=== PATIENT | female | born 1935 | race African-American/Black ===

== ENCOUNTER 2017-04-14 11:33 | Inpatient (IN) | payer MEDICARE, OTHER ==
[2017-04-14] VITALS (9 sets, daily range): BP systolic 88–152; BP diastolic 60–88
[~2017-04-14] VITALS: Ht 165.1 cm; Wt 78.9 kg
[2017-04-14] MEDS ORDERED: IV NORMAL SALINE 1000ML BAG 1,000 ML IV SCH (11:38)
[2017-04-14] MEDS ORDERED: 0.9 % SODIUM CHLORIDE 10 ML DISP.SYRIN. IV PRN (11:45)
[2017-04-14 12:12] LABS: BASO % 1 % (0-3); EOS % 2 % (0-3); HEMATOCRIT 33.1 % (36.0-47.0); HEMOGLOBIN 10.8 g/dL (12.0-15.5); LYMPH # 0.9 x10^3/uL (1.0-4.8); LYMPH % 11 % (24-48); MEAN CORPUSCULAR HEMOGLOBIN 33 pg (25-35); MEAN CORPUSCULAR HGB CONC 33 g/dL (31-37); MEAN CORPUSCULAR VOLUME 100 fL (79-100); MONO % 7 % (0-9); NEUT % 80 % (31-73); PLATELET COUNT 226 x10^3/uL (140-400); RED BLOOD COUNT 3.32 x10^6/uL (3.50-5.40); RED CELL DISTRIBUTION WIDTH 14.4 % (11.5-14.5); WHITE BLOOD COUNT 8.7 x10^3/uL (4.0-11.0)
--- NOTE | 2017-04-14 12:14 | PHYS DOC ---
Past Medical History Past Medical History: Anemia, CAD, CHF, CVA, Dementia, Depression, GERD, High Cholesterol, Hypertension, Hypothyroid, PA, Other Additional Past Medical Histor: CHRONIC BACK PAIN Past Surgical History: Other Additional Past Surgical Histo: UNKNOWN Alcohol Use: None Drug Use: None Adult General Chief Complaint Chief Complaint: ABNORMAL LABS HPI HPI Patient is a 81 year old female who presents with abdominal pain and back pain. Patient presents from residential where she was noted to have acute onset of generalized abdominal pain and lower back pain which is sharp and continuous. She reports associated vomiting times one and one episode of diarrhea. Denies fevers or chills, hematemesis, chest pain, shortness of breath , hematochezia or melena, dysuria or hematuria, extremity numbness or weakness. Staff reported she became hypotensive at that facility. She has history of CAD, CHF, CVA, dementia. PCP is Dr. Gold. Review of Systems Review of Systems Constitutional: Denies fever or chills Eyes: Denies change in visual acuity HENT: Denies nasal congestion or sore throat Respiratory: Denies cough or shortness of breath Cardiovascular: Denies chest pain or edema GI: Reports abdominal pain, nausea, vomiting, and diarrhea, denies bloody stools : Denies dysuria or hematuria Musculoskeletal: Reports back pain, denies Joint pain Integument: Denies rash or skin lesions Neurologic: Denies headache, focal weakness or sensory changes All other systems were reviewed and found to be within normal limits, except as documented in this note. Current Medications Current Medications Current Medications Medications (Trade) Dose Ordered Sig/Jian Start Time Stop Time Status Last Admin Dose Admin Fentanyl Citrate (Fentanyl 2ml Vial) 50 mcg PRN Q15MIN PRN 04/14/17 11:45 04/15/17 11:44 04/14/17 13:50 50 MCG Ondansetron HCl (Zofran) 4 mg 1X ONCE 04/14/17 13:15 04/14/17 13:16 DC 04/14/17 13:28 4 MG Sodium Chloride (Normal Saline Flush) 10 ml QSHIFT PRN 04/14/17 11:45 Allergies Allergies Allergies Coded Allergies Type Severity Reaction Last Updated Verified morphine Allergy Mild VOMITING 02/11/15 No Physical Exam Physical Exam Constitutional: Well developed, well nourished, no acute distress, non-toxic appearance. HENT: Normocephalic, atraumatic, bilateral external ears normal, oropharynx moist, nose normal. Eyes: conjunctiva normal, no discharge. Neck: supple, no stridor. Cardiovascular: RRR, no murmurs, no edema. Lungs & Thorax: LCTAB, no wheezing, no respiratory distress. Abdomen: soft, moderate generalized tenderness without rebound/guarding, no focal RUQ or RLQ tenderness, no masses or pulsatile masses, nondistended. Skin: Warm, dry, no erythema, no rash. Back: No CVA tenderness, no focal spinal tenderness or step offs. Extremities: No tenderness, no edema. symmetric strength & sensation to upper & lower extremities, distal pulses palpable bilateral lower extremities. Neurologic: Alert and oriented X 3, no focal deficits noted. Psychologic: Affect normal, judgement normal, mood normal. Current Patient Data Vital Signs Vital Signs Date Time Temp Pulse Resp B/P (MAP) Pulse Ox O2 Delivery O2 Flow Rate FiO2 04/14/17 13:30 88 22 130/72 (91) 93 Room Air 04/14/17 11:33 98.9 98.9 Lab Values Laboratory Tests Test 04/14/17 11:55 04/14/17 12:30 White Blood Count 8.7 x10^3/uL (4.0-11.0) Red Blood Count 3.32 x10^6/uL (3.50-5.40) L Hemoglobin 10.8 g/dL (12.0-15.5) L Hematocrit 33.1 % (36.0-47.0) L Mean Corpuscular Volume 100 fL (79-100) Mean Corpuscular Hemoglobin 33 pg (25-35) Mean Corpuscular Hemoglobin Concent 33 g/dL (31-37) Red Cell Distribution Width 14.4 % (11.5-14.5) Platelet Count 226 x10^3/uL (140-400) Neutrophils (%) (Auto) 80 % (31-73) H Lymphocytes (%) (Auto) 11 % (24-48) L Monocytes (%) (Auto) 7 % (0-9) Eosinophils (%) (Auto) 2 % (0-3) Basophils (%) (Auto) 1 % (0-3) Neutrophils # (Auto) 7.0 x10^3uL (1.8-7.7) Lymphocytes # (Auto) 0.9 x10^3/uL (1.0-4.8) L Monocytes # (Auto) 0.6 x10^3/uL (0.0-1.1) Eosinophils # (Auto) 0.1 x10^3/uL (0.0-0.7) Basophils # (Auto) 0.0 x10^3/uL (0.0-0.2) Sodium Level 139 mmol/L (136-145) Potassium Level 3.5 mmol/L (3.5-5.1) Chloride Level 101 mmol/L (98-107) Carbon Dioxide Level 22 mmol/L (21-32) Anion Gap 16 (6-14) H Blood Urea Nitrogen 62 mg/dL (7-20) H Creatinine 4.3 mg/dL (0.6-1.0) H Estimated GFR (Cockcroft-Gault) 12.0 Glucose Level 171 mg/dL (70-99) H Lactic Acid Level 0.9 mmol/L (0.4-2.0) Calcium Level 9.8 mg/dL (8.5-10.1) Magnesium Level 1.5 mg/dL (1.8-2.4) L Total Bilirubin 0.4 mg/dL (0.2-1.0) Direct Bilirubin 0.1 mg/dL (0.0-0.2) Aspartate Amino Transferase (AST) 40 U/L (15-37) H Alanine Aminotransferase (ALT) 20 U/L (14-59) Alkaline Phosphatase 49 U/L (46-116) Creatine Kinase 584 U/L (26-192) H Creatine Kinase MB (Mass) 13.3 ng/mL (0.0-3.6) H Creatine Kinase MB Relative Index 2.3 % (0-4) Troponin I Quantitative < 0.017 ng/mL (0.000-0.055) C-Reactive Protein, Quantitative 33.8 mg/L (0-3.3) H Total Protein 7.4 g/dL (6.4-8.2) Albumin 3.8 g/dL (3.4-5.0) Lipase 251 U/L (73-393) Thyroid Stimulating Hormone (TSH) 1.628 uIU/mL (0.358-3.74) Urine Collection Type U cath Urine Color Yellow Urine Clarity Clear Urine pH 5.5 Urine Specific [place] 1.020 Urine Protein Negative mg/dL (NEG-TRACE) Urine Glucose (UA) Negative mg/dL (NEG) Urine Ketones (Stick) Negative mg/dL (NEG) Urine Blood Negative (NEG) Urine Nitrite Negative (NEG) Urine Bilirubin Small (NEG) Urine Urobilinogen Dipstick 0.2 mg/dL (0.2 mg/dL) Urine Leukocyte Esterase Negative (NEG) Urine RBC 0 /HPF (0-2) Urine WBC 0 /HPF (0-4) Urine Amorphous Sediment Present /HPF Urine Bacteria 0 /HPF (0-FEW) Urine Hyaline Casts Many /HPF Laboratory Tests 04/14/17 11:55 Laboratory Tests 04/14/17 11:55 EKG EKG interpreted by me: irregularly irregular rate 96 afib/flutter, LBBB[] Radiology/Procedures Radiology/Procedures PROCEDURE: CT ABDOMEN PELVIS WO CONTRAST CT study of the abdomen and pelvis without contrast Indications: Abdominal pain which radiates to the back. Hypotension. Technique: Noncontrast helical CT scanning of the abdomen and pelvis was performed. Without contrast, the sensitivity to detect organ pathology and GI tract pathology is decreased. PQRS Compliance Statement: One or more of the following individualized dose reduction techniques were utilized for this examination: 1. Automated exposure control 2. Adjustment of the mA and/or kV according to patient size 3. Use of iterative reconstruction technique Comparison: August 03, 2010 CT study. Findings: The liver and spleen and pancreas are homogeneous in appearance on this noncontrast study. The gallbladder is surgically absent. No adrenal mass is evident. No hydronephrosis or hydroureter is seen. Small hyperdense posterior left renal cyst is seen which is unchanged in size from the previous study. The urinary bladder wall is smooth. There is tiny bubble of air within the dome of the urinary bladder. This may be due to recent catheterization or the short length of the female urethra. There is abdominal aortic aneurysm which starts just below the origin of the renal arteries. The aneurysm measures up to 6.6 cm in greatest AP or transverse dimension. This has increased in size from the previous study when it measured 4.4 cm. There is some calcified plaque within the anterior wall of the aneurysm. Displacement of the calcified wall secondary to a dissection or bleeding within the wall of the aneurysm are certainly possible. No periaortic soft tissue thickening or fluid is evident. Calcified plaque formation is seen within the iliac arteries bilaterally. Sigmoid diverticulosis is seen without diverticulitis. No obstructive bowel pattern is seen. The appendix is distended measuring 10 mm and contains an appendicolith. No free air or free fluid is evident. No enlarged abdominal or pelvic lymphadenopathy is seen. Bibasilar atelectasis is seen. The heart size is enlarged. No osteolytic process is seen. Grade 1 anterolisthesis of L4-5 and left L5-S1 is seen. IMPRESSION: Enlarging mid and distal abdominal aortic aneurysm now measuring up to 6.6 cm in greatest caliber. There is some calcification within the anterior wall of the aneurysm. This could represent calcified plaque but displacement of the wall secondary to a dissection or bleeding within the wall of the aneurysm are certainly possible. The appendix contains a appendicolith within the tip. The appendix is mildly distended measuring up to 10 mm. This is abnormal and may be seen with early appendicitis. No periappendiceal inflammatory change or free fluid is seen however. Cardiomegaly. DICTATED and SIGNED BY: VALERIANO HOLCOMB MD DATE: 04/14/17 1252[] Course & Med Decision Making Course & Med Decision Making Pertinent Labs and Imaging studies reviewed. (See chart for details) The patient presents with abdominal pain and back pain with reported hypotension at her residential. Here she is hypertensive. She is a vague historian likely because of her history of dementia. Reportedly she has had acute onset of anemia with 3. decrease in hemoglobin and onset acute renal failure, previous baseline 1.3. Transferred from residential for further evaluation, here appears to be in no distress. Hemoglobin 10.8 here, acute renal failure with creatinine of 4.3. CT concerning for enlarging abdominal aortic aneurysm, difficult to fully evaluate as she could not receive IV contrast. Concerning for possible dissection or bleeding but no evidence of hematoma on this study. Consulted with Dr. Fermin of vascular surgery who recommends admission at this time and he will evaluate the patient to determine next steps of treatment. At this time there is no family presents to have discussion of goals of care but patient has paperwork indicating full CODE STATUS and she herself indicates that this is her wish. She does not know for sure if she would wish to undergo an aggressive surgeries so I will let her discuss at length with the surgeon who would perform the procedure. Also discussed case with Dr. Whelan of general surgery as there was possible early appendicitis. Certainly this is a lesser concern that her potentially life- threatening condition with aortic aneurysm. For now he recommends medical management, will give Zosyn at this time. They will consult for possible surgical management pending vascular surgery recommendations. Discussed with Dr. Gold who agrees to admit to inpatient status, to the ICU. We will type and cross for blood to hold to be administered emergently in the event of acute decompensation. The patient is being admitted in critical condition, though vitals stable at this time. Critical care time: 40 minutes [] Dragon Disclaimer Dragon Disclaimer This electronic medical record was generated, in whole or in part, using a voice recognition dictation system. Departure Departure Impression: Primary Impression: Enlarging abdominal aortic aneurysm Additional Impressions: Acute renal failure Anemia Referrals: FAUSTO GOLD MD (PCP) Problem Qualifiers RENE GIVENS MD Apr 14, 2017 12:14
[2017-04-14] MEDS ORDERED: ONDANSETRON PF 4 MG/2 ML VIAL. IV ONE ×2 (12:15→13:15)
[2017-04-14] MEDS: fentaNYL PF VIAL 100 MCG/2 ML VIAL IV PRN ×3 (12:32→20:48)
[2017-04-14 12:43] LABS: CALCIUM 9.8 mg/dL (8.5-10.1); CREATININE 4.3 mg/dL (0.6-1.0); POTASSIUM 3.5 mmol/L (3.5-5.1)
[2017-04-14 12:47] LABS: ALBUMIN 3.8 g/dL (3.4-5.0); DIRECT BILIRUBIN 0.1 mg/dL (0.0-0.2); MAGNESIUM 1.5 mg/dL (1.8-2.4); TOTAL BILIRUBIN 0.4 mg/dL (0.2-1.0); TOTAL PROTEIN 7.4 g/dL (6.4-8.2)
[2017-04-14 12:49] LABS: BILIRUBIN,URINE SMALL (NEG); GLUCOSE,URINE NEGATIVE (NEG); NITRITE,URINE NEGATIVE (NEG); PH,URINE 5.5; PROTEIN,URINE NEGATIVE (NEG-TRACE); UROBILINOGEN,URINE 0.2 mg/dL (0.2 mg/dL)
[2017-04-14 12:56] LABS: C-REACTIVE PROTEIN 33.8 mg/L (0-3.3)
[2017-04-14 12:58] LABS: BACTERIA,URINE 0 /HPF (0-FEW); RBC,URINE 0 /HPF (0-2); WBC,URINE 0 /HPF (0-4)
--- NOTE | 2017-04-14 13:12 | RAD ---
CT study of the abdomen and pelvis without contrast Indications: Abdominal pain which radiates to the back. Hypotension. Technique: Noncontrast helical CT scanning of the abdomen and pelvis was performed. Without contrast, the sensitivity to detect organ pathology and GI tract pathology is decreased. PQRS Compliance Statement: One or more of the following individualized dose reduction techniques were utilized for this examination: 1. Automated exposure control 2. Adjustment of the mA and/or kV according to patient size 3. Use of iterative reconstruction technique Comparison: August 03, 2010 CT study. Findings: The liver and spleen and pancreas are homogeneous in appearance on this noncontrast study. The gallbladder is surgically absent. No adrenal mass is evident. No hydronephrosis or hydroureter is seen. Small hyperdense posterior left renal cyst is seen which is unchanged in size from the previous study. The urinary bladder wall is smooth. There is tiny bubble of air within the dome of the urinary bladder. This may be due to recent catheterization or the short length of the female urethra. There is abdominal aortic aneurysm which starts just below the origin of the renal arteries. The aneurysm measures up to 6.6 cm in greatest AP or transverse dimension. This has increased in size from the previous study when it measured 4.4 cm. There is some calcified plaque within the anterior wall of the aneurysm. Displacement of the calcified wall secondary to a dissection or bleeding within the wall of the aneurysm are certainly possible. No periaortic soft tissue thickening or fluid is evident. Calcified plaque formation is seen within the iliac arteries bilaterally. Sigmoid diverticulosis is seen without diverticulitis. No obstructive bowel pattern is seen. The appendix is distended measuring 10 mm and contains an appendicolith. No free air or free fluid is evident. No enlarged abdominal or pelvic lymphadenopathy is seen. Bibasilar atelectasis is seen. The heart size is enlarged. No osteolytic process is seen. Grade 1 anterolisthesis of L4-5 and left L5-S1 is seen. IMPRESSION: Enlarging mid and distal abdominal aortic aneurysm now measuring up to 6.6 cm in greatest caliber. There is some calcification within the anterior wall of the aneurysm. This could represent calcified plaque but displacement of the wall secondary to a dissection or bleeding within the wall of the aneurysm are certainly possible. The appendix contains a appendicolith within the tip. The appendix is mildly distended measuring up to 10 mm. This is abnormal and may be seen with early appendicitis. No periappendiceal inflammatory change or free fluid is seen however. Cardiomegaly.
[2017-04-14 13:29] LABS: CKMB MASS 13.3 ng/mL (0.0-3.6)
[2017-04-14] MEDS: IV NORMAL SALINE 1000ML BAG 1,000 ML IV SCH ×2 (13:47→23:58)
[2017-04-14] MEDS ORDERED: ONDANSETRON PF 4 MG/2 ML VIAL. IV PRN (14:00)
--- NOTE | 2017-04-14 14:02 | EKG ---
[facility] [address] [place] [address] Test Date: 2017-04-14 Test Time: 12:14:18 Pat Name: EDWIN ADAMS Department: Room: 114 1 Gender: F [employer]: : 1935 Requested By: JOSHUA DOMINGO Order Number: [id number] Reading MD: Cezar Jamil MD Measurements Intervals [place] Rate: 96 P: [place]: QRS: 28 QRSD: 162 T: 108 QT: 394 QTc: 505 Interpretive Statements SR LBBB NON-SPECIFIC ST/T CHANGES Electronically Signed On 04-18-2017 10:42:31 COLORING ROOM MAN by Cezar Jamil MD
[2017-04-14] MEDS ORDERED: PIPERACILLIN/TAZOBACTAM 4.5 GM in IV DEXTROSE 5% 100 ML IV ONE (14:15)
[2017-04-14] MEDS ORDERED: PIPERACILLIN/TAZO IV Push 3.375 GM VIAL. IVP ONE (14:15)
--- NOTE | 2017-04-14 15:44 | EKG ---
[facility] [address] [place] [address] Test Date: 2017-04-14 Test Time: 15:40:51 Pat Name: EDWIN ADAMS Department: Room: 114 1 Gender: F Online Producer: OPAL : 1935 Requested By: FAUSTO BATEMAN Order Number: [id number] Reading MD: Cezar Jamil MD Measurements Intervals [place] Rate: 96 P: [place]: QRS: 43 QRSD: 156 T: 102 QT: 394 QTc: 499 Interpretive Statements ATRIAL FIB/FLUTTER NON SPECIFIC INTRAVENTRICULAR BLOCK ABNORMAL ECG Electronically Signed On 04-18-2017 10:48:17 [employer] DIETITIAN by Cezar Jamil MD
[2017-04-14] MEDS ORDERED: BACL10TA PO (16:25)
[2017-04-14] MEDS ORDERED: MAGN400O7 PO (16:25)
[2017-04-14] MEDS ORDERED: ACET325T9 PO (16:25)
[2017-04-14] MEDS ORDERED: RANO500T2 PO (16:25)
[2017-04-14] MEDS ORDERED: LOPE2CAP PO (16:25)
[2017-04-14] MEDS ORDERED: HYDR-2868 PO (16:25)
[2017-04-14] MEDS ORDERED: LEVO100T5 PO (16:25)
[2017-04-14] MEDS ORDERED: SERT50TA8 PO (16:25)
[2017-04-14] MEDS ORDERED: ISOS60TA2 PO (16:25)
[2017-04-14] MEDS ORDERED: ASPI1CPM PO (16:25)
[2017-04-14] MEDS ORDERED: LISI-334 PO (16:25)
[2017-04-14] MEDS ORDERED: FURO40TA4 PO (16:25)
[2017-04-14] MEDS ORDERED: OXYB5TAB PO (16:25)
[2017-04-14] MEDS ORDERED: EZET10TA18 PO (16:25)
[2017-04-14] MEDS ORDERED: GABA-586 PO (16:25)
[2017-04-14] MEDS ORDERED: LOPE2CAP3 PO (16:25)
[2017-04-14] MEDS ORDERED: METO-239 PO (16:25)
[2017-04-14] MEDS ORDERED: FAMO20TA5 PO (16:25)
[2017-04-14] MEDS ORDERED: CHLO25TA PO (16:25)
[2017-04-14 16:49] LABS: BILIRUBIN,URINE NEGATIVE (NEG); GLUCOSE,URINE NEGATIVE (NEG); NITRITE,URINE NEGATIVE (NEG); PH,URINE 5.5; PROTEIN,URINE NEGATIVE (NEG-TRACE); UROBILINOGEN,URINE 0.2 mg/dL (0.2 mg/dL)
[2017-04-14 16:58] LABS: BACTERIA,URINE 0 /HPF (0-FEW); WBC,URINE 0 /HPF (0-4)
[2017-04-14 16:59] LABS: SQUAMOUS EPITHELIAL CELL,UR FEW /LPF
--- NOTE | 2017-04-14 17:01 | PDOC2 ---
CONSULT Date of Consult Date of Consult DATE: 04/14/17 TIME: 15:14 Reason for Consult Reason for Consult: Abdominal aortic aneurysm Referring Physician Referring Physician: Elana Gold M.D. Identification/Chief Complaint Chief Complaint Acute onset of abdominal and low back pain with diarrhea. Problems: (1) Cardiac dysrhythmia (2) Enlarging abdominal aortic aneurysm (3) Acute renal failure (4) CVA (cerebral vascular accident) Source Source: Chart review, Patient History of Present Illness Reason for Visit: This is a 81-year-old female with a history of dementia who resides at an assisted living residence. Staff reported that the patient developed acute onset of abdominal pain, lower back pain and diarrhea. Emergency room records state the patient had emesis x1. A CT of the abdomen and pelvis was obtained and concerning for an abdominal aortic aneurysm measuring 6.6 cm in AP dimension. Apparently, the CT was compared to a previous CT from 2010 which does indicate AAA enlargement from 4.4 cm. Additionally, the CT indicates an appendix that contains a appendicolith within the tip and is mildly distended measuring up to 10 mm. Previous records have been reviewed. The patient does have a history of CAD having had coronary artery bypass surgery and a history of remote stroke 2 years ago. The patient tells me the staff at her facility stated her blood pressure was low but upon arrival to the Emergency Room, she has been either hypertensive or normotensive. Vascular Surgery has been consulted for an abdominal aortic aneurysm with concern for leaking or dissection based upon presenting symptoms. The CT has been reviewed by Dr. Jenny Desai and she does not feel the aneurysm is leaking or ruptured at this time. The patient is being seen in the intensive care unit and is comfortable. There is no family at the bedside. Past Medical History Past Medical History 1. Abdominal aortic aneurysm. 2. Coronary artery disease. 3. Acute renal failure. 4. CVA. 5. Ovarian cancer. 6. Dementia. 7. Hypertension. 8. Obesity. Past Surgical History Past Surgical History 1. Coronary artery bypass surgery with SVG harvest to the right leg. 2. Hysterectomy for ovarian cancer. 3. Open cholecystectomy. Family History Family History: No Significant Social History Social History 1. Previous history of smoking and quit many years ago. 2. Does not drink alcoholic beverages. 3. of many years. 4. Has several children. Daughter and grand kids live in [place]. Other children are reported to not have contact with the patient. 5. Patient resides in Assisted Living residence. Current Problem List Problem List Problems Medical Problems: (1) Abdominal aortic aneurysm Status: Acute (2) Acute renal failure Status: Acute (3) Anemia Status: Acute (4) Enlarging abdominal aortic aneurysm Status: Acute Current Medications Current Medications Current Medications Sodium Chloride 1,000 ml @ 1,000 mls/hr Q1H IV Last administered on 04/14/17 12:28; Start 04/14/17 at 11:38; Stop 04/14/17 at 12:37; Status DC Ondansetron HCl (Zofran) 4 mg 1X ONCE IV Last administered on 04/14/17 12:30 ; Start 04/14/17 at 12:15; Stop 04/14/17 at 12:16; Status DC Fentanyl Citrate (Fentanyl 2ml Vial) 25 mcg PRN Q2HR PRN IV PAIN; Start at 14:00; Stop 04/15/17 at 13:59 Sodium Chloride 1,000 ml @ 100 mls/hr Q10H IV ; Start 04/14/17 at 13:47; Stop 04/15/17 at 13:46 Piperacillin Sod/ Tazobactam Sod 4.5 gm/Dextrose 100 ml @ 200 mls/hr 1X ONCE IV ; Start 04/14/17 at 14:15; Stop 04/14/17 at 14:44; Status UNV Allergies Allergies: Coded Allergies: morphine (Unverified Allergy, Mild, VOMITING, 02/11/15) ROS General: No: Chills, Fatigue, Malaise, Appetite HEENT: YES: Heacaches, Sore Throat Respiratory: No: Cough, Shortness of breath, Tachypnea, Wheezing Cardiovascular: No Chest Pain, No Palpitations Gastrointestinal: Yes Vomiting, Yes Abdominal Pain, Yes Diarrhea Neurological: Yes Other (Dementia) Skin: Yes Other (Well-healed right upper abdominal incision, mid-chest incision , lower horizontal incision, right leg incision.) Physical Exam General: Alert, Cooperative, No acute distress HEENT: Atraumatic, PERRLA Lungs: Clear to auscultation, Normal air movement Heart: Normal S1, Normal S2, No murmurs, Other (Irregularly irregular rhythm. Appears to be atrial flutter with controlled ventricular rate.) Abdomen: Normal bowel sounds, Soft, Other (Right lower abdominal tenderness with palpatation. Midline abdominal pulsation with deep palpation.) Extremities: No edema, Normal pulses (Palpable bilateral brachial, radial, femoral and dorsalis pedal pulses.) Skin: No rashes, No breakdown Neuro: Strength at 5/5 X4 ext Psych/Mental Status: Mood NL MUSCULOSKELETAL: Full range of motion without pain Vitals VITALS Vital Signs Date Time Temp Pulse Resp B/P (MAP) Pulse Ox O2 Delivery O2 Flow Rate FiO2 04/14/17 14:33 77 23 114/77 (89) 92 Room Air 04/14/17 11:33 98.9 98.9 Labs Labs Laboratory Tests Test 04/14/17 11:55 04/14/17 12:30 White Blood Count 8.7 x10^3/uL (4.0-11.0) Red Blood Count 3.32 x10^6/uL (3.50-5.40) Hemoglobin 10.8 g/dL (12.0-15.5) Hematocrit 33.1 % (36.0-47.0) Mean Corpuscular Volume 100 fL (79-100) Mean Corpuscular Hemoglobin 33 pg (25-35) Mean Corpuscular Hemoglobin Concent 33 g/dL (31-37) Red Cell Distribution Width 14.4 % (11.5-14.5) Platelet Count 226 x10^3/uL (140-400) Neutrophils (%) (Auto) 80 % (31-73) Lymphocytes (%) (Auto) 11 % (24-48) Monocytes (%) (Auto) 7 % (0-9) Eosinophils (%) (Auto) 2 % (0-3) Basophils (%) (Auto) 1 % (0-3) Neutrophils # (Auto) 7.0 x10^3uL (1.8-7.7) Lymphocytes # (Auto) 0.9 x10^3/uL (1.0-4.8) Monocytes # (Auto) 0.6 x10^3/uL (0.0-1.1) Eosinophils # (Auto) 0.1 x10^3/uL (0.0-0.7) Basophils # (Auto) 0.0 x10^3/uL (0.0-0.2) Sodium Level 139 mmol/L (136-145) Potassium Level 3.5 mmol/L (3.5-5.1) Chloride Level 101 mmol/L (98-107) Carbon Dioxide Level 22 mmol/L (21-32) Anion Gap 16 (6-14) Blood Urea Nitrogen 62 mg/dL (7-20) Creatinine 4.3 mg/dL (0.6-1.0) Estimated GFR (Cockcroft-Gault) 12.0 Glucose Level 171 mg/dL (70-99) Lactic Acid Level 0.9 mmol/L (0.4-2.0) Calcium Level 9.8 mg/dL (8.5-10.1) Magnesium Level 1.5 mg/dL (1.8-2.4) Total Bilirubin 0.4 mg/dL (0.2-1.0) Direct Bilirubin 0.1 mg/dL (0.0-0.2) Aspartate Amino Transf (AST/SGOT) 40 U/L (15-37) Alanine Aminotransferase (ALT/SGPT) 20 U/L (14-59) Alkaline Phosphatase 49 U/L (46-116) Creatine Kinase 584 U/L (26-192) Creatine Kinase MB (Mass) 13.3 ng/mL (0.0-3.6) Creatine Kinase MB Relative Index 2.3 % (0-4) Troponin I Quantitative < 0.017 ng/mL (0.000-0.055) C-Reactive Protein, Quantitative 33.8 mg/L (0-3.3) Total Protein 7.4 g/dL (6.4-8.2) Albumin 3.8 g/dL (3.4-5.0) Lipase 251 U/L (73-393) Thyroid Stimulating Hormone (TSH) 1.628 uIU/mL (0.358-3.74) Urine Collection Type U cath Urine Color Yellow Urine Clarity Clear Urine pH 5.5 Urine Specific [place] 1.020 Urine Protein Negative mg/dL (NEG-TRACE) Urine Glucose (UA) Negative mg/dL (NEG) Urine Ketones (Stick) Negative mg/dL (NEG) Urine Blood Negative (NEG) Urine Nitrite Negative (NEG) Urine Bilirubin Small (NEG) Urine Urobilinogen Dipstick 0.2 mg/dL (0.2 mg/dL) Urine Leukocyte Esterase Negative (NEG) Urine RBC 0 /HPF (0-2) Urine WBC 0 /HPF (0-4) Urine Amorphous Sediment Present /HPF Urine Bacteria 0 /HPF (0-FEW) Urine Hyaline Casts Many /HPF Laboratory Tests Test 04/14/17 11:55 04/14/17 12:30 White Blood Count 8.7 x10^3/uL (4.0-11.0) Red Blood Count 3.32 x10^6/uL (3.50-5.40) Hemoglobin 10.8 g/dL (12.0-15.5) Hematocrit 33.1 % (36.0-47.0) Mean Corpuscular Volume 100 fL (79-100) Mean Corpuscular Hemoglobin 33 pg (25-35) Mean Corpuscular Hemoglobin Concent 33 g/dL (31-37) Red Cell Distribution Width 14.4 % (11.5-14.5) Platelet Count 226 x10^3/uL (140-400) Neutrophils (%) (Auto) 80 % (31-73) Lymphocytes (%) (Auto) 11 % (24-48) Monocytes (%) (Auto) 7 % (0-9) Eosinophils (%) (Auto) 2 % (0-3) Basophils (%) (Auto) 1 % (0-3) Neutrophils # (Auto) 7.0 x10^3uL (1.8-7.7) Lymphocytes # (Auto) 0.9 x10^3/uL (1.0-4.8) Monocytes # (Auto) 0.6 x10^3/uL (0.0-1.1) Eosinophils # (Auto) 0.1 x10^3/uL (0.0-0.7) Basophils # (Auto) 0.0 x10^3/uL (0.0-0.2) Sodium Level 139 mmol/L (136-145) Potassium Level 3.5 mmol/L (3.5-5.1) Chloride Level 101 mmol/L (98-107) Carbon Dioxide Level 22 mmol/L (21-32) Anion Gap 16 (6-14) Blood Urea Nitrogen 62 mg/dL (7-20) Creatinine 4.3 mg/dL (0.6-1.0) Estimated GFR (Cockcroft-Gault) 12.0 Glucose Level 171 mg/dL (70-99) Lactic Acid Level 0.9 mmol/L (0.4-2.0) Calcium Level 9.8 mg/dL (8.5-10.1) Magnesium Level 1.5 mg/dL (1.8-2.4) Total Bilirubin 0.4 mg/dL (0.2-1.0) Direct Bilirubin 0.1 mg/dL (0.0-0.2) Aspartate Amino Transf (AST/SGOT) 40 U/L (15-37) Alanine Aminotransferase (ALT/SGPT) 20 U/L (14-59) Alkaline Phosphatase 49 U/L (46-116) Creatine Kinase 584 U/L (26-192) Creatine Kinase MB (Mass) 13.3 ng/mL (0.0-3.6) Creatine Kinase MB Relative Index 2.3 % (0-4) Troponin I Quantitative < 0.017 ng/mL (0.000-0.055) C-Reactive Protein, Quantitative 33.8 mg/L (0-3.3) Total Protein 7.4 g/dL (6.4-8.2) Albumin 3.8 g/dL (3.4-5.0) Lipase 251 U/L (73-393) Thyroid Stimulating Hormone (TSH) 1.628 uIU/mL (0.358-3.74) Urine Collection Type U cath Urine Color Yellow Urine Clarity Clear Urine pH 5.5 Urine Specific [place] 1.020 Urine Protein Negative mg/dL (NEG-TRACE) Urine Glucose (UA) Negative mg/dL (NEG) Urine Ketones (Stick) Negative mg/dL (NEG) Urine Blood Negative (NEG) Urine Nitrite Negative (NEG) Urine Bilirubin Small (NEG) Urine Urobilinogen Dipstick 0.2 mg/dL (0.2 mg/dL) Urine Leukocyte Esterase Negative (NEG) Urine RBC 0 /HPF (0-2) Urine WBC 0 /HPF (0-4) Urine Amorphous Sediment Present /HPF Urine Bacteria 0 /HPF (0-FEW) Urine Hyaline Casts Many /HPF Images Images CT study of the abdomen and pelvis without contrast Indications: Abdominal pain which radiates to the back. Hypotension. Comparison: August 03, 2010 CT study. Findings: The liver and spleen and pancreas are homogeneous in appearance on this noncontrast study. The gallbladder is surgically absent. No adrenal mass is evident. No hydronephrosis or hydroureter is seen. Small hyperdense posterior left renal cyst is seen which is unchanged in size from the previous study. The urinary bladder wall is smooth. There is tiny bubble of air within the dome of the urinary bladder. This may be due to recent catheterization or the short length of the female urethra. There is abdominal aortic aneurysm which starts just below the origin of the renal arteries. The aneurysm measures up to 6.6 cm in greatest AP or transverse dimension. This has increased in size from the previous study when it measured 4.4 cm. There is some calcified plaque within the anterior wall of the aneurysm. Displacement of the calcified wall secondary to a dissection or bleeding within the wall of the aneurysm are certainly possible. No periaortic soft tissue thickening or fluid is evident. Calcified plaque formation is seen within the iliac arteries bilaterally. Sigmoid diverticulosis is seen without diverticulitis. No obstructive bowel pattern is seen. The appendix is distended measuring 10 mm and contains an appendicolith. No free air or free fluid is evident. No enlarged abdominal or pelvic lymphadenopathy is seen. Bibasilar atelectasis is seen. The heart size is enlarged. No osteolytic process is seen. Grade 1 anterolisthesis of L4-5 and left L5-S1 is seen. IMPRESSION: Enlarging mid and distal abdominal aortic aneurysm now measuring up to 6.6 cm in greatest caliber. There is some calcification within the anterior wall of the aneurysm. This could represent calcified plaque but displacement of the wall secondary to a dissection or bleeding within the wall of the aneurysm are certainly possible. The appendix contains a appendicolith within the tip. The appendix is mildly distended measuring up to 10 mm. This is abnormal and may be seen with early appendicitis. No periappendiceal inflammatory change or free fluid is seen however. Cardiomegaly. Assessment/Plan Assessment/Plan 1. Enlarging abdominal aortic aneurysm in the setting of acute onset of abdominal pain with back pain, not felt to be leaking or ruptured at this time. Dr. Desai has reviewed the CT of the abdomen and pelvis and Dr. Fermin has discussed the case with the Emergency Room physician. I have spoke with the patient's daughter. She was aware that her mother had an AAA that measured 4.4 cm and understood that greater than 5.0 cm in size, would present a discussion about repair. The patient is not experiencing back or abdominal pain at this time and seems quite comfortable. Therefore, we will need to obtain additional consults to assist with determining next steps and risk for AAA repair. Should the patient and family wish to proceed with surgical repair, the patient will need a CTA to see if she would qualify for endograft repair. Unfortunately, the patient's current renal failure does inhibit obtaining this information at this time. 2. Acute renal failure with creatinine 4.3 upon admission. Previous creatinine levels prior to this admission were normal 2 years ago to 1.4 earlier this year. Normal saline IVF's infusing at 100ml/hr. This will be increased to 125ml/hr. Will consult Nephrology to assist. Acute renal failure most likely with multifactoral causes. Stop all nephrotoxic medication at this time. Patient has been on diuretics and ACE1 inhibitors. Additionally, may have experienced hypotension as reported by staff at assisted living. Hold anti -hypertensive medications until blood pressure trends improve. However, do not want to allow excessive hypertension with 6.6 cm AAA. Will have subramanian catheter placed to obtain UA and monitor I&O's closely. 3. Coronary artery disease with history of CABG. Patient has been on beta- juliet therapy prior to admission. Bedside monitor and 12-lead EKG do show atrial flutter with controlled ventricular rate. Consideration for cardiology consultation is recommended and would be required should the patient and family be desirous of AAA repair regardless of approach. Patient does have some elevated enzymes, although troponin-i not elevated. 4. Possible appendicitis based upon CT results. Dr. Whelan has been consulted. Await recommendation from General Surgery. The patient does have tenderness specific to right lower abdominal quadrant. Lactic acid level normal upon admission. 5. History of CVA. Patient has been on Aggrenox therapy. In light of cardiac arrhythmia, would recommend continuing this unless General Surgery feels otherwise. 6. Dementia. I have spoke with the patient's daughter, Rosaura. She reportedly has DPOA and understands that she will need to be involved in decision-making for the patient as additional recommendations obtained with consults. 7. Hypertension. Currently, the patient's blood pressure has been low with SBP in 80's. IVF's to continue. Continue to hold anti-hypertensive medications for now and continue to monitor closely in the Intensive Care Unit. 8. Hypothyroidism. Continue oral supplementation. Thank you for the opportunity to participate in the care of this patient. I have discussed these findings with Dr. Fermin. Vascular Surgery will continue to follow. ABHIJIT MANZO APRN Apr 14, 2017 17:01
[2017-04-15] VITALS (24 sets, daily range): BP systolic 105–160; BP diastolic 57–89
[2017-04-15 06:30] LABS: CREATININE 2.7 mg/dL (0.6-1.0); GFR 20.5
[2017-04-15 06:32] LABS: POTASSIUM 3.9 mmol/L (3.5-5.1)
[2017-04-15 07:08] LABS: BASO % 1 % (0-3); EOS % 3 % (0-3); HEMATOCRIT 32.9 % (36.0-47.0); HEMOGLOBIN 10.5 g/dL (12.0-15.5); LYMPH # 1.5 x10^3/uL (1.0-4.8); LYMPH % 19 % (24-48); MEAN CORPUSCULAR HEMOGLOBIN 32 pg (25-35); MEAN CORPUSCULAR HGB CONC 32 g/dL (31-37); MEAN CORPUSCULAR VOLUME 102 fL (79-100); MONO % 8 % (0-9); NEUT % 70 % (31-73); PLATELET COUNT 192 x10^3/uL (140-400); RED BLOOD COUNT 3.24 x10^6/uL (3.50-5.40); RED CELL DISTRIBUTION WIDTH 14.9 % (11.5-14.5); WHITE BLOOD COUNT 8.3 x10^3/uL (4.0-11.0)
--- NOTE | 2017-04-15 07:41 | PDOC ---
Provider Note Provider Note Vascular F/U AAA Non contrast CT looks like AAA too close to lt renal, severely angulated, calcifications in lt fem art, Creat. 4, , all make a stent graft amarginal choice Ideally needs a CT angio if we can get her renal function back to baseline Check juana. femoral U/S Will follow TIMOTHY MANZO MD Apr 15, 2017 07:41
[2017-04-15] MEDS: IV NORMAL SALINE 1000ML BAG 1,000 ML IV SCH (07:48)
[2017-04-15] MEDS ORDERED: PIPERACILLIN/TAZOBACTAM 2.25 GM in IV DEXTROSE 5% 50 ML IV SCH (08:30)
[2017-04-15] MEDS: fentaNYL PF VIAL 100 MCG/2 ML VIAL IV PRN ×5 (08:48→22:11)
--- NOTE | 2017-04-15 08:51 | PDOC2 ---
LILI MORENO COTTRELL BLOWER 04/15/17 0851: CONSULT Date of Consult Date of Consult DATE: 04/15/17 TIME: 08:44 Reason for Consult Reason for Consult: possible appendicitis Referring Physician Referring Physician: ER Identification/Chief Complaint Chief Complaint abd pain Problems: Source Source: Caregiver, Chart review, Patient History of Present Illness Reason for Visit: Difficult to obtain an accurate history from patient due to her dementia. Chronic pain in back, AAA known. Acute development of abdominal pain and diarrhea--unsure how long this has been occurring, however from reports seems within last few days Past Medical History Cardiovascular: AFIB, CAD, CHF, HTN, [place], Hyperlipidemia CENTRAL NERVOUS SYSTEM: CVA, Dementia Psych: Anxiety, Depression Renal/: Chronic renal insuff Past Surgical History Past Surgical History: Cholecystectomy, CABG, Hysterectomy Family History Family History: No Significant Social History No ALCOHOL: none Drugs: None Lives: Longterm Current Problem List Problem List Problems Medical Problems: (1) Abdominal aortic aneurysm Status: Acute (2) Acute renal failure Status: Acute (3) Anemia Status: Acute (4) Enlarging abdominal aortic aneurysm Status: Acute Current Medications Current Medications Current Medications Fentanyl Citrate (Fentanyl 2ml Vial) 50 mcg PRN Q15MIN PRN IV PAIN GREATER THAN 3/10 Last administered on 04/14/17 13:50; Start 04/14/17 at 11:45; Stop 04/14/17 at 17:35; Status DC Sodium Chloride 1,000 ml @ 1,000 mls/hr Q1H IV Last administered on 04/14/17 12:28; Start 04/14/17 at 11:38; Stop 04/14/17 at 12:37; Status DC Sodium Chloride (Normal Saline Flush) 10 ml QSHIFT PRN IV AFTER MEDS AND BLOOD DRAWS; Start 04/14/17 at 11:45 Ondansetron HCl (Zofran) 4 mg 1X ONCE IV Last administered on 04/14/17 12:30 ; Start 04/14/17 at 12:15; Stop 04/14/17 at 12:16; Status DC Ondansetron HCl (Zofran) 4 mg 1X ONCE IV Last administered on 04/14/17 13:28 ; Start 04/14/17 at 13:15; Stop 04/14/17 at 13:16; Status DC Ondansetron HCl (Zofran) 4 mg PRN Q8HRS PRN IV NAUSEA/VOMITING; Start 04/14/17 at 14:00; Stop 04/15/17 at 13:59 Fentanyl Citrate (Fentanyl 2ml Vial) 25 mcg PRN Q2HR PRN IV PAIN Last administered on 04/14/17 20:48; Start 04/14/17 at 14:00; Stop 04/15/17 at 13: 59 Sodium Chloride 1,000 ml @ 125 mls/hr Q8H IV Last administered on 04/15/17 07:48; Start 04/14/17 at 13:47; Stop 04/15/17 at 13:46 Piperacillin Sod/ Tazobactam Sod 4.5 gm/Dextrose 100 ml @ 200 mls/hr 1X ONCE IV ; Start 04/14/17 at 14:15; Stop 04/14/17 at 14:44; Status UNV Piperacillin Sod/ Tazobactam Sod (Zosyn) 3.375 gm 1X ONCE IVP Last administered on 04/14/17 14:20; Start 04/14/17 at 14:15; Stop 04/14/17 at 14:16 ; Status DC Piperacillin Sod/ Tazobactam Sod 2.25 gm/Dextrose 50 ml @ 100 mls/hr Q8H IV ; Start 04/15/17 at 08:30; Status UNV Piperacillin Sod/ Tazobactam Sod (Zosyn) 2.25 gm Q8HRS IVP ; Start 04/15/17 at 09:00 Active Scripts Active Reported Gabapentin 300 Mg Capsule 300 Mg PO QHS Famotidine 20 Mg Tablet 20 Mg PO HS Hydralazine Hcl 25 Mg Tablet 1 Tab PO TID Tylenol (Acetaminophen) 325 Mg Tablet 1-2 Tab PO TID Ranexa (Ranolazine) 500 Mg Tab.er.12h 1 Tab PO BID Aggrenox 25 Mg-200 Mg Capsule (Aspirin/Dipyridamole) 1 Each Cpmp.12hr 1 Cap PO BID Milk Of Magnesia (Magnesium Hydroxide) 400 Mg/5 Ml Oral.susp 30 Ml PO PRN PRN Loperamide (Loperamide Hcl) 2 Mg Capsule 4 Mg PO PRN PRN Baclofen 10 Mg Tablet 0.5 Tab PO PRN QHS PRN Anti-Diarrheal (Loperamide Hcl) 2 Mg Capsule 2 Mg PO PRN Sertraline Hcl 50 Mg Tablet 50 Mg PO DAILY Oxybutynin Chloride Er (Oxybutynin Chloride) 5 Mg Tab.er.24 1 Tab PO DAILY Metoprolol Succinate ( Xl ) (Metoprolol Succinate) 25 Mg Tab.er.24h 1 Tab PO DAILY Lisinopril 20 Mg Tablet 1 Tab PO DAILY Levothyroxine Sodium 100 Mcg Tablet 1 Tab PO DAILY Isosorbide Mononitrate Er (Isosorbide Mononitrate) 60 Mg Tab.er.24h 1 Tab PO DAILY Furosemide 40 Mg Tablet 1 Tab PO DAILY Zetia (Ezetimibe) 10 Mg Tablet 1 Tab PO DAILY Chlorthalidone 25 Mg Tablet 1 Tab PO DAILY Allergies Allergies: Coded Allergies: morphine (Unverified Allergy, Mild, VOMITING, 02/11/15) ROS General: No: Chills, Other (fevers) PSYCHOLOGICAL ROS: No: Anxiety, Depression Eyes: No Blurry vision, No Double vision HEENT: No: Heacaches, Sore Throat Hematological and Lymphatic: YES: Bleeding Problems (on blood thinner ), No: Blood Clots Respiratory: No: Cough, SOB with excertion Cardiovascular: No Chest Pain, No Palpitations Gastrointestinal: Yes Other (see hpi) Genitourinary: No Dysuria, No Hematuria Musculoskeletal: Yes Joint Pain, Yes Other (back pain) Neurological: No Confusion, No Impaired Coord/balance Skin: No Pruritus, No Rash Physical Exam General: Alert, Oriented X3, Cooperative, No acute distress, Other (dementia ) HEENT: PERRLA, Mucous membr. moist/pink Lungs: Clear to auscultation, Normal air movement Heart: Regular rate, Normal S1, Normal S2, No murmurs Abdomen: Soft, Other (TTP RLQ, large RUQ scar) Extremities: No clubbing, No cyanosis Skin: No breakdown, No significant lesion Neuro: Normal speech, Sensation intact Psych/Mental Status: Mental status NL, Mood NL MUSCULOSKELETAL: No deformity, No swelling Vitals VITALS Vital Signs Date Time Temp Pulse Resp B/P (MAP) Pulse Ox O2 Delivery O2 Flow Rate FiO2 04/15/17 06:00 70 23 148/77 (100) 96 Nasal Cannula 2.0 04/15/17 04:00 97.7 97.7 Labs Labs Laboratory Tests Test 04/14/17 11:55 04/14/17 12:30 04/14/17 15:00 04/14/17 16:35 White Blood Count 8.7 x10^3/uL (4.0-11.0) Red Blood Count 3.32 x10^6/uL (3.50-5.40) Hemoglobin 10.8 g/dL (12.0-15.5) Hematocrit 33.1 % (36.0-47.0) Mean Corpuscular Volume 100 fL (79-100) Mean Corpuscular Hemoglobin 33 pg (25-35) Mean Corpuscular Hemoglobin Concent 33 g/dL (31-37) Red Cell Distribution Width 14.4 % (11.5-14.5) Platelet Count 226 x10^3/uL (140-400) Neutrophils (%) (Auto) 80 % (31-73) Lymphocytes (%) (Auto) 11 % (24-48) Monocytes (%) (Auto) 7 % (0-9) Eosinophils (%) (Auto) 2 % (0-3) Basophils (%) (Auto) 1 % (0-3) Neutrophils # (Auto) 7.0 x10^3uL (1.8-7.7) Lymphocytes # (Auto) 0.9 x10^3/uL (1.0-4.8) Monocytes # (Auto) 0.6 x10^3/uL (0.0-1.1) Eosinophils # (Auto) 0.1 x10^3/uL (0.0-0.7) Basophils # (Auto) 0.0 x10^3/uL (0.0-0.2) Sodium Level 139 mmol/L (136-145) Potassium Level 3.5 mmol/L (3.5-5.1) Chloride Level 101 mmol/L (98-107) Carbon Dioxide Level 22 mmol/L (21-32) Anion Gap 16 (6-14) Blood Urea Nitrogen 62 mg/dL (7-20) Creatinine 4.3 mg/dL (0.6-1.0) Estimated GFR (Cockcroft-Gault) 12.0 Glucose Level 171 mg/dL (70-99) Lactic Acid Level 0.9 mmol/L (0.4-2.0) Calcium Level 9.8 mg/dL (8.5-10.1) Magnesium Level 1.5 mg/dL (1.8-2.4) Total Bilirubin 0.4 mg/dL (0.2-1.0) Direct Bilirubin 0.1 mg/dL (0.0-0.2) Aspartate Amino Transf (AST/SGOT) 40 U/L (15-37) Alanine Aminotransferase (ALT/SGPT) 20 U/L (14-59) Alkaline Phosphatase 49 U/L (46-116) Creatine Kinase 584 U/L (26-192) Creatine Kinase MB (Mass) 13.3 ng/mL (0.0-3.6) Creatine Kinase MB Relative Index 2.3 % (0-4) Troponin I Quantitative < 0.017 ng/mL (0.000-0.055) C-Reactive Protein, Quantitative 33.8 mg/L (0-3.3) Total Protein 7.4 g/dL (6.4-8.2) Albumin 3.8 g/dL (3.4-5.0) Lipase 251 U/L (73-393) Thyroid Stimulating Hormone (TSH) 1.628 uIU/mL (0.358-3.74) Urine Collection Type U cath U cath Urine Color Yellow Yellow Urine Clarity Clear Clear Urine pH 5.5 5.5 Urine Specific [place] 1.020 1.020 Urine Protein Negative mg/dL (NEG-TRACE) Negative mg/dL (NEG-TRACE) Urine Glucose (UA) Negative mg/dL (NEG) Negative mg/dL (NEG) Urine Ketones (Stick) Negative mg/dL (NEG) Negative mg/dL (NEG) Urine Blood Negative (NEG) Negative (NEG) Urine Nitrite Negative (NEG) Negative (NEG) Urine Bilirubin Small (NEG) Negative (NEG) Urine Urobilinogen Dipstick 0.2 mg/dL (0.2 mg/dL) 0.2 mg/dL (0.2 mg/dL) Urine Leukocyte Esterase Negative (NEG) Negative (NEG) Urine RBC 0 /HPF (0-2) 1-2 /HPF (0-2) Urine WBC 0 /HPF (0-4) 0 /HPF (0-4) Urine Amorphous Sediment Present /HPF Urine Bacteria 0 /HPF (0-FEW) 0 /HPF (0-FEW) Urine Hyaline Casts Many /HPF Few /HPF Nasal Screen MRSA (PCR) Negative (Negative) Urine Squamous Epithelial Cells Few /LPF Test 04/15/17 05:30 White Blood Count 8.3 x10^3/uL (4.0-11.0) Red Blood Count 3.24 x10^6/uL (3.50-5.40) Hemoglobin 10.5 g/dL (12.0-15.5) Hematocrit 32.9 % (36.0-47.0) Mean Corpuscular Volume 102 fL (79-100) Mean Corpuscular Hemoglobin 32 pg (25-35) Mean Corpuscular Hemoglobin Concent 32 g/dL (31-37) Red Cell Distribution Width 14.9 % (11.5-14.5) Platelet Count 192 x10^3/uL (140-400) Neutrophils (%) (Auto) 70 % (31-73) Lymphocytes (%) (Auto) 19 % (24-48) Monocytes (%) (Auto) 8 % (0-9) Eosinophils (%) (Auto) 3 % (0-3) Basophils (%) (Auto) 1 % (0-3) Neutrophils # (Auto) 5.8 x10^3uL (1.8-7.7) Lymphocytes # (Auto) 1.5 x10^3/uL (1.0-4.8) Monocytes # (Auto) 0.7 x10^3/uL (0.0-1.1) Eosinophils # (Auto) 0.2 x10^3/uL (0.0-0.7) Basophils # (Auto) 0.0 x10^3/uL (0.0-0.2) Sodium Level 144 mmol/L (136-145) Potassium Level 3.9 mmol/L (3.5-5.1) Chloride Level 112 mmol/L (98-107) Carbon Dioxide Level 18 mmol/L (21-32) Anion Gap 14 (6-14) Blood Urea Nitrogen 46 mg/dL (7-20) Creatinine 2.7 mg/dL (0.6-1.0) Estimated GFR (Cockcroft-Gault) 20.5 Glucose Level 104 mg/dL (70-99) Calcium Level 9.0 mg/dL (8.5-10.1) Laboratory Tests Test 04/14/17 11:55 04/14/17 12:30 04/14/17 15:00 04/14/17 16:35 White Blood Count 8.7 x10^3/uL (4.0-11.0) Red Blood Count 3.32 x10^6/uL (3.50-5.40) Hemoglobin 10.8 g/dL (12.0-15.5) Hematocrit 33.1 % (36.0-47.0) Mean Corpuscular Volume 100 fL (79-100) Mean Corpuscular Hemoglobin 33 pg (25-35) Mean Corpuscular Hemoglobin Concent 33 g/dL (31-37) Red Cell Distribution Width 14.4 % (11.5-14.5) Platelet Count 226 x10^3/uL (140-400) Neutrophils (%) (Auto) 80 % (31-73) Lymphocytes (%) (Auto) 11 % (24-48) Monocytes (%) (Auto) 7 % (0-9) Eosinophils (%) (Auto) 2 % (0-3) Basophils (%) (Auto) 1 % (0-3) Neutrophils # (Auto) 7.0 x10^3uL (1.8-7.7) Lymphocytes # (Auto) 0.9 x10^3/uL (1.0-4.8) Monocytes # (Auto) 0.6 x10^3/uL (0.0-1.1) Eosinophils # (Auto) 0.1 x10^3/uL (0.0-0.7) Basophils # (Auto) 0.0 x10^3/uL (0.0-0.2) Sodium Level 139 mmol/L (136-145) Potassium Level 3.5 mmol/L (3.5-5.1) Chloride Level 101 mmol/L (98-107) Carbon Dioxide Level 22 mmol/L (21-32) Anion Gap 16 (6-14) Blood Urea Nitrogen 62 mg/dL (7-20) Creatinine 4.3 mg/dL (0.6-1.0) Estimated GFR (Cockcroft-Gault) 12.0 Glucose Level 171 mg/dL (70-99) Lactic Acid Level 0.9 mmol/L (0.4-2.0) Calcium Level 9.8 mg/dL (8.5-10.1) Magnesium Level 1.5 mg/dL (1.8-2.4) Total Bilirubin 0.4 mg/dL (0.2-1.0) Direct Bilirubin 0.1 mg/dL (0.0-0.2) Aspartate Amino Transf (AST/SGOT) 40 U/L (15-37) Alanine Aminotransferase (ALT/SGPT) 20 U/L (14-59) Alkaline Phosphatase 49 U/L (46-116) Creatine Kinase 584 U/L (26-192) Creatine Kinase MB (Mass) 13.3 ng/mL (0.0-3.6) Creatine Kinase MB Relative Index 2.3 % (0-4) Troponin I Quantitative < 0.017 ng/mL (0.000-0.055) C-Reactive Protein, Quantitative 33.8 mg/L (0-3.3) Total Protein 7.4 g/dL (6.4-8.2) Albumin 3.8 g/dL (3.4-5.0) Lipase 251 U/L (73-393) Thyroid Stimulating Hormone (TSH) 1.628 uIU/mL (0.358-3.74) Urine Collection Type U cath U cath Urine Color Yellow Yellow Urine Clarity Clear Clear Urine pH 5.5 5.5 Urine Specific [place] 1.020 1.020 Urine Protein Negative mg/dL (NEG-TRACE) Negative mg/dL (NEG-TRACE) Urine Glucose (UA) Negative mg/dL (NEG) Negative mg/dL (NEG) Urine Ketones (Stick) Negative mg/dL (NEG) Negative mg/dL (NEG) Urine Blood Negative (NEG) Negative (NEG) Urine Nitrite Negative (NEG) Negative (NEG) Urine Bilirubin Small (NEG) Negative (NEG) Urine Urobilinogen Dipstick 0.2 mg/dL (0.2 mg/dL) 0.2 mg/dL (0.2 mg/dL) Urine Leukocyte Esterase Negative (NEG) Negative (NEG) Urine RBC 0 /HPF (0-2) 1-2 /HPF (0-2) Urine WBC 0 /HPF (0-4) 0 /HPF (0-4) Urine Amorphous Sediment Present /HPF Urine Bacteria 0 /HPF (0-FEW) 0 /HPF (0-FEW) Urine Hyaline Casts Many /HPF Few /HPF Nasal Screen MRSA (PCR) Negative (Negative) Urine Squamous Epithelial Cells Few /LPF Test 04/15/17 05:30 White Blood Count 8.3 x10^3/uL (4.0-11.0) Red Blood Count 3.24 x10^6/uL (3.50-5.40) Hemoglobin 10.5 g/dL (12.0-15.5) Hematocrit 32.9 % (36.0-47.0) Mean Corpuscular Volume 102 fL (79-100) Mean Corpuscular Hemoglobin 32 pg (25-35) Mean Corpuscular Hemoglobin Concent 32 g/dL (31-37) Red Cell Distribution Width 14.9 % (11.5-14.5) Platelet Count 192 x10^3/uL (140-400) Neutrophils (%) (Auto) 70 % (31-73) Lymphocytes (%) (Auto) 19 % (24-48) Monocytes (%) (Auto) 8 % (0-9) Eosinophils (%) (Auto) 3 % (0-3) Basophils (%) (Auto) 1 % (0-3) Neutrophils # (Auto) 5.8 x10^3uL (1.8-7.7) Lymphocytes # (Auto) 1.5 x10^3/uL (1.0-4.8) Monocytes # (Auto) 0.7 x10^3/uL (0.0-1.1) Eosinophils # (Auto) 0.2 x10^3/uL (0.0-0.7) Basophils # (Auto) 0.0 x10^3/uL (0.0-0.2) Sodium Level 144 mmol/L (136-145) Potassium Level 3.9 mmol/L (3.5-5.1) Chloride Level 112 mmol/L (98-107) Carbon Dioxide Level 18 mmol/L (21-32) Anion Gap 14 (6-14) Blood Urea Nitrogen 46 mg/dL (7-20) Creatinine 2.7 mg/dL (0.6-1.0) Estimated GFR (Cockcroft-Gault) 20.5 Glucose Level 104 mg/dL (70-99) Calcium Level 9.0 mg/dL (8.5-10.1) Assessment/Plan Assessment/Plan AAA-enlarging, vascular is following [facility], ARF HX CVA, CAD, [place], AFib, HTN possible early appendicitis very poor surgical candidate due to comorbidities, attempt conservative measures WBC normal, on abx, does have RLQ pain NPO, will review with Dr Hernandez, would hold blood thinners if possible SAMANTA HERNANDEZ MD 04/15/17 1726: CONSULT Allergies Allergies: Coded Allergies: morphine (Unverified Allergy, Mild, VOMITING, 02/11/15) Assessment/Plan Assessment/Plan agree with above will trial non op management if possible will follow Thanks for consult LILI MORENO APRN Apr 15, 2017 08:51 SAMANTA HERNANDEZ MD Apr 15, 2017 17:26
--- NOTE | 2017-04-15 08:56 | PDOC2 ---
CONSULT Date of Consult Date of Consult DATE: 04/15/17 TIME: 08:55 Reason for Consult Reason for Consult: BRUNILDA Referring Physician Referring Physician: Dr Gold Identification/Chief Complaint Chief Complaint abnormal labs Problems: Source Source: Chart review, Patient History of Present Illness Reason for Visit: as dictated Past Medical History Cardiovascular: AFIB, CAD, CHF, HTN, [place], Hyperlipidemia, Other (AAA) CENTRAL NERVOUS SYSTEM: CVA, Dementia Psych: Anxiety, Depression Renal/: Chronic renal insuff Past Surgical History Past Surgical History: Cholecystectomy, CABG, Hysterectomy Family History Family History: No Significant Social History No ALCOHOL: none Drugs: None Lives: Group Home Current Problem List Problem List Problems Medical Problems: (1) Abdominal aortic aneurysm Status: Acute (2) Acute renal failure Status: Acute (3) Anemia Status: Acute (4) Enlarging abdominal aortic aneurysm Status: Acute Current Medications Current Medications Current Medications Fentanyl Citrate (Fentanyl 2ml Vial) 50 mcg PRN Q15MIN PRN IV PAIN GREATER THAN 3/10 Last administered on 04/14/17 13:50; Start 04/14/17 at 11:45; Stop 04/14/17 at 17:35; Status DC Sodium Chloride 1,000 ml @ 1,000 mls/hr Q1H IV Last administered on 04/14/17 12:28; Start 04/14/17 at 11:38; Stop 04/14/17 at 12:37; Status DC Sodium Chloride (Normal Saline Flush) 10 ml QSHIFT PRN IV AFTER MEDS AND BLOOD DRAWS; Start 04/14/17 at 11:45 Ondansetron HCl (Zofran) 4 mg 1X ONCE IV Last administered on 04/14/17 12:30 ; Start 04/14/17 at 12:15; Stop 04/14/17 at 12:16; Status DC Ondansetron HCl (Zofran) 4 mg 1X ONCE IV Last administered on 04/14/17 13:28 ; Start 04/14/17 at 13:15; Stop 04/14/17 at 13:16; Status DC Ondansetron HCl (Zofran) 4 mg PRN Q8HRS PRN IV NAUSEA/VOMITING; Start 04/14/17 at 14:00; Stop 04/15/17 at 13:59 Fentanyl Citrate (Fentanyl 2ml Vial) 25 mcg PRN Q2HR PRN IV PAIN Last administered on 04/15/17 08:48; Start 04/14/17 at 14:00; Stop 04/15/17 at 13: 59 Sodium Chloride 1,000 ml @ 125 mls/hr Q8H IV Last administered on 04/15/17 07:48; Start 04/14/17 at 13:47; Stop 04/15/17 at 13:46 Piperacillin Sod/ Tazobactam Sod 4.5 gm/Dextrose 100 ml @ 200 mls/hr 1X ONCE IV ; Start 04/14/17 at 14:15; Stop 04/14/17 at 14:44; Status UNV Piperacillin Sod/ Tazobactam Sod (Zosyn) 3.375 gm 1X ONCE IVP Last administered on 04/14/17 14:20; Start 04/14/17 at 14:15; Stop 04/14/17 at 14:16 ; Status DC Piperacillin Sod/ Tazobactam Sod 2.25 gm/Dextrose 50 ml @ 100 mls/hr Q8H IV ; Start 04/15/17 at 08:30; Status UNV Piperacillin Sod/ Tazobactam Sod (Zosyn) 2.25 gm Q8HRS IVP ; Start 04/15/17 at 09:00 Active Scripts Active Reported Gabapentin 300 Mg Capsule 300 Mg PO QHS Famotidine 20 Mg Tablet 20 Mg PO HS Hydralazine Hcl 25 Mg Tablet 1 Tab PO TID Tylenol (Acetaminophen) 325 Mg Tablet 1-2 Tab PO TID Ranexa (Ranolazine) 500 Mg Tab.er.12h 1 Tab PO BID Aggrenox 25 Mg-200 Mg Capsule (Aspirin/Dipyridamole) 1 Each Cpmp.12hr 1 Cap PO BID Milk Of Magnesia (Magnesium Hydroxide) 400 Mg/5 Ml Oral.susp 30 Ml PO PRN PRN Loperamide (Loperamide Hcl) 2 Mg Capsule 4 Mg PO PRN PRN Baclofen 10 Mg Tablet 0.5 Tab PO PRN QHS PRN Anti-Diarrheal (Loperamide Hcl) 2 Mg Capsule 2 Mg PO PRN Sertraline Hcl 50 Mg Tablet 50 Mg PO DAILY Oxybutynin Chloride Er (Oxybutynin Chloride) 5 Mg Tab.er.24 1 Tab PO DAILY Metoprolol Succinate ( Xl ) (Metoprolol Succinate) 25 Mg Tab.er.24h 1 Tab PO DAILY Lisinopril 20 Mg Tablet 1 Tab PO DAILY Levothyroxine Sodium 100 Mcg Tablet 1 Tab PO DAILY Isosorbide Mononitrate Er (Isosorbide Mononitrate) 60 Mg Tab.er.24h 1 Tab PO DAILY Furosemide 40 Mg Tablet 1 Tab PO DAILY Zetia (Ezetimibe) 10 Mg Tablet 1 Tab PO DAILY Chlorthalidone 25 Mg Tablet 1 Tab PO DAILY Allergies Allergies: Coded Allergies: morphine (Unverified Allergy, Mild, VOMITING, 02/11/15) ROS Review of System GEN: no Fevers no Chills EYES: no Visual Complaints ENT: no EN Drainage no Hearing deficiets CVS: no Orthopnea no CP RESP: no SOB no ALMANZAR GI: min Nausea no Vomiting : no Dysuria no Urgency HEME: no easy bruising no Palp Ly Nodes NEURO no Focal Weakness no Sz PSYCH: no Suicidal Ideation ? Depression SKIN: no Rashes ENDO: no Polyuria or Polydipsia no Hot/Cold Intolerance MU SK: ? Arthralgia (Back pain) ? Myalgia Physical Exam Physical Exam General Appearance: Awake more Alert Oriented x 2 In no Distress Eyes: VIsion Unchanged Conjunctiva Normal EN: No EN Drainage Mucous Memb. dry Neck: no JVD + JVP Supple no Thyromegaly CVS: S1 S2 + Murmur No Gallop No Rub no Edema Resp: no Rales no Rhonchi no Acc. Muscle use GI: BAS +ve NO Bruit Non Tender Non Distended : no CVA tenderness; no Suprapubic Tenderness SKIN: no Rashes Breast Exam deferred Mu.Sk: Adequate ROM no Muscle Atrophy Heme: Unable to palpate Obvious LAD no Splenomegaly NEURO: Good Strength and Tone Cranial Nerves II - XII grossly intact Psych: ? Depressed no Active hallucination Vital Signs Vital Signs Date Time Temp Pulse Resp B/P (MAP) Pulse Ox O2 Delivery O2 Flow Rate FiO2 04/15/17 08:48 20 97 Nasal Cannula 2.0 04/15/17 06:00 70 148/77 (100) 04/15/17 04:00 97.7 97.7 Assessment & Plan BRUNILDA/ VMN due to Diuretics and h/o CHF: much better with IVF and Volume repletion. watch off of Diuretics. Current FLuid and E-lyte status does not necessitate emergent need for Dialysis. Will re-evaluate for Dialysis in am min ^ed Ck -w atch trend Previous Oliguria - now improving Met Acidosis (NAG) dueto IVf - may need Bicarb based fluids if it worsens ( Asympt) Anemia: check [place]; AAA - CTA once creat < 1.5 - ct prehydration - may need NAC too Labile BPs - will need tight control in setting of AAA. Previous Low BP (due to vol depletion) m ay have contributed to BRUNILDA too Discussed Plan of Care and prognosis etc. at length with pt Labs Labs Laboratory Tests Test 04/14/17 11:55 04/14/17 12:30 04/14/17 15:00 04/14/17 16:35 White Blood Count 8.7 x10^3/uL (4.0-11.0) Red Blood Count 3.32 x10^6/uL (3.50-5.40) Hemoglobin 10.8 g/dL (12.0-15.5) Hematocrit 33.1 % (36.0-47.0) Mean Corpuscular Volume 100 fL (79-100) Mean Corpuscular Hemoglobin 33 pg (25-35) Mean Corpuscular Hemoglobin Concent 33 g/dL (31-37) Red Cell Distribution Width 14.4 % (11.5-14.5) Platelet Count 226 x10^3/uL (140-400) Neutrophils (%) (Auto) 80 % (31-73) Lymphocytes (%) (Auto) 11 % (24-48) Monocytes (%) (Auto) 7 % (0-9) Eosinophils (%) (Auto) 2 % (0-3) Basophils (%) (Auto) 1 % (0-3) Neutrophils # (Auto) 7.0 x10^3uL (1.8-7.7) Lymphocytes # (Auto) 0.9 x10^3/uL (1.0-4.8) Monocytes # (Auto) 0.6 x10^3/uL (0.0-1.1) Eosinophils # (Auto) 0.1 x10^3/uL (0.0-0.7) Basophils # (Auto) 0.0 x10^3/uL (0.0-0.2) Sodium Level 139 mmol/L (136-145) Potassium Level 3.5 mmol/L (3.5-5.1) Chloride Level 101 mmol/L (98-107) Carbon Dioxide Level 22 mmol/L (21-32) Anion Gap 16 (6-14) Blood Urea Nitrogen 62 mg/dL (7-20) Creatinine 4.3 mg/dL (0.6-1.0) Estimated GFR (Cockcroft-Gault) 12.0 Glucose Level 171 mg/dL (70-99) Lactic Acid Level 0.9 mmol/L (0.4-2.0) Calcium Level 9.8 mg/dL (8.5-10.1) Magnesium Level 1.5 mg/dL (1.8-2.4) Total Bilirubin 0.4 mg/dL (0.2-1.0) Direct Bilirubin 0.1 mg/dL (0.0-0.2) Aspartate Amino Transf (AST/SGOT) 40 U/L (15-37) Alanine Aminotransferase (ALT/SGPT) 20 U/L (14-59) Alkaline Phosphatase 49 U/L (46-116) Creatine Kinase 584 U/L (26-192) Creatine Kinase MB (Mass) 13.3 ng/mL (0.0-3.6) Creatine Kinase MB Relative Index 2.3 % (0-4) Troponin I Quantitative < 0.017 ng/mL (0.000-0.055) C-Reactive Protein, Quantitative 33.8 mg/L (0-3.3) Total Protein 7.4 g/dL (6.4-8.2) Albumin 3.8 g/dL (3.4-5.0) Lipase 251 U/L (73-393) Thyroid Stimulating Hormone (TSH) 1.628 uIU/mL (0.358-3.74) Urine Collection Type U cath U cath Urine Color Yellow Yellow Urine Clarity Clear Clear Urine pH 5.5 5.5 Urine Specific [place] 1.020 1.020 Urine Protein Negative mg/dL (NEG-TRACE) Negative mg/dL (NEG-TRACE) Urine Glucose (UA) Negative mg/dL (NEG) Negative mg/dL (NEG) Urine Ketones (Stick) Negative mg/dL (NEG) Negative mg/dL (NEG) Urine Blood Negative (NEG) Negative (NEG) Urine Nitrite Negative (NEG) Negative (NEG) Urine Bilirubin Small (NEG) Negative (NEG) Urine Urobilinogen Dipstick 0.2 mg/dL (0.2 mg/dL) 0.2 mg/dL (0.2 mg/dL) Urine Leukocyte Esterase Negative (NEG) Negative (NEG) Urine RBC 0 /HPF (0-2) 1-2 /HPF (0-2) Urine WBC 0 /HPF (0-4) 0 /HPF (0-4) Urine Amorphous Sediment Present /HPF Urine Bacteria 0 /HPF (0-FEW) 0 /HPF (0-FEW) Urine Hyaline Casts Many /HPF Few /HPF Nasal Screen MRSA (PCR) Negative (Negative) Urine Squamous Epithelial Cells Few /LPF Test 04/15/17 05:30 White Blood Count 8.3 x10^3/uL (4.0-11.0) Red Blood Count 3.24 x10^6/uL (3.50-5.40) Hemoglobin 10.5 g/dL (12.0-15.5) Hematocrit 32.9 % (36.0-47.0) Mean Corpuscular Volume 102 fL (79-100) Mean Corpuscular Hemoglobin 32 pg (25-35) Mean Corpuscular Hemoglobin Concent 32 g/dL (31-37) Red Cell Distribution Width 14.9 % (11.5-14.5) Platelet Count 192 x10^3/uL (140-400) Neutrophils (%) (Auto) 70 % (31-73) Lymphocytes (%) (Auto) 19 % (24-48) Monocytes (%) (Auto) 8 % (0-9) Eosinophils (%) (Auto) 3 % (0-3) Basophils (%) (Auto) 1 % (0-3) Neutrophils # (Auto) 5.8 x10^3uL (1.8-7.7) Lymphocytes # (Auto) 1.5 x10^3/uL (1.0-4.8) Monocytes # (Auto) 0.7 x10^3/uL (0.0-1.1) Eosinophils # (Auto) 0.2 x10^3/uL (0.0-0.7) Basophils # (Auto) 0.0 x10^3/uL (0.0-0.2) Sodium Level 144 mmol/L (136-145) Potassium Level 3.9 mmol/L (3.5-5.1) Chloride Level 112 mmol/L (98-107) Carbon Dioxide Level 18 mmol/L (21-32) Anion Gap 14 (6-14) Blood Urea Nitrogen 46 mg/dL (7-20) Creatinine 2.7 mg/dL (0.6-1.0) Estimated GFR (Cockcroft-Gault) 20.5 Glucose Level 104 mg/dL (70-99) Calcium Level 9.0 mg/dL (8.5-10.1) Laboratory Tests Test 04/14/17 11:55 04/14/17 12:30 04/14/17 15:00 04/14/17 16:35 White Blood Count 8.7 x10^3/uL (4.0-11.0) Red Blood Count 3.32 x10^6/uL (3.50-5.40) Hemoglobin 10.8 g/dL (12.0-15.5) Hematocrit 33.1 % (36.0-47.0) Mean Corpuscular Volume 100 fL (79-100) Mean Corpuscular Hemoglobin 33 pg (25-35) Mean Corpuscular Hemoglobin Concent 33 g/dL (31-37) Red Cell Distribution Width 14.4 % (11.5-14.5) Platelet Count 226 x10^3/uL (140-400) Neutrophils (%) (Auto) 80 % (31-73) Lymphocytes (%) (Auto) 11 % (24-48) Monocytes (%) (Auto) 7 % (0-9) Eosinophils (%) (Auto) 2 % (0-3) Basophils (%) (Auto) 1 % (0-3) Neutrophils # (Auto) 7.0 x10^3uL (1.8-7.7) Lymphocytes # (Auto) 0.9 x10^3/uL (1.0-4.8) Monocytes # (Auto) 0.6 x10^3/uL (0.0-1.1) Eosinophils # (Auto) 0.1 x10^3/uL (0.0-0.7) Basophils # (Auto) 0.0 x10^3/uL (0.0-0.2) Sodium Level 139 mmol/L (136-145) Potassium Level 3.5 mmol/L (3.5-5.1) Chloride Level 101 mmol/L (98-107) Carbon Dioxide Level 22 mmol/L (21-32) Anion Gap 16 (6-14) Blood Urea Nitrogen 62 mg/dL (7-20) Creatinine 4.3 mg/dL (0.6-1.0) Estimated GFR (Cockcroft-Gault) 12.0 Glucose Level 171 mg/dL (70-99) Lactic Acid Level 0.9 mmol/L (0.4-2.0) Calcium Level 9.8 mg/dL (8.5-10.1) Magnesium Level 1.5 mg/dL (1.8-2.4) Total Bilirubin 0.4 mg/dL (0.2-1.0) Direct Bilirubin 0.1 mg/dL (0.0-0.2) Aspartate Amino Transf (AST/SGOT) 40 U/L (15-37) Alanine Aminotransferase (ALT/SGPT) 20 U/L (14-59) Alkaline Phosphatase 49 U/L (46-116) Creatine Kinase 584 U/L (26-192) Creatine Kinase MB (Mass) 13.3 ng/mL (0.0-3.6) Creatine Kinase MB Relative Index 2.3 % (0-4) Troponin I Quantitative < 0.017 ng/mL (0.000-0.055) C-Reactive Protein, Quantitative 33.8 mg/L (0-3.3) Total Protein 7.4 g/dL (6.4-8.2) Albumin 3.8 g/dL (3.4-5.0) Lipase 251 U/L (73-393) Thyroid Stimulating Hormone (TSH) 1.628 uIU/mL (0.358-3.74) Urine Collection Type U cath U cath Urine Color Yellow Yellow Urine Clarity Clear Clear Urine pH 5.5 5.5 Urine Specific [place] 1.020 1.020 Urine Protein Negative mg/dL (NEG-TRACE) Negative mg/dL (NEG-TRACE) Urine Glucose (UA) Negative mg/dL (NEG) Negative mg/dL (NEG) Urine Ketones (Stick) Negative mg/dL (NEG) Negative mg/dL (NEG) Urine Blood Negative (NEG) Negative (NEG) Urine Nitrite Negative (NEG) Negative (NEG) Urine Bilirubin Small (NEG) Negative (NEG) Urine Urobilinogen Dipstick 0.2 mg/dL (0.2 mg/dL) 0.2 mg/dL (0.2 mg/dL) Urine Leukocyte Esterase Negative (NEG) Negative (NEG) Urine RBC 0 /HPF (0-2) 1-2 /HPF (0-2) Urine WBC 0 /HPF (0-4) 0 /HPF (0-4) Urine Amorphous Sediment Present /HPF Urine Bacteria 0 /HPF (0-FEW) 0 /HPF (0-FEW) Urine Hyaline Casts Many /HPF Few /HPF Nasal Screen MRSA (PCR) Negative (Negative) Urine Squamous Epithelial Cells Few /LPF Test 04/15/17 05:30 White Blood Count 8.3 x10^3/uL (4.0-11.0) Red Blood Count 3.24 x10^6/uL (3.50-5.40) Hemoglobin 10.5 g/dL (12.0-15.5) Hematocrit 32.9 % (36.0-47.0) Mean Corpuscular Volume 102 fL (79-100) Mean Corpuscular Hemoglobin 32 pg (25-35) Mean Corpuscular Hemoglobin Concent 32 g/dL (31-37) Red Cell Distribution Width 14.9 % (11.5-14.5) Platelet Count 192 x10^3/uL (140-400) Neutrophils (%) (Auto) 70 % (31-73) Lymphocytes (%) (Auto) 19 % (24-48) Monocytes (%) (Auto) 8 % (0-9) Eosinophils (%) (Auto) 3 % (0-3) Basophils (%) (Auto) 1 % (0-3) Neutrophils # (Auto) 5.8 x10^3uL (1.8-7.7) Lymphocytes # (Auto) 1.5 x10^3/uL (1.0-4.8) Monocytes # (Auto) 0.7 x10^3/uL (0.0-1.1) Eosinophils # (Auto) 0.2 x10^3/uL (0.0-0.7) Basophils # (Auto) 0.0 x10^3/uL (0.0-0.2) Sodium Level 144 mmol/L (136-145) Potassium Level 3.9 mmol/L (3.5-5.1) Chloride Level 112 mmol/L (98-107) Carbon Dioxide Level 18 mmol/L (21-32) Anion Gap 14 (6-14) Blood Urea Nitrogen 46 mg/dL (7-20) Creatinine 2.7 mg/dL (0.6-1.0) Estimated GFR (Cockcroft-Gault) 20.5 Glucose Level 104 mg/dL (70-99) Calcium Level 9.0 mg/dL (8.5-10.1) Images Images CT: (non-IVC) (sizes not mentioned) No hydronephrosis or hydroureter is seen. Small hyperdense posterior left renal cyst is seen which is unchanged in size from the previous study KELSEY RAMIREZ MD Apr 15, 2017 08:56
[2017-04-15] MEDS ORDERED: MAGNESIUM SULFATE 2GM 50 ML IV PRN (09:00)
--- NOTE | 2017-04-15 09:22 | HP ---
ADMIT DATE: 04/14/2017 HISTORY OF PRESENT ILLNESS: The patient is an 81-year-old female patient, resident at the [facility], who came to the Emergency Room complaining of abdominal pain and back pain. She was noted by the nursing staff at the [facility] to have complaint of generalized abdominal pain, lower back pain, which is sharp and continuous. She reported associated vomiting x 1 and 1 episode of diarrhea. She denied any chills, rigors, or fever. Denied any hematemesis, chest pain, shortness of breath, hematochezia or melena, dysuria or hematuria. The staff stated also that she became hypotensive at one point in time at the facility. She was basically investigated in the Emergency Room and was found to have acute on chronic kidney failure. She had had a CT scan of the abdomen and pelvis without contrast as she was complaining of abdominal pain that radiates to the back. The possibility of aortic dissection was entertained. The patient was found to have enlarging mid and distal abdominal aortic aneurysm, now measuring up to 6.6 cm in greater of the caliber. There is some calcification within the anterior wall of the aneurysm, still represents calcified plaque with displacement to the wall secondary to dissection or bleeding within the wall of the aneurysm are certainly possible. The appendix contains an appendicolith within the tip. It is mildly distended measuring up to 10 mm. This is abnormal and may be seen with early appendicitis. No periappendiceal inflammatory changes or fluid filled is seen. The patient was admitted. The vascular surgeon was consulted as well as Dr. Whelan for acute appendicitis given recommended treatment with IV antibiotic and in fact, she was started on IV Zosyn as well as IV fluid. PAST MEDICAL HISTORY: Significant for coronary artery disease status post coronary artery bypass graft surgery, hypothyroidism, hypertension, hyperlipidemia, cerebrovascular accident, carotid stenosis, anemia, congestive heart failure, depression, dementia. She has also abdominal aortic aneurysm. PAST SURGICAL HISTORY: Significant for appendectomy. She probably not tried PTCA and stent deployment, coronary artery bypass graft surgery and cholecystectomy. ALLERGIES: SHE IS ALLERGIC TO MORPHINE. SOCIAL HISTORY: She is , has 1 daughter and 1 grandson. She smokes occasionally but does not drink alcohol or use recreational drugs. She was at [facility] in [place] and moved to [facility]. FAMILY HISTORY: Positive for coronary artery disease. MEDICATIONS: She is currently on following medications: She is on Tylenol 650 mg every 4 hours as needed, aspirin/Rythmol, Aggrenox 25/200 one capsule twice a day, baclofen 5 mg at bedtime, chlorthalidone 25 mg daily, Zetia 10 mg once a day, famotidine 20 mg at bedtime, furosemide 40 mg daily, gabapentin 300 mg at bedtime, hydralazine 25 mg 3 times a day, isosorbide mononitrate 60 mg once a day, levothyroxine sodium 100 mcg once a day, lisinopril 20 mg once a day, loperamide 2 mg every 4 hours as needed for diarrhea, magnesium hydroxide or milk of magnesia 30 mL p.o. daily p.r.n. for constipation, metoprolol succinate 25 mg extended release once a day, oxybutynin chloride 5 mg daily, Ranexa 500 mg twice a day, sertraline 50 mg daily. REVIEW OF SYSTEMS: As per history of present illness. PHYSICAL EXAMINATION: GENERAL: On arrival to the Emergency Room, the patient was pale, but not jaundiced, cyanosis or thyromegaly. No jugular venous distention. No limb edema. VITAL SIGNS: Her heart rate was 98, blood pressure was 182/76, temperature was 98.9, respiratory rate was 20, and oxygen saturation was 92% on room air. HEAD, EYES, EARS, NOSE AND THROAT: Showed normocephalic, atraumatic. NECK: Supple. HEART: Showed normal first and second heart sounds. No gallop, rub or murmur. CHEST: Clear to auscultation. No wheezes or rhonchi. ABDOMEN: Distended, soft, nontender. No guarding or rigidity. No organomegaly. Hernial orifices intact. Bowel sounds normal. NEUROLOGIC: She was awake, alert, though pleasantly demented. All her cranial nerves intact. EXTREMITIES: She moves extremities without difficulty. LABORATORY WORK: On arrival to the Emergency Room showed a white cell count of 8700, hemoglobin 10.8, hematocrit 33, MCV 100, and platelet count 226,000 with normal manual differential. Her chemistry showed that her serum sodium was 139, potassium 3.5, chloride 101, bicarbonate 22, anion gap of 16, BUN 62, creatinine 4.3, estimated GFR was 12 mL per minute, glucose 171, calcium was 9.8, magnesium was 1.5. Total bilirubin, AST, ALT, alkaline phosphatase were normal. Her total protein was 7.4, albumin 3.8 and his C-reactive protein was 3.8. Urinalysis showed the urine was yellow, clear with pH of 5.5, specific gravity of 1.020. The urine was negative for protein, glucose, ketones, blood, nitrite and leukocyte esterase, no rbc's, no wbc's, and no bacteria. Her nasal screen for MRSA by PCR was negative. Her CT scan of the abdomen and pelvis without contrast showed that the patient has an enlarging mid and distal abdominal aortic aneurysm, now measuring up to 6.6 cm in greatest caliber. There is some calcification within the anterior wall of the aneurysm. This could represent calcified plaque, but displacement to the wall secondary to dissection or bleeding within the wall. The aneurysms are certainly possible. The appendix contains appendicolith within the tip. The appendix is mildly distended measuring up to 10 mm, this is abnormal and may be seen with early appendicitis and no periappendiceal inflammatory changes or free fluid is seen, however. IMPRESSION AND PLAN: In summary, this is an 81-year-old female patient who was admitted with abdominal pain radiating to the back. Her CT scan showed enlarging abdominal aortic aneurysm. She was found also to have acute on chronic kidney failure. Her baseline creatinine was around 1.4-1.5 and her creatinine on admission went up to 4. Her BUN also has risen from 23-57. She is also on multiple potentially nephrotoxic medications. She is on lisinopril/hydrochlorothiazide. She is also on furosemide. The patient was admitted to the ICU and was continued on IV fluids in the form of normal saline, pain medication as well as IV antibiotic in the form of Zosyn for possible appendicitis. FAUSTO BATEMAN MD DR: EDGAR/ivan JOB#: [id number] / [id number]
--- NOTE | 2017-04-15 09:27 | PDOC2 ---
CARDIAC CONSULT DATE OF CONSULT Date of Consult DATE: 04/15/17 TIME: 09:14 REASON FOR CONSULT Reason for Consult: Preop eval REFERRING PHYSICIAN Referring Physician: Asif SOURCE Source: Chart review HISTORY OF PRESENT ILLNESS HISTORY OF PRESENT ILLNESS This is a pleasant 81 yo female admitted for complains of back pain and abdominal pain. She is significant for CABG in the past and cardiomyopathy. Upon admission she was noted with increased AAA with 6.6 cm. It is unclear for any further anomaly since contrast could not be used due to significant renal dysfunction. Vascular surgery is following as well as general surgery given that she may have appendicitis as well. Appears to have mild dementia and currently pleasant but nauseated. she resides in assisted living where she was also noted with low BP and her meds were held. Prior to these symptoms, she denies any significant SOA, nausea, palpitations or chest pain. Presently denies any chest pain or SOA but complains of back pain and abdominal pain. she has not seen a unit control clerk for a long time accdg to her and told me that her CABG was done remotely and no recent cardiac workup. PAST MEDICAL HISTORY Cardiovascular: CAD, CHF, HTN, Hyperlipidemia, Other (carotid artery disease; cardiomyopathy) Pulmonary: No pertinent hx CENTRAL NERVOUS SYSTEM: CVA, Dementia Heme/Onc: Anemia NOS Psych: Anxiety, Depression Musculoskeletal: Osteoarthritis Rheumatologic: No pertinent hx Infectious disease: No pertinent hx ENT: No pertinent hx Renal/: Chronic renal insuff (?), Urinary Incontinence Endocrine: Hypothyroidism Dermatology: No pertinent hx PAST SURGICAL HISTORY Past Surgical History: Cholecystectomy, CABG, Other (PCI/stent) FAMILY HISTORY Family History: Family History Unknown SOCIAL HISTORY Smoke: Quit ALCOHOL: none Drugs: None CURRENT MEDICATIONS CURRENT MEDICATIONS Current Medications Medications (Trade) Dose Ordered Sig/Jian Route PRN Reason Start Time Stop Time Status Last Admin Dose Admin Fentanyl Citrate (Fentanyl 2ml Vial) 50 mcg PRN Q15MIN PRN IV PAIN GREATER THAN 3/10 04/14/17 11:45 04/14/17 17:35 DC 04/14/17 13:50 Sodium Chloride 1,000 ml @ 1,000 mls/hr Q1H IV 04/14/17 11:38 04/14/17 12:37 DC 04/14/17 12:28 Ondansetron HCl (Zofran) 4 mg 1X ONCE IV 04/14/17 12:15 04/14/17 12:16 DC 04/14/17 12:30 Ondansetron HCl (Zofran) 4 mg 1X ONCE IV 04/14/17 13:15 04/14/17 13:16 DC 04/14/17 13:28 Fentanyl Citrate (Fentanyl 2ml Vial) 25 mcg PRN Q2HR PRN IV PAIN 04/14/17 14:00 04/15/17 13:59 04/15/17 08:48 Sodium Chloride 1,000 ml @ 125 mls/hr Q8H IV 04/14/17 13:47 04/15/17 13:46 04/15/17 07:48 Piperacillin Sod/ Tazobactam Sod (Zosyn) 3.375 gm 1X ONCE IVP 04/14/17 14:15 04/14/17 14:16 DC 04/14/17 14:20 ALLERGIES ALLERGIES: Coded Allergies: morphine (Unverified Allergy, Mild, VOMITING, 02/11/15) ROS Review of System 14 point ROS evaluated with pertinent positives noted per HPI PHYSICAL EXAM General: Alert, Oriented X3, Cooperative, mild distress HEENT: Atraumatic, Mucous membr. moist/pink Lungs: Other (diminished bases) Heart: Regular rate (sinus tach ), Normal S1, Normal S2, Other (2/6 systolic murmur to LLS border) Abdomen: Soft, Other (tender diffuse and more to right side) Extremities: No cyanosis, Other (1+ bilateral LE pitting edema) Skin: No breakdown, No significant lesion Neuro: Normal speech, Sensation intact Psych/Mental Status: Mental status NL, Mood NL MUSCULOSKELETAL: Osteoarthritic changes both hands VITALS VITALS Vital Signs Date Time Temp Pulse Resp B/P (MAP) Pulse Ox O2 Delivery O2 Flow Rate FiO2 04/15/17 08:48 20 97 Nasal Cannula 2.0 04/15/17 06:00 70 148/77 (100) 04/15/17 04:00 97.7 97.7 LABS Lab: Laboratory Tests Test 04/14/17 11:55 04/14/17 12:30 04/14/17 15:00 04/14/17 16:35 White Blood Count 8.7 x10^3/uL (4.0-11.0) Red Blood Count 3.32 x10^6/uL (3.50-5.40) Hemoglobin 10.8 g/dL (12.0-15.5) Hematocrit 33.1 % (36.0-47.0) Mean Corpuscular Volume 100 fL (79-100) Mean Corpuscular Hemoglobin 33 pg (25-35) Mean Corpuscular Hemoglobin Concent 33 g/dL (31-37) Red Cell Distribution Width 14.4 % (11.5-14.5) Platelet Count 226 x10^3/uL (140-400) Neutrophils (%) (Auto) 80 % (31-73) Lymphocytes (%) (Auto) 11 % (24-48) Monocytes (%) (Auto) 7 % (0-9) Eosinophils (%) (Auto) 2 % (0-3) Basophils (%) (Auto) 1 % (0-3) Neutrophils # (Auto) 7.0 x10^3uL (1.8-7.7) Lymphocytes # (Auto) 0.9 x10^3/uL (1.0-4.8) Monocytes # (Auto) 0.6 x10^3/uL (0.0-1.1) Eosinophils # (Auto) 0.1 x10^3/uL (0.0-0.7) Basophils # (Auto) 0.0 x10^3/uL (0.0-0.2) Sodium Level 139 mmol/L (136-145) Potassium Level 3.5 mmol/L (3.5-5.1) Chloride Level 101 mmol/L (98-107) Carbon Dioxide Level 22 mmol/L (21-32) Anion Gap 16 (6-14) Blood Urea Nitrogen 62 mg/dL (7-20) Creatinine 4.3 mg/dL (0.6-1.0) Estimated GFR (Cockcroft-Gault) 12.0 Glucose Level 171 mg/dL (70-99) Lactic Acid Level 0.9 mmol/L (0.4-2.0) Calcium Level 9.8 mg/dL (8.5-10.1) Magnesium Level 1.5 mg/dL (1.8-2.4) Total Bilirubin 0.4 mg/dL (0.2-1.0) Direct Bilirubin 0.1 mg/dL (0.0-0.2) Aspartate Amino Transf (AST/SGOT) 40 U/L (15-37) Alanine Aminotransferase (ALT/SGPT) 20 U/L (14-59) Alkaline Phosphatase 49 U/L (46-116) Creatine Kinase 584 U/L (26-192) Creatine Kinase MB (Mass) 13.3 ng/mL (0.0-3.6) Creatine Kinase MB Relative Index 2.3 % (0-4) Troponin I Quantitative < 0.017 ng/mL (0.000-0.055) C-Reactive Protein, Quantitative 33.8 mg/L (0-3.3) Total Protein 7.4 g/dL (6.4-8.2) Albumin 3.8 g/dL (3.4-5.0) Lipase 251 U/L (73-393) Thyroid Stimulating Hormone (TSH) 1.628 uIU/mL (0.358-3.74) Urine Collection Type U cath U cath Urine Color Yellow Yellow Urine Clarity Clear Clear Urine pH 5.5 5.5 Urine Specific [place] 1.020 1.020 Urine Protein Negative mg/dL (NEG-TRACE) Negative mg/dL (NEG-TRACE) Urine Glucose (UA) Negative mg/dL (NEG) Negative mg/dL (NEG) Urine Ketones (Stick) Negative mg/dL (NEG) Negative mg/dL (NEG) Urine Blood Negative (NEG) Negative (NEG) Urine Nitrite Negative (NEG) Negative (NEG) Urine Bilirubin Small (NEG) Negative (NEG) Urine Urobilinogen Dipstick 0.2 mg/dL (0.2 mg/dL) 0.2 mg/dL (0.2 mg/dL) Urine Leukocyte Esterase Negative (NEG) Negative (NEG) Urine RBC 0 /HPF (0-2) 1-2 /HPF (0-2) Urine WBC 0 /HPF (0-4) 0 /HPF (0-4) Urine Amorphous Sediment Present /HPF Urine Bacteria 0 /HPF (0-FEW) 0 /HPF (0-FEW) Urine Hyaline Casts Many /HPF Few /HPF Nasal Screen MRSA (PCR) Negative (Negative) Urine Squamous Epithelial Cells Few /LPF Test 04/15/17 05:30 White Blood Count 8.3 x10^3/uL (4.0-11.0) Red Blood Count 3.24 x10^6/uL (3.50-5.40) Hemoglobin 10.5 g/dL (12.0-15.5) Hematocrit 32.9 % (36.0-47.0) Mean Corpuscular Volume 102 fL (79-100) Mean Corpuscular Hemoglobin 32 pg (25-35) Mean Corpuscular Hemoglobin Concent 32 g/dL (31-37) Red Cell Distribution Width 14.9 % (11.5-14.5) Platelet Count 192 x10^3/uL (140-400) Neutrophils (%) (Auto) 70 % (31-73) Lymphocytes (%) (Auto) 19 % (24-48) Monocytes (%) (Auto) 8 % (0-9) Eosinophils (%) (Auto) 3 % (0-3) Basophils (%) (Auto) 1 % (0-3) Neutrophils # (Auto) 5.8 x10^3uL (1.8-7.7) Lymphocytes # (Auto) 1.5 x10^3/uL (1.0-4.8) Monocytes # (Auto) 0.7 x10^3/uL (0.0-1.1) Eosinophils # (Auto) 0.2 x10^3/uL (0.0-0.7) Basophils # (Auto) 0.0 x10^3/uL (0.0-0.2) Sodium Level 144 mmol/L (136-145) Potassium Level 3.9 mmol/L (3.5-5.1) Chloride Level 112 mmol/L (98-107) Carbon Dioxide Level 18 mmol/L (21-32) Anion Gap 14 (6-14) Blood Urea Nitrogen 46 mg/dL (7-20) Creatinine 2.7 mg/dL (0.6-1.0) Estimated GFR (Cockcroft-Gault) 20.5 Glucose Level 104 mg/dL (70-99) Calcium Level 9.0 mg/dL (8.5-10.1) ECHOCARDIOGRAM ECHOCARDIOGRAM <Conclusion> The left ventricle is normal size. Left ventricle systolic function is moderately impaired. The Ejection Fraction is 35-40%. There is mild concentric left ventricular hypertrophy. Injection of bubbles documented no interatrial shunt. There is no significant aortic valvular stenosis. Doppler and Color Flow revealed no significant aortic regurgitation. Doppler and Color Flow revealed mild mitral regurgitation. Doppler and Color Flow revealed trace tricuspid regurgitation. The PA pressure was estimated at 23 mmHg. There is no evidence of significant pericardial effusion. DATE: 02/11/15 1653 ASSESSMENT/PLAN ASSESSMENT/PLAN 1. Preop eval: Per revised risk index, she is high risk for CV events 2. AAA: 6.[address] associated with abd and back pain and recent hypotensive episode. Vascular surgery following. 3. BRUNILDA: per nephrology 4. Possible appendicitis: per general surgery 5. Atrial flutter: new? rate controlled 6. Chronic LBBB: EKG with no acute ST changes 7. Macrocytic anemia 8. CAD: CABG and PCI/stent in the past. Date of last workup? 9. Cardiomyopathy: Last known EF 35-40% 10. HTN: controlled 11. HLP 12. Chronic systolic CHF: appears compensated 13. Carotid artery disease 14. Dementia with hx of CVA Recommendations 1. TTE today. 2. Optimize renal function per nephrology. Tentative CTA per vascular. 3. If there is no emergent need for vascular surgery, would need LHC prior to AAA repair pending renal optimization and treatment plan for her possible appendicitis. 4. Will try to obtain old cardiac records. 5. Replace Mg. low dose lopressor IV. Problems: MICKIE DASILVA WOOD CAULKER Apr 15, 2017 09:27
[2017-04-15] MEDS ORDERED: METOCLOPRAMIDE HCL 10 MG/2 ML VIAL. IV PRN (10:30)
--- NOTE | 2017-04-15 10:32 | RAD ---
Clinical indications: Claudication. Bilateral femoral arterial calcification. Findings: Duplex sonography of the peripheral arterial system of both lower extremities including lamb scale evaluation and color flow evaluation and spectral waveform analysis was performed.Biphasic waveforms are seen throughout both sides. There is diffuse moderate calcified plaque formation bilaterally. No peak systolic flow velocity measurement above 200 cm/sec is seen on the left side to indicate a definite 50% stenosis. There is elevation of the right peroneal artery peak systolic flow velocity up to 210 cm/sec which is indicative of a 50% stenosis here. No occlusive disease is seen. Peak systolic flow velocities are as follows: Right leg: common femoral artery- 170 cm/sec, profunda femoral artery -138 cm/sec, proximal superficial femoral artery -133cm/sec, mid superficial femoral artery -105 cm/sec, distal superficial femoral artery- 66 cm/sec, popliteal artery -134 cm/sec, distal posterior tibial artery- 56 cm/sec, peroneal artery- 210 cm/sec, anterior tibial artery- 48 cm/sec, dorsalis pedis artery -70 cm/sec. Left leg: common femoral artery- 175 cm/sec, profunda femoral artery -136 cm/sec, proximal superficial femoral artery- 165cm/sec, mid superficial femoral artery- 134 cm/sec, distal superficial femoral artery- 134 cm/sec, popliteal artery -129 cm/sec, distal posterior tibial artery- 104 cm/sec, peroneal artery -122 cm/sec, anterior tibial artery -125 cm/sec, dorsalis pedis artery- 97 cm/sec. Impression: Diffuse moderate calcified plaque formation bilaterally. 50% stenosis of the right peroneal artery. No occlusive disease is seen.
[2017-04-15] MEDS: METOCLOPRAMIDE HCL 10 MG/2 ML VIAL. IV SCH ×2 (10:33→17:59)
[2017-04-15] MEDS: PIPERACILLIN/TAZO IV Push 2.25 GM VIAL. IVP SCH ×3 (11:20→21:45)
[2017-04-15] MEDS ORDERED: PROMETHAZINE 12.5 MG in IV DEXTROSE 5% 50 ML IV PRN (11:30)
[2017-04-15 11:46] LABS: CHOLESTEROL/HDL RATIO 6.6
[2017-04-15 11:58] LABS: BASO % 0 % (0-3); EOS % 1 % (0-3); HEMATOCRIT 36.7 % (36.0-47.0); HEMOGLOBIN 11.8 g/dL (12.0-15.5); LYMPH # 1.1 x10^3/uL (1.0-4.8); LYMPH % 9 % (24-48); MEAN CORPUSCULAR HEMOGLOBIN 33 pg (25-35); MEAN CORPUSCULAR HGB CONC 32 g/dL (31-37); MEAN CORPUSCULAR VOLUME 101 fL (79-100); MONO % 6 % (0-9); NEUT % 84 % (31-73); PLATELET COUNT 227 x10^3/uL (140-400); RED BLOOD COUNT 3.62 x10^6/uL (3.50-5.40); RED CELL DISTRIBUTION WIDTH 14.7 % (11.5-14.5); WHITE BLOOD COUNT 11.4 x10^3/uL (4.0-11.0)
[2017-04-15] MEDS ORDERED: LIDOCAINE 4% KIT 4 ML SOLUTION. TP ONE (12:00)
[2017-04-15] MEDS ORDERED: METOPROLOL TARTRATE 5 MG/5 ML VIAL. IVP SCH (12:00)
[2017-04-15] MEDS: PROMETHAZINE 12.5 MG in IV NORMAL SALINE 50ML 50 ML IV PRN ×2 (12:01→19:01)
--- NOTE | 2017-04-15 13:00 | CARD ---
APPROVED REPORT EXAM: Two-dimensional and M-mode echocardiogram with Doppler and color Doppler. Other Information Quality : FairHR: 122bpm INDICATION Pre-Op PT HAS A HISTORY OF AAA 2D DIMENSIONS IVSd1.2 (0.7-1.1cm)Aortic Root(2D)2.9 (2.0-3.7cm) LVDd5.0 (3.9-5.9cm)LVOT Diameter2.0 (1.8-2.4cm) PWd1.2 (0.7-1.1cm)LVDs3.9 (2.5-4.0cm) FS (%) 21.6 %SV50.5 ml Aortic Valve AoV Peak Beto.177.6cm/sAoV VTI26.5cm AO Peak GR.12.6mmHgLVOT Peak Beto.120.9cm/s AO Mean GR.7mmHgAVA (VMAX)2.19cm2 IDALIA (VTI)2.20cm2 Mitral Valve MV E Mbatyztf468.3cm/sMV E Peak Gr.11mmHg MV DECEL [id number] A Nwftzxjc093.9cm/s MV E Mean Gr.5mmHgE/A Ratio1.6 Tricuspid Valve TR P. Gamwqufh315tw/sRAP VPEEBFTY2bbTq TR Peak Gr.04hxJkAXXQ31ckQh LEFT VENTRICLE The left ventricle is normal size. There is mild concentric left ventricular hypertrophy. Left ventri omar systolic function is mildl to moderately impaired. The Ejection Fraction is 40%. Tissue Doppler i maging reveals abnormal left ventricular diastolic dysfunction. RIGHT VENTRICLE The right ventricle is normal size. The right ventricular appears hyperdynamic. ATRIA The left atrium is moderately dilated. The right atrium is mildly dilated. Interatrial septum bowed t oward the right, consistent with elevated left atrial pressures. AORTIC VALVE The aortic valve is calcified but opens well. Doppler and Color Flow revealed trace aortic regurgitat ion. There is no significant aortic valvular stenosis. MITRAL VALVE Mitral annular calcification is mild. There is no evidence of mitral valve prolapse. There is mild mi tral valve stenosis. Calculated mitral valve area is 2.2 cm2 with maximum pressure gradient of 11 mmH g and mean pressure gradient of 5 mmHg. Doppler and Color-flow revealed mild mitral regurgitation. TRICUSPID VALVE The tricuspid valve leaflets are thickened , but open well. Doppler and Color Flow revealed mild tric uspid regurgitation. There is moderate pulmonary hypertension. The PA pressure was estimated at 51 mm Hg. There is no tricuspid valve prolapse or vegetation. There is no tricuspid valve stenosis. PULMONIC VALVE The pulmonary valve is normal in structure and function. Doppler and Color Flow revealed no pulmonic valvular regurgitation. There is no pulmonic valvular stenosis. GREAT VESSELS The aortic root is normal in size. Possible dilation of descending aorta. The IVC is normal in size a nd collapses >50% with inspiration. PERICARDIAL EFFUSION There is no pleural effusion. There is no evidence of significant pericardial effusion. Critical Notification Critical Value: No <Conclusion> Left ventricle systolic function is mildl to moderately impaired. The Ejection Fraction is 40%. The left atrium is moderately dilated. Mild mitral valve stenosis with mean pressure gradient of 5 mmHg. Mild mitral regurgitation. Mild tricuspid regurgitation. The PA pressure was estimated at 51 mmHg. There is no evidence of significant pericardial effusion.
--- NOTE | 2017-04-15 13:00 | RAD ---
EXAM: Chest one view. HISTORY: Cardiomyopathy, aortic aneurysm. COMPARISON: 02/08/2015. FINDINGS: A frontal view of the chest is obtained. There are changes of coronary artery bypass grafting. Mild interstitial opacities are consistent with mild pulmonary edema. A small right pleural effusion cannot be excluded. There is no pneumothorax. The heart is mildly enlarged. Prominence of the right peritracheal stripe is most likely stable given differences in projection and corresponds with aortic tortuosity. Cholecystectomy clips are noted. IMPRESSION: 1. Prominence of the right peritracheal stripe most likely corresponds with aortic tortuosity. CT could further confirm this if there is persistent concern. 2. Mild pulmonary edema. 3. Mild cardiomegaly.
--- NOTE | 2017-04-15 14:47 | EKG ---
[facility] [address] [place] [address] Test Date: 2017-04-15 Test Time: 14:41:44 Pat Name: EDWIN ADAMS Department: Room: 114 1 Gender: F Incinerator Attendant: RANDOLPH : 1935 Requested By: TOMMY RICE Order Number: [id number] Reading MD: Cezar Jamil MD Measurements Intervals [place] Rate: 109 P: LA: QRS: 15 QRSD: 146 T: 106 QT: 372 QTc: 503 Interpretive Statements SUPRAVENTRICULAR TACHYCARDIA(AFIB/FLUTTER) NON-SPECIFIC IVCD Electronically Signed On 04-18-2017 10:56:26 PRICING DIRECTOR by Cezar Jamil MD
[2017-04-15] MEDS ORDERED: ONDANSETRON PF 4 MG/2 ML VIAL. IV PRN (15:00)
[2017-04-15] MEDS: SODIUM BICARBONATE IV SCH (16:07)
[2017-04-15] MEDS: [UNRECOGNIZED DRUG - OTHER] IV SCH (16:07)
[2017-04-15] MEDS: POTASSIUM ACETATE IV SCH (16:07)
[2017-04-15] MEDS ORDERED: FUROSEMIDE 20 MG/2 ML VIAL. IVP ONE (17:45)
[2017-04-15] MEDS: METOPROLOL TARTRATE 5 MG/5 ML VIAL. IVP SCH (17:59)
[2017-04-15] MEDS: IPRATRPIUM/ALBUTEROL 0.5/2.5MG 3 ML NEBU. NEB SCH ×2 (18:26→20:05)
--- NOTE | 2017-04-15 18:46 | RAD ---
AP portable chest radiograph 04/15/2017 Clinical History: Worsening shortness of breath. An AP erect portable digital radiograph of the chest was obtained. No previous studies are available for comparison at this time. Surgical changes are seen consistent with a CABG procedure. The cardiac silhouette is mildly enlarged. The thoracic aorta is mildly tortuous. There are small bilateral pleural effusions. Bilateral perihilar infiltrates are seen involving both lungs consistent with pulmonary edema from CHF. No pneumothorax is noted. There is diffuse osteopenia of the visualized bony structures. Degenerative changes are seen involving the thoracic spine and both shoulders. IMPRESSION: Bilateral perihilar infiltrates are seen consistent with pulmonary edema from CHF. Electronically signed by: Lenny Bull MD (04/15/2017 6:42 PM) [facility]
[2017-04-15 19:08] LABS: BASO % 0 % (0-3); EOS % 0 % (0-3); HEMATOCRIT 38.2 % (36.0-47.0); HEMOGLOBIN 12.2 g/dL (12.0-15.5); LYMPH # 1.3 x10^3/uL (1.0-4.8); LYMPH % 11 % (24-48); MEAN CORPUSCULAR HEMOGLOBIN 32 pg (25-35); MEAN CORPUSCULAR HGB CONC 32 g/dL (31-37); MEAN CORPUSCULAR VOLUME 101 fL (79-100); MONO % 6 % (0-9); NEUT % 83 % (31-73); PLATELET COUNT 275 x10^3/uL (140-400); WHITE BLOOD COUNT 12.4 x10^3/uL (4.0-11.0)
[2017-04-15] MEDS: ATORVASTATIN CALCIUM 20 MG TABLET PO SCH (21:00)
--- NOTE | 2017-04-15 21:58 | PN ---
DATE: 04/15/2017 SUBJECTIVE: The patient is resting slightly propped up in bed, in no apparent distress. She is awake, alert. On questioning her, she is still complaining of back pain and also some nausea, but no vomiting. PHYSICAL EXAMINATION: GENERAL: When examining her, she looked well and was clearly in no apparent respiratory distress, slightly pale, no jaundice, cyanosis, or thyromegaly. No jugular venous distention. No limb edema. VITAL SIGNS: Her heart rate was 70, blood pressure 148/77, her temperature was 97.7, respiratory rate was 18, and oxygen saturation was 96% on 2 liters of oxygen. HEAD, EYES, EARS, NOSE AND THROAT: Normocephalic, atraumatic. NECK: Supple. HEART: Showed normal first and second heart sounds. No gallop, rub or murmur. CHEST: Clear to auscultation. No crepitation or rhonchi. ABDOMEN: Distended, soft, nontender. No guarding or rigidity. No organomegaly. Hernial orifices intact. Bowel sounds normal. NEUROLOGIC: She was demented, but without any obvious lateralizing sign. All her cranial nerves intact. She moves extremities without difficulty, although she is mostly bed bound. Her intake over the last 24 hours was 2670, output was 1330. LABORATORY DATA: Her lab work as of this morning showed that her white cell count is down to 8300. Her hemoglobin is now at 10.5, hematocrit 33, MCV 102, and platelet count of 192,000. Her chemistry showed her sodium 144, potassium 3.9, chloride 112, bicarbonate 18, anion gap of 14, BUN 46, creatinine 2.7, estimated GFR was 20 mL per minute, her glucose 104 and calcium was 9. TSH was normal. Her CK was 584. ASSESSMENT: In summary, this is an 81-year-old female patient who was admitted with: 1. Abdominal pain that is radiating to the back and was found to have enlarging abdominal aortic aneurysm with the anteroposterior diameter of 6.6 from 4.3. 2. Acute on chronic kidney injury. 3. Questionable appendicitis. PLAN: She was evaluated by the Vascular Surgeon and they basically recommended waiting for renal function to improve before they consider stent grafting. I will continue with IV fluid, continue with Zosyn for possible appendicitis. I also consult the still runner for preoperative evaluation and data coordinator has already consulted. FAUSTO BATEMAN MD DR: EDGAR/vian JOB#: [id number] / [id number]
--- NOTE | 2017-04-15 22:20 | CONS ---
DATE OF CONSULTATION: PRIMARY PHYSICIAN: Elana Gold MD REASON FOR CONSULTATION: Acute renal failure. HISTORY OF PRESENT ILLNESS: The patient is an 81-year-old female from a skilled nursing. She was noted to have abdominal pain/back pain, which was sharp and continuous. She was sent to the ER for further evaluation. ER reports notes vomiting. She denies diarrhea either to me. Denies fevers or chills. She was also noted to have abnormal labs with creatinine approximately 3.5 to 4 range. It is also noted that she had become hypotensive at the facility per the ER notes and was brought to the ER here. She was noted to have a creatinine of 4.3, magnesium 1.5, BUN 62 and relatively normal electrolytes otherwise. She underwent a CT scan of her abdomen and pelvis and is noted to have an enlarging AAA from 4.4-6.6 cm. She has responded to IV fluids. She is noted to be on 2 diuretics. She does have a history of CHF by her reports. We were asked to see her for acute renal failure, oliguria. She was started on IV fluids yesterday and her BUN is down to 46, creatinine is down to 2.7. She remains asymptomatic. A CTA has been contemplated for her AAA evaluation and repair, pending normalization of her creatinine. Her UA done twice, initially showed many hyaline casts, now shows few hyaline casts, no other cellular elements noted. Her previous echocardiogram showed an EF of approximately 35%-40% without obvious valvular dysfunction in 2014, i.e. greater than 2 years ago. No recent echocardiogram is available. She has handle fluids pretty well currently, has not demonstrated signs of fluid overload per se at this time. For rest of details, please see electronic renal consult note. KELSEY RAMIREZ MD DR: OSCAR/ivan JOB#: [id number] / [id number]
[2017-04-15] MEDS: ALBUTEROL SULFATE 2.5 MG/3 ML NEBU. NEB PRN (22:41)
[2017-04-15 23:24] LABS: HCO3 ABG 18 mmol/L (21-28); PO2 ABG 67 mmHg (65-108); SAT O2 ABG 91 % (92-99)
[2017-04-15] MEDS ORDERED: PROPOFOL 100 ML IV ONE (23:36)
[2017-04-15] MEDS ORDERED: SUCCINYLCHOLINE 200 MG/10 ML VIAL. ONE (23:37)
[2017-04-16] VITALS (23 sets, daily range): BP systolic 86–145; BP diastolic 63–87
[2017-04-16] MEDS ORDERED: SUCCINYLCHOLINE 200 MG/10 ML VIAL. IV ONE
[2017-04-16] MEDS ORDERED: PROPOFOL 100 ML IV ONE
[2017-04-16 00:20] LABS: PCO2 ABG 68 mmHg (35-46); PH ABG 7.04 (7.35-7.45)
[2017-04-16 00:21] LABS: FIO2 ABG 76
--- NOTE | 2017-04-16 00:30 | RAD ---
INDICATION: og placement COMPARISON: Chest x-ray from April 15, 2017 IMPRESSION: Single view of a portion of the abdomen obtained. There is one enteric tube visualized with tip at left upper quadrant of abdomen in expected location of stomach. Interstitial and alveolar opacities at partially visualized lung bases. Could be from pulmonary edema or multifocal infiltrate. Degenerative changes of the spine. Calcifications are seen to the right of the spine which could be secondary to vascular calcifications. Prominent appearance of the calcifications which could be from aortic aneurysm or tortuosity. CHEST: Single frontal view of chest obtained. Endotracheal tube midthoracic trachea. Enteric tube visualized. Enlarged cardiac silhouette with poststernotomy changes. Interstitial and alveolar opacities within the bilateral lungs which could be from multifocal infiltrate or edema. There may also be some pleural effusions. Electronically signed by: Mark Shelley MD (04/16/2017 12:27 AM) [facility]
[2017-04-16 01:28] LABS: HCO3 ABG 18 mmol/L (21-28); PCO2 ABG 40 mmHg (35-46); PH ABG 7.27 (7.35-7.45); PO2 ABG 71 mmHg (65-108); SAT O2 ABG 94 % (92-99)
[2017-04-16 01:45] LABS: FIO2 ABG 80
[2017-04-16] MEDS: METOCLOPRAMIDE HCL 10 MG/2 ML VIAL. IV SCH ×3 (02:23→11:51)
[2017-04-16 02:52] LABS: BASO % 0 % (0-3); EOS % 0 % (0-3); HEMATOCRIT 30.1 % (36.0-47.0); HEMOGLOBIN 9.2 g/dL (12.0-15.5); LYMPH # 0.9 x10^3/uL (1.0-4.8); LYMPH % 6 % (24-48); MEAN CORPUSCULAR HEMOGLOBIN 32 pg (25-35); MEAN CORPUSCULAR HGB CONC 31 g/dL (31-37); MEAN CORPUSCULAR VOLUME 105 fL (79-100); MONO % 6 % (0-9); NEUT % 88 % (31-73); PLATELET COUNT 276 x10^3/uL (140-400); RED BLOOD COUNT 2.88 x10^6/uL (3.50-5.40); RED CELL DISTRIBUTION WIDTH 15.5 % (11.5-14.5)
[2017-04-16] MEDS: PROPOFOL 100 ML IV PRN ×3 (05:13→21:44)
[2017-04-16 05:34] LABS: BASO % 0 % (0-3); EOS % 0 % (0-3); HEMATOCRIT 42.7 % (36.0-47.0); LYMPH # 1.3 x10^3/uL (1.0-4.8); LYMPH % 11 % (24-48); MEAN CORPUSCULAR HEMOGLOBIN 32 pg (25-35); MEAN CORPUSCULAR HGB CONC 31 g/dL (31-37); MEAN CORPUSCULAR VOLUME 103 fL (79-100); MONO % 6 % (0-9); NEUT % 83 % (31-73); PLATELET COUNT 250 x10^3/uL (140-400); RED BLOOD COUNT 4.13 x10^6/uL (3.50-5.40); RED CELL DISTRIBUTION WIDTH 15.6 % (11.5-14.5); WHITE BLOOD COUNT 12.4 x10^3/uL (4.0-11.0)
[2017-04-16] MEDS: [UNRECOGNIZED DRUG - OTHER] IV SCH (05:37)
[2017-04-16] MEDS: SODIUM BICARBONATE IV SCH (05:37)
[2017-04-16] MEDS: POTASSIUM ACETATE IV SCH (05:37)
[2017-04-16] MEDS: METOPROLOL TARTRATE 5 MG/5 ML VIAL. IVP SCH ×4 (05:43→16:12)
[2017-04-16] MEDS: PIPERACILLIN/TAZO IV Push 2.25 GM VIAL. IVP SCH ×3 (05:47→21:41)
[2017-04-16 06:14] LABS: HEMOGLOBIN 13.2 g/dL (12.0-15.5)
[2017-04-16 07:32] LABS: ALBUMIN 2.6 g/dL (3.4-5.0); ALBUMIN/GLOBULIN RATIO 0.7 (1.0-1.7); CALCIUM 9.3 mg/dL (8.5-10.1); CREATININE 2.7 mg/dL (0.6-1.0); GFR 20.5; MAGNESIUM 1.2 mg/dL (1.8-2.4); PHOSPHORUS 1.2 mg/dL (2.6-4.7); POTASSIUM 3.7 mmol/L (3.5-5.1); TOTAL BILIRUBIN 0.3 mg/dL (0.2-1.0); TOTAL PROTEIN 6.5 g/dL (6.4-8.2)
[2017-04-16] MEDS: IPRATRPIUM/ALBUTEROL 0.5/2.5MG 3 ML NEBU. NEB SCH ×4 (08:15→20:19)
--- NOTE | 2017-04-16 08:15 | PDOC ---
Provider Note Provider Note Vascular F/U Large AAA Creat. 2.7 Imp: Stable large AAA Plan; Cardiac eval. for clearance for possible open repair of the AAA if Creat. does not improve enough for a CTA TIMOTHY MANZO MD Apr 16, 2017 08:15
[2017-04-16 08:28] LABS: HCO3 ABG 20 mmol/L (21-28); PCO2 ABG 26 mmHg (35-46); PO2 ABG 81 mmHg (65-108); SAT O2 ABG 97 % (92-99)
[2017-04-16 08:29] LABS: FIO2 ABG 45%
--- NOTE | 2017-04-16 08:46 | RAD ---
EXAM: Chest, single view. HISTORY: Congestive heart failure. COMPARISON: 04/16/2017. FINDINGS: A frontal view of the chest is obtained. There has been slight interval decrease in diffuse interstitial prominence. There is stable small pleural effusions. There is stable enlargement of the cardiac silhouette.. There is an endotracheal tube within the mid trachea. There is a nasogastric tube within the stomach. There are median sternotomy changes. IMPRESSION: 1. Slight interval decrease in pelvic congestion with superimposed lower lobe atelectasis or infiltrate. 2. Stable enlargement of the cardiac silhouette and support lines and tubes.
--- NOTE | 2017-04-16 08:53 | PDOC ---
CARDIO Progress Notes Date and Time Date of Service 04/16/2017 Time of Evaluation 0830 Subjective Subjective: Other (intubated) Vitals Vitals Vital Signs Date Time Temp Pulse Resp B/P (MAP) Pulse Ox O2 Delivery O2 Flow Rate FiO2 04/16/17 08:16 97 Ventilator 04/16/17 06:00 85 22 94/68 (77) 04/16/17 04:00 99.8 99.8 04/15/17 23:00 15.0 Weight Weight [ ] Laboratory Labs Laboratory Tests Test 04/15/17 09:55 04/15/17 11:26 04/15/17 11:50 04/15/17 18:15 Clostridium difficile Toxin (PCR) Negative (Negative) Triglycerides Level 186 mg/dL (0-150) Cholesterol Level 199 mg/dL (0-200) LDL Cholesterol, Calculated 132 mg/dL (0-100) VLDL Cholesterol, Calculated 37 mg/dL (0-40) Non-HDL Cholesterol Calculated 169 mg/dL (0-129) HDL Cholesterol 30 mg/dL (40-60) Cholesterol/HDL Ratio 6.6 White Blood Count 11.4 x10^3/uL (4.0-11.0) 12.4 x10^3/uL (4.0-11.0) Red Blood Count 3.62 x10^6/uL (3.50-5.40) 3.80 x10^6/uL (3.50-5.40) Hemoglobin 11.8 g/dL (12.0-15.5) 12.2 g/dL (12.0-15.5) Hematocrit 36.7 % (36.0-47.0) 38.2 % (36.0-47.0) Mean Corpuscular Volume 101 fL (79-100) 101 fL (79-100) Mean Corpuscular Hemoglobin 33 pg (25-35) 32 pg (25-35) Mean Corpuscular Hemoglobin Concent 32 g/dL (31-37) 32 g/dL (31-37) Red Cell Distribution Width 14.7 % (11.5-14.5) 15.0 % (11.5-14.5) Platelet Count 227 x10^3/uL (140-400) 275 x10^3/uL (140-400) Neutrophils (%) (Auto) 84 % (31-73) 83 % (31-73) Lymphocytes (%) (Auto) 9 % (24-48) 11 % (24-48) Monocytes (%) (Auto) 6 % (0-9) 6 % (0-9) Eosinophils (%) (Auto) 1 % (0-3) 0 % (0-3) Basophils (%) (Auto) 0 % (0-3) 0 % (0-3) Neutrophils # (Auto) 9.6 x10^3uL (1.8-7.7) 10.3 x10^3uL (1.8-7.7) Lymphocytes # (Auto) 1.1 x10^3/uL (1.0-4.8) 1.3 x10^3/uL (1.0-4.8) Monocytes # (Auto) 0.6 x10^3/uL (0.0-1.1) 0.8 x10^3/uL (0.0-1.1) Eosinophils # (Auto) 0.1 x10^3/uL (0.0-0.7) 0.0 x10^3/uL (0.0-0.7) Basophils # (Auto) 0.0 x10^3/uL (0.0-0.2) 0.0 x10^3/uL (0.0-0.2) Test 04/15/17 23:16 04/16/17 00:30 04/16/17 01:14 04/16/17 02:00 O2 Saturation 91 % (92-99) 94 % (92-99) Arterial Blood pH 7.04 (7.35-7.45) 7.27 (7.35-7.45) Arterial Blood pCO2 at Patient Temp 68 mmHg (35-46) 40 mmHg (35-46) Arterial Blood pO2 at Patient Temp 67 mmHg (65-108) 71 mmHg (65-108) Arterial Blood HCO3 18 mmol/L (21-28) 18 mmol/L (21-28) Arterial Blood Base Excess -13 mmol/L (-3-3) -9 mmol/L (-3-3) FiO2 76 80 White Blood Count 15.0 x10^3/uL (4.0-11.0) Red Blood Count 2.88 x10^6/uL (3.50-5.40) Hemoglobin 9.2 g/dL (12.0-15.5) Hematocrit 30.1 % (36.0-47.0) Mean Corpuscular Volume 105 fL (79-100) Mean Corpuscular Hemoglobin 32 pg (25-35) Mean Corpuscular Hemoglobin Concent 31 g/dL (31-37) Red Cell Distribution Width 15.5 % (11.5-14.5) Platelet Count 276 x10^3/uL (140-400) Neutrophils (%) (Auto) 88 % (31-73) Lymphocytes (%) (Auto) 6 % (24-48) Monocytes (%) (Auto) 6 % (0-9) Eosinophils (%) (Auto) 0 % (0-3) Basophils (%) (Auto) 0 % (0-3) Neutrophils # (Auto) 13.1 x10^3uL (1.8-7.7) Lymphocytes # (Auto) 0.9 x10^3/uL (1.0-4.8) Monocytes # (Auto) 0.9 x10^3/uL (0.0-1.1) Eosinophils # (Auto) 0.0 x10^3/uL (0.0-0.7) Basophils # (Auto) 0.0 x10^3/uL (0.0-0.2) Lactic Acid Level 5.8 mmol/L (0.4-2.0) Test 04/16/17 04:23 04/16/17 07:10 04/16/17 08:00 White Blood Count 12.4 x10^3/uL (4.0-11.0) Red Blood Count 4.13 x10^6/uL (3.50-5.40) Hemoglobin 13.2 g/dL (12.0-15.5) Hematocrit 42.7 % (36.0-47.0) Mean Corpuscular Volume 103 fL (79-100) Mean Corpuscular Hemoglobin 32 pg (25-35) Mean Corpuscular Hemoglobin Concent 31 g/dL (31-37) Red Cell Distribution Width 15.6 % (11.5-14.5) Platelet Count 250 x10^3/uL (140-400) Neutrophils (%) (Auto) 83 % (31-73) Lymphocytes (%) (Auto) 11 % (24-48) Monocytes (%) (Auto) 6 % (0-9) Eosinophils (%) (Auto) 0 % (0-3) Basophils (%) (Auto) 0 % (0-3) Neutrophils # (Auto) 10.3 x10^3uL (1.8-7.7) Lymphocytes # (Auto) 1.3 x10^3/uL (1.0-4.8) Monocytes # (Auto) 0.7 x10^3/uL (0.0-1.1) Eosinophils # (Auto) 0.0 x10^3/uL (0.0-0.7) Basophils # (Auto) 0.0 x10^3/uL (0.0-0.2) Sodium Level 146 mmol/L (136-145) Potassium Level 3.7 mmol/L (3.5-5.1) Chloride Level 112 mmol/L (98-107) Carbon Dioxide Level 21 mmol/L (21-32) Anion Gap 13 (6-14) Blood Urea Nitrogen 39 mg/dL (7-20) Creatinine 2.7 mg/dL (0.6-1.0) Estimated GFR (Cockcroft-Gault) 20.5 BUN/Creatinine Ratio 14 (6-20) Glucose Level 231 mg/dL (70-99) Calcium Level 9.3 mg/dL (8.5-10.1) Phosphorus Level 1.2 mg/dL (2.6-4.7) Magnesium Level 1.2 mg/dL (1.8-2.4) Total Bilirubin 0.3 mg/dL (0.2-1.0) Aspartate Amino Transf (AST/SGOT) 69 U/L (15-37) Alanine Aminotransferase (ALT/SGPT) 16 U/L (14-59) Alkaline Phosphatase 39 U/L (46-116) Creatine Kinase 493 U/L (26-192) Total Protein 6.5 g/dL (6.4-8.2) Albumin 2.6 g/dL (3.4-5.0) Albumin/Globulin Ratio 0.7 (1.0-1.7) O2 Saturation 97 % (92-99) Arterial Blood pH 7.50 (7.35-7.45) Arterial Blood pCO2 at Patient Temp 26 mmHg (35-46) Arterial Blood pO2 at Patient Temp 81 mmHg (65-108) Arterial Blood HCO3 20 mmol/L (21-28) Arterial Blood Base Excess -2 mmol/L (-3-3) FiO2 45% Microbiology Micro Microbiology 04/14/17 Blood Culture - Preliminary, Resulted NO GROWTH AFTER 1 DAY Physical Exam HEENT: Neck Supple W Full Motion Chest: Symmetric LUNGS: Other (diminished bases; intubated with mechanical vent) Heart: S1S2, irregularly irregular (atrial flutter rate controlled) Abdomen: Other (soft) Extremities: No Calf Tenderness Neurology: other (sedated) Assessment Assessment 1. Acute respiratory failure: multifactorial 2. AAA: 6.6 stable per vascular surgery. CTA pending renal function. BRUNILDA: improved Cr with hydration per nephrology 3. Appendicitis with sepsis: low grade fever today. per general surgery 4. Possible Sepsis 5. Paroxysmal Atrial flutter: rate controlled 6. Chronic LBBB: EKG with no acute ST changes 7. Macrocytic anemia 8. CAD: CABG and PCI/stent in the past. Date of last workup? 9. Cardiomyopathy: EF 40% unchanged from previous 10. HTN: previously with labile episode but better with metoprolol and propofol 11. HLP 12. Mild acute on chronic systolic CHF 13. Carotid artery disease 14. Dementia with hx of CVA Recommendations 1. High risk for CV events for surgery. Continue with IV lopressor. Would need LHC prior to AAA repair pending renal optimization and treatment plan for her possible appendicitis. 2. Old records not available yet 3. Supportive care. low dose ASA if ok with others. MICKIE DASILVA APRN Apr 16, 2017 08:53
[2017-04-16 10:22] LABS: ANISOCYTOSIS SLIGHT; NUCLEATED RBC 1; PLT ESTIMATE ADEQUATE (ADEQUATE)
[2017-04-16] MEDS ORDERED: MAGNESIUM SULFATE 2GM 50 ML IV ONE (10:30)
--- NOTE | 2017-04-16 11:27 | PDOC ---
PULMONARY PROGRESS NOTES Vitals Vital Signs Date Time Temp Pulse Resp B/P (MAP) Pulse Ox O2 Delivery O2 Flow Rate FiO2 04/16/17 08:49 95 Ventilator 04/16/17 06:00 85 22 94/68 (77) 04/16/17 04:00 99.8 99.8 04/15/17 23:00 15.0 Labs Laboratory Tests Test 04/14/17 11:55 04/14/17 12:30 04/14/17 15:00 04/14/17 16:35 White Blood Count 8.7 x10^3/uL (4.0-11.0) Red Blood Count 3.32 x10^6/uL (3.50-5.40) Hemoglobin 10.8 g/dL (12.0-15.5) Hematocrit 33.1 % (36.0-47.0) Mean Corpuscular Volume 100 fL (79-100) Mean Corpuscular Hemoglobin 33 pg (25-35) Mean Corpuscular Hemoglobin Concent 33 g/dL (31-37) Red Cell Distribution Width 14.4 % (11.5-14.5) Platelet Count 226 x10^3/uL (140-400) Neutrophils (%) (Auto) 80 % (31-73) Lymphocytes (%) (Auto) 11 % (24-48) Monocytes (%) (Auto) 7 % (0-9) Eosinophils (%) (Auto) 2 % (0-3) Basophils (%) (Auto) 1 % (0-3) Neutrophils # (Auto) 7.0 x10^3uL (1.8-7.7) Lymphocytes # (Auto) 0.9 x10^3/uL (1.0-4.8) Monocytes # (Auto) 0.6 x10^3/uL (0.0-1.1) Eosinophils # (Auto) 0.1 x10^3/uL (0.0-0.7) Basophils # (Auto) 0.0 x10^3/uL (0.0-0.2) Sodium Level 139 mmol/L (136-145) Potassium Level 3.5 mmol/L (3.5-5.1) Chloride Level 101 mmol/L (98-107) Carbon Dioxide Level 22 mmol/L (21-32) Anion Gap 16 (6-14) Blood Urea Nitrogen 62 mg/dL (7-20) Creatinine 4.3 mg/dL (0.6-1.0) Estimated GFR (Cockcroft-Gault) 12.0 Glucose Level 171 mg/dL (70-99) Lactic Acid Level 0.9 mmol/L (0.4-2.0) Calcium Level 9.8 mg/dL (8.5-10.1) Magnesium Level 1.5 mg/dL (1.8-2.4) Total Bilirubin 0.4 mg/dL (0.2-1.0) Direct Bilirubin 0.1 mg/dL (0.0-0.2) Aspartate Amino Transf (AST/SGOT) 40 U/L (15-37) Alanine Aminotransferase (ALT/SGPT) 20 U/L (14-59) Alkaline Phosphatase 49 U/L (46-116) Creatine Kinase 584 U/L (26-192) Creatine Kinase MB (Mass) 13.3 ng/mL (0.0-3.6) Creatine Kinase MB Relative Index 2.3 % (0-4) Troponin I Quantitative < 0.017 ng/mL (0.000-0.055) C-Reactive Protein, Quantitative 33.8 mg/L (0-3.3) Total Protein 7.4 g/dL (6.4-8.2) Albumin 3.8 g/dL (3.4-5.0) Lipase 251 U/L (73-393) Thyroid Stimulating Hormone (TSH) 1.628 uIU/mL (0.358-3.74) Urine Collection Type U cath U cath Urine Color Yellow Yellow Urine Clarity Clear Clear Urine pH 5.5 5.5 Urine Specific [place] 1.020 1.020 Urine Protein Negative mg/dL (NEG-TRACE) Negative mg/dL (NEG-TRACE) Urine Glucose (UA) Negative mg/dL (NEG) Negative mg/dL (NEG) Urine Ketones (Stick) Negative mg/dL (NEG) Negative mg/dL (NEG) Urine Blood Negative (NEG) Negative (NEG) Urine Nitrite Negative (NEG) Negative (NEG) Urine Bilirubin Small (NEG) Negative (NEG) Urine Urobilinogen Dipstick 0.2 mg/dL (0.2 mg/dL) 0.2 mg/dL (0.2 mg/dL) Urine Leukocyte Esterase Negative (NEG) Negative (NEG) Urine RBC 0 /HPF (0-2) 1-2 /HPF (0-2) Urine WBC 0 /HPF (0-4) 0 /HPF (0-4) Urine Amorphous Sediment Present /HPF Urine Bacteria 0 /HPF (0-FEW) 0 /HPF (0-FEW) Urine Hyaline Casts Many /HPF Few /HPF Nasal Screen MRSA (PCR) Negative (Negative) Urine Squamous Epithelial Cells Few /LPF Test 04/15/17 05:30 04/15/17 09:55 04/15/17 11:26 04/15/17 11:50 White Blood Count 8.3 x10^3/uL (4.0-11.0) 11.4 x10^3/uL (4.0-11.0) Red Blood Count 3.24 x10^6/uL (3.50-5.40) 3.62 x10^6/uL (3.50-5.40) Hemoglobin 10.5 g/dL (12.0-15.5) 11.8 g/dL (12.0-15.5) Hematocrit 32.9 % (36.0-47.0) 36.7 % (36.0-47.0) Mean Corpuscular Volume 102 fL (79-100) 101 fL (79-100) Mean Corpuscular Hemoglobin 32 pg (25-35) 33 pg (25-35) Mean Corpuscular Hemoglobin Concent 32 g/dL (31-37) 32 g/dL (31-37) Red Cell Distribution Width 14.9 % (11.5-14.5) 14.7 % (11.5-14.5) Platelet Count 192 x10^3/uL (140-400) 227 x10^3/uL (140-400) Neutrophils (%) (Auto) 70 % (31-73) 84 % (31-73) Lymphocytes (%) (Auto) 19 % (24-48) 9 % (24-48) Monocytes (%) (Auto) 8 % (0-9) 6 % (0-9) Eosinophils (%) (Auto) 3 % (0-3) 1 % (0-3) Basophils (%) (Auto) 1 % (0-3) 0 % (0-3) Neutrophils # (Auto) 5.8 x10^3uL (1.8-7.7) 9.6 x10^3uL (1.8-7.7) Lymphocytes # (Auto) 1.5 x10^3/uL (1.0-4.8) 1.1 x10^3/uL (1.0-4.8) Monocytes # (Auto) 0.7 x10^3/uL (0.0-1.1) 0.6 x10^3/uL (0.0-1.1) Eosinophils # (Auto) 0.2 x10^3/uL (0.0-0.7) 0.1 x10^3/uL (0.0-0.7) Basophils # (Auto) 0.0 x10^3/uL (0.0-0.2) 0.0 x10^3/uL (0.0-0.2) Sodium Level 144 mmol/L (136-145) Potassium Level 3.9 mmol/L (3.5-5.1) Chloride Level 112 mmol/L (98-107) Carbon Dioxide Level 18 mmol/L (21-32) Anion Gap 14 (6-14) Blood Urea Nitrogen 46 mg/dL (7-20) Creatinine 2.7 mg/dL (0.6-1.0) Estimated GFR (Cockcroft-Gault) 20.5 Glucose Level 104 mg/dL (70-99) Calcium Level 9.0 mg/dL (8.5-10.1) Creatine Kinase 471 U/L (26-192) Clostridium difficile Toxin (PCR) Negative (Negative) Triglycerides Level 186 mg/dL (0-150) Cholesterol Level 199 mg/dL (0-200) LDL Cholesterol, Calculated 132 mg/dL (0-100) VLDL Cholesterol, Calculated 37 mg/dL (0-40) Non-HDL Cholesterol Calculated 169 mg/dL (0-129) HDL Cholesterol 30 mg/dL (40-60) Cholesterol/HDL Ratio 6.6 Test 04/15/17 18:15 04/15/17 23:16 04/16/17 00:30 04/16/17 01:14 White Blood Count 12.4 x10^3/uL (4.0-11.0) 15.0 x10^3/uL (4.0-11.0) Red Blood Count 3.80 x10^6/uL (3.50-5.40) 2.88 x10^6/uL (3.50-5.40) Hemoglobin 12.2 g/dL (12.0-15.5) 9.2 g/dL (12.0-15.5) Hematocrit 38.2 % (36.0-47.0) 30.1 % (36.0-47.0) Mean Corpuscular Volume 101 fL (79-100) 105 fL (79-100) Mean Corpuscular Hemoglobin 32 pg (25-35) 32 pg (25-35) Mean Corpuscular Hemoglobin Concent 32 g/dL (31-37) 31 g/dL (31-37) Red Cell Distribution Width 15.0 % (11.5-14.5) 15.5 % (11.5-14.5) Platelet Count 275 x10^3/uL (140-400) 276 x10^3/uL (140-400) Neutrophils (%) (Auto) 83 % (31-73) 88 % (31-73) Lymphocytes (%) (Auto) 11 % (24-48) 6 % (24-48) Monocytes (%) (Auto) 6 % (0-9) 6 % (0-9) Eosinophils (%) (Auto) 0 % (0-3) 0 % (0-3) Basophils (%) (Auto) 0 % (0-3) 0 % (0-3) Neutrophils # (Auto) 10.3 x10^3uL (1.8-7.7) 13.1 x10^3uL (1.8-7.7) Lymphocytes # (Auto) 1.3 x10^3/uL (1.0-4.8) 0.9 x10^3/uL (1.0-4.8) Monocytes # (Auto) 0.8 x10^3/uL (0.0-1.1) 0.9 x10^3/uL (0.0-1.1) Eosinophils # (Auto) 0.0 x10^3/uL (0.0-0.7) 0.0 x10^3/uL (0.0-0.7) Basophils # (Auto) 0.0 x10^3/uL (0.0-0.2) 0.0 x10^3/uL (0.0-0.2) O2 Saturation 91 % (92-99) 94 % (92-99) Arterial Blood pH 7.04 (7.35-7.45) 7.27 (7.35-7.45) Arterial Blood pCO2 at Patient Temp 68 mmHg (35-46) 40 mmHg (35-46) Arterial Blood pO2 at Patient Temp 67 mmHg (65-108) 71 mmHg (65-108) Arterial Blood HCO3 18 mmol/L (21-28) 18 mmol/L (21-28) Arterial Blood Base Excess -13 mmol/L (-3-3) -9 mmol/L (-3-3) FiO2 76 80 Segmented Neutrophils % 89 % (35-66) Band Neutrophils % 3 % (0-9) Lymphocytes % 4 % (24-48) Monocytes % 4 % (0-10) Nucleated Red Blood Cells 1 Platelet Estimate Adequate (ADEQUATE) Anisocytosis Slight Test 04/16/17 02:00 04/16/17 04:23 04/16/17 07:10 04/16/17 08:00 Lactic Acid Level 5.8 mmol/L (0.4-2.0) White Blood Count 12.4 x10^3/uL (4.0-11.0) Red Blood Count 4.13 x10^6/uL (3.50-5.40) Hemoglobin 13.2 g/dL (12.0-15.5) Hematocrit 42.7 % (36.0-47.0) Mean Corpuscular Volume 103 fL (79-100) Mean Corpuscular Hemoglobin 32 pg (25-35) Mean Corpuscular Hemoglobin Concent 31 g/dL (31-37) Red Cell Distribution Width 15.6 % (11.5-14.5) Platelet Count 250 x10^3/uL (140-400) Neutrophils (%) (Auto) 83 % (31-73) Lymphocytes (%) (Auto) 11 % (24-48) Monocytes (%) (Auto) 6 % (0-9) Eosinophils (%) (Auto) 0 % (0-3) Basophils (%) (Auto) 0 % (0-3) Neutrophils # (Auto) 10.3 x10^3uL (1.8-7.7) Lymphocytes # (Auto) 1.3 x10^3/uL (1.0-4.8) Monocytes # (Auto) 0.7 x10^3/uL (0.0-1.1) Eosinophils # (Auto) 0.0 x10^3/uL (0.0-0.7) Basophils # (Auto) 0.0 x10^3/uL (0.0-0.2) Sodium Level 146 mmol/L (136-145) Potassium Level 3.7 mmol/L (3.5-5.1) Chloride Level 112 mmol/L (98-107) Carbon Dioxide Level 21 mmol/L (21-32) Anion Gap 13 (6-14) Blood Urea Nitrogen 39 mg/dL (7-20) Creatinine 2.7 mg/dL (0.6-1.0) Estimated GFR (Cockcroft-Gault) 20.5 BUN/Creatinine Ratio 14 (6-20) Glucose Level 231 mg/dL (70-99) Calcium Level 9.3 mg/dL (8.5-10.1) Phosphorus Level 1.2 mg/dL (2.6-4.7) Magnesium Level 1.2 mg/dL (1.8-2.4) Total Bilirubin 0.3 mg/dL (0.2-1.0) Aspartate Amino Transf (AST/SGOT) 69 U/L (15-37) Alanine Aminotransferase (ALT/SGPT) 16 U/L (14-59) Alkaline Phosphatase 39 U/L (46-116) Creatine Kinase 493 U/L (26-192) Total Protein 6.5 g/dL (6.4-8.2) Albumin 2.6 g/dL (3.4-5.0) Albumin/Globulin Ratio 0.7 (1.0-1.7) O2 Saturation 97 % (92-99) Arterial Blood pH 7.50 (7.35-7.45) Arterial Blood pCO2 at Patient Temp 26 mmHg (35-46) Arterial Blood pO2 at Patient Temp 81 mmHg (65-108) Arterial Blood HCO3 20 mmol/L (21-28) Arterial Blood Base Excess -2 mmol/L (-3-3) FiO2 45% Laboratory Tests Test 04/15/17 11:50 04/15/17 18:15 04/15/17 23:16 04/16/17 00:30 White Blood Count 11.4 x10^3/uL (4.0-11.0) 12.4 x10^3/uL (4.0-11.0) 15.0 x10^3/uL (4.0-11.0) Red Blood Count 3.62 x10^6/uL (3.50-5.40) 3.80 x10^6/uL (3.50-5.40) 2.88 x10^6/uL (3.50-5.40) Hemoglobin 11.8 g/dL (12.0-15.5) 12.2 g/dL (12.0-15.5) 9.2 g/dL (12.0-15.5) Hematocrit 36.7 % (36.0-47.0) 38.2 % (36.0-47.0) 30.1 % (36.0-47.0) Mean Corpuscular Volume 101 fL (79-100) 101 fL (79-100) 105 fL (79-100) Mean Corpuscular Hemoglobin 33 pg (25-35) 32 pg (25-35) 32 pg (25-35) Mean Corpuscular Hemoglobin Concent 32 g/dL (31-37) 32 g/dL (31-37) 31 g/dL (31-37) Red Cell Distribution Width 14.7 % (11.5-14.5) 15.0 % (11.5-14.5) 15.5 % (11.5-14.5) Platelet Count 227 x10^3/uL (140-400) 275 x10^3/uL (140-400) 276 x10^3/uL (140-400) Neutrophils (%) (Auto) 84 % (31-73) 83 % (31-73) 88 % (31-73) Lymphocytes (%) (Auto) 9 % (24-48) 11 % (24-48) 6 % (24-48) Monocytes (%) (Auto) 6 % (0-9) 6 % (0-9) 6 % (0-9) Eosinophils (%) (Auto) 1 % (0-3) 0 % (0-3) 0 % (0-3) Basophils (%) (Auto) 0 % (0-3) 0 % (0-3) 0 % (0-3) Neutrophils # (Auto) 9.6 x10^3uL (1.8-7.7) 10.3 x10^3uL (1.8-7.7) 13.1 x10^3uL (1.8-7.7) Lymphocytes # (Auto) 1.1 x10^3/uL (1.0-4.8) 1.3 x10^3/uL (1.0-4.8) 0.9 x10^3/uL (1.0-4.8) Monocytes # (Auto) 0.6 x10^3/uL (0.0-1.1) 0.8 x10^3/uL (0.0-1.1) 0.9 x10^3/uL (0.0-1.1) Eosinophils # (Auto) 0.1 x10^3/uL (0.0-0.7) 0.0 x10^3/uL (0.0-0.7) 0.0 x10^3/uL (0.0-0.7) Basophils # (Auto) 0.0 x10^3/uL (0.0-0.2) 0.0 x10^3/uL (0.0-0.2) 0.0 x10^3/uL (0.0-0.2) O2 Saturation 91 % (92-99) Arterial Blood pH 7.04 (7.35-7.45) Arterial Blood pCO2 at Patient Temp 68 mmHg (35-46) Arterial Blood pO2 at Patient Temp 67 mmHg (65-108) Arterial Blood HCO3 18 mmol/L (21-28) Arterial Blood Base Excess -13 mmol/L (-3-3) FiO2 76 Segmented Neutrophils % 89 % (35-66) Band Neutrophils % 3 % (0-9) Lymphocytes % 4 % (24-48) Monocytes % 4 % (0-10) Nucleated Red Blood Cells 1 Platelet Estimate Adequate (ADEQUATE) Anisocytosis Slight Test 04/16/17 01:14 04/16/17 02:00 04/16/17 04:23 04/16/17 07:10 O2 Saturation 94 % (92-99) Arterial Blood pH 7.27 (7.35-7.45) Arterial Blood pCO2 at Patient Temp 40 mmHg (35-46) Arterial Blood pO2 at Patient Temp 71 mmHg (65-108) Arterial Blood HCO3 18 mmol/L (21-28) Arterial Blood Base Excess -9 mmol/L (-3-3) FiO2 80 Lactic Acid Level 5.8 mmol/L (0.4-2.0) White Blood Count 12.4 x10^3/uL (4.0-11.0) Red Blood Count 4.13 x10^6/uL (3.50-5.40) Hemoglobin 13.2 g/dL (12.0-15.5) Hematocrit 42.7 % (36.0-47.0) Mean Corpuscular Volume 103 fL (79-100) Mean Corpuscular Hemoglobin 32 pg (25-35) Mean Corpuscular Hemoglobin Concent 31 g/dL (31-37) Red Cell Distribution Width 15.6 % (11.5-14.5) Platelet Count 250 x10^3/uL (140-400) Neutrophils (%) (Auto) 83 % (31-73) Lymphocytes (%) (Auto) 11 % (24-48) Monocytes (%) (Auto) 6 % (0-9) Eosinophils (%) (Auto) 0 % (0-3) Basophils (%) (Auto) 0 % (0-3) Neutrophils # (Auto) 10.3 x10^3uL (1.8-7.7) Lymphocytes # (Auto) 1.3 x10^3/uL (1.0-4.8) Monocytes # (Auto) 0.7 x10^3/uL (0.0-1.1) Eosinophils # (Auto) 0.0 x10^3/uL (0.0-0.7) Basophils # (Auto) 0.0 x10^3/uL (0.0-0.2) Sodium Level 146 mmol/L (136-145) Potassium Level 3.7 mmol/L (3.5-5.1) Chloride Level 112 mmol/L (98-107) Carbon Dioxide Level 21 mmol/L (21-32) Anion Gap 13 (6-14) Blood Urea Nitrogen 39 mg/dL (7-20) Creatinine 2.7 mg/dL (0.6-1.0) Estimated GFR (Cockcroft-Gault) 20.5 BUN/Creatinine Ratio 14 (6-20) Glucose Level 231 mg/dL (70-99) Calcium Level 9.3 mg/dL (8.5-10.1) Phosphorus Level 1.2 mg/dL (2.6-4.7) Magnesium Level 1.2 mg/dL (1.8-2.4) Total Bilirubin 0.3 mg/dL (0.2-1.0) Aspartate Amino Transf (AST/SGOT) 69 U/L (15-37) Alanine Aminotransferase (ALT/SGPT) 16 U/L (14-59) Alkaline Phosphatase 39 U/L (46-116) Creatine Kinase 493 U/L (26-192) Total Protein 6.5 g/dL (6.4-8.2) Albumin 2.6 g/dL (3.4-5.0) Albumin/Globulin Ratio 0.7 (1.0-1.7) Test 04/16/17 08:00 O2 Saturation 97 % (92-99) Arterial Blood pH 7.50 (7.35-7.45) Arterial Blood pCO2 at Patient Temp 26 mmHg (35-46) Arterial Blood pO2 at Patient Temp 81 mmHg (65-108) Arterial Blood HCO3 20 mmol/L (21-28) Arterial Blood Base Excess -2 mmol/L (-3-3) FiO2 45% Medications Active Scripts Medications Dose Route/Sig Max Daily Dose Days Date Category Gabapentin 300 Mg Capsule 300 Mg PO QHS 04/14/17 Reported Famotidine 20 Mg Tablet 20 Mg PO HS 04/14/17 Reported Hydralazine Hcl 25 Mg Tablet 1 Tab PO TID 04/14/17 Reported Tylenol (Acetaminophen) 325 Mg Tablet 1-2 Tab PO TID 04/14/17 Reported Ranexa (Ranolazine) 500 Mg Tab.er.12h 1 Tab PO BID 04/14/17 Reported Aggrenox 25 Mg-200 Mg Capsule (Aspirin/Dipyridamole) 1 Each Cpmp.12hr 1 Cap PO BID 04/14/17 Reported Milk Of Magnesia (Magnesium Hydroxide) 400 Mg/5 Ml Oral.susp 30 Ml PO PRN PRN 04/14/17 Reported Loperamide (Loperamide Hcl) 2 Mg Capsule 4 Mg PO PRN PRN 04/14/17 Reported Baclofen 10 Mg Tablet 0.5 Tab PO PRN QHS PRN 04/14/17 Reported Anti-Diarrheal (Loperamide Hcl) 2 Mg Capsule 2 Mg PO PRN 04/14/17 Reported Sertraline Hcl 50 Mg Tablet 50 Mg PO DAILY 04/14/17 Reported Oxybutynin Chloride Er (Oxybutynin Chloride) 5 Mg Tab.er.24 1 Tab PO DAILY 04/14/17 Reported Metoprolol Succinate ( Xl ) (Metoprolol Succinate) 25 Mg Tab.er.24h 1 Tab PO DAILY 04/14/17 Reported Lisinopril 20 Mg Tablet 1 Tab PO DAILY 04/14/17 Reported Levothyroxine Sodium 100 Mcg Tablet 1 Tab PO DAILY 04/14/17 Reported Isosorbide Mononitrate Er (Isosorbide Mononitrate) 60 Mg Tab.er.24h 1 Tab PO DAILY 04/14/17 Reported Furosemide 40 Mg Tablet 1 Tab PO DAILY 04/14/17 Reported Zetia (Ezetimibe) 10 Mg Tablet 1 Tab PO DAILY 04/14/17 Reported Chlorthalidone 25 Mg Tablet 1 Tab PO DAILY 04/14/17 Reported Impression . note dictated RESP FAILURE MULTIFACTORIAL SEE ORDERS SWATHI OROZCO MD Apr 16, 2017 11:27
--- NOTE | 2017-04-16 11:53 | PDOC ---
SURGICAL PROGRESS NOTE Subjective intubated, sedated Vital Signs Vital Signs Date Time Temp Pulse Resp B/P (MAP) Pulse Ox O2 Delivery O2 Flow Rate FiO2 04/16/17 11:43 97 Ventilator 04/16/17 11:38 102 124/80 04/16/17 06:00 22 04/16/17 04:00 99.8 99.8 04/15/17 23:00 15.0 I&O Intake and Output 04/17/17 07:00 Intake Total 481.02 ml Balance 481.02 ml Intake IV Total 481.02 ml PATIENT HAS A MAR: Yes Abdomen: Soft, Other (no response elicited to palpation) Labs Laboratory Tests Test 04/14/17 11:55 04/14/17 12:30 04/14/17 15:00 04/14/17 16:35 White Blood Count 8.7 x10^3/uL (4.0-11.0) Red Blood Count 3.32 x10^6/uL (3.50-5.40) Hemoglobin 10.8 g/dL (12.0-15.5) Hematocrit 33.1 % (36.0-47.0) Mean Corpuscular Volume 100 fL (79-100) Mean Corpuscular Hemoglobin 33 pg (25-35) Mean Corpuscular Hemoglobin Concent 33 g/dL (31-37) Red Cell Distribution Width 14.4 % (11.5-14.5) Platelet Count 226 x10^3/uL (140-400) Neutrophils (%) (Auto) 80 % (31-73) Lymphocytes (%) (Auto) 11 % (24-48) Monocytes (%) (Auto) 7 % (0-9) Eosinophils (%) (Auto) 2 % (0-3) Basophils (%) (Auto) 1 % (0-3) Neutrophils # (Auto) 7.0 x10^3uL (1.8-7.7) Lymphocytes # (Auto) 0.9 x10^3/uL (1.0-4.8) Monocytes # (Auto) 0.6 x10^3/uL (0.0-1.1) Eosinophils # (Auto) 0.1 x10^3/uL (0.0-0.7) Basophils # (Auto) 0.0 x10^3/uL (0.0-0.2) Sodium Level 139 mmol/L (136-145) Potassium Level 3.5 mmol/L (3.5-5.1) Chloride Level 101 mmol/L (98-107) Carbon Dioxide Level 22 mmol/L (21-32) Anion Gap 16 (6-14) Blood Urea Nitrogen 62 mg/dL (7-20) Creatinine 4.3 mg/dL (0.6-1.0) Estimated GFR (Cockcroft-Gault) 12.0 Glucose Level 171 mg/dL (70-99) Lactic Acid Level 0.9 mmol/L (0.4-2.0) Calcium Level 9.8 mg/dL (8.5-10.1) Magnesium Level 1.5 mg/dL (1.8-2.4) Total Bilirubin 0.4 mg/dL (0.2-1.0) Direct Bilirubin 0.1 mg/dL (0.0-0.2) Aspartate Amino Transf (AST/SGOT) 40 U/L (15-37) Alanine Aminotransferase (ALT/SGPT) 20 U/L (14-59) Alkaline Phosphatase 49 U/L (46-116) Creatine Kinase 584 U/L (26-192) Creatine Kinase MB (Mass) 13.3 ng/mL (0.0-3.6) Creatine Kinase MB Relative Index 2.3 % (0-4) Troponin I Quantitative < 0.017 ng/mL (0.000-0.055) C-Reactive Protein, Quantitative 33.8 mg/L (0-3.3) Total Protein 7.4 g/dL (6.4-8.2) Albumin 3.8 g/dL (3.4-5.0) Lipase 251 U/L (73-393) Thyroid Stimulating Hormone (TSH) 1.628 uIU/mL (0.358-3.74) Urine Collection Type U cath U cath Urine Color Yellow Yellow Urine Clarity Clear Clear Urine pH 5.5 5.5 Urine Specific Candler 1.020 1.020 Urine Protein Negative mg/dL (NEG-TRACE) Negative mg/dL (NEG-TRACE) Urine Glucose (UA) Negative mg/dL (NEG) Negative mg/dL (NEG) Urine Ketones (Stick) Negative mg/dL (NEG) Negative mg/dL (NEG) Urine Blood Negative (NEG) Negative (NEG) Urine Nitrite Negative (NEG) Negative (NEG) Urine Bilirubin Small (NEG) Negative (NEG) Urine Urobilinogen Dipstick 0.2 mg/dL (0.2 mg/dL) 0.2 mg/dL (0.2 mg/dL) Urine Leukocyte Esterase Negative (NEG) Negative (NEG) Urine RBC 0 /HPF (0-2) 1-2 /HPF (0-2) Urine WBC 0 /HPF (0-4) 0 /HPF (0-4) Urine Amorphous Sediment Present /HPF Urine Bacteria 0 /HPF (0-FEW) 0 /HPF (0-FEW) Urine Hyaline Casts Many /HPF Few /HPF Nasal Screen MRSA (PCR) Negative (Negative) Urine Squamous Epithelial Cells Few /LPF Test 04/15/17 05:30 04/15/17 09:55 04/15/17 11:26 04/15/17 11:50 White Blood Count 8.3 x10^3/uL (4.0-11.0) 11.4 x10^3/uL (4.0-11.0) Red Blood Count 3.24 x10^6/uL (3.50-5.40) 3.62 x10^6/uL (3.50-5.40) Hemoglobin 10.5 g/dL (12.0-15.5) 11.8 g/dL (12.0-15.5) Hematocrit 32.9 % (36.0-47.0) 36.7 % (36.0-47.0) Mean Corpuscular Volume 102 fL (79-100) 101 fL (79-100) Mean Corpuscular Hemoglobin 32 pg (25-35) 33 pg (25-35) Mean Corpuscular Hemoglobin Concent 32 g/dL (31-37) 32 g/dL (31-37) Red Cell Distribution Width 14.9 % (11.5-14.5) 14.7 % (11.5-14.5) Platelet Count 192 x10^3/uL (140-400) 227 x10^3/uL (140-400) Neutrophils (%) (Auto) 70 % (31-73) 84 % (31-73) Lymphocytes (%) (Auto) 19 % (24-48) 9 % (24-48) Monocytes (%) (Auto) 8 % (0-9) 6 % (0-9) Eosinophils (%) (Auto) 3 % (0-3) 1 % (0-3) Basophils (%) (Auto) 1 % (0-3) 0 % (0-3) Neutrophils # (Auto) 5.8 x10^3uL (1.8-7.7) 9.6 x10^3uL (1.8-7.7) Lymphocytes # (Auto) 1.5 x10^3/uL (1.0-4.8) 1.1 x10^3/uL (1.0-4.8) Monocytes # (Auto) 0.7 x10^3/uL (0.0-1.1) 0.6 x10^3/uL (0.0-1.1) Eosinophils # (Auto) 0.2 x10^3/uL (0.0-0.7) 0.1 x10^3/uL (0.0-0.7) Basophils # (Auto) 0.0 x10^3/uL (0.0-0.2) 0.0 x10^3/uL (0.0-0.2) Sodium Level 144 mmol/L (136-145) Potassium Level 3.9 mmol/L (3.5-5.1) Chloride Level 112 mmol/L (98-107) Carbon Dioxide Level 18 mmol/L (21-32) Anion Gap 14 (6-14) Blood Urea Nitrogen 46 mg/dL (7-20) Creatinine 2.7 mg/dL (0.6-1.0) Estimated GFR (Cockcroft-Gault) 20.5 Glucose Level 104 mg/dL (70-99) Calcium Level 9.0 mg/dL (8.5-10.1) Creatine Kinase 471 U/L (26-192) Clostridium difficile Toxin (PCR) Negative (Negative) Triglycerides Level 186 mg/dL (0-150) Cholesterol Level 199 mg/dL (0-200) LDL Cholesterol, Calculated 132 mg/dL (0-100) VLDL Cholesterol, Calculated 37 mg/dL (0-40) Non-HDL Cholesterol Calculated 169 mg/dL (0-129) HDL Cholesterol 30 mg/dL (40-60) Cholesterol/HDL Ratio 6.6 Test 04/15/17 18:15 04/15/17 23:16 04/16/17 00:30 04/16/17 01:14 White Blood Count 12.4 x10^3/uL (4.0-11.0) 15.0 x10^3/uL (4.0-11.0) Red Blood Count 3.80 x10^6/uL (3.50-5.40) 2.88 x10^6/uL (3.50-5.40) Hemoglobin 12.2 g/dL (12.0-15.5) 9.2 g/dL (12.0-15.5) Hematocrit 38.2 % (36.0-47.0) 30.1 % (36.0-47.0) Mean Corpuscular Volume 101 fL (79-100) 105 fL (79-100) Mean Corpuscular Hemoglobin 32 pg (25-35) 32 pg (25-35) Mean Corpuscular Hemoglobin Concent 32 g/dL (31-37) 31 g/dL (31-37) Red Cell Distribution Width 15.0 % (11.5-14.5) 15.5 % (11.5-14.5) Platelet Count 275 x10^3/uL (140-400) 276 x10^3/uL (140-400) Neutrophils (%) (Auto) 83 % (31-73) 88 % (31-73) Lymphocytes (%) (Auto) 11 % (24-48) 6 % (24-48) Monocytes (%) (Auto) 6 % (0-9) 6 % (0-9) Eosinophils (%) (Auto) 0 % (0-3) 0 % (0-3) Basophils (%) (Auto) 0 % (0-3) 0 % (0-3) Neutrophils # (Auto) 10.3 x10^3uL (1.8-7.7) 13.1 x10^3uL (1.8-7.7) Lymphocytes # (Auto) 1.3 x10^3/uL (1.0-4.8) 0.9 x10^3/uL (1.0-4.8) Monocytes # (Auto) 0.8 x10^3/uL (0.0-1.1) 0.9 x10^3/uL (0.0-1.1) Eosinophils # (Auto) 0.0 x10^3/uL (0.0-0.7) 0.0 x10^3/uL (0.0-0.7) Basophils # (Auto) 0.0 x10^3/uL (0.0-0.2) 0.0 x10^3/uL (0.0-0.2) O2 Saturation 91 % (92-99) 94 % (92-99) Arterial Blood pH 7.04 (7.35-7.45) 7.27 (7.35-7.45) Arterial Blood pCO2 at Patient Temp 68 mmHg (35-46) 40 mmHg (35-46) Arterial Blood pO2 at Patient Temp 67 mmHg (65-108) 71 mmHg (65-108) Arterial Blood HCO3 18 mmol/L (21-28) 18 mmol/L (21-28) Arterial Blood Base Excess -13 mmol/L (-3-3) -9 mmol/L (-3-3) FiO2 76 80 Segmented Neutrophils % 89 % (35-66) Band Neutrophils % 3 % (0-9) Lymphocytes % 4 % (24-48) Monocytes % 4 % (0-10) Nucleated Red Blood Cells 1 Platelet Estimate Adequate (ADEQUATE) Anisocytosis Slight Test 04/16/17 02:00 04/16/17 04:23 04/16/17 07:10 04/16/17 08:00 Lactic Acid Level 5.8 mmol/L (0.4-2.0) White Blood Count 12.4 x10^3/uL (4.0-11.0) Red Blood Count 4.13 x10^6/uL (3.50-5.40) Hemoglobin 13.2 g/dL (12.0-15.5) Hematocrit 42.7 % (36.0-47.0) Mean Corpuscular Volume 103 fL (79-100) Mean Corpuscular Hemoglobin 32 pg (25-35) Mean Corpuscular Hemoglobin Concent 31 g/dL (31-37) Red Cell Distribution Width 15.6 % (11.5-14.5) Platelet Count 250 x10^3/uL (140-400) Neutrophils (%) (Auto) 83 % (31-73) Lymphocytes (%) (Auto) 11 % (24-48) Monocytes (%) (Auto) 6 % (0-9) Eosinophils (%) (Auto) 0 % (0-3) Basophils (%) (Auto) 0 % (0-3) Neutrophils # (Auto) 10.3 x10^3uL (1.8-7.7) Lymphocytes # (Auto) 1.3 x10^3/uL (1.0-4.8) Monocytes # (Auto) 0.7 x10^3/uL (0.0-1.1) Eosinophils # (Auto) 0.0 x10^3/uL (0.0-0.7) Basophils # (Auto) 0.0 x10^3/uL (0.0-0.2) Sodium Level 146 mmol/L (136-145) Potassium Level 3.7 mmol/L (3.5-5.1) Chloride Level 112 mmol/L (98-107) Carbon Dioxide Level 21 mmol/L (21-32) Anion Gap 13 (6-14) Blood Urea Nitrogen 39 mg/dL (7-20) Creatinine 2.7 mg/dL (0.6-1.0) Estimated GFR (Cockcroft-Gault) 20.5 BUN/Creatinine Ratio 14 (6-20) Glucose Level 231 mg/dL (70-99) Calcium Level 9.3 mg/dL (8.5-10.1) Phosphorus Level 1.2 mg/dL (2.6-4.7) Magnesium Level 1.2 mg/dL (1.8-2.4) Total Bilirubin 0.3 mg/dL (0.2-1.0) Aspartate Amino Transf (AST/SGOT) 69 U/L (15-37) Alanine Aminotransferase (ALT/SGPT) 16 U/L (14-59) Alkaline Phosphatase 39 U/L (46-116) Creatine Kinase 493 U/L (26-192) Total Protein 6.5 g/dL (6.4-8.2) Albumin 2.6 g/dL (3.4-5.0) Albumin/Globulin Ratio 0.7 (1.0-1.7) O2 Saturation 97 % (92-99) Arterial Blood pH 7.50 (7.35-7.45) Arterial Blood pCO2 at Patient Temp 26 mmHg (35-46) Arterial Blood pO2 at Patient Temp 81 mmHg (65-108) Arterial Blood HCO3 20 mmol/L (21-28) Arterial Blood Base Excess -2 mmol/L (-3-3) FiO2 45% Laboratory Tests Test 04/15/17 18:15 04/15/17 23:16 04/16/17 00:30 04/16/17 01:14 White Blood Count 12.4 x10^3/uL (4.0-11.0) 15.0 x10^3/uL (4.0-11.0) Red Blood Count 3.80 x10^6/uL (3.50-5.40) 2.88 x10^6/uL (3.50-5.40) Hemoglobin 12.2 g/dL (12.0-15.5) 9.2 g/dL (12.0-15.5) Hematocrit 38.2 % (36.0-47.0) 30.1 % (36.0-47.0) Mean Corpuscular Volume 101 fL (79-100) 105 fL (79-100) Mean Corpuscular Hemoglobin 32 pg (25-35) 32 pg (25-35) Mean Corpuscular Hemoglobin Concent 32 g/dL (31-37) 31 g/dL (31-37) Red Cell Distribution Width 15.0 % (11.5-14.5) 15.5 % (11.5-14.5) Platelet Count 275 x10^3/uL (140-400) 276 x10^3/uL (140-400) Neutrophils (%) (Auto) 83 % (31-73) 88 % (31-73) Lymphocytes (%) (Auto) 11 % (24-48) 6 % (24-48) Monocytes (%) (Auto) 6 % (0-9) 6 % (0-9) Eosinophils (%) (Auto) 0 % (0-3) 0 % (0-3) Basophils (%) (Auto) 0 % (0-3) 0 % (0-3) Neutrophils # (Auto) 10.3 x10^3uL (1.8-7.7) 13.1 x10^3uL (1.8-7.7) Lymphocytes # (Auto) 1.3 x10^3/uL (1.0-4.8) 0.9 x10^3/uL (1.0-4.8) Monocytes # (Auto) 0.8 x10^3/uL (0.0-1.1) 0.9 x10^3/uL (0.0-1.1) Eosinophils # (Auto) 0.0 x10^3/uL (0.0-0.7) 0.0 x10^3/uL (0.0-0.7) Basophils # (Auto) 0.0 x10^3/uL (0.0-0.2) 0.0 x10^3/uL (0.0-0.2) O2 Saturation 91 % (92-99) 94 % (92-99) Arterial Blood pH 7.04 (7.35-7.45) 7.27 (7.35-7.45) Arterial Blood pCO2 at Patient Temp 68 mmHg (35-46) 40 mmHg (35-46) Arterial Blood pO2 at Patient Temp 67 mmHg (65-108) 71 mmHg (65-108) Arterial Blood HCO3 18 mmol/L (21-28) 18 mmol/L (21-28) Arterial Blood Base Excess -13 mmol/L (-3-3) -9 mmol/L (-3-3) FiO2 76 80 Segmented Neutrophils % 89 % (35-66) Band Neutrophils % 3 % (0-9) Lymphocytes % 4 % (24-48) Monocytes % 4 % (0-10) Nucleated Red Blood Cells 1 Platelet Estimate Adequate (ADEQUATE) Anisocytosis Slight Test 04/16/17 02:00 04/16/17 04:23 04/16/17 07:10 04/16/17 08:00 Lactic Acid Level 5.8 mmol/L (0.4-2.0) White Blood Count 12.4 x10^3/uL (4.0-11.0) Red Blood Count 4.13 x10^6/uL (3.50-5.40) Hemoglobin 13.2 g/dL (12.0-15.5) Hematocrit 42.7 % (36.0-47.0) Mean Corpuscular Volume 103 fL (79-100) Mean Corpuscular Hemoglobin 32 pg (25-35) Mean Corpuscular Hemoglobin Concent 31 g/dL (31-37) Red Cell Distribution Width 15.6 % (11.5-14.5) Platelet Count 250 x10^3/uL (140-400) Neutrophils (%) (Auto) 83 % (31-73) Lymphocytes (%) (Auto) 11 % (24-48) Monocytes (%) (Auto) 6 % (0-9) Eosinophils (%) (Auto) 0 % (0-3) Basophils (%) (Auto) 0 % (0-3) Neutrophils # (Auto) 10.3 x10^3uL (1.8-7.7) Lymphocytes # (Auto) 1.3 x10^3/uL (1.0-4.8) Monocytes # (Auto) 0.7 x10^3/uL (0.0-1.1) Eosinophils # (Auto) 0.0 x10^3/uL (0.0-0.7) Basophils # (Auto) 0.0 x10^3/uL (0.0-0.2) Sodium Level 146 mmol/L (136-145) Potassium Level 3.7 mmol/L (3.5-5.1) Chloride Level 112 mmol/L (98-107) Carbon Dioxide Level 21 mmol/L (21-32) Anion Gap 13 (6-14) Blood Urea Nitrogen 39 mg/dL (7-20) Creatinine 2.7 mg/dL (0.6-1.0) Estimated GFR (Cockcroft-Gault) 20.5 BUN/Creatinine Ratio 14 (6-20) Glucose Level 231 mg/dL (70-99) Calcium Level 9.3 mg/dL (8.5-10.1) Phosphorus Level 1.2 mg/dL (2.6-4.7) Magnesium Level 1.2 mg/dL (1.8-2.4) Total Bilirubin 0.3 mg/dL (0.2-1.0) Aspartate Amino Transf (AST/SGOT) 69 U/L (15-37) Alanine Aminotransferase (ALT/SGPT) 16 U/L (14-59) Alkaline Phosphatase 39 U/L (46-116) Creatine Kinase 493 U/L (26-192) Total Protein 6.5 g/dL (6.4-8.2) Albumin 2.6 g/dL (3.4-5.0) Albumin/Globulin Ratio 0.7 (1.0-1.7) O2 Saturation 97 % (92-99) Arterial Blood pH 7.50 (7.35-7.45) Arterial Blood pCO2 at Patient Temp 26 mmHg (35-46) Arterial Blood pO2 at Patient Temp 81 mmHg (65-108) Arterial Blood HCO3 20 mmol/L (21-28) Arterial Blood Base Excess -2 mmol/L (-3-3) FiO2 45% Problem List Problems Medical Problems: (1) Abdominal aortic aneurysm Status: Acute (2) Acute renal failure Status: Acute (3) Anemia Status: Acute (4) Enlarging abdominal aortic aneurysm Status: Acute Assessment/Plan AAA appendicitis respiratory failure acidosis recheck lactate Problems: SAMANTA HERNANDEZ MD Apr 16, 2017 11:53
[2017-04-16] MEDS ORDERED: IV NORMAL SALINE 1000ML BAG 1,000 ML IV ONE (12:00)
[2017-04-16 12:18] LABS: BASO % 0 % (0-3); EOS % 0 % (0-3); HEMATOCRIT 34.2 % (36.0-47.0); HEMOGLOBIN 11.1 g/dL (12.0-15.5); LYMPH # 1.4 x10^3/uL (1.0-4.8); LYMPH % 12 % (24-48); MEAN CORPUSCULAR HEMOGLOBIN 32 pg (25-35); MEAN CORPUSCULAR HGB CONC 33 g/dL (31-37); MEAN CORPUSCULAR VOLUME 99 fL (79-100); MONO % 9 % (0-9); NEUT % 79 % (31-73); PLATELET COUNT 196 x10^3/uL (140-400); RED BLOOD COUNT 3.45 x10^6/uL (3.50-5.40); RED CELL DISTRIBUTION WIDTH 14.6 % (11.5-14.5); WHITE BLOOD COUNT 11.8 x10^3/uL (4.0-11.0)
--- NOTE | 2017-04-16 14:13 | PDOC ---
PROGRESS NOTES Subjective Subjective SEEN IN FOLLOW UP OF ARF Objective Objective Vital Signs Date Time Temp Pulse Resp B/P (MAP) Pulse Ox O2 Delivery O2 Flow Rate FiO2 04/16/17 11:43 97 Ventilator 04/16/17 11:38 102 124/80 04/16/17 11:15 99.8 21 99.8 04/15/17 23:00 15.0 Intake and Output 04/17/17 07:00 Intake Total 481.02 ml Balance 481.02 ml Intake IV Total 481.02 ml Physical Exam Abdomen: Normal bowel sounds, Soft, No tenderness, No hepatosplenomegaly, No masses Heart: Regular rate, Normal S1, Normal S2, No murmurs, Gallops Extremities: No clubbing, No cyanosis, No edema, Normal pulses, No tenderness/ swelling Lungs: Clear to auscultation, Normal air movement Diagnosis RENAL FAILURE: Acute (Acute tubular necrosis) Assessment Assessment Problems Medical Problems: (1) Abdominal aortic aneurysm Status: Acute (2) Acute renal failure Status: Acute (3) Anemia Status: Acute (4) Enlarging abdominal aortic aneurysm Status: Acute Plan Plan of Care RENAL FUNCTION IS BETTER. CONT FLUID BALANCE. WILL NEED CTA WHEN RENAL FUNCTION STABLE Comment Review of Relevant I have reviewed the following items ari (where applicable) has been applied. Labs Laboratory Tests Test 04/14/17 15:00 04/14/17 16:35 04/15/17 05:30 04/15/17 09:55 Nasal Screen MRSA (PCR) Negative (Negative) Urine Collection Type U cath Urine Color Yellow Urine Clarity Clear Urine pH 5.5 Urine Specific [place] 1.020 Urine Protein Negative mg/dL (NEG-TRACE) Urine Glucose (UA) Negative mg/dL (NEG) Urine Ketones (Stick) Negative mg/dL (NEG) Urine Blood Negative (NEG) Urine Nitrite Negative (NEG) Urine Bilirubin Negative (NEG) Urine Urobilinogen Dipstick 0.2 mg/dL (0.2 mg/dL) Urine Leukocyte Esterase Negative (NEG) Urine RBC 1-2 /HPF (0-2) Urine WBC 0 /HPF (0-4) Urine Squamous Epithelial Cells Few /LPF Urine Bacteria 0 /HPF (0-FEW) Urine Hyaline Casts Few /HPF White Blood Count 8.3 x10^3/uL (4.0-11.0) Red Blood Count 3.24 x10^6/uL (3.50-5.40) Hemoglobin 10.5 g/dL (12.0-15.5) Hematocrit 32.9 % (36.0-47.0) Mean Corpuscular Volume 102 fL (79-100) Mean Corpuscular Hemoglobin 32 pg (25-35) Mean Corpuscular Hemoglobin Concent 32 g/dL (31-37) Red Cell Distribution Width 14.9 % (11.5-14.5) Platelet Count 192 x10^3/uL (140-400) Neutrophils (%) (Auto) 70 % (31-73) Lymphocytes (%) (Auto) 19 % (24-48) Monocytes (%) (Auto) 8 % (0-9) Eosinophils (%) (Auto) 3 % (0-3) Basophils (%) (Auto) 1 % (0-3) Neutrophils # (Auto) 5.8 x10^3uL (1.8-7.7) Lymphocytes # (Auto) 1.5 x10^3/uL (1.0-4.8) Monocytes # (Auto) 0.7 x10^3/uL (0.0-1.1) Eosinophils # (Auto) 0.2 x10^3/uL (0.0-0.7) Basophils # (Auto) 0.0 x10^3/uL (0.0-0.2) Sodium Level 144 mmol/L (136-145) Potassium Level 3.9 mmol/L (3.5-5.1) Chloride Level 112 mmol/L (98-107) Carbon Dioxide Level 18 mmol/L (21-32) Anion Gap 14 (6-14) Blood Urea Nitrogen 46 mg/dL (7-20) Creatinine 2.7 mg/dL (0.6-1.0) Estimated GFR (Cockcroft-Gault) 20.5 Glucose Level 104 mg/dL (70-99) Calcium Level 9.0 mg/dL (8.5-10.1) Creatine Kinase 471 U/L (26-192) Clostridium difficile Toxin (PCR) Negative (Negative) Test 04/15/17 11:26 04/15/17 11:50 04/15/17 18:15 04/15/17 23:16 Triglycerides Level 186 mg/dL (0-150) Cholesterol Level 199 mg/dL (0-200) LDL Cholesterol, Calculated 132 mg/dL (0-100) VLDL Cholesterol, Calculated 37 mg/dL (0-40) Non-HDL Cholesterol Calculated 169 mg/dL (0-129) HDL Cholesterol 30 mg/dL (40-60) Cholesterol/HDL Ratio 6.6 White Blood Count 11.4 x10^3/uL (4.0-11.0) 12.4 x10^3/uL (4.0-11.0) Red Blood Count 3.62 x10^6/uL (3.50-5.40) 3.80 x10^6/uL (3.50-5.40) Hemoglobin 11.8 g/dL (12.0-15.5) 12.2 g/dL (12.0-15.5) Hematocrit 36.7 % (36.0-47.0) 38.2 % (36.0-47.0) Mean Corpuscular Volume 101 fL (79-100) 101 fL (79-100) Mean Corpuscular Hemoglobin 33 pg (25-35) 32 pg (25-35) Mean Corpuscular Hemoglobin Concent 32 g/dL (31-37) 32 g/dL (31-37) Red Cell Distribution Width 14.7 % (11.5-14.5) 15.0 % (11.5-14.5) Platelet Count 227 x10^3/uL (140-400) 275 x10^3/uL (140-400) Neutrophils (%) (Auto) 84 % (31-73) 83 % (31-73) Lymphocytes (%) (Auto) 9 % (24-48) 11 % (24-48) Monocytes (%) (Auto) 6 % (0-9) 6 % (0-9) Eosinophils (%) (Auto) 1 % (0-3) 0 % (0-3) Basophils (%) (Auto) 0 % (0-3) 0 % (0-3) Neutrophils # (Auto) 9.6 x10^3uL (1.8-7.7) 10.3 x10^3uL (1.8-7.7) Lymphocytes # (Auto) 1.1 x10^3/uL (1.0-4.8) 1.3 x10^3/uL (1.0-4.8) Monocytes # (Auto) 0.6 x10^3/uL (0.0-1.1) 0.8 x10^3/uL (0.0-1.1) Eosinophils # (Auto) 0.1 x10^3/uL (0.0-0.7) 0.0 x10^3/uL (0.0-0.7) Basophils # (Auto) 0.0 x10^3/uL (0.0-0.2) 0.0 x10^3/uL (0.0-0.2) O2 Saturation 91 % (92-99) Arterial Blood pH 7.04 (7.35-7.45) Arterial Blood pCO2 at Patient Temp 68 mmHg (35-46) Arterial Blood pO2 at Patient Temp 67 mmHg (65-108) Arterial Blood HCO3 18 mmol/L (21-28) Arterial Blood Base Excess -13 mmol/L (-3-3) FiO2 76 Test 04/16/17 00:30 04/16/17 01:14 04/16/17 02:00 04/16/17 04:23 White Blood Count 15.0 x10^3/uL (4.0-11.0) 12.4 x10^3/uL (4.0-11.0) Red Blood Count 2.88 x10^6/uL (3.50-5.40) 4.13 x10^6/uL (3.50-5.40) Hemoglobin 9.2 g/dL (12.0-15.5) 13.2 g/dL (12.0-15.5) Hematocrit 30.1 % (36.0-47.0) 42.7 % (36.0-47.0) Mean Corpuscular Volume 105 fL (79-100) 103 fL (79-100) Mean Corpuscular Hemoglobin 32 pg (25-35) 32 pg (25-35) Mean Corpuscular Hemoglobin Concent 31 g/dL (31-37) 31 g/dL (31-37) Red Cell Distribution Width 15.5 % (11.5-14.5) 15.6 % (11.5-14.5) Platelet Count 276 x10^3/uL (140-400) 250 x10^3/uL (140-400) Neutrophils (%) (Auto) 88 % (31-73) 83 % (31-73) Lymphocytes (%) (Auto) 6 % (24-48) 11 % (24-48) Monocytes (%) (Auto) 6 % (0-9) 6 % (0-9) Eosinophils (%) (Auto) 0 % (0-3) 0 % (0-3) Basophils (%) (Auto) 0 % (0-3) 0 % (0-3) Neutrophils # (Auto) 13.1 x10^3uL (1.8-7.7) 10.3 x10^3uL (1.8-7.7) Lymphocytes # (Auto) 0.9 x10^3/uL (1.0-4.8) 1.3 x10^3/uL (1.0-4.8) Monocytes # (Auto) 0.9 x10^3/uL (0.0-1.1) 0.7 x10^3/uL (0.0-1.1) Eosinophils # (Auto) 0.0 x10^3/uL (0.0-0.7) 0.0 x10^3/uL (0.0-0.7) Basophils # (Auto) 0.0 x10^3/uL (0.0-0.2) 0.0 x10^3/uL (0.0-0.2) Segmented Neutrophils % 89 % (35-66) Band Neutrophils % 3 % (0-9) Lymphocytes % 4 % (24-48) Monocytes % 4 % (0-10) Nucleated Red Blood Cells 1 Platelet Estimate Adequate (ADEQUATE) Anisocytosis Slight O2 Saturation 94 % (92-99) Arterial Blood pH 7.27 (7.35-7.45) Arterial Blood pCO2 at Patient Temp 40 mmHg (35-46) Arterial Blood pO2 at Patient Temp 71 mmHg (65-108) Arterial Blood HCO3 18 mmol/L (21-28) Arterial Blood Base Excess -9 mmol/L (-3-3) FiO2 80 Lactic Acid Level 5.8 mmol/L (0.4-2.0) Test 04/16/17 07:10 04/16/17 08:00 04/16/17 12:05 Sodium Level 146 mmol/L (136-145) Potassium Level 3.7 mmol/L (3.5-5.1) Chloride Level 112 mmol/L (98-107) Carbon Dioxide Level 21 mmol/L (21-32) Anion Gap 13 (6-14) Blood Urea Nitrogen 39 mg/dL (7-20) Creatinine 2.7 mg/dL (0.6-1.0) Estimated GFR (Cockcroft-Gault) 20.5 BUN/Creatinine Ratio 14 (6-20) Glucose Level 231 mg/dL (70-99) Calcium Level 9.3 mg/dL (8.5-10.1) Phosphorus Level 1.2 mg/dL (2.6-4.7) Magnesium Level 1.2 mg/dL (1.8-2.4) Total Bilirubin 0.3 mg/dL (0.2-1.0) Aspartate Amino Transf (AST/SGOT) 69 U/L (15-37) Alanine Aminotransferase (ALT/SGPT) 16 U/L (14-59) Alkaline Phosphatase 39 U/L (46-116) Creatine Kinase 493 U/L (26-192) Total Protein 6.5 g/dL (6.4-8.2) Albumin 2.6 g/dL (3.4-5.0) Albumin/Globulin Ratio 0.7 (1.0-1.7) O2 Saturation 97 % (92-99) Arterial Blood pH 7.50 (7.35-7.45) Arterial Blood pCO2 at Patient Temp 26 mmHg (35-46) Arterial Blood pO2 at Patient Temp 81 mmHg (65-108) Arterial Blood HCO3 20 mmol/L (21-28) Arterial Blood Base Excess -2 mmol/L (-3-3) FiO2 45% White Blood Count 11.8 x10^3/uL (4.0-11.0) Red Blood Count 3.45 x10^6/uL (3.50-5.40) Hemoglobin 11.1 g/dL (12.0-15.5) Hematocrit 34.2 % (36.0-47.0) Mean Corpuscular Volume 99 fL (79-100) Mean Corpuscular Hemoglobin 32 pg (25-35) Mean Corpuscular Hemoglobin Concent 33 g/dL (31-37) Red Cell Distribution Width 14.6 % (11.5-14.5) Platelet Count 196 x10^3/uL (140-400) Neutrophils (%) (Auto) 79 % (31-73) Lymphocytes (%) (Auto) 12 % (24-48) Monocytes (%) (Auto) 9 % (0-9) Eosinophils (%) (Auto) 0 % (0-3) Basophils (%) (Auto) 0 % (0-3) Neutrophils # (Auto) 9.4 x10^3uL (1.8-7.7) Lymphocytes # (Auto) 1.4 x10^3/uL (1.0-4.8) Monocytes # (Auto) 1.0 x10^3/uL (0.0-1.1) Eosinophils # (Auto) 0.0 x10^3/uL (0.0-0.7) Basophils # (Auto) 0.0 x10^3/uL (0.0-0.2) Lactic Acid Level 2.0 mmol/L (0.4-2.0) Laboratory Tests Test 04/15/17 18:15 04/15/17 23:16 04/16/17 00:30 04/16/17 01:14 White Blood Count 12.4 x10^3/uL (4.0-11.0) 15.0 x10^3/uL (4.0-11.0) Red Blood Count 3.80 x10^6/uL (3.50-5.40) 2.88 x10^6/uL (3.50-5.40) Hemoglobin 12.2 g/dL (12.0-15.5) 9.2 g/dL (12.0-15.5) Hematocrit 38.2 % (36.0-47.0) 30.1 % (36.0-47.0) Mean Corpuscular Volume 101 fL (79-100) 105 fL (79-100) Mean Corpuscular Hemoglobin 32 pg (25-35) 32 pg (25-35) Mean Corpuscular Hemoglobin Concent 32 g/dL (31-37) 31 g/dL (31-37) Red Cell Distribution Width 15.0 % (11.5-14.5) 15.5 % (11.5-14.5) Platelet Count 275 x10^3/uL (140-400) 276 x10^3/uL (140-400) Neutrophils (%) (Auto) 83 % (31-73) 88 % (31-73) Lymphocytes (%) (Auto) 11 % (24-48) 6 % (24-48) Monocytes (%) (Auto) 6 % (0-9) 6 % (0-9) Eosinophils (%) (Auto) 0 % (0-3) 0 % (0-3) Basophils (%) (Auto) 0 % (0-3) 0 % (0-3) Neutrophils # (Auto) 10.3 x10^3uL (1.8-7.7) 13.1 x10^3uL (1.8-7.7) Lymphocytes # (Auto) 1.3 x10^3/uL (1.0-4.8) 0.9 x10^3/uL (1.0-4.8) Monocytes # (Auto) 0.8 x10^3/uL (0.0-1.1) 0.9 x10^3/uL (0.0-1.1) Eosinophils # (Auto) 0.0 x10^3/uL (0.0-0.7) 0.0 x10^3/uL (0.0-0.7) Basophils # (Auto) 0.0 x10^3/uL (0.0-0.2) 0.0 x10^3/uL (0.0-0.2) O2 Saturation 91 % (92-99) 94 % (92-99) Arterial Blood pH 7.04 (7.35-7.45) 7.27 (7.35-7.45) Arterial Blood pCO2 at Patient Temp 68 mmHg (35-46) 40 mmHg (35-46) Arterial Blood pO2 at Patient Temp 67 mmHg (65-108) 71 mmHg (65-108) Arterial Blood HCO3 18 mmol/L (21-28) 18 mmol/L (21-28) Arterial Blood Base Excess -13 mmol/L (-3-3) -9 mmol/L (-3-3) FiO2 76 80 Segmented Neutrophils % 89 % (35-66) Band Neutrophils % 3 % (0-9) Lymphocytes % 4 % (24-48) Monocytes % 4 % (0-10) Nucleated Red Blood Cells 1 Platelet Estimate Adequate (ADEQUATE) Anisocytosis Slight Test 04/16/17 02:00 04/16/17 04:23 04/16/17 07:10 04/16/17 08:00 Lactic Acid Level 5.8 mmol/L (0.4-2.0) White Blood Count 12.4 x10^3/uL (4.0-11.0) Red Blood Count 4.13 x10^6/uL (3.50-5.40) Hemoglobin 13.2 g/dL (12.0-15.5) Hematocrit 42.7 % (36.0-47.0) Mean Corpuscular Volume 103 fL (79-100) Mean Corpuscular Hemoglobin 32 pg (25-35) Mean Corpuscular Hemoglobin Concent 31 g/dL (31-37) Red Cell Distribution Width 15.6 % (11.5-14.5) Platelet Count 250 x10^3/uL (140-400) Neutrophils (%) (Auto) 83 % (31-73) Lymphocytes (%) (Auto) 11 % (24-48) Monocytes (%) (Auto) 6 % (0-9) Eosinophils (%) (Auto) 0 % (0-3) Basophils (%) (Auto) 0 % (0-3) Neutrophils # (Auto) 10.3 x10^3uL (1.8-7.7) Lymphocytes # (Auto) 1.3 x10^3/uL (1.0-4.8) Monocytes # (Auto) 0.7 x10^3/uL (0.0-1.1) Eosinophils # (Auto) 0.0 x10^3/uL (0.0-0.7) Basophils # (Auto) 0.0 x10^3/uL (0.0-0.2) Sodium Level 146 mmol/L (136-145) Potassium Level 3.7 mmol/L (3.5-5.1) Chloride Level 112 mmol/L (98-107) Carbon Dioxide Level 21 mmol/L (21-32) Anion Gap 13 (6-14) Blood Urea Nitrogen 39 mg/dL (7-20) Creatinine 2.7 mg/dL (0.6-1.0) Estimated GFR (Cockcroft-Gault) 20.5 BUN/Creatinine Ratio 14 (6-20) Glucose Level 231 mg/dL (70-99) Calcium Level 9.3 mg/dL (8.5-10.1) Phosphorus Level 1.2 mg/dL (2.6-4.7) Magnesium Level 1.2 mg/dL (1.8-2.4) Total Bilirubin 0.3 mg/dL (0.2-1.0) Aspartate Amino Transf (AST/SGOT) 69 U/L (15-37) Alanine Aminotransferase (ALT/SGPT) 16 U/L (14-59) Alkaline Phosphatase 39 U/L (46-116) Creatine Kinase 493 U/L (26-192) Total Protein 6.5 g/dL (6.4-8.2) Albumin 2.6 g/dL (3.4-5.0) Albumin/Globulin Ratio 0.7 (1.0-1.7) O2 Saturation 97 % (92-99) Arterial Blood pH 7.50 (7.35-7.45) Arterial Blood pCO2 at Patient Temp 26 mmHg (35-46) Arterial Blood pO2 at Patient Temp 81 mmHg (65-108) Arterial Blood HCO3 20 mmol/L (21-28) Arterial Blood Base Excess -2 mmol/L (-3-3) FiO2 45% Test 04/16/17 12:05 White Blood Count 11.8 x10^3/uL (4.0-11.0) Red Blood Count 3.45 x10^6/uL (3.50-5.40) Hemoglobin 11.1 g/dL (12.0-15.5) Hematocrit 34.2 % (36.0-47.0) Mean Corpuscular Volume 99 fL (79-100) Mean Corpuscular Hemoglobin 32 pg (25-35) Mean Corpuscular Hemoglobin Concent 33 g/dL (31-37) Red Cell Distribution Width 14.6 % (11.5-14.5) Platelet Count 196 x10^3/uL (140-400) Neutrophils (%) (Auto) 79 % (31-73) Lymphocytes (%) (Auto) 12 % (24-48) Monocytes (%) (Auto) 9 % (0-9) Eosinophils (%) (Auto) 0 % (0-3) Basophils (%) (Auto) 0 % (0-3) Neutrophils # (Auto) 9.4 x10^3uL (1.8-7.7) Lymphocytes # (Auto) 1.4 x10^3/uL (1.0-4.8) Monocytes # (Auto) 1.0 x10^3/uL (0.0-1.1) Eosinophils # (Auto) 0.0 x10^3/uL (0.0-0.7) Basophils # (Auto) 0.0 x10^3/uL (0.0-0.2) Lactic Acid Level 2.0 mmol/L (0.4-2.0) Microbiology 04/14/17 Blood Culture - Preliminary, Resulted NO GROWTH AFTER 2 DAYS Medications Current Medications Fentanyl Citrate (Fentanyl 2ml Vial) 50 mcg PRN Q15MIN PRN IV PAIN GREATER THAN 3/10 Last administered on 04/14/17 13:50; Start 04/14/17 at 11:45; Stop 04/14/17 at 17:35; Status DC Sodium Chloride 1,000 ml @ 1,000 mls/hr Q1H IV Last administered on 04/14/17 12:28; Start 04/14/17 at 11:38; Stop 04/14/17 at 12:37; Status DC Sodium Chloride (Normal Saline Flush) 10 ml QSHIFT PRN IV AFTER MEDS AND BLOOD DRAWS; Start 04/14/17 at 11:45 Ondansetron HCl (Zofran) 4 mg 1X ONCE IV Last administered on 04/14/17 12:30 ; Start 04/14/17 at 12:15; Stop 04/14/17 at 12:16; Status DC Ondansetron HCl (Zofran) 4 mg 1X ONCE IV Last administered on 04/14/17 13:28 ; Start 04/14/17 at 13:15; Stop 04/14/17 at 13:16; Status DC Ondansetron HCl (Zofran) 4 mg PRN Q8HRS PRN IV NAUSEA/VOMITING Last administered on 04/15/17 09:37; Start 04/14/17 at 14:00; Stop 04/15/17 at 13: 59; Status DC Fentanyl Citrate (Fentanyl 2ml Vial) 25 mcg PRN Q2HR PRN IV PAIN Last administered on 04/15/17 11:44; Start 04/14/17 at 14:00; Stop 04/15/17 at 13: 59; Status DC Sodium Chloride 1,000 ml @ 125 mls/hr Q8H IV Last administered on 04/15/17 07:48; Start 04/14/17 at 13:47; Stop 04/15/17 at 13:46; Status DC Piperacillin Sod/ Tazobactam Sod 4.5 gm/Dextrose 100 ml @ 200 mls/hr 1X ONCE IV ; Start 04/14/17 at 14:15; Stop 04/14/17 at 14:44; Status UNV Piperacillin Sod/ Tazobactam Sod (Zosyn) 3.375 gm 1X ONCE IVP Last administered on 04/14/17 14:20; Start 04/14/17 at 14:15; Stop 04/14/17 at 14:16 ; Status DC Piperacillin Sod/ Tazobactam Sod 2.25 gm/Dextrose 50 ml @ 100 mls/hr Q8H IV ; Start 04/15/17 at 08:30; Status UNV Piperacillin Sod/ Tazobactam Sod (Zosyn) 2.25 gm Q8HRS IVP Last administered on 04/16/17 05:47; Start 04/15/17 at 09:00 Magnesium Sulfate/ Dextrose 50 ml @ 25 mls/hr PRN DAILY PRN IV for Mag < 1.7 on am labs; Start 04/15/17 at 09:00 Metoclopramide HCl (Reglan) 10 mg Q6HRS PRN IV NAUSEA/VOMITING; Start at 10:30; Stop 04/15/17 at 10:30; Status DC Metoclopramide HCl (Reglan) 5 mg Q6HRS IV Last administered on 04/16/17 11:51 ; Start 04/15/17 at 11:00 Metoprolol Tartrate (Lopressor) 2.5 mg Q6HRS IVP Last administered on 13:48; Start 04/15/17 at 12:00; Stop 04/15/17 at 15:13; Status DC Promethazine HCl 12.5 mg/Dextrose 50.5 ml @ 101 mls/hr PRN Q4HRS PRN IV NAUSEA /VOMITING; Start 04/15/17 at 11:30; Stop 04/15/17 at 11:32; Status DC Promethazine HCl 12.5 mg/Sodium Chloride 50.5 ml @ 101 mls/hr PRN Q4HRS PRN IV NAUSEA/VOMITING Last administered on 04/15/17 19:01; Start 04/15/17 at 11: 45 Atorvastatin Calcium (Lipitor) 20 mg QHS PO ; Start 04/15/17 at 21:00 Ondansetron HCl (Zofran) 4 mg PRN Q6HRS PRN IV NAUSEA/VOMITING Last administered on 04/15/17 15:45; Start 04/15/17 at 15:00 Fentanyl Citrate (Fentanyl 2ml Vial) 25 mcg PRN Q2HR PRN IV PAIN Last administered on 04/15/17 22:11; Start 04/15/17 at 15:00 Metoprolol Tartrate (Lopressor) 5 mg Q6HRS IVP Last administered on 04/16/17 05:43; Start 04/15/17 at 18:00 Hydralazine HCl (Apresoline Inj) 10 mg PRN Q4HRS PRN IVP ELEVATED BP, SEE COMMENTS; Start 04/15/17 at 15:15 Potassium Acetate 20 meq/Sodium Bicarbonate 75 meq/Dextrose/ Sodium Chloride 1, 085 ml @ 80 mls/hr [id number] IV Last administered on 04/16/17 05:37; Start at 16:00 Albuterol/ Ipratropium (Duoneb) 3 ml RTQID NEB Last administered on 04/16/17 11:43; Start 04/15/17 at 18:04 Furosemide (Lasix) 20 mg 1X ONCE IVP Last administered on 04/15/17 17:59; Start 04/15/17 at 17:45; Stop 04/15/17 at 17:48; Status DC Albuterol Sulfate (Ventolin Neb Soln) 2.5 mg PRN Q2HR PRN NEB SHORTNESS OF BREATH Last administered on 04/15/17 22:41; Start 04/15/17 at 22:45 Propofol 100 ml @ As Directed STK-MED ONCE IV ; Start 04/15/17 at 23:36; Stop 04/15/17 at 23:37; Status DC Succinylcholine Chloride (Anectine) 200 mg STK-MED ONCE .ROUTE ; Start at 23:37; Stop 04/15/17 at 23:38; Status DC Propofol 100 ml @ 0 mls/hr 1X ONCE IV Last administered on 04/15/17 23:37; Start 04/16/17 at 00:00; Stop 04/16/17 at 00:01; Status DC Succinylcholine Chloride (Anectine) 200 mg 1X ONCE IV Last administered on 23:38; Start 04/16/17 at 00:00; Stop 04/16/17 at 00:01; Status DC Propofol 100 ml @ 0 mls/hr CONT PRN IV SEE I/O RECORD Last administered on 05:13; Start 04/16/17 at 04:30 Magnesium Sulfate/ Dextrose 50 ml @ 25 mls/hr 1X ONCE IV Last administered on 04/16/17 11:36; Start 04/16/17 at 10:30; Stop 04/16/17 at 12:29; Status DC Sodium Chloride 1,000 ml @ 1,000 mls/hr 1X ONCE IV Last administered on 04/16 11:52; Start 04/16/17 at 12:00; Stop 04/16/17 at 12:59; Status DC Active Scripts Active Reported Gabapentin 300 Mg Capsule 300 Mg PO QHS Famotidine 20 Mg Tablet 20 Mg PO HS Hydralazine Hcl 25 Mg Tablet 1 Tab PO TID Tylenol (Acetaminophen) 325 Mg Tablet 1-2 Tab PO TID Ranexa (Ranolazine) 500 Mg Tab.er.12h 1 Tab PO BID Aggrenox 25 Mg-200 Mg Capsule (Aspirin/Dipyridamole) 1 Each Cpmp.12hr 1 Cap PO BID Milk Of Magnesia (Magnesium Hydroxide) 400 Mg/5 Ml Oral.susp 30 Ml PO PRN PRN Loperamide (Loperamide Hcl) 2 Mg Capsule 4 Mg PO PRN PRN Baclofen 10 Mg Tablet 0.5 Tab PO PRN QHS PRN Anti-Diarrheal (Loperamide Hcl) 2 Mg Capsule 2 Mg PO PRN Sertraline Hcl 50 Mg Tablet 50 Mg PO DAILY Oxybutynin Chloride Er (Oxybutynin Chloride) 5 Mg Tab.er.24 1 Tab PO DAILY Metoprolol Succinate ( Xl ) (Metoprolol Succinate) 25 Mg Tab.er.24h 1 Tab PO DAILY Lisinopril 20 Mg Tablet 1 Tab PO DAILY Levothyroxine Sodium 100 Mcg Tablet 1 Tab PO DAILY Isosorbide Mononitrate Er (Isosorbide Mononitrate) 60 Mg Tab.er.24h 1 Tab PO DAILY Furosemide 40 Mg Tablet 1 Tab PO DAILY Zetia (Ezetimibe) 10 Mg Tablet 1 Tab PO DAILY Chlorthalidone 25 Mg Tablet 1 Tab PO DAILY Vitals/I & O Vital Sign - Last 24 Hours 04/15/17 04/15/17 04/15/17 04/15/17 15:00 16:00 16:00 17:00 Temp 97.8 97.8 Pulse 110 114 110 Resp 19 22 20 B/P (MAP) 160/88 (112) 147/74 (98) 114/72 (86) Pulse Ox 95 94 92 O2 Delivery Nasal Cannula Nasal Cannula Nasal Cannula Nasal Cannula O2 Flow Rate 2.0 2.0 2.0 2.0 04/15/17 04/15/17 04/15/17 04/15/17 17:19 18:00 18:15 19:00 Temp 98.5 98.5 Pulse 124 122 Resp 21 22 21 B/P (MAP) 126/84 (98) 120/76 (91) Pulse Ox 95 93 91 96 O2 Delivery Room Air Nasal Cannula Nasal Cannula Nasal Cannula O2 Flow Rate 2.0 2.0 2.0 4.0 04/15/17 04/15/17 04/15/17 04/15/17 19:11 20:00 20:00 20:08 Pulse 111 Resp 27 23 B/P (MAP) 130/87 (101) Pulse Ox 92 98 94 O2 Delivery Nasal Cannula Nasal Cannula Nasal Cannula Nasal Cannula O2 Flow Rate 2.0 4.0 4.0 5.0 04/15/17 04/15/17 04/15/17 04/15/17 21:00 22:00 22:11 22:40 Pulse 129 125 Resp 23 23 30 B/P (MAP) 117/69 (85) 119/75 (90) Pulse Ox 93 92 92 90 O2 Delivery Nasal Cannula Nasal Cannula Nasal Cannula Nasal Cannula O2 Flow Rate 6.0 8.0 6.0 8.0 04/15/17 04/15/17 04/15/17 04/16/17 22:41 23:00 23:45 00:00 Temp 99.3 99.3 Pulse 124 127 Resp 22 32 23 B/P (MAP) 105/87 (93) 86/63 (71) Pulse Ox 90 87 92 98 O2 Delivery Nasal Cannula Nasal Cannula Ventilator Ventilator O2 Flow Rate 8.0 15.0 04/16/17 04/16/17 04/16/17 04/16/17 00:00 01:00 01:20 02:00 Pulse 108 96 Resp 22 22 B/P (MAP) 95/69 (78) 113/84 (94) Pulse Ox 96 96 98 O2 Delivery Mechanical Ventilator Ventilator Ventilator Ventilator 04/16/17 04/16/17 04/16/17 04/16/17 03:00 03:36 04:00 04:00 Temp 99.8 99.8 Pulse 96 101 Resp 22 22 B/P (MAP) 110/72 (85) 113/83 (93) Pulse Ox 98 95 99 O2 Delivery Ventilator Ventilator Ventilator Mechanical Ventilator 04/16/17 04/16/17 04/16/17 04/16/17 05:00 05:40 05:43 06:00 Pulse 100 97 85 Resp 22 22 B/P (MAP) 126/79 (95) 110/74 94/68 (77) Pulse Ox 99 99 98 O2 Delivery Ventilator Ventilator Ventilator 04/16/17 04/16/17 04/16/17 04/16/17 08:00 08:00 08:16 08:49 Temp 101.1 101.1 Pulse 92 Resp 21 B/P (MAP) 113/77 (89) Pulse Ox 98 97 95 O2 Delivery Ventilator Mechanical Ventilator Ventilator Ventilator 04/16/17 04/16/17 04/16/17 04/16/17 09:15 10:15 11:15 11:38 Temp 99.8 99.8 Pulse 90 98 94 102 Resp 21 22 21 B/P (MAP) 113/85 (94) 112/69 (83) 124/80 (95) 124/80 Pulse Ox 97 98 97 O2 Delivery Ventilator Ventilator Ventilator 04/16/17 11:43 Pulse Ox 97 O2 Delivery Ventilator Intake and Output 04/16/17 04/16/17 04/17/17 15:00 23:00 07:00 Intake Total 481.02 ml Balance 481.02 ml TIMOTHY WINSLOW MD Apr 16, 2017 14:13
[2017-04-16] MEDS: fentaNYL PF VIAL 100 MCG/2 ML VIAL IV PRN (14:26)
[2017-04-16 17:31] LABS: HCO3 ABG 18 mmol/L (21-28); PCO2 ABG 29 mmHg (35-46); PH ABG 7.42 (7.35-7.45); PO2 ABG 78 mmHg (65-108); SAT O2 ABG 96 % (92-99)
[2017-04-16 17:34] LABS: FIO2 ABG 45
[2017-04-16] MEDS: IV DEXTROSE 5 %-0.45 % NACL 1,000 ML IV SCH (17:39)
--- NOTE | 2017-04-16 20:46 | CONS ---
DATE OF CONSULTATION: 04/16/2017 ATTENDING PHYSICIAN: Elana Gold MD. REASON FOR CONSULTATION: The patient is seen in pulmonary consultation at the request of Dr. Gold for vent management. HISTORY OF PRESENT ILLNESS: The patient is an 81-year-old female with a history of dementia, resides at assisted living. She presented with acute onset of abdominal pain, low back pain and diarrhea. CT of the abdomen and pelvis was obtained revealing possibility of AAA enlargement. The patient was having some blood pressure issue. Vascular Surgery was consulted. She was transferred to [facility]. She then developed respiratory failure, was intubated. I was asked to manage her care. She has been seen by Vascular Surgery, whom is waiting for renal function to improve prior to considering stent grafting. The patient is currently on IV fluids and Zosyn for possible appendicitis. Cardiology was consulted for atrial flutter. The patient is currently on assist control ventilation, rate of 22, tidal volume of 500, FiO2 45%, 5 of PEEP. PAST MEDICAL HISTORY: Remarkable for coronary artery disease, CHF, CVA, dementia, depression, gastroesophageal reflux, hyperlipidemia, hypertension, hypothyroidism, previous myocardial infarction and chronic pain. PAST SURGICAL HISTORY: Unknown. ALLERGIES: MORPHINE. REVIEW OF SYSTEMS: Unobtainable secondary to the patient's condition. CURRENT MEDICATION: List was reviewed. She is receiving IV Diprivan and IV sodium bicarbonate. PHYSICAL EXAMINATION: GENERAL: The patient was sedated with Diprivan. VITAL SIGNS: Have been stable. Since her transfer, she has not been febrile. HEENT: Eyes: The sclerae were nonicteric. NECK: Jugular venous distention was not elevated. No lymphadenopathy. CHEST: Full expansion. LUNGS: Anteriorly were clear. No wheezes. CARDIOVASCULAR: Regular rate and rhythm with S1, S2, no S3. ABDOMEN: Soft. Poor bowel sounds. EXTREMITIES: No clubbing or cyanosis. Minimal edema. NEUROLOGIC: The patient was sedated. LABORATORY DATA: Arterial blood gas: This morning, pH of 7.50, PaCO2 of 26, PaO2 of 81, bicarb of 20. She initially had a pH of 7.04, PaCO2 of 68 with bicarbonate of 13. Serology for C. diff was negative. UA was negative for leukocyte esterase. Electrolytes were noted to be deranged. BUN and creatinine were elevated. Lactic acid level earlier this morning was elevated. ALT was normal. Alkaline phosphatase was low. AST was elevated. Albumin was low. IMPRESSION: 1. Acute respiratory failure, present upon admission, multifactorial. 2. Metabolic acidosis, suspect secondary to possible infection. 3. Abdominal pain. CT revealing abdominal aortic aneurysm and possible appendicitis. 4. Possible appendicitis. 5. Sepsis, present upon admission. 6. Atrial flutter. 7. Coronary artery disease. 8. Cerebrovascular accident. 9. Hypertension. PLAN: 1. We will continue current support with mechanical ventilation. Discontinue. The patient is currently alkalotic. We will discontinue sodium bicarbonate. 2. Empiric antibiotics. 3. Follow Cardiology and Cardiovascular input. 4. Follow Cardiology input. 5. Nephrology has been consulted. 6. Repeat lactic acid level. I do appreciate the privilege in sharing in the patient's care. Total cumulative critical care time of 40 minutes. SWATHI OROZCO MD DR: MILDRED/ivan JOB#: [id number] / [id number]
[2017-04-16] MEDS: ATORVASTATIN CALCIUM 20 MG TABLET PO SCH (21:00)
--- NOTE | 2017-04-16 22:04 | PN ---
DATE: 04/16/2017 SUBJECTIVE: The patient is intubated and mechanically ventilated. She is also on propofol for sedation. She apparently was seen by the soda maker yesterday and started on IV metoprolol and she became extremely short of breath and with marked bronchospasm. It was difficult to know whether this is response to beta juliet as the patient is fluid overloaded. Eventually, the patient became extremely tachypneic and her blood gases last night showed that her pH was down to 7.04, pCO2 of 68, pO2 of 67, bicarbonate 18, and oxygen saturation was 91% on FiO2 of 75%. She was intubated, mechanically ventilated and was started on propofol for sedation. Her repeat blood gases showed that she had improvement; however, her urine output has dwindled. She was also noted to be extremely hypomagnesemic. PHYSICAL EXAMINATION: GENERAL: When I examined her this morning, she was sitting slightly propped up in bed, in no apparent respiratory distress. She was pale, but no jaundice, cyanosis, or thyromegaly. No jugular venous distention. No limb edema. VITAL SIGNS: Her heart rate was 85, blood pressure was 94/68, temperature was 99.8, respiratory rate was 22, and oxygen saturation was 95% on FiO2 of 45%. HEAD, EYES, EARS, NOSE AND THROAT: Showed normocephalic, atraumatic. She has an orotracheal tube in place. NECK: Supple. HEART: Showed normal first and second heart sounds. No gallop, rub or murmur. CHEST: Shows central trachea, equal bilateral expansion, air entry, vesicular sounds. She has bilateral basal crepitations posteriorly. I could not appreciate any rhonchi. ABDOMEN: Distended, soft, nontender. No guarding or rigidity. No organomegaly. Hernial orifices intact. Bowel sounds normal. NEUROLOGIC: The patient is awake, alert, responding appropriately. Her intake over the last 24 hours was 2670, output was 1335. LABORATORY DATA: Her blood gases this morning showed a pH of 7.50, pCO2 of 26, pO2 of 81, bicarb of 20, and oxygen saturation was 97% on FiO2 of 45%. Her white cell count was 12,400; hemoglobin 13.2; hematocrit 42.7; MCV 103; and platelet count 250,000. Her chemistry this morning showed that her serum sodium was 146, potassium 3.7, chloride 112, bicarbonate 21, anion gap of 13, BUN 39, creatinine 2.7, estimated GFR was 20 mL per minute. Her glucose was 131, calcium was 9.3, magnesium was 1.2. Total bilirubin is abnormal; however, her AST, ALT, alkaline phosphatase slightly elevated. Her creatinine kinase was 493. Total protein 6.5, albumin was 2.6. ASSESSMENT: 1. Acute respiratory failure the cause of which is not very clear to me whether this is secondary to fluid overload or severe bronchospasm secondary to beta juliet. 2. Abdominal aortic aneurysm that is apparently stable. 3. Acute on chronic renal failure. Her creatinine is down to 2.7 from 4. 4. Congestive heart failure with ejection fraction of 40%. 5. Sepsis, likely due to acute appendicitis, which she is on Zosyn. 6. Lactic acidosis, the cause of which is not clear for me. So far all her blood cultures are negative. 7. Hypomagnesemia, currently receiving magnesium supplementation. Her chest x-ray this morning showed slight interval decrease in pulmonary congestion with superimposed lower lobe atelectasis or infiltrate, stable enlargement of the cardiac silhouette and support lines and tubes. PLAN: My plan is to continue with mechanical ventilation and obviously wean as tolerated. Continue with magnesium supplement. Continue with bronchodilator. Continue with bicarbonate drip. Continue with pain management. Continue with IV Zosyn at 2.25 grams IV every 8 hours. FAUSTO BATEMAN MD DR: EDGAR/ivan JOB#: [id number] / [id number]
[2017-04-17] VITALS (22 sets, daily range): BP systolic 84–172; BP diastolic 50–99
[2017-04-17] MEDS: METOCLOPRAMIDE HCL 10 MG/2 ML VIAL. IV SCH ×4 (00:17→18:23)
[2017-04-17] MEDS: METOPROLOL TARTRATE 5 MG/5 ML VIAL. IVP SCH ×5 (00:17→23:03)
[2017-04-17] MEDS: IV DEXTROSE 5 %-0.45 % NACL 1,000 ML IV SCH (02:29)
[2017-04-17] MEDS: PROPOFOL 100 ML IV PRN ×3 (04:41→23:04)
[2017-04-17] MEDS: PIPERACILLIN/TAZO IV Push 2.25 GM VIAL. IVP SCH ×3 (05:48→23:10)
[2017-04-17] MEDS: IPRATRPIUM/ALBUTEROL 0.5/2.5MG 3 ML NEBU. NEB SCH ×4 (07:23→20:18)
--- NOTE | 2017-04-17 08:16 | RAD ---
EXAM: Chest, single view. HISTORY: Respiratory failure. COMPARISON: 04/16/2017. FINDINGS: A frontal view of the chest is obtained. There is an endotracheal tube within the trachea. There is a nasogastric tube within the stomach. There are median sternotomy changes. There is stable suspected lower lobe atelectasis with suspected trace pleural effusions. There is stable diffuse increased interstitial opacity. There is stable mild enlargement of the cardiac silhouette. IMPRESSION: 1. Stable mild diffuse increased interstitial opacity likely due to pulmonary congestion. There may be superimposed lower lobe atelectasis with trace effusions. 2. Stable support lines and tubes.
[2017-04-17 08:42] LABS: ALBUMIN 2.6 g/dL (3.4-5.0); ALBUMIN/GLOBULIN RATIO 0.7 (1.0-1.7); CALCIUM 9.2 mg/dL (8.5-10.1); CREATININE 1.9 mg/dL (0.6-1.0); GFR 30.7; MAGNESIUM 1.7 mg/dL (1.8-2.4); POTASSIUM 3.3 mmol/L (3.5-5.1); TOTAL BILIRUBIN 0.4 mg/dL (0.2-1.0); TOTAL PROTEIN 6.5 g/dL (6.4-8.2)
[2017-04-17 10:32] LABS: FIO2 ABG 45; HCO3 ABG 20 mmol/L (21-28); PCO2 ABG 30 mmHg (35-46); PH ABG 7.44 (7.35-7.45); PO2 ABG 85 mmHg (65-108); SAT O2 ABG 97 % (92-99)
[2017-04-17] MEDS: POTASSIUM CL 20MEQ D5-0.45NACL 1,000 ML IV SCH ×2 (10:37→18:22)
[2017-04-17] MEDS ORDERED: DIGOXIN IV 500 MCG/2 ML AMPUL. IV ONE (10:45)
[2017-04-17] MEDS ORDERED: SODIUM PHOSPHATE 20 MMOL in IV DEXTROSE 5% 250 ML IV ONE (11:00)
--- NOTE | 2017-04-17 11:46 | PDOC ---
PROGRESS NOTES Subjective Subjective The patient remains on a ventilator. Objective Objective Vital Signs Date Time Temp Pulse Resp B/P (MAP) Pulse Ox O2 Delivery O2 Flow Rate FiO2 04/17/17 11:02 97 Ventilator 04/17/17 10:38 128 127/72 04/17/17 08:00 4.0 04/17/17 06:00 22 04/17/17 04:00 99.7 99.7 Physical Exam Abdomen: Normal bowel sounds Heart: Regular rate General: Other (intubated) Lungs: Other (decreased breath sounds) Assessment Assessment Problems Medical Problems: (1) Abdominal aortic aneurysm Status: Acute (2) Acute renal failure Status: Acute (3) Anemia Status: Acute (4) Enlarging abdominal aortic aneurysm Status: Acute 1. Acute respiratory failure: multifactorial. He is on a ventilator. Continue present medical treatment. Followed by the pulmonary service. 2. AAA: 6.6 stable per vascular surgery. CTA pending renal function. 3. Appendicitis with sepsis. per general surgery 4. Possible Sepsis 5. Paroxysmal Atrial flutter: rate controlled 6. Chronic LBBB: EKG with no acute ST changes 7. Macrocytic anemia 8. CAD: CABG and PCI/stent in the past. 9. Cardiomyopathy: EF 40% unchanged from previous 10. HTN: previously with labile episode but better with metoprolol and propofol 11. HLP 12. Mild acute on chronic systolic CHF 13. Carotid artery disease 14. Dementia with hx of CVA Comment Review of Relevant I have reviewed the following items ari (where applicable) has been applied. Labs Laboratory Tests Test 04/15/17 11:50 04/15/17 18:15 04/15/17 23:16 04/16/17 00:30 White Blood Count 11.4 x10^3/uL (4.0-11.0) 12.4 x10^3/uL (4.0-11.0) 15.0 x10^3/uL (4.0-11.0) Red Blood Count 3.62 x10^6/uL (3.50-5.40) 3.80 x10^6/uL (3.50-5.40) 2.88 x10^6/uL (3.50-5.40) Hemoglobin 11.8 g/dL (12.0-15.5) 12.2 g/dL (12.0-15.5) 9.2 g/dL (12.0-15.5) Hematocrit 36.7 % (36.0-47.0) 38.2 % (36.0-47.0) 30.1 % (36.0-47.0) Mean Corpuscular Volume 101 fL (79-100) 101 fL (79-100) 105 fL (79-100) Mean Corpuscular Hemoglobin 33 pg (25-35) 32 pg (25-35) 32 pg (25-35) Mean Corpuscular Hemoglobin Concent 32 g/dL (31-37) 32 g/dL (31-37) 31 g/dL (31-37) Red Cell Distribution Width 14.7 % (11.5-14.5) 15.0 % (11.5-14.5) 15.5 % (11.5-14.5) Platelet Count 227 x10^3/uL (140-400) 275 x10^3/uL (140-400) 276 x10^3/uL (140-400) Neutrophils (%) (Auto) 84 % (31-73) 83 % (31-73) 88 % (31-73) Lymphocytes (%) (Auto) 9 % (24-48) 11 % (24-48) 6 % (24-48) Monocytes (%) (Auto) 6 % (0-9) 6 % (0-9) 6 % (0-9) Eosinophils (%) (Auto) 1 % (0-3) 0 % (0-3) 0 % (0-3) Basophils (%) (Auto) 0 % (0-3) 0 % (0-3) 0 % (0-3) Neutrophils # (Auto) 9.6 x10^3uL (1.8-7.7) 10.3 x10^3uL (1.8-7.7) 13.1 x10^3uL (1.8-7.7) Lymphocytes # (Auto) 1.1 x10^3/uL (1.0-4.8) 1.3 x10^3/uL (1.0-4.8) 0.9 x10^3/uL (1.0-4.8) Monocytes # (Auto) 0.6 x10^3/uL (0.0-1.1) 0.8 x10^3/uL (0.0-1.1) 0.9 x10^3/uL (0.0-1.1) Eosinophils # (Auto) 0.1 x10^3/uL (0.0-0.7) 0.0 x10^3/uL (0.0-0.7) 0.0 x10^3/uL (0.0-0.7) Basophils # (Auto) 0.0 x10^3/uL (0.0-0.2) 0.0 x10^3/uL (0.0-0.2) 0.0 x10^3/uL (0.0-0.2) O2 Saturation 91 % (92-99) Arterial Blood pH 7.04 (7.35-7.45) Arterial Blood pCO2 at Patient Temp 68 mmHg (35-46) Arterial Blood pO2 at Patient Temp 67 mmHg (65-108) Arterial Blood HCO3 18 mmol/L (21-28) Arterial Blood Base Excess -13 mmol/L (-3-3) FiO2 76 Segmented Neutrophils % 89 % (35-66) Band Neutrophils % 3 % (0-9) Lymphocytes % 4 % (24-48) Monocytes % 4 % (0-10) Nucleated Red Blood Cells 1 Platelet Estimate Adequate (ADEQUATE) Anisocytosis Slight Test 04/16/17 01:14 04/16/17 02:00 04/16/17 04:23 04/16/17 07:10 O2 Saturation 94 % (92-99) Arterial Blood pH 7.27 (7.35-7.45) Arterial Blood pCO2 at Patient Temp 40 mmHg (35-46) Arterial Blood pO2 at Patient Temp 71 mmHg (65-108) Arterial Blood HCO3 18 mmol/L (21-28) Arterial Blood Base Excess -9 mmol/L (-3-3) FiO2 80 Lactic Acid Level 5.8 mmol/L (0.4-2.0) White Blood Count 12.4 x10^3/uL (4.0-11.0) Red Blood Count 4.13 x10^6/uL (3.50-5.40) Hemoglobin 13.2 g/dL (12.0-15.5) Hematocrit 42.7 % (36.0-47.0) Mean Corpuscular Volume 103 fL (79-100) Mean Corpuscular Hemoglobin 32 pg (25-35) Mean Corpuscular Hemoglobin Concent 31 g/dL (31-37) Red Cell Distribution Width 15.6 % (11.5-14.5) Platelet Count 250 x10^3/uL (140-400) Neutrophils (%) (Auto) 83 % (31-73) Lymphocytes (%) (Auto) 11 % (24-48) Monocytes (%) (Auto) 6 % (0-9) Eosinophils (%) (Auto) 0 % (0-3) Basophils (%) (Auto) 0 % (0-3) Neutrophils # (Auto) 10.3 x10^3uL (1.8-7.7) Lymphocytes # (Auto) 1.3 x10^3/uL (1.0-4.8) Monocytes # (Auto) 0.7 x10^3/uL (0.0-1.1) Eosinophils # (Auto) 0.0 x10^3/uL (0.0-0.7) Basophils # (Auto) 0.0 x10^3/uL (0.0-0.2) Sodium Level 146 mmol/L (136-145) Potassium Level 3.7 mmol/L (3.5-5.1) Chloride Level 112 mmol/L (98-107) Carbon Dioxide Level 21 mmol/L (21-32) Anion Gap 13 (6-14) Blood Urea Nitrogen 39 mg/dL (7-20) Creatinine 2.7 mg/dL (0.6-1.0) Estimated GFR (Cockcroft-Gault) 20.5 BUN/Creatinine Ratio 14 (6-20) Glucose Level 231 mg/dL (70-99) Calcium Level 9.3 mg/dL (8.5-10.1) Phosphorus Level 1.2 mg/dL (2.6-4.7) Magnesium Level 1.2 mg/dL (1.8-2.4) Total Bilirubin 0.3 mg/dL (0.2-1.0) Aspartate Amino Transf (AST/SGOT) 69 U/L (15-37) Alanine Aminotransferase (ALT/SGPT) 16 U/L (14-59) Alkaline Phosphatase 39 U/L (46-116) Creatine Kinase 493 U/L (26-192) Total Protein 6.5 g/dL (6.4-8.2) Albumin 2.6 g/dL (3.4-5.0) Albumin/Globulin Ratio 0.7 (1.0-1.7) Test 04/16/17 08:00 04/16/17 12:05 04/16/17 17:25 04/17/17 08:00 O2 Saturation 97 % (92-99) 96 % (92-99) 97 % (92-99) Arterial Blood pH 7.50 (7.35-7.45) 7.42 (7.35-7.45) 7.44 (7.35-7.45) Arterial Blood pCO2 at Patient Temp 26 mmHg (35-46) 29 mmHg (35-46) 30 mmHg (35-46) Arterial Blood pO2 at Patient Temp 81 mmHg (65-108) 78 mmHg (65-108) 85 mmHg (65-108) Arterial Blood HCO3 20 mmol/L (21-28) 18 mmol/L (21-28) 20 mmol/L (21-28) Arterial Blood Base Excess -2 mmol/L (-3-3) -6 mmol/L (-3-3) -3 mmol/L (-3-3) FiO2 45% 45 45 White Blood Count 11.8 x10^3/uL (4.0-11.0) Red Blood Count 3.45 x10^6/uL (3.50-5.40) Hemoglobin 11.1 g/dL (12.0-15.5) Hematocrit 34.2 % (36.0-47.0) Mean Corpuscular Volume 99 fL (79-100) Mean Corpuscular Hemoglobin 32 pg (25-35) Mean Corpuscular Hemoglobin Concent 33 g/dL (31-37) Red Cell Distribution Width 14.6 % (11.5-14.5) Platelet Count 196 x10^3/uL (140-400) Neutrophils (%) (Auto) 79 % (31-73) Lymphocytes (%) (Auto) 12 % (24-48) Monocytes (%) (Auto) 9 % (0-9) Eosinophils (%) (Auto) 0 % (0-3) Basophils (%) (Auto) 0 % (0-3) Neutrophils # (Auto) 9.4 x10^3uL (1.8-7.7) Lymphocytes # (Auto) 1.4 x10^3/uL (1.0-4.8) Monocytes # (Auto) 1.0 x10^3/uL (0.0-1.1) Eosinophils # (Auto) 0.0 x10^3/uL (0.0-0.7) Basophils # (Auto) 0.0 x10^3/uL (0.0-0.2) Lactic Acid Level 2.0 mmol/L (0.4-2.0) Test 04/17/17 08:10 Sodium Level 146 mmol/L (136-145) Potassium Level 3.3 mmol/L (3.5-5.1) Chloride Level 113 mmol/L (98-107) Carbon Dioxide Level 20 mmol/L (21-32) Anion Gap 13 (6-14) Blood Urea Nitrogen 26 mg/dL (7-20) Creatinine 1.9 mg/dL (0.6-1.0) Estimated GFR (Cockcroft-Gault) 30.7 BUN/Creatinine Ratio 14 (6-20) Glucose Level 234 mg/dL (70-99) Lactic Acid Level 1.4 mmol/L (0.4-2.0) Calcium Level 9.2 mg/dL (8.5-10.1) Phosphorus Level 1.0 mg/dL (2.6-4.7) Magnesium Level 1.7 mg/dL (1.8-2.4) Total Bilirubin 0.4 mg/dL (0.2-1.0) Aspartate Amino Transf (AST/SGOT) 85 U/L (15-37) Alanine Aminotransferase (ALT/SGPT) 21 U/L (14-59) Alkaline Phosphatase 38 U/L (46-116) Lactate Dehydrogenase 443 U/L (81-234) Total Protein 6.5 g/dL (6.4-8.2) Albumin 2.6 g/dL (3.4-5.0) Albumin/Globulin Ratio 0.7 (1.0-1.7) Laboratory Tests Test 04/16/17 12:05 04/16/17 17:25 04/17/17 08:00 04/17/17 08:10 White Blood Count 11.8 x10^3/uL (4.0-11.0) Red Blood Count 3.45 x10^6/uL (3.50-5.40) Hemoglobin 11.1 g/dL (12.0-15.5) Hematocrit 34.2 % (36.0-47.0) Mean Corpuscular Volume 99 fL (79-100) Mean Corpuscular Hemoglobin 32 pg (25-35) Mean Corpuscular Hemoglobin Concent 33 g/dL (31-37) Red Cell Distribution Width 14.6 % (11.5-14.5) Platelet Count 196 x10^3/uL (140-400) Neutrophils (%) (Auto) 79 % (31-73) Lymphocytes (%) (Auto) 12 % (24-48) Monocytes (%) (Auto) 9 % (0-9) Eosinophils (%) (Auto) 0 % (0-3) Basophils (%) (Auto) 0 % (0-3) Neutrophils # (Auto) 9.4 x10^3uL (1.8-7.7) Lymphocytes # (Auto) 1.4 x10^3/uL (1.0-4.8) Monocytes # (Auto) 1.0 x10^3/uL (0.0-1.1) Eosinophils # (Auto) 0.0 x10^3/uL (0.0-0.7) Basophils # (Auto) 0.0 x10^3/uL (0.0-0.2) Lactic Acid Level 2.0 mmol/L (0.4-2.0) 1.4 mmol/L (0.4-2.0) O2 Saturation 96 % (92-99) 97 % (92-99) Arterial Blood pH 7.42 (7.35-7.45) 7.44 (7.35-7.45) Arterial Blood pCO2 at Patient Temp 29 mmHg (35-46) 30 mmHg (35-46) Arterial Blood pO2 at Patient Temp 78 mmHg (65-108) 85 mmHg (65-108) Arterial Blood HCO3 18 mmol/L (21-28) 20 mmol/L (21-28) Arterial Blood Base Excess -6 mmol/L (-3-3) -3 mmol/L (-3-3) FiO2 45 45 Sodium Level 146 mmol/L (136-145) Potassium Level 3.3 mmol/L (3.5-5.1) Chloride Level 113 mmol/L (98-107) Carbon Dioxide Level 20 mmol/L (21-32) Anion Gap 13 (6-14) Blood Urea Nitrogen 26 mg/dL (7-20) Creatinine 1.9 mg/dL (0.6-1.0) Estimated GFR (Cockcroft-Gault) 30.7 BUN/Creatinine Ratio 14 (6-20) Glucose Level 234 mg/dL (70-99) Calcium Level 9.2 mg/dL (8.5-10.1) Phosphorus Level 1.0 mg/dL (2.6-4.7) Magnesium Level 1.7 mg/dL (1.8-2.4) Total Bilirubin 0.4 mg/dL (0.2-1.0) Aspartate Amino Transf (AST/SGOT) 85 U/L (15-37) Alanine Aminotransferase (ALT/SGPT) 21 U/L (14-59) Alkaline Phosphatase 38 U/L (46-116) Lactate Dehydrogenase 443 U/L (81-234) Total Protein 6.5 g/dL (6.4-8.2) Albumin 2.6 g/dL (3.4-5.0) Albumin/Globulin Ratio 0.7 (1.0-1.7) Microbiology 04/14/17 Blood Culture - Preliminary, Resulted NO GROWTH AFTER 2 DAYS Medications Current Medications Fentanyl Citrate (Fentanyl 2ml Vial) 50 mcg PRN Q15MIN PRN IV PAIN GREATER THAN 3/10 Last administered on 04/14/17 13:50; Start 04/14/17 at 11:45; Stop 04/14/17 at 17:35; Status DC Sodium Chloride 1,000 ml @ 1,000 mls/hr Q1H IV Last administered on 04/14/17 12:28; Start 04/14/17 at 11:38; Stop 04/14/17 at 12:37; Status DC Sodium Chloride (Normal Saline Flush) 10 ml QSHIFT PRN IV AFTER MEDS AND BLOOD DRAWS; Start 04/14/17 at 11:45 Ondansetron HCl (Zofran) 4 mg 1X ONCE IV Last administered on 04/14/17 12:30 ; Start 04/14/17 at 12:15; Stop 04/14/17 at 12:16; Status DC Ondansetron HCl (Zofran) 4 mg 1X ONCE IV Last administered on 04/14/17 13:28 ; Start 04/14/17 at 13:15; Stop 04/14/17 at 13:16; Status DC Ondansetron HCl (Zofran) 4 mg PRN Q8HRS PRN IV NAUSEA/VOMITING Last administered on 04/15/17 09:37; Start 04/14/17 at 14:00; Stop 04/15/17 at 13: 59; Status DC Fentanyl Citrate (Fentanyl 2ml Vial) 25 mcg PRN Q2HR PRN IV PAIN Last administered on 04/15/17 11:44; Start 04/14/17 at 14:00; Stop 04/15/17 at 13: 59; Status DC Sodium Chloride 1,000 ml @ 125 mls/hr Q8H IV Last administered on 04/15/17 07:48; Start 04/14/17 at 13:47; Stop 04/15/17 at 13:46; Status DC Piperacillin Sod/ Tazobactam Sod 4.5 gm/Dextrose 100 ml @ 200 mls/hr 1X ONCE IV ; Start 04/14/17 at 14:15; Stop 04/14/17 at 14:44; Status UNV Piperacillin Sod/ Tazobactam Sod (Zosyn) 3.375 gm 1X ONCE IVP Last administered on 04/14/17 14:20; Start 04/14/17 at 14:15; Stop 04/14/17 at 14:16 ; Status DC Piperacillin Sod/ Tazobactam Sod 2.25 gm/Dextrose 50 ml @ 100 mls/hr Q8H IV ; Start 04/15/17 at 08:30; Status UNV Piperacillin Sod/ Tazobactam Sod (Zosyn) 2.25 gm Q8HRS IVP Last administered on 04/17/17 05:48; Start 04/15/17 at 09:00 Magnesium Sulfate/ Dextrose 50 ml @ 25 mls/hr PRN DAILY PRN IV for Mag < 1.7 on am labs; Start 04/15/17 at 09:00 Metoclopramide HCl (Reglan) 10 mg Q6HRS PRN IV NAUSEA/VOMITING; Start at 10:30; Stop 04/15/17 at 10:30; Status DC Metoclopramide HCl (Reglan) 5 mg Q6HRS IV Last administered on 04/17/17 05:48 ; Start 04/15/17 at 11:00 Metoprolol Tartrate (Lopressor) 2.5 mg Q6HRS IVP Last administered on 13:48; Start 04/15/17 at 12:00; Stop 04/15/17 at 15:13; Status DC Promethazine HCl 12.5 mg/Dextrose 50.5 ml @ 101 mls/hr PRN Q4HRS PRN IV NAUSEA /VOMITING; Start 04/15/17 at 11:30; Stop 04/15/17 at 11:32; Status DC Promethazine HCl 12.5 mg/Sodium Chloride 50.5 ml @ 101 mls/hr PRN Q4HRS PRN IV NAUSEA/VOMITING Last administered on 04/15/17 19:01; Start 04/15/17 at 11: 45 Atorvastatin Calcium (Lipitor) 20 mg QHS PO ; Start 04/15/17 at 21:00 Ondansetron HCl (Zofran) 4 mg PRN Q6HRS PRN IV NAUSEA/VOMITING Last administered on 04/15/17 15:45; Start 04/15/17 at 15:00 Fentanyl Citrate (Fentanyl 2ml Vial) 25 mcg PRN Q2HR PRN IV PAIN Last administered on 04/16/17 14:26; Start 04/15/17 at 15:00 Metoprolol Tartrate (Lopressor) 5 mg Q6HRS IVP Last administered on 04/17/17 05:49; Start 04/15/17 at 18:00 Hydralazine HCl (Apresoline Inj) 10 mg PRN Q4HRS PRN IVP ELEVATED BP, SEE COMMENTS; Start 04/15/17 at 15:15 Potassium Acetate 20 meq/Sodium Bicarbonate 75 meq/Dextrose/ Sodium Chloride 1, 085 ml @ 80 mls/hr [id number] IV Last administered on 04/16/17 05:37; Start at 16:00; Stop 04/16/17 at 16:00; Status DC Albuterol/ Ipratropium (Duoneb) 3 ml RTQID NEB Last administered on 04/17/17 11:01; Start 04/15/17 at 18:04 Furosemide (Lasix) 20 mg 1X ONCE IVP Last administered on 04/15/17 17:59; Start 04/15/17 at 17:45; Stop 04/15/17 at 17:48; Status DC Albuterol Sulfate (Ventolin Neb Soln) 2.5 mg PRN Q2HR PRN NEB SHORTNESS OF BREATH Last administered on 04/15/17 22:41; Start 04/15/17 at 22:45 Propofol 100 ml @ As Directed STK-MED ONCE IV ; Start 04/15/17 at 23:36; Stop 04/15/17 at 23:37; Status DC Succinylcholine Chloride (Anectine) 200 mg STK-MED ONCE .ROUTE ; Start at 23:37; Stop 04/15/17 at 23:38; Status DC Propofol 100 ml @ 0 mls/hr 1X ONCE IV Last administered on 04/15/17 23:37; Start 04/16/17 at 00:00; Stop 04/16/17 at 00:01; Status DC Succinylcholine Chloride (Anectine) 200 mg 1X ONCE IV Last administered on 23:38; Start 04/16/17 at 00:00; Stop 04/16/17 at 00:01; Status DC Propofol 100 ml @ 0 mls/hr CONT PRN IV SEE I/O RECORD Last administered on 04:41; Start 04/16/17 at 04:30 Magnesium Sulfate/ Dextrose 50 ml @ 25 mls/hr 1X ONCE IV Last administered on 04/16/17 11:36; Start 04/16/17 at 10:30; Stop 04/16/17 at 12:29; Status DC Sodium Chloride 1,000 ml @ 1,000 mls/hr 1X ONCE IV Last administered on 04/16 11:52; Start 04/16/17 at 12:00; Stop 04/16/17 at 12:59; Status DC Dextrose/Sodium Chloride 1,000 ml @ 125 mls/hr Q8H IV Last administered on 02:29; Start 04/16/17 at 17:00; Stop 04/17/17 at 10:27; Status DC Metoprolol Tartrate (Lopressor) 5 mg PRN Q4HRS PRN IVP HYPERTENSION, SEE COMMENTS; Start 04/17/17 at 10:00 Potassium Chloride/Dextrose/ Sod Cl 1,000 ml @ 125 mls/hr Q8H IV Last administered on 04/17/17 10:37; Start 04/17/17 at 11:00 Sodium Phosphate 20 mmol/Dextrose 256.6667 ml @ 64.167 m... 1X ONCE IV Last administered on 04/17/17 10:37; Start 04/17/17 at 11:00; Stop 04/17/17 at 14 :59 Digoxin (Lanoxin) 500 mcg 1X ONCE IV Last administered on 04/17/17 10:38; Start 04/17/17 at 10:45; Stop 04/17/17 at 10:46; Status DC Active Scripts Active Reported Gabapentin 300 Mg Capsule 300 Mg PO QHS Famotidine 20 Mg Tablet 20 Mg PO HS Hydralazine Hcl 25 Mg Tablet 1 Tab PO TID Tylenol (Acetaminophen) 325 Mg Tablet 1-2 Tab PO TID Ranexa (Ranolazine) 500 Mg Tab.er.12h 1 Tab PO BID Aggrenox 25 Mg-200 Mg Capsule (Aspirin/Dipyridamole) 1 Each Cpmp.12hr 1 Cap PO BID Milk Of Magnesia (Magnesium Hydroxide) 400 Mg/5 Ml Oral.susp 30 Ml PO PRN PRN Loperamide (Loperamide Hcl) 2 Mg Capsule 4 Mg PO PRN PRN Baclofen 10 Mg Tablet 0.5 Tab PO PRN QHS PRN Anti-Diarrheal (Loperamide Hcl) 2 Mg Capsule 2 Mg PO PRN Sertraline Hcl 50 Mg Tablet 50 Mg PO DAILY Oxybutynin Chloride Er (Oxybutynin Chloride) 5 Mg Tab.er.24 1 Tab PO DAILY Metoprolol Succinate ( Xl ) (Metoprolol Succinate) 25 Mg Tab.er.24h 1 Tab PO DAILY Lisinopril 20 Mg Tablet 1 Tab PO DAILY Levothyroxine Sodium 100 Mcg Tablet 1 Tab PO DAILY Isosorbide Mononitrate Er (Isosorbide Mononitrate) 60 Mg Tab.er.24h 1 Tab PO DAILY Furosemide 40 Mg Tablet 1 Tab PO DAILY Zetia (Ezetimibe) 10 Mg Tablet 1 Tab PO DAILY Chlorthalidone 25 Mg Tablet 1 Tab PO DAILY Vitals/I & O Vital Sign - Last 24 Hours 04/16/17 04/16/17 04/16/17 04/16/17 12:00 12:00 13:00 14:00 Pulse 100 96 106 Resp 21 21 21 B/P (MAP) 119/67 (84) 99/73 (82) 119/83 (95) Pulse Ox 97 96 96 O2 Delivery Mechanical Ventilator Ventilator Ventilator Ventilator 04/16/17 04/16/17 04/16/17 04/16/17 14:26 14:56 15:00 15:37 Pulse 94 Resp 20 20 21 B/P (MAP) 113/79 (90) Pulse Ox 100 98 O2 Delivery Ventilator Ventilator Ventilator Ventilator 04/16/17 04/16/17 04/16/17 04/16/17 16:00 16:00 16:12 17:00 Temp 99.8 99.8 Pulse 124 120 96 Resp 20 20 B/P (MAP) 110/75 (87) 110/75 120/64 (82) Pulse Ox 100 100 O2 Delivery Ventilator Mechanical Ventilator Ventilator 04/16/17 04/16/17 04/16/17 04/16/17 17:19 18:00 19:00 20:00 Temp 100.1 100.1 Pulse 96 85 92 Resp 20 22 22 B/P (MAP) 95/67 (76) 125/77 (93) 145/82 (103) Pulse Ox 97 100 97 95 O2 Delivery Ventilator Ventilator Ventilator Ventilator 04/16/17 04/16/17 04/16/17 04/16/17 20:00 20:22 21:00 22:00 Pulse 87 115 Resp 22 22 B/P (MAP) 126/87 (100) 123/81 (95) Pulse Ox 95 97 95 O2 Delivery Mechanical Ventilator Ventilator Ventilator Ventilator 04/16/17 04/16/17 04/17/17 04/17/17 23:00 23:36 00:00 00:00 Temp 99.7 99.7 Pulse 92 85 Resp 22 22 B/P (MAP) 141/79 (99) 121/75 (90) Pulse Ox 96 96 96 O2 Delivery Ventilator Ventilator Ventilator Mechanical Ventilator 04/17/17 04/17/17 04/17/17 04/17/17 00:17 01:00 01:42 02:00 Pulse 105 83 96 Resp 22 22 B/P (MAP) 112/95 138/76 (96) 130/84 (99) Pulse Ox 97 96 97 O2 Delivery Ventilator Ventilator Ventilator 04/17/17 04/17/17 04/17/17 04/17/17 03:00 03:34 04:00 04:00 Temp 99.7 99.7 Pulse 92 93 Resp 22 22 B/P (MAP) 145/85 (105) 140/84 (102) Pulse Ox 97 96 98 O2 Delivery Ventilator Ventilator Mechanical Ventilator Ventilator 04/17/17 04/17/17 04/17/17 04/17/17 05:00 05:45 05:49 06:00 Pulse 99 115 77 Resp 22 22 B/P (MAP) 154/78 (103) 147/84 141/99 (113) Pulse Ox 96 95 98 O2 Delivery Ventilator Ventilator Ventilator 04/17/17 04/17/17 04/17/17 04/17/17 07:25 08:00 08:53 10:38 Pulse 128 B/P (MAP) 127/72 Pulse Ox 97 100 O2 Delivery Ventilator Mechanical Ventilator Ventilator O2 Flow Rate 4.0 04/17/17 11:02 Pulse Ox 97 O2 Delivery Ventilator TOMMY RICE MD Apr 17, 2017 11:46
--- NOTE | 2017-04-17 12:53 | PDOC ---
SURGICAL PROGRESS NOTE Subjective intubated, currently sedated, but weaning in process Vital Signs Vital Signs Date Time Temp Pulse Resp B/P (MAP) Pulse Ox O2 Delivery O2 Flow Rate FiO2 04/17/17 12:49 95 Ventilator 04/17/17 11:59 102 172/84 04/17/17 08:00 4.0 04/17/17 06:00 22 04/17/17 04:00 99.7 99.7 PATIENT HAS A MAR: Yes Abdomen: Soft Labs Laboratory Tests Test 04/15/17 18:15 04/15/17 23:16 04/16/17 00:30 04/16/17 01:14 White Blood Count 12.4 x10^3/uL (4.0-11.0) 15.0 x10^3/uL (4.0-11.0) Red Blood Count 3.80 x10^6/uL (3.50-5.40) 2.88 x10^6/uL (3.50-5.40) Hemoglobin 12.2 g/dL (12.0-15.5) 9.2 g/dL (12.0-15.5) Hematocrit 38.2 % (36.0-47.0) 30.1 % (36.0-47.0) Mean Corpuscular Volume 101 fL (79-100) 105 fL (79-100) Mean Corpuscular Hemoglobin 32 pg (25-35) 32 pg (25-35) Mean Corpuscular Hemoglobin Concent 32 g/dL (31-37) 31 g/dL (31-37) Red Cell Distribution Width 15.0 % (11.5-14.5) 15.5 % (11.5-14.5) Platelet Count 275 x10^3/uL (140-400) 276 x10^3/uL (140-400) Neutrophils (%) (Auto) 83 % (31-73) 88 % (31-73) Lymphocytes (%) (Auto) 11 % (24-48) 6 % (24-48) Monocytes (%) (Auto) 6 % (0-9) 6 % (0-9) Eosinophils (%) (Auto) 0 % (0-3) 0 % (0-3) Basophils (%) (Auto) 0 % (0-3) 0 % (0-3) Neutrophils # (Auto) 10.3 x10^3uL (1.8-7.7) 13.1 x10^3uL (1.8-7.7) Lymphocytes # (Auto) 1.3 x10^3/uL (1.0-4.8) 0.9 x10^3/uL (1.0-4.8) Monocytes # (Auto) 0.8 x10^3/uL (0.0-1.1) 0.9 x10^3/uL (0.0-1.1) Eosinophils # (Auto) 0.0 x10^3/uL (0.0-0.7) 0.0 x10^3/uL (0.0-0.7) Basophils # (Auto) 0.0 x10^3/uL (0.0-0.2) 0.0 x10^3/uL (0.0-0.2) O2 Saturation 91 % (92-99) 94 % (92-99) Arterial Blood pH 7.04 (7.35-7.45) 7.27 (7.35-7.45) Arterial Blood pCO2 at Patient Temp 68 mmHg (35-46) 40 mmHg (35-46) Arterial Blood pO2 at Patient Temp 67 mmHg (65-108) 71 mmHg (65-108) Arterial Blood HCO3 18 mmol/L (21-28) 18 mmol/L (21-28) Arterial Blood Base Excess -13 mmol/L (-3-3) -9 mmol/L (-3-3) FiO2 76 80 Segmented Neutrophils % 89 % (35-66) Band Neutrophils % 3 % (0-9) Lymphocytes % 4 % (24-48) Monocytes % 4 % (0-10) Nucleated Red Blood Cells 1 Platelet Estimate Adequate (ADEQUATE) Anisocytosis Slight Test 04/16/17 02:00 04/16/17 04:23 04/16/17 07:10 04/16/17 08:00 Lactic Acid Level 5.8 mmol/L (0.4-2.0) White Blood Count 12.4 x10^3/uL (4.0-11.0) Red Blood Count 4.13 x10^6/uL (3.50-5.40) Hemoglobin 13.2 g/dL (12.0-15.5) Hematocrit 42.7 % (36.0-47.0) Mean Corpuscular Volume 103 fL (79-100) Mean Corpuscular Hemoglobin 32 pg (25-35) Mean Corpuscular Hemoglobin Concent 31 g/dL (31-37) Red Cell Distribution Width 15.6 % (11.5-14.5) Platelet Count 250 x10^3/uL (140-400) Neutrophils (%) (Auto) 83 % (31-73) Lymphocytes (%) (Auto) 11 % (24-48) Monocytes (%) (Auto) 6 % (0-9) Eosinophils (%) (Auto) 0 % (0-3) Basophils (%) (Auto) 0 % (0-3) Neutrophils # (Auto) 10.3 x10^3uL (1.8-7.7) Lymphocytes # (Auto) 1.3 x10^3/uL (1.0-4.8) Monocytes # (Auto) 0.7 x10^3/uL (0.0-1.1) Eosinophils # (Auto) 0.0 x10^3/uL (0.0-0.7) Basophils # (Auto) 0.0 x10^3/uL (0.0-0.2) Sodium Level 146 mmol/L (136-145) Potassium Level 3.7 mmol/L (3.5-5.1) Chloride Level 112 mmol/L (98-107) Carbon Dioxide Level 21 mmol/L (21-32) Anion Gap 13 (6-14) Blood Urea Nitrogen 39 mg/dL (7-20) Creatinine 2.7 mg/dL (0.6-1.0) Estimated GFR (Cockcroft-Gault) 20.5 BUN/Creatinine Ratio 14 (6-20) Glucose Level 231 mg/dL (70-99) Calcium Level 9.3 mg/dL (8.5-10.1) Phosphorus Level 1.2 mg/dL (2.6-4.7) Magnesium Level 1.2 mg/dL (1.8-2.4) Total Bilirubin 0.3 mg/dL (0.2-1.0) Aspartate Amino Transf (AST/SGOT) 69 U/L (15-37) Alanine Aminotransferase (ALT/SGPT) 16 U/L (14-59) Alkaline Phosphatase 39 U/L (46-116) Creatine Kinase 493 U/L (26-192) Total Protein 6.5 g/dL (6.4-8.2) Albumin 2.6 g/dL (3.4-5.0) Albumin/Globulin Ratio 0.7 (1.0-1.7) O2 Saturation 97 % (92-99) Arterial Blood pH 7.50 (7.35-7.45) Arterial Blood pCO2 at Patient Temp 26 mmHg (35-46) Arterial Blood pO2 at Patient Temp 81 mmHg (65-108) Arterial Blood HCO3 20 mmol/L (21-28) Arterial Blood Base Excess -2 mmol/L (-3-3) FiO2 45% Test 04/16/17 12:05 04/16/17 17:25 04/17/17 08:00 04/17/17 08:10 White Blood Count 11.8 x10^3/uL (4.0-11.0) Red Blood Count 3.45 x10^6/uL (3.50-5.40) Hemoglobin 11.1 g/dL (12.0-15.5) Hematocrit 34.2 % (36.0-47.0) Mean Corpuscular Volume 99 fL (79-100) Mean Corpuscular Hemoglobin 32 pg (25-35) Mean Corpuscular Hemoglobin Concent 33 g/dL (31-37) Red Cell Distribution Width 14.6 % (11.5-14.5) Platelet Count 196 x10^3/uL (140-400) Neutrophils (%) (Auto) 79 % (31-73) Lymphocytes (%) (Auto) 12 % (24-48) Monocytes (%) (Auto) 9 % (0-9) Eosinophils (%) (Auto) 0 % (0-3) Basophils (%) (Auto) 0 % (0-3) Neutrophils # (Auto) 9.4 x10^3uL (1.8-7.7) Lymphocytes # (Auto) 1.4 x10^3/uL (1.0-4.8) Monocytes # (Auto) 1.0 x10^3/uL (0.0-1.1) Eosinophils # (Auto) 0.0 x10^3/uL (0.0-0.7) Basophils # (Auto) 0.0 x10^3/uL (0.0-0.2) Lactic Acid Level 2.0 mmol/L (0.4-2.0) 1.4 mmol/L (0.4-2.0) O2 Saturation 96 % (92-99) 97 % (92-99) Arterial Blood pH 7.42 (7.35-7.45) 7.44 (7.35-7.45) Arterial Blood pCO2 at Patient Temp 29 mmHg (35-46) 30 mmHg (35-46) Arterial Blood pO2 at Patient Temp 78 mmHg (65-108) 85 mmHg (65-108) Arterial Blood HCO3 18 mmol/L (21-28) 20 mmol/L (21-28) Arterial Blood Base Excess -6 mmol/L (-3-3) -3 mmol/L (-3-3) FiO2 45 45 Sodium Level 146 mmol/L (136-145) Potassium Level 3.3 mmol/L (3.5-5.1) Chloride Level 113 mmol/L (98-107) Carbon Dioxide Level 20 mmol/L (21-32) Anion Gap 13 (6-14) Blood Urea Nitrogen 26 mg/dL (7-20) Creatinine 1.9 mg/dL (0.6-1.0) Estimated GFR (Cockcroft-Gault) 30.7 BUN/Creatinine Ratio 14 (6-20) Glucose Level 234 mg/dL (70-99) Calcium Level 9.2 mg/dL (8.5-10.1) Phosphorus Level 1.0 mg/dL (2.6-4.7) Magnesium Level 1.7 mg/dL (1.8-2.4) Total Bilirubin 0.4 mg/dL (0.2-1.0) Aspartate Amino Transf (AST/SGOT) 85 U/L (15-37) Alanine Aminotransferase (ALT/SGPT) 21 U/L (14-59) Alkaline Phosphatase 38 U/L (46-116) Lactate Dehydrogenase 443 U/L (81-234) Total Protein 6.5 g/dL (6.4-8.2) Albumin 2.6 g/dL (3.4-5.0) Albumin/Globulin Ratio 0.7 (1.0-1.7) Laboratory Tests Test 04/16/17 17:25 04/17/17 08:00 04/17/17 08:10 O2 Saturation 96 % (92-99) 97 % (92-99) Arterial Blood pH 7.42 (7.35-7.45) 7.44 (7.35-7.45) Arterial Blood pCO2 at Patient Temp 29 mmHg (35-46) 30 mmHg (35-46) Arterial Blood pO2 at Patient Temp 78 mmHg (65-108) 85 mmHg (65-108) Arterial Blood HCO3 18 mmol/L (21-28) 20 mmol/L (21-28) Arterial Blood Base Excess -6 mmol/L (-3-3) -3 mmol/L (-3-3) FiO2 45 45 Sodium Level 146 mmol/L (136-145) Potassium Level 3.3 mmol/L (3.5-5.1) Chloride Level 113 mmol/L (98-107) Carbon Dioxide Level 20 mmol/L (21-32) Anion Gap 13 (6-14) Blood Urea Nitrogen 26 mg/dL (7-20) Creatinine 1.9 mg/dL (0.6-1.0) Estimated GFR (Cockcroft-Gault) 30.7 BUN/Creatinine Ratio 14 (6-20) Glucose Level 234 mg/dL (70-99) Lactic Acid Level 1.4 mmol/L (0.4-2.0) Calcium Level 9.2 mg/dL (8.5-10.1) Phosphorus Level 1.0 mg/dL (2.6-4.7) Magnesium Level 1.7 mg/dL (1.8-2.4) Total Bilirubin 0.4 mg/dL (0.2-1.0) Aspartate Amino Transf (AST/SGOT) 85 U/L (15-37) Alanine Aminotransferase (ALT/SGPT) 21 U/L (14-59) Alkaline Phosphatase 38 U/L (46-116) Lactate Dehydrogenase 443 U/L (81-234) Total Protein 6.5 g/dL (6.4-8.2) Albumin 2.6 g/dL (3.4-5.0) Albumin/Globulin Ratio 0.7 (1.0-1.7) Problem List Problems Medical Problems: (1) Abdominal aortic aneurysm Status: Acute (2) Acute renal failure Status: Acute (3) Anemia Status: Acute (4) Enlarging abdominal aortic aneurysm Status: Acute Assessment/Plan acute appendicitis on antibiotics for non op management no new surgical plans continue current treatment Problems: SAMANTA HERNANDEZ MD Apr 17, 2017 12:53
[2017-04-17 14:30] LABS: HEMOGLOBIN 10.4 g/dL (12.0-15.5); RED BLOOD COUNT 3.23 x10^6/uL (3.50-5.40); RED CELL DISTRIBUTION WIDTH 14.6 % (11.5-14.5); WHITE BLOOD COUNT 14.7 x10^3/uL (4.0-11.0)
--- NOTE | 2017-04-17 14:40 | PDOC ---
PROGRESS NOTES Subjective Subjective SEEN IN FOLLOW UP OF ARF Objective Objective Vital Signs Date Time Temp Pulse Resp B/P (MAP) Pulse Ox O2 Delivery O2 Flow Rate FiO2 04/17/17 13:28 95 Ventilator 04/17/17 11:59 102 172/84 04/17/17 08:00 4.0 04/17/17 06:00 22 04/17/17 04:00 99.7 99.7 Physical Exam Abdomen: Normal bowel sounds, Soft, No tenderness, No hepatosplenomegaly, No masses Heart: Regular rate, Normal S1, Normal S2, No murmurs, Gallops Lungs: Other (ON VENT) Psych/Mental Status: Other (SEDATED) Diagnosis RENAL FAILURE: Acute (Acute tubular necrosis) Assessment Assessment Problems Medical Problems: (1) Abdominal aortic aneurysm Status: Acute (2) Acute renal failure Status: Acute (3) Anemia Status: Acute (4) Enlarging abdominal aortic aneurysm Status: Acute Plan Plan of Care ATN IS BETTER. WILL EVENTUALLY NEED CTA OF AAA Comment Review of Relevant I have reviewed the following items ari (where applicable) has been applied. Labs Laboratory Tests Test 04/15/17 18:15 04/15/17 23:16 04/16/17 00:30 04/16/17 01:14 White Blood Count 12.4 x10^3/uL (4.0-11.0) 15.0 x10^3/uL (4.0-11.0) Red Blood Count 3.80 x10^6/uL (3.50-5.40) 2.88 x10^6/uL (3.50-5.40) Hemoglobin 12.2 g/dL (12.0-15.5) 9.2 g/dL (12.0-15.5) Hematocrit 38.2 % (36.0-47.0) 30.1 % (36.0-47.0) Mean Corpuscular Volume 101 fL (79-100) 105 fL (79-100) Mean Corpuscular Hemoglobin 32 pg (25-35) 32 pg (25-35) Mean Corpuscular Hemoglobin Concent 32 g/dL (31-37) 31 g/dL (31-37) Red Cell Distribution Width 15.0 % (11.5-14.5) 15.5 % (11.5-14.5) Platelet Count 275 x10^3/uL (140-400) 276 x10^3/uL (140-400) Neutrophils (%) (Auto) 83 % (31-73) 88 % (31-73) Lymphocytes (%) (Auto) 11 % (24-48) 6 % (24-48) Monocytes (%) (Auto) 6 % (0-9) 6 % (0-9) Eosinophils (%) (Auto) 0 % (0-3) 0 % (0-3) Basophils (%) (Auto) 0 % (0-3) 0 % (0-3) Neutrophils # (Auto) 10.3 x10^3uL (1.8-7.7) 13.1 x10^3uL (1.8-7.7) Lymphocytes # (Auto) 1.3 x10^3/uL (1.0-4.8) 0.9 x10^3/uL (1.0-4.8) Monocytes # (Auto) 0.8 x10^3/uL (0.0-1.1) 0.9 x10^3/uL (0.0-1.1) Eosinophils # (Auto) 0.0 x10^3/uL (0.0-0.7) 0.0 x10^3/uL (0.0-0.7) Basophils # (Auto) 0.0 x10^3/uL (0.0-0.2) 0.0 x10^3/uL (0.0-0.2) O2 Saturation 91 % (92-99) 94 % (92-99) Arterial Blood pH 7.04 (7.35-7.45) 7.27 (7.35-7.45) Arterial Blood pCO2 at Patient Temp 68 mmHg (35-46) 40 mmHg (35-46) Arterial Blood pO2 at Patient Temp 67 mmHg (65-108) 71 mmHg (65-108) Arterial Blood HCO3 18 mmol/L (21-28) 18 mmol/L (21-28) Arterial Blood Base Excess -13 mmol/L (-3-3) -9 mmol/L (-3-3) FiO2 76 80 Segmented Neutrophils % 89 % (35-66) Band Neutrophils % 3 % (0-9) Lymphocytes % 4 % (24-48) Monocytes % 4 % (0-10) Nucleated Red Blood Cells 1 Platelet Estimate Adequate (ADEQUATE) Anisocytosis Slight Test 04/16/17 02:00 04/16/17 04:23 04/16/17 07:10 04/16/17 08:00 Lactic Acid Level 5.8 mmol/L (0.4-2.0) White Blood Count 12.4 x10^3/uL (4.0-11.0) Red Blood Count 4.13 x10^6/uL (3.50-5.40) Hemoglobin 13.2 g/dL (12.0-15.5) Hematocrit 42.7 % (36.0-47.0) Mean Corpuscular Volume 103 fL (79-100) Mean Corpuscular Hemoglobin 32 pg (25-35) Mean Corpuscular Hemoglobin Concent 31 g/dL (31-37) Red Cell Distribution Width 15.6 % (11.5-14.5) Platelet Count 250 x10^3/uL (140-400) Neutrophils (%) (Auto) 83 % (31-73) Lymphocytes (%) (Auto) 11 % (24-48) Monocytes (%) (Auto) 6 % (0-9) Eosinophils (%) (Auto) 0 % (0-3) Basophils (%) (Auto) 0 % (0-3) Neutrophils # (Auto) 10.3 x10^3uL (1.8-7.7) Lymphocytes # (Auto) 1.3 x10^3/uL (1.0-4.8) Monocytes # (Auto) 0.7 x10^3/uL (0.0-1.1) Eosinophils # (Auto) 0.0 x10^3/uL (0.0-0.7) Basophils # (Auto) 0.0 x10^3/uL (0.0-0.2) Sodium Level 146 mmol/L (136-145) Potassium Level 3.7 mmol/L (3.5-5.1) Chloride Level 112 mmol/L (98-107) Carbon Dioxide Level 21 mmol/L (21-32) Anion Gap 13 (6-14) Blood Urea Nitrogen 39 mg/dL (7-20) Creatinine 2.7 mg/dL (0.6-1.0) Estimated GFR (Cockcroft-Gault) 20.5 BUN/Creatinine Ratio 14 (6-20) Glucose Level 231 mg/dL (70-99) Calcium Level 9.3 mg/dL (8.5-10.1) Phosphorus Level 1.2 mg/dL (2.6-4.7) Magnesium Level 1.2 mg/dL (1.8-2.4) Total Bilirubin 0.3 mg/dL (0.2-1.0) Aspartate Amino Transf (AST/SGOT) 69 U/L (15-37) Alanine Aminotransferase (ALT/SGPT) 16 U/L (14-59) Alkaline Phosphatase 39 U/L (46-116) Creatine Kinase 493 U/L (26-192) Total Protein 6.5 g/dL (6.4-8.2) Albumin 2.6 g/dL (3.4-5.0) Albumin/Globulin Ratio 0.7 (1.0-1.7) O2 Saturation 97 % (92-99) Arterial Blood pH 7.50 (7.35-7.45) Arterial Blood pCO2 at Patient Temp 26 mmHg (35-46) Arterial Blood pO2 at Patient Temp 81 mmHg (65-108) Arterial Blood HCO3 20 mmol/L (21-28) Arterial Blood Base Excess -2 mmol/L (-3-3) FiO2 45% Test 04/16/17 12:05 04/16/17 17:25 04/17/17 08:00 04/17/17 08:10 White Blood Count 11.8 x10^3/uL (4.0-11.0) Red Blood Count 3.45 x10^6/uL (3.50-5.40) Hemoglobin 11.1 g/dL (12.0-15.5) Hematocrit 34.2 % (36.0-47.0) Mean Corpuscular Volume 99 fL (79-100) Mean Corpuscular Hemoglobin 32 pg (25-35) Mean Corpuscular Hemoglobin Concent 33 g/dL (31-37) Red Cell Distribution Width 14.6 % (11.5-14.5) Platelet Count 196 x10^3/uL (140-400) Neutrophils (%) (Auto) 79 % (31-73) Lymphocytes (%) (Auto) 12 % (24-48) Monocytes (%) (Auto) 9 % (0-9) Eosinophils (%) (Auto) 0 % (0-3) Basophils (%) (Auto) 0 % (0-3) Neutrophils # (Auto) 9.4 x10^3uL (1.8-7.7) Lymphocytes # (Auto) 1.4 x10^3/uL (1.0-4.8) Monocytes # (Auto) 1.0 x10^3/uL (0.0-1.1) Eosinophils # (Auto) 0.0 x10^3/uL (0.0-0.7) Basophils # (Auto) 0.0 x10^3/uL (0.0-0.2) Lactic Acid Level 2.0 mmol/L (0.4-2.0) 1.4 mmol/L (0.4-2.0) O2 Saturation 96 % (92-99) 97 % (92-99) Arterial Blood pH 7.42 (7.35-7.45) 7.44 (7.35-7.45) Arterial Blood pCO2 at Patient Temp 29 mmHg (35-46) 30 mmHg (35-46) Arterial Blood pO2 at Patient Temp 78 mmHg (65-108) 85 mmHg (65-108) Arterial Blood HCO3 18 mmol/L (21-28) 20 mmol/L (21-28) Arterial Blood Base Excess -6 mmol/L (-3-3) -3 mmol/L (-3-3) FiO2 45 45 Sodium Level 146 mmol/L (136-145) Potassium Level 3.3 mmol/L (3.5-5.1) Chloride Level 113 mmol/L (98-107) Carbon Dioxide Level 20 mmol/L (21-32) Anion Gap 13 (6-14) Blood Urea Nitrogen 26 mg/dL (7-20) Creatinine 1.9 mg/dL (0.6-1.0) Estimated GFR (Cockcroft-Gault) 30.7 BUN/Creatinine Ratio 14 (6-20) Glucose Level 234 mg/dL (70-99) Calcium Level 9.2 mg/dL (8.5-10.1) Phosphorus Level 1.0 mg/dL (2.6-4.7) Magnesium Level 1.7 mg/dL (1.8-2.4) Total Bilirubin 0.4 mg/dL (0.2-1.0) Aspartate Amino Transf (AST/SGOT) 85 U/L (15-37) Alanine Aminotransferase (ALT/SGPT) 21 U/L (14-59) Alkaline Phosphatase 38 U/L (46-116) Lactate Dehydrogenase 443 U/L (81-234) Total Protein 6.5 g/dL (6.4-8.2) Albumin 2.6 g/dL (3.4-5.0) Albumin/Globulin Ratio 0.7 (1.0-1.7) Test 04/17/17 14:20 White Blood Count 14.7 x10^3/uL (4.0-11.0) Red Blood Count 3.23 x10^6/uL (3.50-5.40) Hemoglobin 10.4 g/dL (12.0-15.5) Hematocrit 32.0 % (36.0-47.0) Mean Corpuscular Volume 99 fL (79-100) Mean Corpuscular Hemoglobin 32 pg (25-35) Mean Corpuscular Hemoglobin Concent 33 g/dL (31-37) Red Cell Distribution Width 14.6 % (11.5-14.5) Platelet Count 179 x10^3/uL (140-400) Laboratory Tests Test 04/16/17 17:25 04/17/17 08:00 04/17/17 08:10 04/17/17 14:20 O2 Saturation 96 % (92-99) 97 % (92-99) Arterial Blood pH 7.42 (7.35-7.45) 7.44 (7.35-7.45) Arterial Blood pCO2 at Patient Temp 29 mmHg (35-46) 30 mmHg (35-46) Arterial Blood pO2 at Patient Temp 78 mmHg (65-108) 85 mmHg (65-108) Arterial Blood HCO3 18 mmol/L (21-28) 20 mmol/L (21-28) Arterial Blood Base Excess -6 mmol/L (-3-3) -3 mmol/L (-3-3) FiO2 45 45 Sodium Level 146 mmol/L (136-145) Potassium Level 3.3 mmol/L (3.5-5.1) Chloride Level 113 mmol/L (98-107) Carbon Dioxide Level 20 mmol/L (21-32) Anion Gap 13 (6-14) Blood Urea Nitrogen 26 mg/dL (7-20) Creatinine 1.9 mg/dL (0.6-1.0) Estimated GFR (Cockcroft-Gault) 30.7 BUN/Creatinine Ratio 14 (6-20) Glucose Level 234 mg/dL (70-99) Lactic Acid Level 1.4 mmol/L (0.4-2.0) Calcium Level 9.2 mg/dL (8.5-10.1) Phosphorus Level 1.0 mg/dL (2.6-4.7) Magnesium Level 1.7 mg/dL (1.8-2.4) Total Bilirubin 0.4 mg/dL (0.2-1.0) Aspartate Amino Transf (AST/SGOT) 85 U/L (15-37) Alanine Aminotransferase (ALT/SGPT) 21 U/L (14-59) Alkaline Phosphatase 38 U/L (46-116) Lactate Dehydrogenase 443 U/L (81-234) Total Protein 6.5 g/dL (6.4-8.2) Albumin 2.6 g/dL (3.4-5.0) Albumin/Globulin Ratio 0.7 (1.0-1.7) White Blood Count 14.7 x10^3/uL (4.0-11.0) Red Blood Count 3.23 x10^6/uL (3.50-5.40) Hemoglobin 10.4 g/dL (12.0-15.5) Hematocrit 32.0 % (36.0-47.0) Mean Corpuscular Volume 99 fL (79-100) Mean Corpuscular Hemoglobin 32 pg (25-35) Mean Corpuscular Hemoglobin Concent 33 g/dL (31-37) Red Cell Distribution Width 14.6 % (11.5-14.5) Platelet Count 179 x10^3/uL (140-400) Microbiology 04/16/17 Blood Culture - Preliminary, Resulted NO GROWTH AFTER 1 DAY Medications Current Medications Fentanyl Citrate (Fentanyl 2ml Vial) 50 mcg PRN Q15MIN PRN IV PAIN GREATER THAN 3/10 Last administered on 04/14/17 13:50; Start 04/14/17 at 11:45; Stop 04/14/17 at 17:35; Status DC Sodium Chloride 1,000 ml @ 1,000 mls/hr Q1H IV Last administered on 11/9/17at 12:28; Start 04/14/17 at 11:38; Stop 04/14/17 at 12:37; Status DC Sodium Chloride (Normal Saline Flush) 10 ml QSHIFT PRN IV AFTER MEDS AND BLOOD DRAWS; Start 04/14/17 at 11:45 Ondansetron HCl (Zofran) 4 mg 1X ONCE IV Last administered on 04/14/17 12:30 ; Start 04/14/17 at 12:15; Stop 04/14/17 at 12:16; Status DC Ondansetron HCl (Zofran) 4 mg 1X ONCE IV Last administered on 04/14/17 13:28 ; Start 04/14/17 at 13:15; Stop 04/14/17 at 13:16; Status DC Ondansetron HCl (Zofran) 4 mg PRN Q8HRS PRN IV NAUSEA/VOMITING Last administered on 04/15/17 09:37; Start 04/14/17 at 14:00; Stop 04/15/17 at 13: 59; Status DC Fentanyl Citrate (Fentanyl 2ml Vial) 25 mcg PRN Q2HR PRN IV PAIN Last administered on 04/15/17 11:44; Start 04/14/17 at 14:00; Stop 04/15/17 at 13: 59; Status DC Sodium Chloride 1,000 ml @ 125 mls/hr Q8H IV Last administered on 04/15/17 07:48; Start 04/14/17 at 13:47; Stop 04/15/17 at 13:46; Status DC Piperacillin Sod/ Tazobactam Sod 4.5 gm/Dextrose 100 ml @ 200 mls/hr 1X ONCE IV ; Start 04/14/17 at 14:15; Stop 04/14/17 at 14:44; Status UNV Piperacillin Sod/ Tazobactam Sod (Zosyn) 3.375 gm 1X ONCE IVP Last administered on 04/14/17 14:20; Start 04/14/17 at 14:15; Stop 04/14/17 at 14:16 ; Status DC Piperacillin Sod/ Tazobactam Sod 2.25 gm/Dextrose 50 ml @ 100 mls/hr Q8H IV ; Start 04/15/17 at 08:30; Status UNV Piperacillin Sod/ Tazobactam Sod (Zosyn) 2.25 gm Q8HRS IVP Last administered on 04/17/17 05:48; Start 04/15/17 at 09:00 Magnesium Sulfate/ Dextrose 50 ml @ 25 mls/hr PRN DAILY PRN IV for Mag < 1.7 on am labs; Start 04/15/17 at 09:00 Metoclopramide HCl (Reglan) 10 mg Q6HRS PRN IV NAUSEA/VOMITING; Start at 10:30; Stop 04/15/17 at 10:30; Status DC Metoclopramide HCl (Reglan) 5 mg Q6HRS IV Last administered on 04/17/17 05:48 ; Start 04/15/17 at 11:00 Metoprolol Tartrate (Lopressor) 2.5 mg Q6HRS IVP Last administered on 13:48; Start 04/15/17 at 12:00; Stop 04/15/17 at 15:13; Status DC Promethazine HCl 12.5 mg/Dextrose 50.5 ml @ 101 mls/hr PRN Q4HRS PRN IV NAUSEA /VOMITING; Start 04/15/17 at 11:30; Stop 04/15/17 at 11:32; Status DC Promethazine HCl 12.5 mg/Sodium Chloride 50.5 ml @ 101 mls/hr PRN Q4HRS PRN IV NAUSEA/VOMITING Last administered on 04/15/17 19:01; Start 04/15/17 at 11: 45 Atorvastatin Calcium (Lipitor) 20 mg QHS PO ; Start 04/15/17 at 21:00 Ondansetron HCl (Zofran) 4 mg PRN Q6HRS PRN IV NAUSEA/VOMITING Last administered on 04/15/17 15:45; Start 04/15/17 at 15:00 Fentanyl Citrate (Fentanyl 2ml Vial) 25 mcg PRN Q2HR PRN IV PAIN Last administered on 04/16/17 14:26; Start 04/15/17 at 15:00 Metoprolol Tartrate (Lopressor) 5 mg Q6HRS IVP Last administered on 04/17/17 11:59; Start 04/15/17 at 18:00 Hydralazine HCl (Apresoline Inj) 10 mg PRN Q4HRS PRN IVP ELEVATED BP, SEE COMMENTS; Start 04/15/17 at 15:15 Potassium Acetate 20 meq/Sodium Bicarbonate 75 meq/Dextrose/ Sodium Chloride 1, 085 ml @ 80 mls/hr [id number] IV Last administered on 04/16/17 05:37; Start at 16:00; Stop 04/16/17 at 16:00; Status DC Albuterol/ Ipratropium (Duoneb) 3 ml RTQID NEB Last administered on 04/17/17 11:01; Start 04/15/17 at 18:04 Furosemide (Lasix) 20 mg 1X ONCE IVP Last administered on 04/15/17 17:59; Start 04/15/17 at 17:45; Stop 04/15/17 at 17:48; Status DC Albuterol Sulfate (Ventolin Neb Soln) 2.5 mg PRN Q2HR PRN NEB SHORTNESS OF BREATH Last administered on 04/15/17 22:41; Start 04/15/17 at 22:45 Propofol 100 ml @ As Directed STK-MED ONCE IV ; Start 04/15/17 at 23:36; Stop 04/15/17 at 23:37; Status DC Succinylcholine Chloride (Anectine) 200 mg STK-MED ONCE .ROUTE ; Start at 23:37; Stop 04/15/17 at 23:38; Status DC Propofol 100 ml @ 0 mls/hr 1X ONCE IV Last administered on 04/15/17 23:37; Start 04/16/17 at 00:00; Stop 04/16/17 at 00:01; Status DC Succinylcholine Chloride (Anectine) 200 mg 1X ONCE IV Last administered on 23:38; Start 04/16/17 at 00:00; Stop 04/16/17 at 00:01; Status DC Propofol 100 ml @ 0 mls/hr CONT PRN IV SEE I/O RECORD Last administered on 04:41; Start 04/16/17 at 04:30 Magnesium Sulfate/ Dextrose 50 ml @ 25 mls/hr 1X ONCE IV Last administered on 04/16/17 11:36; Start 04/16/17 at 10:30; Stop 04/16/17 at 12:29; Status DC Sodium Chloride 1,000 ml @ 1,000 mls/hr 1X ONCE IV Last administered on 04/16 11:52; Start 04/16/17 at 12:00; Stop 04/16/17 at 12:59; Status DC Dextrose/Sodium Chloride 1,000 ml @ 125 mls/hr Q8H IV Last administered on 02:29; Start 04/16/17 at 17:00; Stop 04/17/17 at 10:27; Status DC Metoprolol Tartrate (Lopressor) 5 mg PRN Q4HRS PRN IVP HYPERTENSION, SEE COMMENTS; Start 04/17/17 at 10:00 Potassium Chloride/Dextrose/ Sod Cl 1,000 ml @ 125 mls/hr Q8H IV Last administered on 04/17/17 10:37; Start 04/17/17 at 11:00 Sodium Phosphate 20 mmol/Dextrose 256.6667 ml @ 64.167 m... 1X ONCE IV Last administered on 04/17/17 10:37; Start 04/17/17 at 11:00; Stop 04/17/17 at 14 :59 Digoxin (Lanoxin) 500 mcg 1X ONCE IV Last administered on 04/17/17 10:38; Start 04/17/17 at 10:45; Stop 04/17/17 at 10:46; Status DC Active Scripts Active Reported Gabapentin 300 Mg Capsule 300 Mg PO QHS Famotidine 20 Mg Tablet 20 Mg PO HS Hydralazine Hcl 25 Mg Tablet 1 Tab PO TID Tylenol (Acetaminophen) 325 Mg Tablet 1-2 Tab PO TID Ranexa (Ranolazine) 500 Mg Tab.er.12h 1 Tab PO BID Aggrenox 25 Mg-200 Mg Capsule (Aspirin/Dipyridamole) 1 Each Cpmp.12hr 1 Cap PO BID Milk Of Magnesia (Magnesium Hydroxide) 400 Mg/5 Ml Oral.susp 30 Ml PO PRN PRN Loperamide (Loperamide Hcl) 2 Mg Capsule 4 Mg PO PRN PRN Baclofen 10 Mg Tablet 0.5 Tab PO PRN QHS PRN Anti-Diarrheal (Loperamide Hcl) 2 Mg Capsule 2 Mg PO PRN Sertraline Hcl 50 Mg Tablet 50 Mg PO DAILY Oxybutynin Chloride Er (Oxybutynin Chloride) 5 Mg Tab.er.24 1 Tab PO DAILY Metoprolol Succinate ( Xl ) (Metoprolol Succinate) 25 Mg Tab.er.24h 1 Tab PO DAILY Lisinopril 20 Mg Tablet 1 Tab PO DAILY Levothyroxine Sodium 100 Mcg Tablet 1 Tab PO DAILY Isosorbide Mononitrate Er (Isosorbide Mononitrate) 60 Mg Tab.er.24h 1 Tab PO DAILY Furosemide 40 Mg Tablet 1 Tab PO DAILY Zetia (Ezetimibe) 10 Mg Tablet 1 Tab PO DAILY Chlorthalidone 25 Mg Tablet 1 Tab PO DAILY Vitals/I & O Vital Sign - Last 24 Hours 04/16/17 04/16/17 04/16/17 04/16/17 14:56 15:00 15:37 16:00 Temp 99.8 99.8 Pulse 94 124 Resp 20 21 20 B/P (MAP) 113/79 (90) 110/75 (87) Pulse Ox 100 98 100 O2 Delivery Ventilator Ventilator Ventilator Ventilator 04/16/17 04/16/17 04/16/17 04/16/17 16:00 16:12 17:00 17:19 Pulse 120 96 Resp 20 B/P (MAP) 110/75 120/64 (82) Pulse Ox 100 97 O2 Delivery Mechanical Ventilator Ventilator Ventilator 04/16/17 04/16/17 04/16/17 04/16/17 18:00 19:00 20:00 20:00 Temp 100.1 100.1 Pulse 96 85 92 Resp 20 22 22 B/P (MAP) 95/67 (76) 125/77 (93) 145/82 (103) Pulse Ox 100 97 95 O2 Delivery Ventilator Ventilator Ventilator Mechanical Ventilator 04/16/17 04/16/17 04/16/17 04/16/17 20:22 21:00 22:00 23:00 Pulse 87 115 92 Resp 22 22 22 B/P (MAP) 126/87 (100) 123/81 (95) 141/79 (99) Pulse Ox 95 97 95 96 O2 Delivery Ventilator Ventilator Ventilator Ventilator 04/16/17 04/17/17 04/17/17 04/17/17 23:36 00:00 00:00 00:17 Temp 99.7 99.7 Pulse 85 105 Resp 22 B/P (MAP) 121/75 (90) 112/95 Pulse Ox 96 96 O2 Delivery Ventilator Ventilator Mechanical Ventilator 04/17/17 04/17/17 04/17/17 04/17/17 01:00 01:42 02:00 03:00 Pulse 83 96 92 Resp 22 22 22 B/P (MAP) 138/76 (96) 130/84 (99) 145/85 (105) Pulse Ox 97 96 97 97 O2 Delivery Ventilator Ventilator Ventilator Ventilator 04/17/17 04/17/17 04/17/17 04/17/17 03:34 04:00 04:00 05:00 Temp 99.7 99.7 Pulse 93 99 Resp 22 22 B/P (MAP) 140/84 (102) 154/78 (103) Pulse Ox 96 98 96 O2 Delivery Ventilator Mechanical Ventilator Ventilator Ventilator 04/17/17 04/17/17 04/17/17 04/17/17 05:45 05:49 06:00 07:25 Pulse 115 77 Resp 22 B/P (MAP) 147/84 141/99 (113) Pulse Ox 95 98 97 O2 Delivery Ventilator Ventilator Ventilator 04/17/17 04/17/17 04/17/17 04/17/17 08:00 08:53 10:38 11:02 Pulse 128 B/P (MAP) 127/72 Pulse Ox 100 97 O2 Delivery Mechanical Ventilator Ventilator Ventilator O2 Flow Rate 4.0 04/17/17 04/17/17 04/17/17 11:59 12:49 13:28 Pulse 102 B/P (MAP) 172/84 Pulse Ox 95 95 O2 Delivery Ventilator Ventilator TIMOTHY WINSLOW MD Apr 17, 2017 14:40
[2017-04-17] MEDS: fentaNYL PF VIAL 100 MCG/2 ML VIAL IV PRN ×2 (16:10→23:04)
--- NOTE | 2017-04-17 17:05 | PDOC ---
PULMONARY PROGRESS NOTES Subjective PT DID NOT DO WELL WITH TRIAL INCREASE HR INCREASE WORK OF BREATHING Vitals Vital Signs Date Time Temp Pulse Resp B/P (MAP) Pulse Ox O2 Delivery O2 Flow Rate FiO2 04/17/17 16:50 97 Ventilator 04/17/17 16:10 20 04/17/17 13:00 72 148/85 (106) 04/17/17 12:00 4.0 04/17/17 12:00 98.9 98.9 General: Alert Lungs: Crackles Cardiovascular: S1, S2 Abdomen: Soft Neuro Exam: Alert Extremities: No Edema Skin: Warm Labs Laboratory Tests Test 04/15/17 18:15 04/15/17 23:16 04/16/17 00:30 04/16/17 01:14 White Blood Count 12.4 x10^3/uL (4.0-11.0) 15.0 x10^3/uL (4.0-11.0) Red Blood Count 3.80 x10^6/uL (3.50-5.40) 2.88 x10^6/uL (3.50-5.40) Hemoglobin 12.2 g/dL (12.0-15.5) 9.2 g/dL (12.0-15.5) Hematocrit 38.2 % (36.0-47.0) 30.1 % (36.0-47.0) Mean Corpuscular Volume 101 fL (79-100) 105 fL (79-100) Mean Corpuscular Hemoglobin 32 pg (25-35) 32 pg (25-35) Mean Corpuscular Hemoglobin Concent 32 g/dL (31-37) 31 g/dL (31-37) Red Cell Distribution Width 15.0 % (11.5-14.5) 15.5 % (11.5-14.5) Platelet Count 275 x10^3/uL (140-400) 276 x10^3/uL (140-400) Neutrophils (%) (Auto) 83 % (31-73) 88 % (31-73) Lymphocytes (%) (Auto) 11 % (24-48) 6 % (24-48) Monocytes (%) (Auto) 6 % (0-9) 6 % (0-9) Eosinophils (%) (Auto) 0 % (0-3) 0 % (0-3) Basophils (%) (Auto) 0 % (0-3) 0 % (0-3) Neutrophils # (Auto) 10.3 x10^3uL (1.8-7.7) 13.1 x10^3uL (1.8-7.7) Lymphocytes # (Auto) 1.3 x10^3/uL (1.0-4.8) 0.9 x10^3/uL (1.0-4.8) Monocytes # (Auto) 0.8 x10^3/uL (0.0-1.1) 0.9 x10^3/uL (0.0-1.1) Eosinophils # (Auto) 0.0 x10^3/uL (0.0-0.7) 0.0 x10^3/uL (0.0-0.7) Basophils # (Auto) 0.0 x10^3/uL (0.0-0.2) 0.0 x10^3/uL (0.0-0.2) O2 Saturation 91 % (92-99) 94 % (92-99) Arterial Blood pH 7.04 (7.35-7.45) 7.27 (7.35-7.45) Arterial Blood pCO2 at Patient Temp 68 mmHg (35-46) 40 mmHg (35-46) Arterial Blood pO2 at Patient Temp 67 mmHg (65-108) 71 mmHg (65-108) Arterial Blood HCO3 18 mmol/L (21-28) 18 mmol/L (21-28) Arterial Blood Base Excess -13 mmol/L (-3-3) -9 mmol/L (-3-3) FiO2 76 80 Segmented Neutrophils % 89 % (35-66) Band Neutrophils % 3 % (0-9) Lymphocytes % 4 % (24-48) Monocytes % 4 % (0-10) Nucleated Red Blood Cells 1 Platelet Estimate Adequate (ADEQUATE) Anisocytosis Slight Test 04/16/17 02:00 04/16/17 04:23 04/16/17 07:10 04/16/17 08:00 Lactic Acid Level 5.8 mmol/L (0.4-2.0) White Blood Count 12.4 x10^3/uL (4.0-11.0) Red Blood Count 4.13 x10^6/uL (3.50-5.40) Hemoglobin 13.2 g/dL (12.0-15.5) Hematocrit 42.7 % (36.0-47.0) Mean Corpuscular Volume 103 fL (79-100) Mean Corpuscular Hemoglobin 32 pg (25-35) Mean Corpuscular Hemoglobin Concent 31 g/dL (31-37) Red Cell Distribution Width 15.6 % (11.5-14.5) Platelet Count 250 x10^3/uL (140-400) Neutrophils (%) (Auto) 83 % (31-73) Lymphocytes (%) (Auto) 11 % (24-48) Monocytes (%) (Auto) 6 % (0-9) Eosinophils (%) (Auto) 0 % (0-3) Basophils (%) (Auto) 0 % (0-3) Neutrophils # (Auto) 10.3 x10^3uL (1.8-7.7) Lymphocytes # (Auto) 1.3 x10^3/uL (1.0-4.8) Monocytes # (Auto) 0.7 x10^3/uL (0.0-1.1) Eosinophils # (Auto) 0.0 x10^3/uL (0.0-0.7) Basophils # (Auto) 0.0 x10^3/uL (0.0-0.2) Sodium Level 146 mmol/L (136-145) Potassium Level 3.7 mmol/L (3.5-5.1) Chloride Level 112 mmol/L (98-107) Carbon Dioxide Level 21 mmol/L (21-32) Anion Gap 13 (6-14) Blood Urea Nitrogen 39 mg/dL (7-20) Creatinine 2.7 mg/dL (0.6-1.0) Estimated GFR (Cockcroft-Gault) 20.5 BUN/Creatinine Ratio 14 (6-20) Glucose Level 231 mg/dL (70-99) Calcium Level 9.3 mg/dL (8.5-10.1) Phosphorus Level 1.2 mg/dL (2.6-4.7) Magnesium Level 1.2 mg/dL (1.8-2.4) Total Bilirubin 0.3 mg/dL (0.2-1.0) Aspartate Amino Transf (AST/SGOT) 69 U/L (15-37) Alanine Aminotransferase (ALT/SGPT) 16 U/L (14-59) Alkaline Phosphatase 39 U/L (46-116) Creatine Kinase 493 U/L (26-192) Total Protein 6.5 g/dL (6.4-8.2) Albumin 2.6 g/dL (3.4-5.0) Albumin/Globulin Ratio 0.7 (1.0-1.7) O2 Saturation 97 % (92-99) Arterial Blood pH 7.50 (7.35-7.45) Arterial Blood pCO2 at Patient Temp 26 mmHg (35-46) Arterial Blood pO2 at Patient Temp 81 mmHg (65-108) Arterial Blood HCO3 20 mmol/L (21-28) Arterial Blood Base Excess -2 mmol/L (-3-3) FiO2 45% Test 04/16/17 12:05 04/16/17 17:25 04/17/17 08:00 04/17/17 08:10 White Blood Count 11.8 x10^3/uL (4.0-11.0) Red Blood Count 3.45 x10^6/uL (3.50-5.40) Hemoglobin 11.1 g/dL (12.0-15.5) Hematocrit 34.2 % (36.0-47.0) Mean Corpuscular Volume 99 fL (79-100) Mean Corpuscular Hemoglobin 32 pg (25-35) Mean Corpuscular Hemoglobin Concent 33 g/dL (31-37) Red Cell Distribution Width 14.6 % (11.5-14.5) Platelet Count 196 x10^3/uL (140-400) Neutrophils (%) (Auto) 79 % (31-73) Lymphocytes (%) (Auto) 12 % (24-48) Monocytes (%) (Auto) 9 % (0-9) Eosinophils (%) (Auto) 0 % (0-3) Basophils (%) (Auto) 0 % (0-3) Neutrophils # (Auto) 9.4 x10^3uL (1.8-7.7) Lymphocytes # (Auto) 1.4 x10^3/uL (1.0-4.8) Monocytes # (Auto) 1.0 x10^3/uL (0.0-1.1) Eosinophils # (Auto) 0.0 x10^3/uL (0.0-0.7) Basophils # (Auto) 0.0 x10^3/uL (0.0-0.2) Lactic Acid Level 2.0 mmol/L (0.4-2.0) 1.4 mmol/L (0.4-2.0) O2 Saturation 96 % (92-99) 97 % (92-99) Arterial Blood pH 7.42 (7.35-7.45) 7.44 (7.35-7.45) Arterial Blood pCO2 at Patient Temp 29 mmHg (35-46) 30 mmHg (35-46) Arterial Blood pO2 at Patient Temp 78 mmHg (65-108) 85 mmHg (65-108) Arterial Blood HCO3 18 mmol/L (21-28) 20 mmol/L (21-28) Arterial Blood Base Excess -6 mmol/L (-3-3) -3 mmol/L (-3-3) FiO2 45 45 Sodium Level 146 mmol/L (136-145) Potassium Level 3.3 mmol/L (3.5-5.1) Chloride Level 113 mmol/L (98-107) Carbon Dioxide Level 20 mmol/L (21-32) Anion Gap 13 (6-14) Blood Urea Nitrogen 26 mg/dL (7-20) Creatinine 1.9 mg/dL (0.6-1.0) Estimated GFR (Cockcroft-Gault) 30.7 BUN/Creatinine Ratio 14 (6-20) Glucose Level 234 mg/dL (70-99) Calcium Level 9.2 mg/dL (8.5-10.1) Phosphorus Level 1.0 mg/dL (2.6-4.7) Magnesium Level 1.7 mg/dL (1.8-2.4) Total Bilirubin 0.4 mg/dL (0.2-1.0) Aspartate Amino Transf (AST/SGOT) 85 U/L (15-37) Alanine Aminotransferase (ALT/SGPT) 21 U/L (14-59) Alkaline Phosphatase 38 U/L (46-116) Lactate Dehydrogenase 443 U/L (81-234) Total Protein 6.5 g/dL (6.4-8.2) Albumin 2.6 g/dL (3.4-5.0) Albumin/Globulin Ratio 0.7 (1.0-1.7) Test 04/17/17 14:20 White Blood Count 14.7 x10^3/uL (4.0-11.0) Red Blood Count 3.23 x10^6/uL (3.50-5.40) Hemoglobin 10.4 g/dL (12.0-15.5) Hematocrit 32.0 % (36.0-47.0) Mean Corpuscular Volume 99 fL (79-100) Mean Corpuscular Hemoglobin 32 pg (25-35) Mean Corpuscular Hemoglobin Concent 33 g/dL (31-37) Red Cell Distribution Width 14.6 % (11.5-14.5) Platelet Count 179 x10^3/uL (140-400) Laboratory Tests Test 04/16/17 17:25 04/17/17 08:00 04/17/17 08:10 04/17/17 14:20 O2 Saturation 96 % (92-99) 97 % (92-99) Arterial Blood pH 7.42 (7.35-7.45) 7.44 (7.35-7.45) Arterial Blood pCO2 at Patient Temp 29 mmHg (35-46) 30 mmHg (35-46) Arterial Blood pO2 at Patient Temp 78 mmHg (65-108) 85 mmHg (65-108) Arterial Blood HCO3 18 mmol/L (21-28) 20 mmol/L (21-28) Arterial Blood Base Excess -6 mmol/L (-3-3) -3 mmol/L (-3-3) FiO2 45 45 Sodium Level 146 mmol/L (136-145) Potassium Level 3.3 mmol/L (3.5-5.1) Chloride Level 113 mmol/L (98-107) Carbon Dioxide Level 20 mmol/L (21-32) Anion Gap 13 (6-14) Blood Urea Nitrogen 26 mg/dL (7-20) Creatinine 1.9 mg/dL (0.6-1.0) Estimated GFR (Cockcroft-Gault) 30.7 BUN/Creatinine Ratio 14 (6-20) Glucose Level 234 mg/dL (70-99) Lactic Acid Level 1.4 mmol/L (0.4-2.0) Calcium Level 9.2 mg/dL (8.5-10.1) Phosphorus Level 1.0 mg/dL (2.6-4.7) Magnesium Level 1.7 mg/dL (1.8-2.4) Total Bilirubin 0.4 mg/dL (0.2-1.0) Aspartate Amino Transf (AST/SGOT) 85 U/L (15-37) Alanine Aminotransferase (ALT/SGPT) 21 U/L (14-59) Alkaline Phosphatase 38 U/L (46-116) Lactate Dehydrogenase 443 U/L (81-234) Total Protein 6.5 g/dL (6.4-8.2) Albumin 2.6 g/dL (3.4-5.0) Albumin/Globulin Ratio 0.7 (1.0-1.7) White Blood Count 14.7 x10^3/uL (4.0-11.0) Red Blood Count 3.23 x10^6/uL (3.50-5.40) Hemoglobin 10.4 g/dL (12.0-15.5) Hematocrit 32.0 % (36.0-47.0) Mean Corpuscular Volume 99 fL (79-100) Mean Corpuscular Hemoglobin 32 pg (25-35) Mean Corpuscular Hemoglobin Concent 33 g/dL (31-37) Red Cell Distribution Width 14.6 % (11.5-14.5) Platelet Count 179 x10^3/uL (140-400) Medications Active Scripts Medications Dose Route/Sig Max Daily Dose Days Date Category Gabapentin 300 Mg Capsule 300 Mg PO QHS 04/14/17 Reported Famotidine 20 Mg Tablet 20 Mg PO HS 04/14/17 Reported Hydralazine Hcl 25 Mg Tablet 1 Tab PO TID 04/14/17 Reported Tylenol (Acetaminophen) 325 Mg Tablet 1-2 Tab PO TID 04/14/17 Reported Ranexa (Ranolazine) 500 Mg Tab.er.12h 1 Tab PO BID 04/14/17 Reported Aggrenox 25 Mg-200 Mg Capsule (Aspirin/Dipyridamole) 1 Each Cpmp.12hr 1 Cap PO BID 04/14/17 Reported Milk Of Magnesia (Magnesium Hydroxide) 400 Mg/5 Ml Oral.susp 30 Ml PO PRN PRN 04/14/17 Reported Loperamide (Loperamide Hcl) 2 Mg Capsule 4 Mg PO PRN PRN 04/14/17 Reported Baclofen 10 Mg Tablet 0.5 Tab PO PRN QHS PRN 04/14/17 Reported Anti-Diarrheal (Loperamide Hcl) 2 Mg Capsule 2 Mg PO PRN 04/14/17 Reported Sertraline Hcl 50 Mg Tablet 50 Mg PO DAILY 04/14/17 Reported Oxybutynin Chloride Er (Oxybutynin Chloride) 5 Mg Tab.er.24 1 Tab PO DAILY 04/14/17 Reported Metoprolol Succinate ( Xl ) (Metoprolol Succinate) 25 Mg Tab.er.24h 1 Tab PO DAILY 04/14/17 Reported Lisinopril 20 Mg Tablet 1 Tab PO DAILY 04/14/17 Reported Levothyroxine Sodium 100 Mcg Tablet 1 Tab PO DAILY 04/14/17 Reported Isosorbide Mononitrate Er (Isosorbide Mononitrate) 60 Mg Tab.er.24h 1 Tab PO DAILY 04/14/17 Reported Furosemide 40 Mg Tablet 1 Tab PO DAILY 04/14/17 Reported Zetia (Ezetimibe) 10 Mg Tablet 1 Tab PO DAILY 04/14/17 Reported Chlorthalidone 25 Mg Tablet 1 Tab PO DAILY 04/14/17 Reported Comments IMPRESSION: 1. Stable mild diffuse increased interstitial opacity likely due to pulmonary congestion. There may be superimposed lower lobe atelectasis with trace effusions. 2. Stable support lines and tubes. Impression . SIMPRESSION: 1. Acute respiratory failure, present upon admission, multifactorial/acute chf and pneumonia 2. Metabolic acidosis, suspect secondary to possible infection. 3. Abdominal pain. CT revealing abdominal aortic aneurysm and possible appendicitis. 4. Possible appendicitis. 5. Sepsis, present upon admission. Lactic acidosis improved 6. Atrial flutter. 7. Coronary artery disease. 8. Cerebrovascular accident. 9. Hypertension. 10. Cardiomyopathy 40% Plan . not ready for extubation monitor for bronchospasm with b-juliet 1. ABG note 2. Empiric antibiotics. 3. Follow Cardiology and Cardiovascular input. 4. Follow Cardiology input. 5. Nephrology has been consulted. 6. Repeat lactic acid level. Total cumulative critical care time of 30 minutes SWATHI OROZCO MD Apr 17, 2017 17:04
--- NOTE | 2017-04-17 18:27 | PN ---
DATE: 04/17/2017 SUBJECTIVE: The patient is resting, slightly propped up in bed, continued to be intubated, mechanically ventilated and sedated with propofol, although she wakes up. Her heart rate continued to be a little bit fast and obviously irregular. She is in atrial flutter for which she is on metoprolol 5 mg every 6 hours; however, when she wakes up, her heart rate accelerates to 114. Her blood gases have normalized. Her pH was 7.42. Her chemistry showed that her BUN and creatinine are actually improving further. Her lactic acid has normalized, it is only 1.4 today. She has also hypokalemia and hypophosphatemia with serum phosphate of only 1. Her magnesium has improved to 1.7. PHYSICAL EXAMINATION: GENERAL: When I examined her, she looked well and was clearly in no apparent respiratory distress, pale. No jaundice, cyanosis or thyromegaly. No jugular venous distention. No limb edema. VITAL SIGNS: Her heart rate was 77, blood pressure 141/99, temperature was 99.7, respiratory rate was 22 and oxygen saturation was 97% on FiO2 of 30%. HEAD, EYES, EARS, NOSE AND THROAT: Showed normocephalic, atraumatic. She has an orotracheal and orogastric tube in place. NECK: Supple. HEART: Showed normal first and second sounds. No gallop, rub or murmur. CHEST: Clear to auscultation. No crepitation or rhonchi. ABDOMEN: Distended, soft, nontender. No guarding or rigidity. No organomegaly. Hernial orifices intact. Bowel sounds normal. NEUROLOGIC: She was sedated, but responds appropriately. All her cranial nerves intact. She moves extremities without difficulty. Her intake over the last 24 hours was 3500, output was 1000. LABORATORY DATA: Showed a serum sodium 146, potassium 3.3, chloride 113, bicarbonate 20, anion gap of 13, BUN of 26, creatinine 1.9, estimated GFR was 30 mL per minute. Her glucose was 234, lactic acid was 1.4. Her calcium was 9.2, phosphorus 1, magnesium was 1.7. Total bilirubin, AST, ALT, alkaline phosphatase were normal. Her lactate dehydrogenase is high at 443. Total protein was 6.5, albumin 2.6. Her white cell count was 11,800, hemoglobin 11, hematocrit 34, MCV 99 and platelet count of 196,000. ASSESSMENT: 1. Acute respiratory failure, the cause of which is probably multifactorial, doing well. Her pH has normalized and her oxygen saturation was 96% on FiO2 of 45%. 2. Abdominal aortic aneurysm that is apparently stable. 3. Acute on chronic kidney injury, improving. Her creatinine is down from 2.7-1.9. 4. Congestive heart failure with an ejection fraction of 40%. 5. Atrial flutter with rapid ventricular response, currently on metoprolol 5 mg IV every 6 hours. 6. Sepsis, likely due to acute appendicitis for which she is on Zosyn. She is currently afebrile, hemodynamically stable with normal white cell count. 7. Lactic acidosis, the cause of which is not clear. So far, all her blood cultures are negative. Her lactate dehydrogenase is slightly elevated indicating that bowel ischemia might be contributing. 8. Hypomagnesemia, resolved. Her serum magnesium this morning was 1.7. 9. Hypophosphatemia. PLAN: Is to continue mechanical ventilation and wean as tolerated. Continue the IV fluid. I would start her on D5 half normal with 20 mEq of potassium chloride. We will replenish her phosphorus also. Continue with IV Zosyn. FAUSTO BATEMAN MD DR: EDGAR/ivan JOB#: [id number] / [id number]
[2017-04-17] MEDS ORDERED: ACETAMINOPHEN 650 MG/20.3 ML SOLUTION. PEG PRN (19:45)
[2017-04-17] MEDS: ATORVASTATIN CALCIUM 20 MG TABLET PO SCH (23:02)
[2017-04-18] VITALS (23 sets, daily range): BP systolic 134–174; BP diastolic 72–106
[2017-04-18] MEDS: POTASSIUM CL 20MEQ D5-0.45NACL 1,000 ML IV SCH ×2 (03:08→10:35)
[2017-04-18] MEDS: PROPOFOL 100 ML IV PRN (03:09)
[2017-04-18] MEDS: METOCLOPRAMIDE HCL 10 MG/2 ML VIAL. IV SCH ×4 (05:37→16:28)
[2017-04-18] MEDS: PIPERACILLIN/TAZO IV Push 2.25 GM VIAL. IVP SCH ×3 (05:37→17:52)
[2017-04-18] MEDS: METOPROLOL TARTRATE 5 MG/5 ML VIAL. IVP SCH ×3 (05:37→17:05)
[2017-04-18] MEDS: IPRATRPIUM/ALBUTEROL 0.5/2.5MG 3 ML NEBU. NEB SCH ×4 (07:11→20:15)
--- NOTE | 2017-04-18 07:12 | RAD ---
Portable chest, 04/18/2017: History: Respiratory failure Comparison is made to yesterday's study. An NG tube extends into the stomach. The ET tube tip lies 6 cm above the augustina. There has been a previous median sternotomy. The heart is enlarged. The pulmonary vascularity is prominent. There is slight residual prominence of the interstitial markings, improved since 04/16/2017. The findings suggest mild residual congestive heart failure. There is a persistent retrocardiac opacity in the left base compatible with atelectasis/infiltrate. A component of pleural fluid layering posteriorly cannot be excluded. No new abnormality is seen. IMPRESSION: No significant change since yesterday's study.
[2017-04-18 08:18] LABS: BASO % 0 % (0-3); EOS % 1 % (0-3); HEMATOCRIT 32.3 % (36.0-47.0); HEMOGLOBIN 10.5 g/dL (12.0-15.5); LYMPH # 1.6 x10^3/uL (1.0-4.8); LYMPH % 10 % (24-48); MEAN CORPUSCULAR HEMOGLOBIN 32 pg (25-35); MEAN CORPUSCULAR HGB CONC 33 g/dL (31-37); MEAN CORPUSCULAR VOLUME 99 fL (79-100); MONO % 6 % (0-9); NEUT % 83 % (31-73); PLATELET COUNT 178 x10^3/uL (140-400); RED BLOOD COUNT 3.26 x10^6/uL (3.50-5.40); RED CELL DISTRIBUTION WIDTH 14.3 % (11.5-14.5); WHITE BLOOD COUNT 15.5 x10^3/uL (4.0-11.0)
[2017-04-18 08:31] LABS: ALBUMIN 2.6 g/dL (3.4-5.0); ALBUMIN/GLOBULIN RATIO 0.6 (1.0-1.7); CALCIUM 9.4 mg/dL (8.5-10.1); CREATININE 1.3 mg/dL (0.6-1.0); GFR 47.6; MAGNESIUM 1.5 mg/dL (1.8-2.4); PHOSPHORUS 1.3 mg/dL (2.6-4.7); TOTAL BILIRUBIN 0.6 mg/dL (0.2-1.0)
[2017-04-18] MEDS ORDERED: MAGNESIUM SULFATE 2GM 50 ML IV ONE (10:00)
[2017-04-18 10:54] LABS: HCO3 ABG 22 mmol/L (21-28); PCO2 ABG 33 mmHg (35-46); PH ABG 7.45 (7.35-7.45); PO2 ABG 89 mmHg (65-108); SAT O2 ABG 97 % (92-99)
[2017-04-18 10:59] LABS: FIO2 ABG 45
--- NOTE | 2017-04-18 11:24 | PDOC ---
PULMONARY PROGRESS NOTES Subjective doing better on CPAP trial Vitals Vital Signs Date Time Temp Pulse Resp B/P (MAP) Pulse Ox O2 Delivery O2 Flow Rate FiO2 04/18/17 10:01 76 21 167/95 (119) 98 Ventilator 04/18/17 08:15 4.0 04/18/17 07:00 98.7 98.7 General: Alert, No acute distress Lungs: Clear Cardiovascular: S1, S2 Abdomen: Soft Neuro Exam: Alert Extremities: No Edema Skin: Warm Labs Laboratory Tests Test 04/16/17 12:05 04/16/17 17:25 04/17/17 08:00 04/17/17 08:10 White Blood Count 11.8 x10^3/uL (4.0-11.0) Red Blood Count 3.45 x10^6/uL (3.50-5.40) Hemoglobin 11.1 g/dL (12.0-15.5) Hematocrit 34.2 % (36.0-47.0) Mean Corpuscular Volume 99 fL (79-100) Mean Corpuscular Hemoglobin 32 pg (25-35) Mean Corpuscular Hemoglobin Concent 33 g/dL (31-37) Red Cell Distribution Width 14.6 % (11.5-14.5) Platelet Count 196 x10^3/uL (140-400) Neutrophils (%) (Auto) 79 % (31-73) Lymphocytes (%) (Auto) 12 % (24-48) Monocytes (%) (Auto) 9 % (0-9) Eosinophils (%) (Auto) 0 % (0-3) Basophils (%) (Auto) 0 % (0-3) Neutrophils # (Auto) 9.4 x10^3uL (1.8-7.7) Lymphocytes # (Auto) 1.4 x10^3/uL (1.0-4.8) Monocytes # (Auto) 1.0 x10^3/uL (0.0-1.1) Eosinophils # (Auto) 0.0 x10^3/uL (0.0-0.7) Basophils # (Auto) 0.0 x10^3/uL (0.0-0.2) Lactic Acid Level 2.0 mmol/L (0.4-2.0) 1.4 mmol/L (0.4-2.0) O2 Saturation 96 % (92-99) 97 % (92-99) Arterial Blood pH 7.42 (7.35-7.45) 7.44 (7.35-7.45) Arterial Blood pCO2 at Patient Temp 29 mmHg (35-46) 30 mmHg (35-46) Arterial Blood pO2 at Patient Temp 78 mmHg (65-108) 85 mmHg (65-108) Arterial Blood HCO3 18 mmol/L (21-28) 20 mmol/L (21-28) Arterial Blood Base Excess -6 mmol/L (-3-3) -3 mmol/L (-3-3) FiO2 45 45 Sodium Level 146 mmol/L (136-145) Potassium Level 3.3 mmol/L (3.5-5.1) Chloride Level 113 mmol/L (98-107) Carbon Dioxide Level 20 mmol/L (21-32) Anion Gap 13 (6-14) Blood Urea Nitrogen 26 mg/dL (7-20) Creatinine 1.9 mg/dL (0.6-1.0) Estimated GFR (Cockcroft-Gault) 30.7 BUN/Creatinine Ratio 14 (6-20) Glucose Level 234 mg/dL (70-99) Calcium Level 9.2 mg/dL (8.5-10.1) Phosphorus Level 1.0 mg/dL (2.6-4.7) Magnesium Level 1.7 mg/dL (1.8-2.4) Total Bilirubin 0.4 mg/dL (0.2-1.0) Aspartate Amino Transf (AST/SGOT) 85 U/L (15-37) Alanine Aminotransferase (ALT/SGPT) 21 U/L (14-59) Alkaline Phosphatase 38 U/L (46-116) Lactate Dehydrogenase 443 U/L (81-234) Total Protein 6.5 g/dL (6.4-8.2) Albumin 2.6 g/dL (3.4-5.0) Albumin/Globulin Ratio 0.7 (1.0-1.7) Test 04/17/17 14:20 04/18/17 07:55 04/18/17 10:45 White Blood Count 14.7 x10^3/uL (4.0-11.0) 15.5 x10^3/uL (4.0-11.0) Red Blood Count 3.23 x10^6/uL (3.50-5.40) 3.26 x10^6/uL (3.50-5.40) Hemoglobin 10.4 g/dL (12.0-15.5) 10.5 g/dL (12.0-15.5) Hematocrit 32.0 % (36.0-47.0) 32.3 % (36.0-47.0) Mean Corpuscular Volume 99 fL (79-100) 99 fL (79-100) Mean Corpuscular Hemoglobin 32 pg (25-35) 32 pg (25-35) Mean Corpuscular Hemoglobin Concent 33 g/dL (31-37) 33 g/dL (31-37) Red Cell Distribution Width 14.6 % (11.5-14.5) 14.3 % (11.5-14.5) Platelet Count 179 x10^3/uL (140-400) 178 x10^3/uL (140-400) Neutrophils (%) (Auto) 83 % (31-73) Lymphocytes (%) (Auto) 10 % (24-48) Monocytes (%) (Auto) 6 % (0-9) Eosinophils (%) (Auto) 1 % (0-3) Basophils (%) (Auto) 0 % (0-3) Neutrophils # (Auto) 12.8 x10^3uL (1.8-7.7) Lymphocytes # (Auto) 1.6 x10^3/uL (1.0-4.8) Monocytes # (Auto) 1.0 x10^3/uL (0.0-1.1) Eosinophils # (Auto) 0.2 x10^3/uL (0.0-0.7) Basophils # (Auto) 0.0 x10^3/uL (0.0-0.2) Sodium Level 143 mmol/L (136-145) Potassium Level 3.0 mmol/L (3.5-5.1) Chloride Level 108 mmol/L (98-107) Carbon Dioxide Level 25 mmol/L (21-32) Anion Gap 10 (6-14) Blood Urea Nitrogen 16 mg/dL (7-20) Creatinine 1.3 mg/dL (0.6-1.0) Estimated GFR (Cockcroft-Gault) 47.6 BUN/Creatinine Ratio 12 (6-20) Glucose Level 190 mg/dL (70-99) Calcium Level 9.4 mg/dL (8.5-10.1) Phosphorus Level 1.3 mg/dL (2.6-4.7) Magnesium Level 1.5 mg/dL (1.8-2.4) Total Bilirubin 0.6 mg/dL (0.2-1.0) Aspartate Amino Transf (AST/SGOT) 58 U/L (15-37) Alanine Aminotransferase (ALT/SGPT) 21 U/L (14-59) Alkaline Phosphatase 42 U/L (46-116) Total Protein 7.0 g/dL (6.4-8.2) Albumin 2.6 g/dL (3.4-5.0) Albumin/Globulin Ratio 0.6 (1.0-1.7) O2 Saturation 97 % (92-99) Arterial Blood pH 7.45 (7.35-7.45) Arterial Blood pCO2 at Patient Temp 33 mmHg (35-46) Arterial Blood pO2 at Patient Temp 89 mmHg (65-108) Arterial Blood HCO3 22 mmol/L (21-28) Arterial Blood Base Excess -1 mmol/L (-3-3) FiO2 45 Laboratory Tests Test 04/17/17 14:20 04/18/17 07:55 04/18/17 10:45 White Blood Count 14.7 x10^3/uL (4.0-11.0) 15.5 x10^3/uL (4.0-11.0) Red Blood Count 3.23 x10^6/uL (3.50-5.40) 3.26 x10^6/uL (3.50-5.40) Hemoglobin 10.4 g/dL (12.0-15.5) 10.5 g/dL (12.0-15.5) Hematocrit 32.0 % (36.0-47.0) 32.3 % (36.0-47.0) Mean Corpuscular Volume 99 fL (79-100) 99 fL (79-100) Mean Corpuscular Hemoglobin 32 pg (25-35) 32 pg (25-35) Mean Corpuscular Hemoglobin Concent 33 g/dL (31-37) 33 g/dL (31-37) Red Cell Distribution Width 14.6 % (11.5-14.5) 14.3 % (11.5-14.5) Platelet Count 179 x10^3/uL (140-400) 178 x10^3/uL (140-400) Neutrophils (%) (Auto) 83 % (31-73) Lymphocytes (%) (Auto) 10 % (24-48) Monocytes (%) (Auto) 6 % (0-9) Eosinophils (%) (Auto) 1 % (0-3) Basophils (%) (Auto) 0 % (0-3) Neutrophils # (Auto) 12.8 x10^3uL (1.8-7.7) Lymphocytes # (Auto) 1.6 x10^3/uL (1.0-4.8) Monocytes # (Auto) 1.0 x10^3/uL (0.0-1.1) Eosinophils # (Auto) 0.2 x10^3/uL (0.0-0.7) Basophils # (Auto) 0.0 x10^3/uL (0.0-0.2) Sodium Level 143 mmol/L (136-145) Potassium Level 3.0 mmol/L (3.5-5.1) Chloride Level 108 mmol/L (98-107) Carbon Dioxide Level 25 mmol/L (21-32) Anion Gap 10 (6-14) Blood Urea Nitrogen 16 mg/dL (7-20) Creatinine 1.3 mg/dL (0.6-1.0) Estimated GFR (Cockcroft-Gault) 47.6 BUN/Creatinine Ratio 12 (6-20) Glucose Level 190 mg/dL (70-99) Calcium Level 9.4 mg/dL (8.5-10.1) Phosphorus Level 1.3 mg/dL (2.6-4.7) Magnesium Level 1.5 mg/dL (1.8-2.4) Total Bilirubin 0.6 mg/dL (0.2-1.0) Aspartate Amino Transf (AST/SGOT) 58 U/L (15-37) Alanine Aminotransferase (ALT/SGPT) 21 U/L (14-59) Alkaline Phosphatase 42 U/L (46-116) Total Protein 7.0 g/dL (6.4-8.2) Albumin 2.6 g/dL (3.4-5.0) Albumin/Globulin Ratio 0.6 (1.0-1.7) O2 Saturation 97 % (92-99) Arterial Blood pH 7.45 (7.35-7.45) Arterial Blood pCO2 at Patient Temp 33 mmHg (35-46) Arterial Blood pO2 at Patient Temp 89 mmHg (65-108) Arterial Blood HCO3 22 mmol/L (21-28) Arterial Blood Base Excess -1 mmol/L (-3-3) FiO2 45 Medications Active Scripts Medications Dose Route/Sig Max Daily Dose Days Date Category Gabapentin 300 Mg Capsule 300 Mg PO QHS 04/14/17 Reported Famotidine 20 Mg Tablet 20 Mg PO HS 04/14/17 Reported Hydralazine Hcl 25 Mg Tablet 1 Tab PO TID 04/14/17 Reported Tylenol (Acetaminophen) 325 Mg Tablet 1-2 Tab PO TID 04/14/17 Reported Ranexa (Ranolazine) 500 Mg Tab.er.12h 1 Tab PO BID 04/14/17 Reported Aggrenox 25 Mg-200 Mg Capsule (Aspirin/Dipyridamole) 1 Each Cpmp.12hr 1 Cap PO BID 04/14/17 Reported Milk Of Magnesia (Magnesium Hydroxide) 400 Mg/5 Ml Oral.susp 30 Ml PO PRN PRN 04/14/17 Reported Loperamide (Loperamide Hcl) 2 Mg Capsule 4 Mg PO PRN PRN 04/14/17 Reported Baclofen 10 Mg Tablet 0.5 Tab PO PRN QHS PRN 04/14/17 Reported Anti-Diarrheal (Loperamide Hcl) 2 Mg Capsule 2 Mg PO PRN 04/14/17 Reported Sertraline Hcl 50 Mg Tablet 50 Mg PO DAILY 04/14/17 Reported Oxybutynin Chloride Er (Oxybutynin Chloride) 5 Mg Tab.er.24 1 Tab PO DAILY 04/14/17 Reported Metoprolol Succinate ( Xl ) (Metoprolol Succinate) 25 Mg Tab.er.24h 1 Tab PO DAILY 04/14/17 Reported Lisinopril 20 Mg Tablet 1 Tab PO DAILY 04/14/17 Reported Levothyroxine Sodium 100 Mcg Tablet 1 Tab PO DAILY 04/14/17 Reported Isosorbide Mononitrate Er (Isosorbide Mononitrate) 60 Mg Tab.er.24h 1 Tab PO DAILY 04/14/17 Reported Furosemide 40 Mg Tablet 1 Tab PO DAILY 04/14/17 Reported Zetia (Ezetimibe) 10 Mg Tablet 1 Tab PO DAILY 04/14/17 Reported Chlorthalidone 25 Mg Tablet 1 Tab PO DAILY 04/14/17 Reported Comments IMPRESSION: mild CHF Impression . 1. Acute respiratory failure, present upon admission, multifactorial/acute CHF and pneumonia 2. Metabolic acidosis, suspect secondary to possible infection. 3. Abdominal pain. CT revealing abdominal aortic aneurysm and possible appendicitis. 4. Possible appendicitis. 5. Sepsis, present upon admission. Lactic acidosis improved 6. Atrial flutter. 7. Coronary artery disease. 8. Cerebrovascular accident. 9. Hypertension. 10. Cardiomyopathy 40% Plan . 1. Doing better on CPAP trial. ABG excellent . Proceed with extubation 2. Empiric antibiotics. 3. Follow Cardiology and Cardiovascular input. 4. Nasal canula 5. Nephrology rec 6. f/u CXR 7. Diuresis SUNITA JASON MD Apr 18, 2017 11:24
[2017-04-18] MEDS ORDERED: FUROSEMIDE 40 MG/4 ML VIAL. IVP ONE (11:30)
--- NOTE | 2017-04-18 11:32 | PDOC ---
Renal-Progress Notes Subjective Notes Notes NONE History of Present Illness Hx of present illness STABLE, INTUBATED Vitals Vitals Vital Signs Date Time Temp Pulse Resp B/P (MAP) Pulse Ox O2 Delivery O2 Flow Rate FiO2 04/18/17 10:01 76 21 167/95 (119) 98 Ventilator 04/18/17 08:15 4.0 04/18/17 07:00 98.7 98.7 Weight Weight [ ] I.O. Intake and Output Intake and Output 04/18/17 07:00 Intake Total 3466 ml Output Total 2185 ml Balance 1281 ml Intake IV Total 3466 ml Output Urine Total 2185 ml Labs Labs Laboratory Tests Test 04/17/17 14:20 04/18/17 07:55 04/18/17 10:45 White Blood Count 14.7 x10^3/uL (4.0-11.0) 15.5 x10^3/uL (4.0-11.0) Red Blood Count 3.23 x10^6/uL (3.50-5.40) 3.26 x10^6/uL (3.50-5.40) Hemoglobin 10.4 g/dL (12.0-15.5) 10.5 g/dL (12.0-15.5) Hematocrit 32.0 % (36.0-47.0) 32.3 % (36.0-47.0) Mean Corpuscular Volume 99 fL (79-100) 99 fL (79-100) Mean Corpuscular Hemoglobin 32 pg (25-35) 32 pg (25-35) Mean Corpuscular Hemoglobin Concent 33 g/dL (31-37) 33 g/dL (31-37) Red Cell Distribution Width 14.6 % (11.5-14.5) 14.3 % (11.5-14.5) Platelet Count 179 x10^3/uL (140-400) 178 x10^3/uL (140-400) Neutrophils (%) (Auto) 83 % (31-73) Lymphocytes (%) (Auto) 10 % (24-48) Monocytes (%) (Auto) 6 % (0-9) Eosinophils (%) (Auto) 1 % (0-3) Basophils (%) (Auto) 0 % (0-3) Neutrophils # (Auto) 12.8 x10^3uL (1.8-7.7) Lymphocytes # (Auto) 1.6 x10^3/uL (1.0-4.8) Monocytes # (Auto) 1.0 x10^3/uL (0.0-1.1) Eosinophils # (Auto) 0.2 x10^3/uL (0.0-0.7) Basophils # (Auto) 0.0 x10^3/uL (0.0-0.2) Sodium Level 143 mmol/L (136-145) Potassium Level 3.0 mmol/L (3.5-5.1) Chloride Level 108 mmol/L (98-107) Carbon Dioxide Level 25 mmol/L (21-32) Anion Gap 10 (6-14) Blood Urea Nitrogen 16 mg/dL (7-20) Creatinine 1.3 mg/dL (0.6-1.0) Estimated GFR (Cockcroft-Gault) 47.6 BUN/Creatinine Ratio 12 (6-20) Glucose Level 190 mg/dL (70-99) Calcium Level 9.4 mg/dL (8.5-10.1) Phosphorus Level 1.3 mg/dL (2.6-4.7) Magnesium Level 1.5 mg/dL (1.8-2.4) Total Bilirubin 0.6 mg/dL (0.2-1.0) Aspartate Amino Transf (AST/SGOT) 58 U/L (15-37) Alanine Aminotransferase (ALT/SGPT) 21 U/L (14-59) Alkaline Phosphatase 42 U/L (46-116) Total Protein 7.0 g/dL (6.4-8.2) Albumin 2.6 g/dL (3.4-5.0) Albumin/Globulin Ratio 0.6 (1.0-1.7) O2 Saturation 97 % (92-99) Arterial Blood pH 7.45 (7.35-7.45) Arterial Blood pCO2 at Patient Temp 33 mmHg (35-46) Arterial Blood pO2 at Patient Temp 89 mmHg (65-108) Arterial Blood HCO3 22 mmol/L (21-28) Arterial Blood Base Excess -1 mmol/L (-3-3) FiO2 45 Micro Micro Microbiology 04/16/17 Blood Culture - Preliminary, Resulted NO GROWTH AFTER 1 DAY Review of Systems Constitutional: yes: unresponsive Physical Exam General Appearance: no apparent distress Skin: warm Respiratory: bilateral CTA Heart: S1S2, RRR Abdomen: soft, bowel sounds present Genitourinary: bladder flat, no mass Extremities: pulses present, no edema, atrophy Neurology: confused, other (sedated) Assessment Assessment IMP BRUNILDA-BETTER CR 4.3 TO 1.3 PNEUMONIA CHF ANEMIA CM WITH EF OF 40% LOW K, MAG AND PO4 LEUCOCYTOSIS-BETTER PLAN CONT ANTIBIOTICS REPLACE MAG, K AND PO4 CONT IVF'S LABS IN AM DEANDRE DAIGLE MD Apr 18, 2017 11:32
[2017-04-18] MEDS ORDERED: POTASSIUM PHOSPHATE DIBASIC 13.6 MMOL in IV DEXTROSE 5% 100 ML IV SCH (12:00)
[2017-04-18] MEDS: METOPROLOL TARTRATE 5 MG/5 ML VIAL. IVP PRN (12:20)
[2017-04-18] MEDS: POTASSIUM PHOSPHATE DIBASIC 13.6 MMOL in IV NORMAL SALINE 100ML 100 ML IV SCH ×2 (12:45→14:49)
--- NOTE | 2017-04-18 12:48 | PN ---
DATE: 04/18/2017 SUBJECTIVE: The patient continued to be intubated, mechanically ventilated; however, her blood gases have normalized. Her kidney function is also back to her baseline. The creatinine is down to 1.3. She continued, however, to have hypokalemia, hypomagnesemia and hypophosphatemia. She is seen by the word processing operator with plan to extubate her. She was started on weaning trials. PHYSICAL EXAMINATION: GENERAL: When I saw her this morning when I examined her, she looked well and was clearly in no apparent respiratory distress, pale, no jaundice, cyanosis or thyromegaly. No jugular venous distension. No lower limb edema. VITAL SIGNS: Her heart rate was 76, blood pressure 167/95, temperature was 98.7, respiratory rate was 21 and oxygen saturation was 98% on FiO2 of 45%. HEAD, EYES, EARS, NOSE AND THROAT: Showed normocephalic, atraumatic. She has orotracheal and orogastric tube in place. HEART: Showed normal first and second heart sounds with no gallop, rub or murmur. CHEST: Clear to auscultation. No crepitation or rhonchi. ABDOMEN: Distended, soft, nontender. No guarding or rigidity. No organomegaly. Hernial orifices intact. Bowel sounds normal. NEUROLOGIC: She was awake, alert, responding appropriately. Cranial nerves intact. She moves extremities without difficulty. Her intake were 3466, output was 1836. LABORATORY DATA: As of this morning, her white cell count is 15,500, hemoglobin 10.5, hematocrit 32, MCV 99, and platelet count of 178,000. Her chemistry showed a serum sodium 143, potassium 3, chloride 108, bicarbonate 25, anion gap of 10, BUN 16, creatinine 1.3, estimated GFR was 47, glucose 190, calcium was 9.4, lactic acid was 1.4. Serum phosphorus was 1.3, magnesium was 1.5. Total bilirubin, AST, ALT, alkaline phosphatase are normal. Her total protein 7, albumin 2.6. Her arterial blood gases this morning shows pH of 7.45, pCO2 of 33, pO2 of 89, bicarbonate 22 and oxygen saturation of 97% on FiO2 of 45%. ASSESSMENT: 1. Acute respiratory failure, multifactorial. Her arterial blood gas has normalized, maintaining her oxygen saturation of 96% on FiO2 of 45%. She was started on weaning trials and hopefully would be extubated today. 2. Abdominal aortic aneurysm that apparently seems to be stable. 3. Acute on chronic kidney injury, improving. Her creatinine is back to her baseline 1.3. 4. Congestive heart failure with an ejection fraction of 40%. 5. Atrial fibrillation with rapid ventricular response, currently on metoprolol 5 mg IV every 6 hours. 6. Sepsis, likely due to acute appendicitis. She is on Zosyn. She is currently afebrile, hemodynamically stable; however, her white cell count has risen slightly to 15,000. 7. Lactic acidosis, the cause of which is also not clear, resolved. So far, all her blood cultures are negative. PLAN: Obviously to proceed with weaning trial and extubate if possible, replenish her potassium, magnesium and phosphorus. Her kidney function has normalized, awaiting the decision by the vascular surgeon regarding surgical treatment of her enlarging abdominal aortic aneurysm. FAUSTO BATEMAN MD DR: EDGAR/ivan JOB#: [id number] / [id number]
--- NOTE | 2017-04-18 13:23 | PDOC ---
CARDIO Progress Notes Date and Time Date of Service 04/18/2017 Time of Evaluation 1300 Subjective Subjective: No Chest Pain, No shortness of breath, No Palpitations, Other (now extubated) Vitals Vitals Vital Signs Date Time Temp Pulse Resp B/P (MAP) Pulse Ox O2 Delivery O2 Flow Rate FiO2 04/18/17 13:08 79 25 142/83 (102) 96 BiPAP/CPAP 04/18/17 12:05 98.0 5.0 98.0 Weight Weight [ ] Input and Output Intake and Output Intake and Output 04/18/17 07:00 Intake Total 3466 ml Output Total 2185 ml Balance 1281 ml Intake IV Total 3466 ml Output Urine Total 2185 ml Laboratory Labs Laboratory Tests Test 04/17/17 14:20 04/18/17 07:55 04/18/17 10:45 White Blood Count 14.7 x10^3/uL (4.0-11.0) 15.5 x10^3/uL (4.0-11.0) Red Blood Count 3.23 x10^6/uL (3.50-5.40) 3.26 x10^6/uL (3.50-5.40) Hemoglobin 10.4 g/dL (12.0-15.5) 10.5 g/dL (12.0-15.5) Hematocrit 32.0 % (36.0-47.0) 32.3 % (36.0-47.0) Mean Corpuscular Volume 99 fL (79-100) 99 fL (79-100) Mean Corpuscular Hemoglobin 32 pg (25-35) 32 pg (25-35) Mean Corpuscular Hemoglobin Concent 33 g/dL (31-37) 33 g/dL (31-37) Red Cell Distribution Width 14.6 % (11.5-14.5) 14.3 % (11.5-14.5) Platelet Count 179 x10^3/uL (140-400) 178 x10^3/uL (140-400) Neutrophils (%) (Auto) 83 % (31-73) Lymphocytes (%) (Auto) 10 % (24-48) Monocytes (%) (Auto) 6 % (0-9) Eosinophils (%) (Auto) 1 % (0-3) Basophils (%) (Auto) 0 % (0-3) Neutrophils # (Auto) 12.8 x10^3uL (1.8-7.7) Lymphocytes # (Auto) 1.6 x10^3/uL (1.0-4.8) Monocytes # (Auto) 1.0 x10^3/uL (0.0-1.1) Eosinophils # (Auto) 0.2 x10^3/uL (0.0-0.7) Basophils # (Auto) 0.0 x10^3/uL (0.0-0.2) Sodium Level 143 mmol/L (136-145) Potassium Level 3.0 mmol/L (3.5-5.1) Chloride Level 108 mmol/L (98-107) Carbon Dioxide Level 25 mmol/L (21-32) Anion Gap 10 (6-14) Blood Urea Nitrogen 16 mg/dL (7-20) Creatinine 1.3 mg/dL (0.6-1.0) Estimated GFR (Cockcroft-Gault) 47.6 BUN/Creatinine Ratio 12 (6-20) Glucose Level 190 mg/dL (70-99) Calcium Level 9.4 mg/dL (8.5-10.1) Phosphorus Level 1.3 mg/dL (2.6-4.7) Magnesium Level 1.5 mg/dL (1.8-2.4) Total Bilirubin 0.6 mg/dL (0.2-1.0) Aspartate Amino Transf (AST/SGOT) 58 U/L (15-37) Alanine Aminotransferase (ALT/SGPT) 21 U/L (14-59) Alkaline Phosphatase 42 U/L (46-116) Total Protein 7.0 g/dL (6.4-8.2) Albumin 2.6 g/dL (3.4-5.0) Albumin/Globulin Ratio 0.6 (1.0-1.7) O2 Saturation 97 % (92-99) Arterial Blood pH 7.45 (7.35-7.45) Arterial Blood pCO2 at Patient Temp 33 mmHg (35-46) Arterial Blood pO2 at Patient Temp 89 mmHg (65-108) Arterial Blood HCO3 22 mmol/L (21-28) Arterial Blood Base Excess -1 mmol/L (-3-3) FiO2 45 Microbiology Micro Microbiology 04/16/17 Blood Culture - Preliminary, Resulted NO GROWTH AFTER 2 DAYS Review of Systems Constitutional: yes: unresponsive Physical Exam HEENT: Neck Supple W Full Motion Chest: Symmetric LUNGS: Other (basilar crackles) Heart: S1S2, irregularly irregular (atrial flutter rate controlled) Abdomen: Other (slightly tender but soft) Extremities: No Calf Tenderness Neurology: alert, follow commands, confused Assessment Assessment 1. Acute respiratory failure: multifactorial, better now extubated and currently on bipap. per pulmonary 2. AAA: 6.6 stable per vascular surgery. CTA pending per vascular. 3. Appendicitis with possible sepsis: low grade fever today. per general surgery 4. BRUNILDA: Cr much improved at 1.3 5. Paroxysmal Atrial flutter: rate controlled 6. Chronic LBBB: EKG with no acute ST changes 7. Macrocytic anemia: stable 8. CAD: CABG and PCI/stent in the past. Unknown last workup. No records available. 9. Cardiomyopathy: EF 40% unchanged from previous 10. HTN: controlled 11. HLP 12. Mild acute on chronic systolic CHF: improved. Very good diurese. 13. Carotid artery disease 14. Dementia with hx of CVA Recommendations 1. High risk for CV events for surgery. Continue with IV lopressor. Anticipate LHC prior to AAA repair once renal optimization is complete and appendicitis is better. 2. Supportive care. Gregorio Jean and MICKIE GRIFFITH PIPE MACHINE OPERATOR Apr 18, 2017 13:23
[2017-04-18] MEDS: fentaNYL PF VIAL 100 MCG/2 ML VIAL IV PRN (19:46)
[2017-04-18] MEDS ORDERED: CHLORHEXIDINE 0.12% 15 ML MOUTHWASH. SWSP SCH (21:00)
[2017-04-18] MEDS: ATORVASTATIN CALCIUM 20 MG TABLET PO SCH (21:00)
[2017-04-19] VITALS (25 sets, daily range): BP systolic 127–168; BP diastolic 74–101
[2017-04-19] MEDS: fentaNYL PF VIAL 100 MCG/2 ML VIAL IV PRN ×2 (02:27→21:01)
[2017-04-19] MEDS: METOPROLOL TARTRATE 5 MG/5 ML VIAL. IVP SCH ×4 (02:27→17:29)
[2017-04-19] MEDS: PIPERACILLIN/TAZO IV Push 2.25 GM VIAL. IVP SCH ×4 (02:29→17:29)
[2017-04-19] MEDS: POTASSIUM CL 20MEQ D5-0.45NACL 1,000 ML IV SCH ×3 (04:22→19:00)
[2017-04-19] MEDS: METOCLOPRAMIDE HCL 10 MG/2 ML VIAL. IV SCH ×4 (06:19→16:26)
[2017-04-19 06:28] LABS: HEMATOCRIT 29.6 % (36.0-47.0); HEMOGLOBIN 9.6 g/dL (12.0-15.5); RED BLOOD COUNT 2.99 x10^6/uL (3.50-5.40); RED CELL DISTRIBUTION WIDTH 14.1 % (11.5-14.5); WHITE BLOOD COUNT 13.7 x10^3/uL (4.0-11.0)
[2017-04-19 06:47] LABS: ALBUMIN 2.3 g/dL (3.4-5.0); CALCIUM 8.7 mg/dL (8.5-10.1); CREATININE 1.2 mg/dL (0.6-1.0); GFR 52.2; MAGNESIUM 1.4 mg/dL (1.8-2.4); PHOSPHORUS 2.2 mg/dL (2.6-4.7)
[2017-04-19 06:52] LABS: POTASSIUM 2.9 mmol/L (3.5-5.1)
[2017-04-19] MEDS ORDERED: POTASSIUM CL 40MEQ IN 0.9%NACL 1,000 ML IV SCH (07:00)
[2017-04-19] MEDS: POTASSIUM CHLORIDE 10 MEQ in IV NORMAL SALINE 100ML 100 ML IV SCH ×9 (08:03→18:28)
[2017-04-19] MEDS: IPRATRPIUM/ALBUTEROL 0.5/2.5MG 3 ML NEBU. NEB SCH ×4 (08:32→20:05)
--- NOTE | 2017-04-19 08:44 | RAD ---
Portable chest, 04/19/2017: History: Respiratory failure Comparison is made to yesterday's study. The ET tube and NG tube have been removed. The patient is rotated to the right. The heart is enlarged. There is persistent atelectasis/infiltrate in the left base obscuring the hemidiaphragm. A small amount of pleural fluid may be present on the left. There is mild residual linear opacities in the right base. No new pulmonary abnormality is seen. IMPRESSION: 1. The ET tube and NG tube have been removed. 2. Moderate ongoing left basilar infiltrate and possible pleural fluid.
[2017-04-19 09:17] LABS: HCO3 ABG 25 mmol/L (21-28); PCO2 ABG 37 mmHg (35-46); PH ABG 7.45 (7.35-7.45); PO2 ABG 108 mmHg (65-108); SAT O2 ABG 98 % (92-99)
[2017-04-19 09:19] LABS: FIO2 ABG 40
[2017-04-19] MEDS ORDERED: POTASSIUM PHOSPHATE DIBASIC 40 MMOL in IV NORMAL SALINE 250ML 250 ML IV ONE (10:15)
--- NOTE | 2017-04-19 10:43 | PDOC ---
SURGICAL PROGRESS NOTE Subjective awake, responsive, denies abdominal pain on 5L nasal canula Vital Signs Vital Signs Date Time Temp Pulse Resp B/P (MAP) Pulse Ox O2 Delivery O2 Flow Rate FiO2 04/19/17 10:07 86 32 141/74 (96) 98 Nasal Cannula 3.0 04/19/17 09:00 97.9 97.9 I&O Intake and Output 04/19/17 07:00 Intake Total 2345 ml Output Total 4200 ml Balance -1855 ml Intake IV Total 2345 ml Output Urine Total 4200 ml PATIENT HAS A MAR: Yes General: No acute distress Abdomen: Soft, No tenderness Labs Laboratory Tests Test 04/17/17 14:20 04/18/17 07:55 04/18/17 10:45 04/19/17 04:55 White Blood Count 14.7 x10^3/uL (4.0-11.0) 15.5 x10^3/uL (4.0-11.0) 13.7 x10^3/uL (4.0-11.0) Red Blood Count 3.23 x10^6/uL (3.50-5.40) 3.26 x10^6/uL (3.50-5.40) 2.99 x10^6/uL (3.50-5.40) Hemoglobin 10.4 g/dL (12.0-15.5) 10.5 g/dL (12.0-15.5) 9.6 g/dL (12.0-15.5) Hematocrit 32.0 % (36.0-47.0) 32.3 % (36.0-47.0) 29.6 % (36.0-47.0) Mean Corpuscular Volume 99 fL (79-100) 99 fL (79-100) 99 fL (79-100) Mean Corpuscular Hemoglobin 32 pg (25-35) 32 pg (25-35) 32 pg (25-35) Mean Corpuscular Hemoglobin Concent 33 g/dL (31-37) 33 g/dL (31-37) 33 g/dL (31-37) Red Cell Distribution Width 14.6 % (11.5-14.5) 14.3 % (11.5-14.5) 14.1 % (11.5-14.5) Platelet Count 179 x10^3/uL (140-400) 178 x10^3/uL (140-400) 172 x10^3/uL (140-400) Neutrophils (%) (Auto) 83 % (31-73) Lymphocytes (%) (Auto) 10 % (24-48) Monocytes (%) (Auto) 6 % (0-9) Eosinophils (%) (Auto) 1 % (0-3) Basophils (%) (Auto) 0 % (0-3) Neutrophils # (Auto) 12.8 x10^3uL (1.8-7.7) Lymphocytes # (Auto) 1.6 x10^3/uL (1.0-4.8) Monocytes # (Auto) 1.0 x10^3/uL (0.0-1.1) Eosinophils # (Auto) 0.2 x10^3/uL (0.0-0.7) Basophils # (Auto) 0.0 x10^3/uL (0.0-0.2) Sodium Level 143 mmol/L (136-145) Potassium Level 3.0 mmol/L (3.5-5.1) Chloride Level 108 mmol/L (98-107) Carbon Dioxide Level 25 mmol/L (21-32) Anion Gap 10 (6-14) Blood Urea Nitrogen 16 mg/dL (7-20) Creatinine 1.3 mg/dL (0.6-1.0) Estimated GFR (Cockcroft-Gault) 47.6 BUN/Creatinine Ratio 12 (6-20) Glucose Level 190 mg/dL (70-99) Calcium Level 9.4 mg/dL (8.5-10.1) Phosphorus Level 1.3 mg/dL (2.6-4.7) Magnesium Level 1.5 mg/dL (1.8-2.4) Total Bilirubin 0.6 mg/dL (0.2-1.0) Aspartate Amino Transf (AST/SGOT) 58 U/L (15-37) Alanine Aminotransferase (ALT/SGPT) 21 U/L (14-59) Alkaline Phosphatase 42 U/L (46-116) Total Protein 7.0 g/dL (6.4-8.2) Albumin 2.6 g/dL (3.4-5.0) Albumin/Globulin Ratio 0.6 (1.0-1.7) O2 Saturation 97 % (92-99) Arterial Blood pH 7.45 (7.35-7.45) Arterial Blood pCO2 at Patient Temp 33 mmHg (35-46) Arterial Blood pO2 at Patient Temp 89 mmHg (65-108) Arterial Blood HCO3 22 mmol/L (21-28) Arterial Blood Base Excess -1 mmol/L (-3-3) FiO2 45 Test 04/19/17 05:45 04/19/17 08:35 Sodium Level 142 mmol/L (136-145) Potassium Level 2.9 mmol/L (3.5-5.1) Chloride Level 105 mmol/L (98-107) Carbon Dioxide Level 29 mmol/L (21-32) Anion Gap 8 (6-14) Blood Urea Nitrogen 13 mg/dL (7-20) Creatinine 1.2 mg/dL (0.6-1.0) Estimated GFR (Cockcroft-Gault) 52.2 Glucose Level 156 mg/dL (70-99) Calcium Level 8.7 mg/dL (8.5-10.1) Phosphorus Level 2.2 mg/dL (2.6-4.7) Magnesium Level 1.4 mg/dL (1.8-2.4) Albumin 2.3 g/dL (3.4-5.0) O2 Saturation 98 % (92-99) Arterial Blood pH 7.45 (7.35-7.45) Arterial Blood pCO2 at Patient Temp 37 mmHg (35-46) Arterial Blood pO2 at Patient Temp 108 mmHg (65-108) Arterial Blood HCO3 25 mmol/L (21-28) Arterial Blood Base Excess 1 mmol/L (-3-3) FiO2 40 Laboratory Tests Test 04/18/17 10:45 04/19/17 04:55 04/19/17 05:45 04/19/17 08:35 O2 Saturation 97 % (92-99) 98 % (92-99) Arterial Blood pH 7.45 (7.35-7.45) 7.45 (7.35-7.45) Arterial Blood pCO2 at Patient Temp 33 mmHg (35-46) 37 mmHg (35-46) Arterial Blood pO2 at Patient Temp 89 mmHg (65-108) 108 mmHg (65-108) Arterial Blood HCO3 22 mmol/L (21-28) 25 mmol/L (21-28) Arterial Blood Base Excess -1 mmol/L (-3-3) 1 mmol/L (-3-3) FiO2 45 40 White Blood Count 13.7 x10^3/uL (4.0-11.0) Red Blood Count 2.99 x10^6/uL (3.50-5.40) Hemoglobin 9.6 g/dL (12.0-15.5) Hematocrit 29.6 % (36.0-47.0) Mean Corpuscular Volume 99 fL (79-100) Mean Corpuscular Hemoglobin 32 pg (25-35) Mean Corpuscular Hemoglobin Concent 33 g/dL (31-37) Red Cell Distribution Width 14.1 % (11.5-14.5) Platelet Count 172 x10^3/uL (140-400) Sodium Level 142 mmol/L (136-145) Potassium Level 2.9 mmol/L (3.5-5.1) Chloride Level 105 mmol/L (98-107) Carbon Dioxide Level 29 mmol/L (21-32) Anion Gap 8 (6-14) Blood Urea Nitrogen 13 mg/dL (7-20) Creatinine 1.2 mg/dL (0.6-1.0) Estimated GFR (Cockcroft-Gault) 52.2 Glucose Level 156 mg/dL (70-99) Calcium Level 8.7 mg/dL (8.5-10.1) Phosphorus Level 2.2 mg/dL (2.6-4.7) Magnesium Level 1.4 mg/dL (1.8-2.4) Albumin 2.3 g/dL (3.4-5.0) Problem List Problems Medical Problems: (1) Abdominal aortic aneurysm Status: Acute (2) Acute renal failure Status: Acute (3) Anemia Status: Acute (4) Enlarging abdominal aortic aneurysm Status: Acute Assessment/Plan acute appendicitis respiratory failure, resolved acidosis, improved d/w Dr Gold pt tolerating non op management of her appendicitis for now. \ may need l/s appy at some point. Dr Valentine et al to follow pt in my absence thru 04/24 Problems: SAMANTA HERNANDEZ MD Apr 19, 2017 10:43
--- NOTE | 2017-04-19 11:02 | PDOC ---
Renal-Progress Notes Subjective Notes Notes NONE History of Present Illness Hx of present illness STABLE Vitals Vitals Vital Signs Date Time Temp Pulse Resp B/P (MAP) Pulse Ox O2 Delivery O2 Flow Rate FiO2 04/19/17 10:07 86 32 141/74 (96) 98 Nasal Cannula 3.0 04/19/17 09:00 97.9 97.9 Weight Weight [ ] I.O. Intake and Output Intake and Output 04/19/17 07:00 Intake Total 2345 ml Output Total 4200 ml Balance -1855 ml Intake IV Total 2345 ml Output Urine Total 4200 ml Labs Labs Laboratory Tests Test 04/19/17 04:55 04/19/17 05:45 04/19/17 08:35 White Blood Count 13.7 x10^3/uL (4.0-11.0) Red Blood Count 2.99 x10^6/uL (3.50-5.40) Hemoglobin 9.6 g/dL (12.0-15.5) Hematocrit 29.6 % (36.0-47.0) Mean Corpuscular Volume 99 fL (79-100) Mean Corpuscular Hemoglobin 32 pg (25-35) Mean Corpuscular Hemoglobin Concent 33 g/dL (31-37) Red Cell Distribution Width 14.1 % (11.5-14.5) Platelet Count 172 x10^3/uL (140-400) Sodium Level 142 mmol/L (136-145) Potassium Level 2.9 mmol/L (3.5-5.1) Chloride Level 105 mmol/L (98-107) Carbon Dioxide Level 29 mmol/L (21-32) Anion Gap 8 (6-14) Blood Urea Nitrogen 13 mg/dL (7-20) Creatinine 1.2 mg/dL (0.6-1.0) Estimated GFR (Cockcroft-Gault) 52.2 Glucose Level 156 mg/dL (70-99) Calcium Level 8.7 mg/dL (8.5-10.1) Phosphorus Level 2.2 mg/dL (2.6-4.7) Magnesium Level 1.4 mg/dL (1.8-2.4) Albumin 2.3 g/dL (3.4-5.0) O2 Saturation 98 % (92-99) Arterial Blood pH 7.45 (7.35-7.45) Arterial Blood pCO2 at Patient Temp 37 mmHg (35-46) Arterial Blood pO2 at Patient Temp 108 mmHg (65-108) Arterial Blood HCO3 25 mmol/L (21-28) Arterial Blood Base Excess 1 mmol/L (-3-3) FiO2 40 Micro Micro Microbiology 04/16/17 Blood Culture - Preliminary, Resulted NO GROWTH AFTER 2 DAYS Review of Systems Constitutional: yes: unresponsive Physical Exam General Appearance: no apparent distress Skin: warm Respiratory: bilateral CTA Heart: S1S2, RRR Abdomen: soft, bowel sounds present Genitourinary: bladder flat, no mass Extremities: pulses present, no edema, atrophy Neurology: alert, follow commands, confused Assessment Assessment IMP BRUNILDA-BETTER CR 4.3 TO 1.2 PNEUMONIA CHF ANEMIA CM WITH EF OF 40% LOW K, MAG AND PO4 LEUCOCYTOSIS-BETTER PLAN CONT ANTIBIOTICS REPLACE MAG, K AND PO4 CONT IVF'S LABS IN AM DEANDRE DAIGLE MD Apr 19, 2017 11:02
--- NOTE | 2017-04-19 11:14 | PDOC ---
PULMONARY PROGRESS NOTES Subjective extubated 04/18 on nasal canula Vitals Vital Signs Date Time Temp Pulse Resp B/P (MAP) Pulse Ox O2 Delivery O2 Flow Rate FiO2 04/19/17 10:07 86 32 141/74 (96) 98 Nasal Cannula 3.0 04/19/17 09:00 97.9 97.9 General: Alert, No acute distress Lungs: Clear Cardiovascular: S1, S2 Abdomen: Soft Neuro Exam: Alert Extremities: No Edema Skin: Warm Labs Laboratory Tests Test 04/17/17 14:20 04/18/17 07:55 04/18/17 10:45 04/19/17 04:55 White Blood Count 14.7 x10^3/uL (4.0-11.0) 15.5 x10^3/uL (4.0-11.0) 13.7 x10^3/uL (4.0-11.0) Red Blood Count 3.23 x10^6/uL (3.50-5.40) 3.26 x10^6/uL (3.50-5.40) 2.99 x10^6/uL (3.50-5.40) Hemoglobin 10.4 g/dL (12.0-15.5) 10.5 g/dL (12.0-15.5) 9.6 g/dL (12.0-15.5) Hematocrit 32.0 % (36.0-47.0) 32.3 % (36.0-47.0) 29.6 % (36.0-47.0) Mean Corpuscular Volume 99 fL (79-100) 99 fL (79-100) 99 fL (79-100) Mean Corpuscular Hemoglobin 32 pg (25-35) 32 pg (25-35) 32 pg (25-35) Mean Corpuscular Hemoglobin Concent 33 g/dL (31-37) 33 g/dL (31-37) 33 g/dL (31-37) Red Cell Distribution Width 14.6 % (11.5-14.5) 14.3 % (11.5-14.5) 14.1 % (11.5-14.5) Platelet Count 179 x10^3/uL (140-400) 178 x10^3/uL (140-400) 172 x10^3/uL (140-400) Neutrophils (%) (Auto) 83 % (31-73) Lymphocytes (%) (Auto) 10 % (24-48) Monocytes (%) (Auto) 6 % (0-9) Eosinophils (%) (Auto) 1 % (0-3) Basophils (%) (Auto) 0 % (0-3) Neutrophils # (Auto) 12.8 x10^3uL (1.8-7.7) Lymphocytes # (Auto) 1.6 x10^3/uL (1.0-4.8) Monocytes # (Auto) 1.0 x10^3/uL (0.0-1.1) Eosinophils # (Auto) 0.2 x10^3/uL (0.0-0.7) Basophils # (Auto) 0.0 x10^3/uL (0.0-0.2) Sodium Level 143 mmol/L (136-145) Potassium Level 3.0 mmol/L (3.5-5.1) Chloride Level 108 mmol/L (98-107) Carbon Dioxide Level 25 mmol/L (21-32) Anion Gap 10 (6-14) Blood Urea Nitrogen 16 mg/dL (7-20) Creatinine 1.3 mg/dL (0.6-1.0) Estimated GFR (Cockcroft-Gault) 47.6 BUN/Creatinine Ratio 12 (6-20) Glucose Level 190 mg/dL (70-99) Calcium Level 9.4 mg/dL (8.5-10.1) Phosphorus Level 1.3 mg/dL (2.6-4.7) Magnesium Level 1.5 mg/dL (1.8-2.4) Total Bilirubin 0.6 mg/dL (0.2-1.0) Aspartate Amino Transf (AST/SGOT) 58 U/L (15-37) Alanine Aminotransferase (ALT/SGPT) 21 U/L (14-59) Alkaline Phosphatase 42 U/L (46-116) Total Protein 7.0 g/dL (6.4-8.2) Albumin 2.6 g/dL (3.4-5.0) Albumin/Globulin Ratio 0.6 (1.0-1.7) O2 Saturation 97 % (92-99) Arterial Blood pH 7.45 (7.35-7.45) Arterial Blood pCO2 at Patient Temp 33 mmHg (35-46) Arterial Blood pO2 at Patient Temp 89 mmHg (65-108) Arterial Blood HCO3 22 mmol/L (21-28) Arterial Blood Base Excess -1 mmol/L (-3-3) FiO2 45 Test 04/19/17 05:45 04/19/17 08:35 Sodium Level 142 mmol/L (136-145) Potassium Level 2.9 mmol/L (3.5-5.1) Chloride Level 105 mmol/L (98-107) Carbon Dioxide Level 29 mmol/L (21-32) Anion Gap 8 (6-14) Blood Urea Nitrogen 13 mg/dL (7-20) Creatinine 1.2 mg/dL (0.6-1.0) Estimated GFR (Cockcroft-Gault) 52.2 Glucose Level 156 mg/dL (70-99) Calcium Level 8.7 mg/dL (8.5-10.1) Phosphorus Level 2.2 mg/dL (2.6-4.7) Magnesium Level 1.4 mg/dL (1.8-2.4) Albumin 2.3 g/dL (3.4-5.0) O2 Saturation 98 % (92-99) Arterial Blood pH 7.45 (7.35-7.45) Arterial Blood pCO2 at Patient Temp 37 mmHg (35-46) Arterial Blood pO2 at Patient Temp 108 mmHg (65-108) Arterial Blood HCO3 25 mmol/L (21-28) Arterial Blood Base Excess 1 mmol/L (-3-3) FiO2 40 Laboratory Tests Test 04/19/17 04:55 04/19/17 05:45 04/19/17 08:35 White Blood Count 13.7 x10^3/uL (4.0-11.0) Red Blood Count 2.99 x10^6/uL (3.50-5.40) Hemoglobin 9.6 g/dL (12.0-15.5) Hematocrit 29.6 % (36.0-47.0) Mean Corpuscular Volume 99 fL (79-100) Mean Corpuscular Hemoglobin 32 pg (25-35) Mean Corpuscular Hemoglobin Concent 33 g/dL (31-37) Red Cell Distribution Width 14.1 % (11.5-14.5) Platelet Count 172 x10^3/uL (140-400) Sodium Level 142 mmol/L (136-145) Potassium Level 2.9 mmol/L (3.5-5.1) Chloride Level 105 mmol/L (98-107) Carbon Dioxide Level 29 mmol/L (21-32) Anion Gap 8 (6-14) Blood Urea Nitrogen 13 mg/dL (7-20) Creatinine 1.2 mg/dL (0.6-1.0) Estimated GFR (Cockcroft-Gault) 52.2 Glucose Level 156 mg/dL (70-99) Calcium Level 8.7 mg/dL (8.5-10.1) Phosphorus Level 2.2 mg/dL (2.6-4.7) Magnesium Level 1.4 mg/dL (1.8-2.4) Albumin 2.3 g/dL (3.4-5.0) O2 Saturation 98 % (92-99) Arterial Blood pH 7.45 (7.35-7.45) Arterial Blood pCO2 at Patient Temp 37 mmHg (35-46) Arterial Blood pO2 at Patient Temp 108 mmHg (65-108) Arterial Blood HCO3 25 mmol/L (21-28) Arterial Blood Base Excess 1 mmol/L (-3-3) FiO2 40 Medications Active Scripts Medications Dose Route/Sig Max Daily Dose Days Date Category Gabapentin 300 Mg Capsule 300 Mg PO QHS 04/14/17 Reported Famotidine 20 Mg Tablet 20 Mg PO HS 04/14/17 Reported Hydralazine Hcl 25 Mg Tablet 1 Tab PO TID 04/14/17 Reported Tylenol (Acetaminophen) 325 Mg Tablet 1-2 Tab PO TID 04/14/17 Reported Ranexa (Ranolazine) 500 Mg Tab.er.12h 1 Tab PO BID 04/14/17 Reported Aggrenox 25 Mg-200 Mg Capsule (Aspirin/Dipyridamole) 1 Each Cpmp.12hr 1 Cap PO BID 04/14/17 Reported Milk Of Magnesia (Magnesium Hydroxide) 400 Mg/5 Ml Oral.susp 30 Ml PO PRN PRN 04/14/17 Reported Loperamide (Loperamide Hcl) 2 Mg Capsule 4 Mg PO PRN PRN 04/14/17 Reported Baclofen 10 Mg Tablet 0.5 Tab PO PRN QHS PRN 04/14/17 Reported Anti-Diarrheal (Loperamide Hcl) 2 Mg Capsule 2 Mg PO PRN 04/14/17 Reported Sertraline Hcl 50 Mg Tablet 50 Mg PO DAILY 04/14/17 Reported Oxybutynin Chloride Er (Oxybutynin Chloride) 5 Mg Tab.er.24 1 Tab PO DAILY 04/14/17 Reported Metoprolol Succinate ( Xl ) (Metoprolol Succinate) 25 Mg Tab.er.24h 1 Tab PO DAILY 04/14/17 Reported Lisinopril 20 Mg Tablet 1 Tab PO DAILY 04/14/17 Reported Levothyroxine Sodium 100 Mcg Tablet 1 Tab PO DAILY 04/14/17 Reported Isosorbide Mononitrate Er (Isosorbide Mononitrate) 60 Mg Tab.er.24h 1 Tab PO DAILY 04/14/17 Reported Furosemide 40 Mg Tablet 1 Tab PO DAILY 04/14/17 Reported Zetia (Ezetimibe) 10 Mg Tablet 1 Tab PO DAILY 04/14/17 Reported Chlorthalidone 25 Mg Tablet 1 Tab PO DAILY 04/14/17 Reported Comments IMPRESSION: mild CHF Impression . 1. Acute respiratory failure, present upon admission, multifactorial/acute CHF and pneumonia 2. Metabolic acidosis, suspect secondary to possible infection. 3. Abdominal pain. CT revealing abdominal aortic aneurysm and possible appendicitis. 4. Possible appendicitis. 5. Sepsis, present upon admission. Lactic acidosis improved 6. Atrial flutter. 7. Coronary artery disease. 8. Cerebrovascular accident. 9. Hypertension. 10. Cardiomyopathy 40% Plan . 1. Doing better on canula 2. Empiric antibiotics. 3. Follow Cardiology and Cardiovascular input. 4. Nasal canula 5. Nephrology rec 6. f/u CXR as needed 7. Diuresis SUNITA JASON MD Apr 19, 2017 11:14
[2017-04-19] MEDS ORDERED: POTASSIUM PHOSPHATE DIBASIC 13.6 MMOL in IV DEXTROSE 5% 100 ML IV SCH (11:15)
[2017-04-19] MEDS ORDERED: SODIUM PHOSPHATE 40 MMOL in IV DEXTROSE 5% 250 ML IV ONE (11:30)
[2017-04-19] MEDS: MAGNESIUM SULFATE 4GM 100 ML IV SCH (12:29)
--- NOTE | 2017-04-19 13:23 | PDOC ---
CARDIO Progress Notes Date and Time Date of Service 04/19/2017 Time of Evaluation 1300 Subjective Subjective: No Chest Pain, No shortness of breath, No Palpitations, Other ( restless in bed and told me " there is nothing else to do") Vitals Vitals Vital Signs Date Time Temp Pulse Resp B/P (MAP) Pulse Ox O2 Delivery O2 Flow Rate FiO2 04/19/17 12:29 86 150/96 04/19/17 12:23 28 99 Nasal Cannula 3.0 04/19/17 09:00 97.9 97.9 Weight Weight [ ] Input and Output Intake and Output Intake and Output 04/19/17 07:00 Intake Total 2345 ml Output Total 4200 ml Balance -1855 ml Intake IV Total 2345 ml Output Urine Total 4200 ml Laboratory Labs Laboratory Tests Test 04/19/17 04:55 04/19/17 05:45 04/19/17 08:35 White Blood Count 13.7 x10^3/uL (4.0-11.0) Red Blood Count 2.99 x10^6/uL (3.50-5.40) Hemoglobin 9.6 g/dL (12.0-15.5) Hematocrit 29.6 % (36.0-47.0) Mean Corpuscular Volume 99 fL (79-100) Mean Corpuscular Hemoglobin 32 pg (25-35) Mean Corpuscular Hemoglobin Concent 33 g/dL (31-37) Red Cell Distribution Width 14.1 % (11.5-14.5) Platelet Count 172 x10^3/uL (140-400) Sodium Level 142 mmol/L (136-145) Potassium Level 2.9 mmol/L (3.5-5.1) Chloride Level 105 mmol/L (98-107) Carbon Dioxide Level 29 mmol/L (21-32) Anion Gap 8 (6-14) Blood Urea Nitrogen 13 mg/dL (7-20) Creatinine 1.2 mg/dL (0.6-1.0) Estimated GFR (Cockcroft-Gault) 52.2 Glucose Level 156 mg/dL (70-99) Calcium Level 8.7 mg/dL (8.5-10.1) Phosphorus Level 2.2 mg/dL (2.6-4.7) Magnesium Level 1.4 mg/dL (1.8-2.4) Albumin 2.3 g/dL (3.4-5.0) O2 Saturation 98 % (92-99) Arterial Blood pH 7.45 (7.35-7.45) Arterial Blood pCO2 at Patient Temp 37 mmHg (35-46) Arterial Blood pO2 at Patient Temp 108 mmHg (65-108) Arterial Blood HCO3 25 mmol/L (21-28) Arterial Blood Base Excess 1 mmol/L (-3-3) FiO2 40 Microbiology Micro Microbiology 04/16/17 Blood Culture - Preliminary, Resulted NO GROWTH AFTER 3 DAYS Review of Systems Constitutional: yes: unresponsive Physical Exam HEENT: Neck Supple W Full Motion Chest: Symmetric LUNGS: Other (diminished) Heart: S1S2, irregularly irregular (atrial flutter rate controlled with PVC) Abdomen: Other (soft) Extremities: No Edema, No Calf Tenderness Neurology: alert, oriented, follow commands Assessment Assessment 1. Acute respiratory failure/pneumonia: per pulmonary. Extubated, off bipap, doing better 2. AAA: 6.6 stable per vascular surgery. CTA pending per vascular. 3. Appendicitis: per general surgery 4. BRUNILDA: Cr much improved at 1.2 5. Paroxysmal Atrial flutter: rate controlled 6. Chronic LBBB 7. Macrocytic anemia: stable at 9.6 8. CAD: CABG and PCI/stent in the past. Unknown last workup. No records available. 9. Cardiomyopathy: EF 40% unchanged from previous 10. HTN: controlled 11. HLP 12. Acute on chronic systolic CHF: compensated, diuresing very well. 13. Carotid artery disease 14. Dementia with hx of CVA Recommendations 1. High risk for CV events for surgery. Continue with IV lopressor. Anticipate LHC prior to AAA repair pending extracardiac conditions clinical course. 2. Awaiting timing of diagnostics, abdominal CTA per vascular surgery when cleared by nephrology. 3. Supportive care. Will reeval further cardiac med needs as warranted, presently still NPO. 4. Sandra Lundberg [facility] Apr 19, 2017 13:23
[2017-04-19] MEDS ORDERED: LIDOCAINE 1% / SOD BICARB 8.4% 20 ML VIAL. IJ ONE ×2 (13:29→13:30)
[2017-04-19] MEDS: AMINO AC 3%/ELECTROLYTE/GLYCER 1,000 ML IV SCH (15:20)
--- NOTE | 2017-04-19 15:24 | RAD ---
Portable semiupright AP chest radiograph 04/19/2017 Clinical indication: Central line placement. Comparison: Chest radiograph 04/19/2017 from approximately 8 hours prior. Findings: Placement of right IJ central venous catheter with distal tip at the superior cavoatrial junction. Prior median sternotomy and CABG. There is cardiomegaly, pulmonary venous congestion and mild interstitial opacities. Probable small layering bilateral pleural effusions. Patchy opacities in the left lung base. No pneumothorax. Impression: 1. Placement of right IJ central venous catheter with distal tip at the superior caval atrial junction. 2. Development of bilateral interstitial opacities suggestive of pulmonary edema. 3. Unchanged patchy left lung base opacities and possible small layering bilateral pleural effusions.
--- NOTE | 2017-04-19 16:47 | RAD ---
Procedure: Ultrasound-guided placement of right internal jugular central venous [id number] 4:42 PM Clinical Indication: poor peripheral access Discussion: The risks and benefits of the procedure were discussed the patient and/or their malt liquors sales representative. Informed consent was obtained. A timeout procedure was performed. All elements of maximal sterile barrier technique including the use of a cap, mask, sterile gown, sterile gloves, large sterile sheet, appropriate hand hygiene, and 2% chlorhexidine for cutaneous antisepsis (or acceptable alternative antiseptic per current guidelines) were followed for this procedure. The patient was prepped and draped in the usual sterile fashion. Ultrasound interrogation of the right neck revealed patency and compressibility of the right internal jugular vein. A 21-gauge micropuncture was then used to gain access to this vein under ultrasound guidance. A hard copy ultrasound image was recorded. A guidewire was advanced centrally. 5 Thai sheath was placed. Over a wire following dilatation, a triple-lumen central venous catheter was advanced centrally. Catheter was found to flush and aspirate normally. Follow-up chest radiograph demonstrates tip at the cavoatrial junction. Catheter secured in place and a sterile dressing was applied. No immediate complications were identified. Impression: Successful ultrasound-guided placement of right internal jugular triple-lumen central venous catheter
--- NOTE | 2017-04-19 19:09 | PN ---
DATE: 04/19/2017 SUBJECTIVE: The patient is resting slightly propped up in bed, no apparent distress. She is awake, alert, was successfully extubated yesterday, maintaining her oxygen saturation at 99% on 5 liters of oxygen by nasal cannula. She denied any chest pain or shortness of breath. She did complain of abdominal pain. PHYSICAL EXAMINATION: GENERAL: When I examined her, she looked pale, but no jaundice or cyanosis. No lymphadenopathy or thyromegaly. No jugular venous distention. No limb edema. VITAL SIGNS: Her heart rate was 79, blood pressure 158/94, temperature was 97.9, respiratory rate was 24, and oxygen saturation was 99% on 5 liters of oxygen by nasal cannula. HEAD, EYES, EARS, NOSE AND THROAT: Showed normocephalic, atraumatic. NECK: Supple. HEART: Showed normal first and second heart sounds. No gallop, rub or murmur. CHEST: Clear to auscultation. No crepitation or rhonchi. ABDOMEN: Distended, soft, nontender. No guarding or rigidity. No organomegaly. All hernial orifices intact. Bowel sounds normal. NEUROLOGIC: She is awake, alert, responding appropriately. Cranial nerves are intact. She moves extremities without difficulty. INS AND OUTS: Her intake over the last 24 hours was 2345, output was 4550. LABORATORY DATA: This morning showed serum sodium 142, potassium was low at 2.9, chloride 105, bicarbonate 29, anion gap of 8, BUN 13, creatinine 1.2, estimated GFR was 53 mL per minute, her glucose 156, calcium was 8.7, phosphorus 2.2, magnesium was 1.4. Total bilirubin, AST, ALT, alkaline phosphatase were normal. Serum albumin is 2.3. Her white cell count was 13,700, hemoglobin 9.6, hematocrit 29.6, MCV 99 and platelet count of 172,000. Her blood gases this morning showed a pH of 7.45, pCO2 of 37, pO2 of 108, bicarbonate 25, and oxygen saturation was 98% on FiO2 of 40%. So far her blood cultures are negative. ASSESSMENT: 1. Acute respiratory failure, multifactorial, resolved. She was successfully extubated yesterday, currently on BiPAP machine and she is also on 5 liters of oxygen. 2. Abdominal aortic aneurysm, 6.6 cm, stable. 3. Appendicitis with possible sepsis. Awaiting General Surgery decision. 4. Acute kidney injury, much improved. Her serum creatinine is down to 1.2 mg/dL. 5. Hypokalemia with serum potassium down to 2.9. 6. Hypomagnesemia. Serum magnesium this morning of 1.4. 7. Hypophosphatemia, much improved, although her serum phosphorus is slightly up at 2.2. 8. Paroxysmal atrial fibrillation, rate controlled, not anticoagulated. 9. Chronic left bundle branch block. 10. Coronary artery disease, status post coronary artery bypass graft and percutaneous coronary intervention with stent deployment. 11. Hypertension, well controlled. 12. Hyperlipidemia. 13. Mild acute on chronic systolic congestive heart failure. 14. History of dementia with history of cerebrovascular accident. 15. Carotid artery disease. PLAN: Obviously to continue with IV fluid to replenish all her electrolytes, await the decision by the vascular surgeon regarding further management. FAUSTO BATEMAN MD DR: EDGAR/ivan JOB#: [id number] / [id number]
[2017-04-19] MEDS: hydrALAZINE 20 MG/ML VIAL. IVP PRN (19:39)
[2017-04-19] MEDS: METOPROLOL TARTRATE 5 MG/5 ML VIAL. IVP PRN (20:55)
[2017-04-19] MEDS: ATORVASTATIN CALCIUM 20 MG TABLET PO SCH (21:00)
[2017-04-20] VITALS (23 sets, daily range): BP systolic 116–166; BP diastolic 68–109
[2017-04-20] MEDS: METOPROLOL TARTRATE 5 MG/5 ML VIAL. IVP SCH ×5 (00:02→23:45)
[2017-04-20] MEDS: PIPERACILLIN/TAZO IV Push 2.25 GM VIAL. IVP SCH ×5 (00:03→23:45)
[2017-04-20] MEDS: fentaNYL PF VIAL 100 MCG/2 ML VIAL IV PRN ×7 (01:32→23:46)
[2017-04-20] MEDS: AMINO AC 3%/ELECTROLYTE/GLYCER 1,000 ML IV SCH ×2 (02:58→16:06)
[2017-04-20] MEDS: POTASSIUM CL 20MEQ D5-0.45NACL 1,000 ML IV SCH ×2 (03:00→10:32)
[2017-04-20] MEDS: hydrALAZINE 20 MG/ML VIAL. IVP PRN ×2 (05:21→15:48)
[2017-04-20] MEDS: METOCLOPRAMIDE HCL 10 MG/2 ML VIAL. IV SCH ×4 (05:58→18:00)
[2017-04-20 06:13] LABS: ALBUMIN 2.5 g/dL (3.4-5.0); ALBUMIN/GLOBULIN RATIO 0.6 (1.0-1.7); CALCIUM 9.2 mg/dL (8.5-10.1); GFR 64.4; PHOSPHORUS 2.2 mg/dL (2.6-4.7); POTASSIUM 3.8 mmol/L (3.5-5.1)
[2017-04-20 06:39] LABS: HEMATOCRIT 31.4 % (36.0-47.0); HEMOGLOBIN 10.1 g/dL (12.0-15.5); RED BLOOD COUNT 3.19 x10^6/uL (3.50-5.40); RED CELL DISTRIBUTION WIDTH 14.3 % (11.5-14.5); WHITE BLOOD COUNT 14.1 x10^3/uL (4.0-11.0)
[2017-04-20] MEDS: IPRATRPIUM/ALBUTEROL 0.5/2.5MG 3 ML NEBU. NEB SCH ×4 (08:23→20:03)
--- NOTE | 2017-04-20 08:50 | RAD ---
AP chest radiograph 04/20/2017 Clinical indication: Respiratory failure. Comparison: Chest radiograph 04/19/2017 Findings: Right IJ central venous catheter in similar position. Prior median sternotomy and CABG. Persistent cardiomegaly, pulmonary venous congestion and diffuse interstitial opacities. There are stable small bilateral pleural effusions. Patchy consolidation in the left lung base is similar. No pneumothorax Impression: 1. Persistent findings of CHF and/or volume overload with cardiomegaly, pulmonary edema and small bilateral pleural effusions. 2. Stable patchy left lung base consolidation.
--- NOTE | 2017-04-20 08:54 | PDOC ---
SURGICAL PROGRESS NOTE Subjective Pt asleep but awakens, denies abd pain Vital Signs Vital Signs Date Time Temp Pulse Resp B/P (MAP) Pulse Ox O2 Delivery O2 Flow Rate FiO2 04/20/17 08:00 Nasal Cannula 3.0 04/20/17 08:00 98.2 78 19 163/98 (119) 96 98.2 I&O Intake and Output 04/20/17 07:00 Intake Total 1793 ml Output Total 2211 ml Balance -418 ml Intake IV Total 1793 ml Output Urine Total 2210 ml Stool Total 1 ml # Bowel Movements 3 General: Alert, Cooperative, No acute distress Abdomen: Soft, No tenderness Labs Laboratory Tests Test 04/18/17 10:45 04/18/17 18:00 04/19/17 04:55 04/19/17 05:45 O2 Saturation 97 % (92-99) Arterial Blood pH 7.45 (7.35-7.45) Arterial Blood pCO2 at Patient Temp 33 mmHg (35-46) Arterial Blood pO2 at Patient Temp 89 mmHg (65-108) Arterial Blood HCO3 22 mmol/L (21-28) Arterial Blood Base Excess -1 mmol/L (-3-3) FiO2 45 Clostridium difficile Toxin (PCR) Negative (Negative) White Blood Count 13.7 x10^3/uL (4.0-11.0) Red Blood Count 2.99 x10^6/uL (3.50-5.40) Hemoglobin 9.6 g/dL (12.0-15.5) Hematocrit 29.6 % (36.0-47.0) Mean Corpuscular Volume 99 fL (79-100) Mean Corpuscular Hemoglobin 32 pg (25-35) Mean Corpuscular Hemoglobin Concent 33 g/dL (31-37) Red Cell Distribution Width 14.1 % (11.5-14.5) Platelet Count 172 x10^3/uL (140-400) Sodium Level 142 mmol/L (136-145) Potassium Level 2.9 mmol/L (3.5-5.1) Chloride Level 105 mmol/L (98-107) Carbon Dioxide Level 29 mmol/L (21-32) Anion Gap 8 (6-14) Blood Urea Nitrogen 13 mg/dL (7-20) Creatinine 1.2 mg/dL (0.6-1.0) Estimated GFR (Cockcroft-Gault) 52.2 Glucose Level 156 mg/dL (70-99) Calcium Level 8.7 mg/dL (8.5-10.1) Phosphorus Level 2.2 mg/dL (2.6-4.7) Magnesium Level 1.4 mg/dL (1.8-2.4) Albumin 2.3 g/dL (3.4-5.0) Test 04/19/17 08:35 04/20/17 05:40 O2 Saturation 98 % (92-99) Arterial Blood pH 7.45 (7.35-7.45) Arterial Blood pCO2 at Patient Temp 37 mmHg (35-46) Arterial Blood pO2 at Patient Temp 108 mmHg (65-108) Arterial Blood HCO3 25 mmol/L (21-28) Arterial Blood Base Excess 1 mmol/L (-3-3) FiO2 40 White Blood Count 14.1 x10^3/uL (4.0-11.0) Red Blood Count 3.19 x10^6/uL (3.50-5.40) Hemoglobin 10.1 g/dL (12.0-15.5) Hematocrit 31.4 % (36.0-47.0) Mean Corpuscular Volume 99 fL (79-100) Mean Corpuscular Hemoglobin 32 pg (25-35) Mean Corpuscular Hemoglobin Concent 32 g/dL (31-37) Red Cell Distribution Width 14.3 % (11.5-14.5) Platelet Count 227 x10^3/uL (140-400) Sodium Level 139 mmol/L (136-145) Potassium Level 3.8 mmol/L (3.5-5.1) Chloride Level 102 mmol/L (98-107) Carbon Dioxide Level 29 mmol/L (21-32) Anion Gap 8 (6-14) Blood Urea Nitrogen 14 mg/dL (7-20) Creatinine 1.0 mg/dL (0.6-1.0) Estimated GFR (Cockcroft-Gault) 64.4 BUN/Creatinine Ratio 14 (6-20) Glucose Level 144 mg/dL (70-99) Calcium Level 9.2 mg/dL (8.5-10.1) Phosphorus Level 2.2 mg/dL (2.6-4.7) Magnesium Level 2.0 mg/dL (1.8-2.4) Total Bilirubin 1.0 mg/dL (0.2-1.0) Aspartate Amino Transf (AST/SGOT) 47 U/L (15-37) Alanine Aminotransferase (ALT/SGPT) 28 U/L (14-59) Alkaline Phosphatase 57 U/L (46-116) Total Protein 7.0 g/dL (6.4-8.2) Albumin 2.5 g/dL (3.4-5.0) Albumin/Globulin Ratio 0.6 (1.0-1.7) Laboratory Tests Test 04/20/17 05:40 White Blood Count 14.1 x10^3/uL (4.0-11.0) Red Blood Count 3.19 x10^6/uL (3.50-5.40) Hemoglobin 10.1 g/dL (12.0-15.5) Hematocrit 31.4 % (36.0-47.0) Mean Corpuscular Volume 99 fL (79-100) Mean Corpuscular Hemoglobin 32 pg (25-35) Mean Corpuscular Hemoglobin Concent 32 g/dL (31-37) Red Cell Distribution Width 14.3 % (11.5-14.5) Platelet Count 227 x10^3/uL (140-400) Sodium Level 139 mmol/L (136-145) Potassium Level 3.8 mmol/L (3.5-5.1) Chloride Level 102 mmol/L (98-107) Carbon Dioxide Level 29 mmol/L (21-32) Anion Gap 8 (6-14) Blood Urea Nitrogen 14 mg/dL (7-20) Creatinine 1.0 mg/dL (0.6-1.0) Estimated GFR (Cockcroft-Gault) 64.4 BUN/Creatinine Ratio 14 (6-20) Glucose Level 144 mg/dL (70-99) Calcium Level 9.2 mg/dL (8.5-10.1) Phosphorus Level 2.2 mg/dL (2.6-4.7) Magnesium Level 2.0 mg/dL (1.8-2.4) Total Bilirubin 1.0 mg/dL (0.2-1.0) Aspartate Amino Transf (AST/SGOT) 47 U/L (15-37) Alanine Aminotransferase (ALT/SGPT) 28 U/L (14-59) Alkaline Phosphatase 57 U/L (46-116) Total Protein 7.0 g/dL (6.4-8.2) Albumin 2.5 g/dL (3.4-5.0) Albumin/Globulin Ratio 0.6 (1.0-1.7) Problem List Problems Medical Problems: (1) Abdominal aortic aneurysm Status: Acute (2) Acute renal failure Status: Acute (3) Anemia Status: Acute (4) Enlarging abdominal aortic aneurysm Status: Acute Assessment/Plan appendicolith, multiple medical problems no current complaints of abd pain no gen surgery plans for operating Problems: TERE MEJÍA MD Apr 20, 2017 08:54
[2017-04-20] MEDS: MAGNESIUM SULFATE 4GM 100 ML IV SCH (09:00)
--- NOTE | 2017-04-20 10:40 | PDOC ---
Renal-Progress Notes Subjective Notes Notes NONE History of Present Illness Hx of present illness STABLE Vitals Vitals Vital Signs Date Time Temp Pulse Resp B/P (MAP) Pulse Ox O2 Delivery O2 Flow Rate FiO2 04/20/17 10:31 110 140/109 04/20/17 10:00 29 96 Nasal Cannula 3.0 04/20/17 08:00 98.2 98.2 Weight Weight [ ] I.O. Intake and Output Intake and Output 04/20/17 07:00 Intake Total 1793 ml Output Total 2211 ml Balance -418 ml Intake IV Total 1793 ml Output Urine Total 2210 ml Stool Total 1 ml # Bowel Movements 3 Labs Labs Laboratory Tests Test 04/20/17 05:40 White Blood Count 14.1 x10^3/uL (4.0-11.0) Red Blood Count 3.19 x10^6/uL (3.50-5.40) Hemoglobin 10.1 g/dL (12.0-15.5) Hematocrit 31.4 % (36.0-47.0) Mean Corpuscular Volume 99 fL (79-100) Mean Corpuscular Hemoglobin 32 pg (25-35) Mean Corpuscular Hemoglobin Concent 32 g/dL (31-37) Red Cell Distribution Width 14.3 % (11.5-14.5) Platelet Count 227 x10^3/uL (140-400) Sodium Level 139 mmol/L (136-145) Potassium Level 3.8 mmol/L (3.5-5.1) Chloride Level 102 mmol/L (98-107) Carbon Dioxide Level 29 mmol/L (21-32) Anion Gap 8 (6-14) Blood Urea Nitrogen 14 mg/dL (7-20) Creatinine 1.0 mg/dL (0.6-1.0) Estimated GFR (Cockcroft-Gault) 64.4 BUN/Creatinine Ratio 14 (6-20) Glucose Level 144 mg/dL (70-99) Calcium Level 9.2 mg/dL (8.5-10.1) Phosphorus Level 2.2 mg/dL (2.6-4.7) Magnesium Level 2.0 mg/dL (1.8-2.4) Total Bilirubin 1.0 mg/dL (0.2-1.0) Aspartate Amino Transf (AST/SGOT) 47 U/L (15-37) Alanine Aminotransferase (ALT/SGPT) 28 U/L (14-59) Alkaline Phosphatase 57 U/L (46-116) Total Protein 7.0 g/dL (6.4-8.2) Albumin 2.5 g/dL (3.4-5.0) Albumin/Globulin Ratio 0.6 (1.0-1.7) Micro Micro Microbiology 04/16/17 Blood Culture - Preliminary, Resulted NO GROWTH AFTER 3 DAYS Review of Systems Constitutional: yes: unresponsive Physical Exam General Appearance: no apparent distress Skin: warm Respiratory: bilateral CTA Heart: S1S2, RRR Abdomen: soft, bowel sounds present Genitourinary: bladder flat, no mass Extremities: pulses present, no edema, atrophy Neurology: alert, oriented, follow commands Assessment Assessment IMP BRUNILDA-RESOLVED PNEUMONIA CHF ANEMIA CM WITH EF OF 40% LOW K, MAG AND PO4-CORRECTED LEUCOCYTOSIS-BETTER PLAN WILL SIGN OFF PLEASE CALL IF NEEDED DEANDRE DAIGLE MD Apr 20, 2017 10:40
--- NOTE | 2017-04-20 13:06 | PDOC ---
PULMONARY PROGRESS NOTES Subjective extubated 04/18 on nasal canula was restless, received ativan, sleepy now Vitals Vital Signs Date Time Temp Pulse Resp B/P (MAP) Pulse Ox O2 Delivery O2 Flow Rate FiO2 04/20/17 12:38 95 Nasal Cannula 3.0 04/20/17 12:00 98.5 75 28 155/96 (115) 98.5 General: Lethargic Lungs: Clear Cardiovascular: S1, S2 Abdomen: Soft Extremities: No Edema Skin: Warm Labs Laboratory Tests Test 04/18/17 18:00 04/19/17 04:55 04/19/17 05:45 04/19/17 08:35 Clostridium difficile Toxin (PCR) Negative (Negative) White Blood Count 13.7 x10^3/uL (4.0-11.0) Red Blood Count 2.99 x10^6/uL (3.50-5.40) Hemoglobin 9.6 g/dL (12.0-15.5) Hematocrit 29.6 % (36.0-47.0) Mean Corpuscular Volume 99 fL (79-100) Mean Corpuscular Hemoglobin 32 pg (25-35) Mean Corpuscular Hemoglobin Concent 33 g/dL (31-37) Red Cell Distribution Width 14.1 % (11.5-14.5) Platelet Count 172 x10^3/uL (140-400) Sodium Level 142 mmol/L (136-145) Potassium Level 2.9 mmol/L (3.5-5.1) Chloride Level 105 mmol/L (98-107) Carbon Dioxide Level 29 mmol/L (21-32) Anion Gap 8 (6-14) Blood Urea Nitrogen 13 mg/dL (7-20) Creatinine 1.2 mg/dL (0.6-1.0) Estimated GFR (Cockcroft-Gault) 52.2 Glucose Level 156 mg/dL (70-99) Calcium Level 8.7 mg/dL (8.5-10.1) Phosphorus Level 2.2 mg/dL (2.6-4.7) Magnesium Level 1.4 mg/dL (1.8-2.4) Albumin 2.3 g/dL (3.4-5.0) O2 Saturation 98 % (92-99) Arterial Blood pH 7.45 (7.35-7.45) Arterial Blood pCO2 at Patient Temp 37 mmHg (35-46) Arterial Blood pO2 at Patient Temp 108 mmHg (65-108) Arterial Blood HCO3 25 mmol/L (21-28) Arterial Blood Base Excess 1 mmol/L (-3-3) FiO2 40 Test 04/20/17 05:40 White Blood Count 14.1 x10^3/uL (4.0-11.0) Red Blood Count 3.19 x10^6/uL (3.50-5.40) Hemoglobin 10.1 g/dL (12.0-15.5) Hematocrit 31.4 % (36.0-47.0) Mean Corpuscular Volume 99 fL (79-100) Mean Corpuscular Hemoglobin 32 pg (25-35) Mean Corpuscular Hemoglobin Concent 32 g/dL (31-37) Red Cell Distribution Width 14.3 % (11.5-14.5) Platelet Count 227 x10^3/uL (140-400) Sodium Level 139 mmol/L (136-145) Potassium Level 3.8 mmol/L (3.5-5.1) Chloride Level 102 mmol/L (98-107) Carbon Dioxide Level 29 mmol/L (21-32) Anion Gap 8 (6-14) Blood Urea Nitrogen 14 mg/dL (7-20) Creatinine 1.0 mg/dL (0.6-1.0) Estimated GFR (Cockcroft-Gault) 64.4 BUN/Creatinine Ratio 14 (6-20) Glucose Level 144 mg/dL (70-99) Calcium Level 9.2 mg/dL (8.5-10.1) Phosphorus Level 2.2 mg/dL (2.6-4.7) Magnesium Level 2.0 mg/dL (1.8-2.4) Total Bilirubin 1.0 mg/dL (0.2-1.0) Aspartate Amino Transf (AST/SGOT) 47 U/L (15-37) Alanine Aminotransferase (ALT/SGPT) 28 U/L (14-59) Alkaline Phosphatase 57 U/L (46-116) Total Protein 7.0 g/dL (6.4-8.2) Albumin 2.5 g/dL (3.4-5.0) Albumin/Globulin Ratio 0.6 (1.0-1.7) Laboratory Tests Test 04/20/17 05:40 White Blood Count 14.1 x10^3/uL (4.0-11.0) Red Blood Count 3.19 x10^6/uL (3.50-5.40) Hemoglobin 10.1 g/dL (12.0-15.5) Hematocrit 31.4 % (36.0-47.0) Mean Corpuscular Volume 99 fL (79-100) Mean Corpuscular Hemoglobin 32 pg (25-35) Mean Corpuscular Hemoglobin Concent 32 g/dL (31-37) Red Cell Distribution Width 14.3 % (11.5-14.5) Platelet Count 227 x10^3/uL (140-400) Sodium Level 139 mmol/L (136-145) Potassium Level 3.8 mmol/L (3.5-5.1) Chloride Level 102 mmol/L (98-107) Carbon Dioxide Level 29 mmol/L (21-32) Anion Gap 8 (6-14) Blood Urea Nitrogen 14 mg/dL (7-20) Creatinine 1.0 mg/dL (0.6-1.0) Estimated GFR (Cockcroft-Gault) 64.4 BUN/Creatinine Ratio 14 (6-20) Glucose Level 144 mg/dL (70-99) Calcium Level 9.2 mg/dL (8.5-10.1) Phosphorus Level 2.2 mg/dL (2.6-4.7) Magnesium Level 2.0 mg/dL (1.8-2.4) Total Bilirubin 1.0 mg/dL (0.2-1.0) Aspartate Amino Transf (AST/SGOT) 47 U/L (15-37) Alanine Aminotransferase (ALT/SGPT) 28 U/L (14-59) Alkaline Phosphatase 57 U/L (46-116) Total Protein 7.0 g/dL (6.4-8.2) Albumin 2.5 g/dL (3.4-5.0) Albumin/Globulin Ratio 0.6 (1.0-1.7) Medications Active Scripts Medications Dose Route/Sig Max Daily Dose Days Date Category Gabapentin 300 Mg Capsule 300 Mg PO QHS 04/14/17 Reported Famotidine 20 Mg Tablet 20 Mg PO HS 04/14/17 Reported Hydralazine Hcl 25 Mg Tablet 1 Tab PO TID 04/14/17 Reported Tylenol (Acetaminophen) 325 Mg Tablet 1-2 Tab PO TID 04/14/17 Reported Ranexa (Ranolazine) 500 Mg Tab.er.12h 1 Tab PO BID 04/14/17 Reported Aggrenox 25 Mg-200 Mg Capsule (Aspirin/Dipyridamole) 1 Each Cpmp.12hr 1 Cap PO BID 04/14/17 Reported Milk Of Magnesia (Magnesium Hydroxide) 400 Mg/5 Ml Oral.susp 30 Ml PO PRN PRN 04/14/17 Reported Loperamide (Loperamide Hcl) 2 Mg Capsule 4 Mg PO PRN PRN 04/14/17 Reported Baclofen 10 Mg Tablet 0.5 Tab PO PRN QHS PRN 04/14/17 Reported Anti-Diarrheal (Loperamide Hcl) 2 Mg Capsule 2 Mg PO PRN 04/14/17 Reported Sertraline Hcl 50 Mg Tablet 50 Mg PO DAILY 04/14/17 Reported Oxybutynin Chloride Er (Oxybutynin Chloride) 5 Mg Tab.er.24 1 Tab PO DAILY 04/14/17 Reported Metoprolol Succinate ( Xl ) (Metoprolol Succinate) 25 Mg Tab.er.24h 1 Tab PO DAILY 04/14/17 Reported Lisinopril 20 Mg Tablet 1 Tab PO DAILY 04/14/17 Reported Levothyroxine Sodium 100 Mcg Tablet 1 Tab PO DAILY 04/14/17 Reported Isosorbide Mononitrate Er (Isosorbide Mononitrate) 60 Mg Tab.er.24h 1 Tab PO DAILY 04/14/17 Reported Furosemide 40 Mg Tablet 1 Tab PO DAILY 04/14/17 Reported Zetia (Ezetimibe) 10 Mg Tablet 1 Tab PO DAILY 04/14/17 Reported Chlorthalidone 25 Mg Tablet 1 Tab PO DAILY 04/14/17 Reported Comments IMPRESSION: mild CHF Impression . 1. Acute respiratory failure, present upon admission, multifactorial/acute CHF and pneumonia, extubated 2. Metabolic acidosis, suspect secondary to possible infection. 3. Abdominal pain. CT revealing abdominal aortic aneurysm and possible appendicitis. 4. Possible appendicitis. 5. Sepsis, present upon admission. Lactic acidosis improved 6. Atrial flutter. 7. Coronary artery disease. 8. Cerebrovascular accident. 9. Hypertension. 10. Cardiomyopathy 40% Plan . 1. Doing better on canula 2. Empiric antibiotics. 3. Follow Cardiology and Cardiovascular input. 4. Nasal canula 5. Nephrology rec 6. f/u CXR as needed 7. Diuresis 8. LTAC soon SUNITA JASON MD Apr 20, 2017 13:06
[2017-04-20] MEDS ORDERED: IOHEXOL 300 MG/ML 100ML VIAL. IV ONE (13:15)
--- NOTE | 2017-04-20 13:58 | RAD ---
CTA abdomen and pelvis with contrast 04/20/2017 Clinical indication: AAA. Comparison: Noncontrast CT abdomen and pelvis 04/14/2017, CTA abdomen and pelvis 08/03/2010 Technique: Multiple CTA images of the abdomen and pelvis were obtained following the intravenous administration of 75 mL Omnipaque 300. MIPS were obtained of the abdomen and pelvis. PQRS Compliance Statement: One or more of the following individualized dose reduction techniques were utilized for this examination: 1. Automated exposure control 2. Adjustment of the mA and/or kV according to patient size 3. Use of iterative reconstruction technique Findings: Examination is limited due to repetitive motion. There is moderate generalized Mildred with dense mitral annular calcifications. Prior median sternotomy and CABG. Small bilateral pleural effusions and adjacent consolidation. Vascular findings: There is no segment change in overall size of infrarenal abdominal aortic fusiform aneurysm extending from the level just below the main renal arteries to just above the aortic bifurcation measuring up to 6.6 cm TV series 3/image 86. There is marked mural thrombus throughout the aneurysm with peripheral calcified atheromatous disease. There is mixed atheromatous disease at the origin of the celiac artery which remains patent. Origin of the Spear mesenteric artery is patent. The origin of the main bilateral renal arteries are patent. Inferior mesenteric artery is opacified. Normal caliber bilateral common iliac arteries with scattered atheromatous disease, patent. There are scattered mixed atheromatous disease throughout the bilateral internal and external iliac arteries, remain patent. Nonvascular structures: Limited evaluation due to phase of contrast timing. Liver, spleen, pancreas and kidneys are grossly unremarkable. There is mild low-attenuation thickening of the left adrenal gland, likely due to benign adenomas change or adrenal hyperplasia. Right adrenal gland is grossly unremarkable. No bowel obstruction. Mild distal colonic diverticulosis without evidence of diverticulitis. No abdominal free fluid. There is an intraluminal urinary bladder Grimes catheter with nondependent intraluminal gas, likely due to catheterization. There is a right lateral urinary bladder wall diverticulum. Grade 1 anterolisthesis L4 on L5. Impression: 1. Stable size of infrarenal abdominal aortic aneurysm measuring up to 6.6 cm compared to 04/14/2017 examination, however significantly increased from the 2010 examination. 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 2. 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 3. Cardiomegaly. 4. Small bilateral pleural effusions and adjacent consolidation which may represent atelectasis or pneumonia.
[2017-04-20] MEDS: ATORVASTATIN CALCIUM 20 MG TABLET PO SCH (21:00)
[2017-04-20] MEDS: METOPROLOL TARTRATE 5 MG/5 ML VIAL. IVP PRN (21:39)
[2017-04-21] VITALS (24 sets, daily range): BP systolic 105–188; BP diastolic 73–110
--- NOTE | 2017-04-21 03:09 | PN ---
DATE: 04/20/2017 SUBJECTIVE: The patient is resting slightly propped up in bed, in no apparent respiratory distress. She is sleepy, but arousable. On questioning her, she denied any complaints in particular denied any chest pain or shortness of breath, denied any abdominal pain or back pain. PHYSICAL EXAMINATION: GENERAL: When I examined her, she was pale. No jaundice, cyanosis or thyromegaly. No jugular venous distention. No limb edema. VITAL SIGNS: Her heart rate was 81, blood pressure was 144/86, temperature was 98.2, respiratory rate was 30 and oxygen saturation was 97% on 3 liters of oxygen by nasal cannula. HEART: Showed regular first heart sound and normal second heart sound with no gallop, rub or murmur. CHEST: Clear to auscultation. No crepitation or rhonchi. ABDOMEN: Distended, soft and nontender. No guarding or rigidity. No organomegaly. Hernial orifices are intact. Bowel sounds normal. NEUROLOGIC: She was very lethargic, but arousable. All cranial nerves are intact. She moves extremities without difficulty, although she is mostly bedbound. Her intake over the last 24-hour, intake was 1800 and output was 2200. LABORATORY DATA: Her lab work this morning showed a white cell count of 14,000, hemoglobin 10, hematocrit 31, MCV 99 and platelet count of 227,000. Her serum sodium was 139, potassium 3.8, chloride 102, bicarbonate 29, anion gap of 8, BUN 14, creatinine 1, estimated GFR was 64 mL per minute, her glucose 144, calcium 9.2, phosphorus 2.2, magnesium 2. Total bilirubin, AST, ALT and alkaline phosphatase were normal. Total protein was 7 and albumin 2.5. Her blood gases showed a pH of 7.45, pCO2 of 37, pO2 108 and oxygen saturation was 98 on FiO2 40%. ASSESSMENT: 1. Acute hypoxic respiratory failure, resolved. She is now on 3 liters of oxygen. 2. Abdominal aortic aneurysm that is 6.6 cm, stable. 3. Cseif-ir-bbwsweb renal failure, resolved. Her creatinine came down from 4 to 1. 4. Congestive heart failure, ejection fraction of 40%. 5. Sepsis, likely due to acute appendicitis, for which she is on Zosyn and surgical team are not planning to do any surgery. 6. Lactic acidosis, the cause of which is not clear for me. So far all her blood cultures are negative. 7. Hypomagnesemia, hypophosphatemia and hypokalemia, all resolved. PLAN: The patient is extubated. She is now on 3 liters of oxygen. Her kidney function has returned back to normal. We need to consult Cardiology. Cardiology team, if they cleared her for surgery then we will proceed with surgery as per the vascular surgeon. FAUSTO BATEMAN MD DR: EDGAR/ivan JOB#: [id number] / [id number]
[2017-04-21] MEDS: AMINO AC 3%/ELECTROLYTE/GLYCER 1,000 ML IV SCH ×2 (03:54→17:30)
[2017-04-21] MEDS: fentaNYL PF VIAL 100 MCG/2 ML VIAL IV PRN ×4 (04:30→21:44)
[2017-04-21] MEDS: hydrALAZINE 20 MG/ML VIAL. IVP PRN (04:30)
[2017-04-21] MEDS: METOCLOPRAMIDE HCL 10 MG/2 ML VIAL. IV SCH ×5 (06:00→23:52)
[2017-04-21] MEDS: METOPROLOL TARTRATE 5 MG/5 ML VIAL. IVP SCH ×4 (06:03→23:52)
[2017-04-21] MEDS: PIPERACILLIN/TAZO IV Push 2.25 GM VIAL. IVP SCH ×2 (06:04→12:31)
[2017-04-21 06:21] LABS: HEMATOCRIT 32.8 % (36.0-47.0); HEMOGLOBIN 10.7 g/dL (12.0-15.5); RED BLOOD COUNT 3.34 x10^6/uL (3.50-5.40); RED CELL DISTRIBUTION WIDTH 14.3 % (11.5-14.5); WHITE BLOOD COUNT 17.6 x10^3/uL (4.0-11.0)
[2017-04-21 06:32] LABS: INR 1.3 (0.8-1.1); PROTHROMBIN TIME PATIENT 15.7 SEC (11.7-14.0)
[2017-04-21 06:37] LABS: ALBUMIN 2.4 g/dL (3.4-5.0); ALBUMIN/GLOBULIN RATIO 0.5 (1.0-1.7); CALCIUM 10.2 mg/dL (8.5-10.1); GFR 64.4; MAGNESIUM 1.8 mg/dL (1.8-2.4); PHOSPHORUS 1.3 mg/dL (2.6-4.7); POTASSIUM 3.5 mmol/L (3.5-5.1); TOTAL BILIRUBIN 0.8 mg/dL (0.2-1.0); TOTAL PROTEIN 7.2 g/dL (6.4-8.2)
--- NOTE | 2017-04-21 08:19 | RAD ---
Chest radiograph single view 04/21/2017 Clinical indication: Respiratory failure. Comparison: 04/20/2017 Findings: Right IJ central venous catheter in similar position. Prior median sternotomy and CABG. Unchanged cardiomegaly, pulmonary venous congestion and interstitial opacities. There are small bilateral pleural effusions and adjacent patchy opacities. Impression: 1. Stable examination with findings of CHF or volume overload with cardiomegaly and pulmonary edema. 2. Small bilateral pleural effusions. 3. Patchy bibasilar opacities which may represent atelectasis, aspiration or multifocal infection.
[2017-04-21] MEDS: IPRATRPIUM/ALBUTEROL 0.5/2.5MG 3 ML NEBU. NEB SCH ×4 (08:42→20:41)
[2017-04-21] MEDS: MAGNESIUM SULFATE 4GM 100 ML IV SCH (09:00)
--- NOTE | 2017-04-21 11:09 | PDOC ---
PULMONARY PROGRESS NOTES Subjective extubated 04/18 on nasal canula confused /received ativan, sleepy now Vitals Vital Signs Date Time Temp Pulse Resp B/P (MAP) Pulse Ox O2 Delivery O2 Flow Rate FiO2 04/21/17 08:43 98 Nasal Cannula 3.0 04/21/17 07:00 98.2 107 24 127/86 (100) 98.2 General: Lethargic Lungs: Clear Cardiovascular: S1, S2 Abdomen: Soft Extremities: No Edema Skin: Warm Labs Laboratory Tests Test 04/20/17 05:40 04/21/17 06:00 White Blood Count 14.1 x10^3/uL (4.0-11.0) 17.6 x10^3/uL (4.0-11.0) Red Blood Count 3.19 x10^6/uL (3.50-5.40) 3.34 x10^6/uL (3.50-5.40) Hemoglobin 10.1 g/dL (12.0-15.5) 10.7 g/dL (12.0-15.5) Hematocrit 31.4 % (36.0-47.0) 32.8 % (36.0-47.0) Mean Corpuscular Volume 99 fL (79-100) 98 fL (79-100) Mean Corpuscular Hemoglobin 32 pg (25-35) 32 pg (25-35) Mean Corpuscular Hemoglobin Concent 32 g/dL (31-37) 33 g/dL (31-37) Red Cell Distribution Width 14.3 % (11.5-14.5) 14.3 % (11.5-14.5) Platelet Count 227 x10^3/uL (140-400) 290 x10^3/uL (140-400) Sodium Level 139 mmol/L (136-145) 137 mmol/L (136-145) Potassium Level 3.8 mmol/L (3.5-5.1) 3.5 mmol/L (3.5-5.1) Chloride Level 102 mmol/L (98-107) 99 mmol/L (98-107) Carbon Dioxide Level 29 mmol/L (21-32) 28 mmol/L (21-32) Anion Gap 8 (6-14) 10 (6-14) Blood Urea Nitrogen 14 mg/dL (7-20) 17 mg/dL (7-20) Creatinine 1.0 mg/dL (0.6-1.0) 1.0 mg/dL (0.6-1.0) Estimated GFR (Cockcroft-Gault) 64.4 64.4 BUN/Creatinine Ratio 14 (6-20) 17 (6-20) Glucose Level 144 mg/dL (70-99) 165 mg/dL (70-99) Calcium Level 9.2 mg/dL (8.5-10.1) 10.2 mg/dL (8.5-10.1) Phosphorus Level 2.2 mg/dL (2.6-4.7) 1.3 mg/dL (2.6-4.7) Magnesium Level 2.0 mg/dL (1.8-2.4) 1.8 mg/dL (1.8-2.4) Total Bilirubin 1.0 mg/dL (0.2-1.0) 0.8 mg/dL (0.2-1.0) Aspartate Amino Transf (AST/SGOT) 47 U/L (15-37) 39 U/L (15-37) Alanine Aminotransferase (ALT/SGPT) 28 U/L (14-59) 29 U/L (14-59) Alkaline Phosphatase 57 U/L (46-116) 53 U/L (46-116) Total Protein 7.0 g/dL (6.4-8.2) 7.2 g/dL (6.4-8.2) Albumin 2.5 g/dL (3.4-5.0) 2.4 g/dL (3.4-5.0) Albumin/Globulin Ratio 0.6 (1.0-1.7) 0.5 (1.0-1.7) Prothrombin Time 15.7 SEC (11.7-14.0) Prothromb Time International Ratio 1.3 (0.8-1.1) Activated Partial Thromboplast Time 33 SEC (24-38) Laboratory Tests Test 04/21/17 06:00 White Blood Count 17.6 x10^3/uL (4.0-11.0) Red Blood Count 3.34 x10^6/uL (3.50-5.40) Hemoglobin 10.7 g/dL (12.0-15.5) Hematocrit 32.8 % (36.0-47.0) Mean Corpuscular Volume 98 fL (79-100) Mean Corpuscular Hemoglobin 32 pg (25-35) Mean Corpuscular Hemoglobin Concent 33 g/dL (31-37) Red Cell Distribution Width 14.3 % (11.5-14.5) Platelet Count 290 x10^3/uL (140-400) Prothrombin Time 15.7 SEC (11.7-14.0) Prothromb Time International Ratio 1.3 (0.8-1.1) Activated Partial Thromboplast Time 33 SEC (24-38) Sodium Level 137 mmol/L (136-145) Potassium Level 3.5 mmol/L (3.5-5.1) Chloride Level 99 mmol/L (98-107) Carbon Dioxide Level 28 mmol/L (21-32) Anion Gap 10 (6-14) Blood Urea Nitrogen 17 mg/dL (7-20) Creatinine 1.0 mg/dL (0.6-1.0) Estimated GFR (Cockcroft-Gault) 64.4 BUN/Creatinine Ratio 17 (6-20) Glucose Level 165 mg/dL (70-99) Calcium Level 10.2 mg/dL (8.5-10.1) Phosphorus Level 1.3 mg/dL (2.6-4.7) Magnesium Level 1.8 mg/dL (1.8-2.4) Total Bilirubin 0.8 mg/dL (0.2-1.0) Aspartate Amino Transf (AST/SGOT) 39 U/L (15-37) Alanine Aminotransferase (ALT/SGPT) 29 U/L (14-59) Alkaline Phosphatase 53 U/L (46-116) Total Protein 7.2 g/dL (6.4-8.2) Albumin 2.4 g/dL (3.4-5.0) Albumin/Globulin Ratio 0.5 (1.0-1.7) Medications Active Scripts Medications Dose Route/Sig Max Daily Dose Days Date Category Gabapentin 300 Mg Capsule 300 Mg PO QHS 04/14/17 Reported Famotidine 20 Mg Tablet 20 Mg PO HS 04/14/17 Reported Hydralazine Hcl 25 Mg Tablet 1 Tab PO TID 04/14/17 Reported Tylenol (Acetaminophen) 325 Mg Tablet 1-2 Tab PO TID 04/14/17 Reported Ranexa (Ranolazine) 500 Mg Tab.er.12h 1 Tab PO BID 04/14/17 Reported Aggrenox 25 Mg-200 Mg Capsule (Aspirin/Dipyridamole) 1 Each Cpmp.12hr 1 Cap PO BID 04/14/17 Reported Milk Of Magnesia (Magnesium Hydroxide) 400 Mg/5 Ml Oral.susp 30 Ml PO PRN PRN 04/14/17 Reported Loperamide (Loperamide Hcl) 2 Mg Capsule 4 Mg PO PRN PRN 04/14/17 Reported Baclofen 10 Mg Tablet 0.5 Tab PO PRN QHS PRN 04/14/17 Reported Anti-Diarrheal (Loperamide Hcl) 2 Mg Capsule 2 Mg PO PRN 04/14/17 Reported Sertraline Hcl 50 Mg Tablet 50 Mg PO DAILY 04/14/17 Reported Oxybutynin Chloride Er (Oxybutynin Chloride) 5 Mg Tab.er.24 1 Tab PO DAILY 04/14/17 Reported Metoprolol Succinate ( Xl ) (Metoprolol Succinate) 25 Mg Tab.er.24h 1 Tab PO DAILY 04/14/17 Reported Lisinopril 20 Mg Tablet 1 Tab PO DAILY 04/14/17 Reported Levothyroxine Sodium 100 Mcg Tablet 1 Tab PO DAILY 04/14/17 Reported Isosorbide Mononitrate Er (Isosorbide Mononitrate) 60 Mg Tab.er.24h 1 Tab PO DAILY 04/14/17 Reported Furosemide 40 Mg Tablet 1 Tab PO DAILY 04/14/17 Reported Zetia (Ezetimibe) 10 Mg Tablet 1 Tab PO DAILY 04/14/17 Reported Chlorthalidone 25 Mg Tablet 1 Tab PO DAILY 04/14/17 Reported Comments IMPRESSION: mild CHF 04/21 CTA/ small basal effusions/ atelectasis Impression . 1. Acute respiratory failure, present upon admission, multifactorial/acute CHF and pneumonia, extubated 2. Metabolic acidosis, suspect secondary to possible infection. 3. Abdominal pain. CT revealing abdominal aortic aneurysm 6.6 cm and possible appendicitis. 4. Possible appendicitis. 5. Sepsis, present upon admission. Lactic acidosis improved 6. Atrial flutter. 7. Coronary artery disease. 8. Cerebrovascular accident. 9. Hypertension. 10. 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 1. dc ativan, use prn haldol 2. Empiric antibiotics.ID consulted. no new infiltrates on CXR/ CTA 3. Follow Cardiology and Cardiovascular input. 4. Nasal canula 5. Nephrology rec 6. f/u CXR as needed 7. Diuresis 8. Once mental status improves, then will clear for AAA surgery SUNITA JASON MD Apr 21, 2017 11:09
--- NOTE | 2017-04-21 11:19 | PDOC ---
PROGRESS NOTES Subjective Subjective Lethargic, but awake Objective Objective Vital Signs Date Time Temp Pulse Resp B/P (MAP) Pulse Ox O2 Delivery O2 Flow Rate FiO2 04/21/17 08:43 98 Nasal Cannula 3.0 04/21/17 07:00 98.2 107 24 127/86 (100) 98.2 Intake and Output 04/21/17 07:00 Intake Total 1935 ml Output Total 2510 ml Balance -575 ml Intake IV Total 1935 ml Output Urine Total 2510 ml Physical Exam Abdomen: Normal bowel sounds, Soft, No tenderness Heart: Other (palpable DP bilaterally) General: Alert Lungs: Clear to auscultation, Other (diminished in bases) MUSCULOSKELETAL: Other (moving all extremities) COMMENT CTA Impression: 1. Stable size of infrarenal abdominal aortic aneurysm measuring up to 6.6 cm compared to 04/14/2017 examination, however significantly increased from the 2010 examination. 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 2. 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 3. Cardiomegaly. 4. Small bilateral pleural effusions and adjacent consolidation which may represent atelectasis or pneumonia. Chest X-ray Impression: 1. Stable examination with findings of CHF or volume overload with cardiomegaly and pulmonary edema. 2. Small bilateral pleural effusions. 3. Patchy bibasilar opacities which may represent atelectasis, aspiration or multifocal infection. Assessment Assessment Problems Medical Problems: 1. Infrarenal Abdominal Aortic Aneurysm 6.6cm, stable with no evidence of leaking or rupture. Will review CTA for evaluation for endovascular versus open repair. 2. Acute hypoxic respiratory failure, intubated, extubated , Chest X- ray demonstrates pulmonary edema, small bilateral pleural effusions, patchy bibasilar opacities which may represent atelectasis, aspiration or multifocal infection. 2. CHF, hx CAD, Pending Cardiology evaluation for surgical cardiac clearance according to nurse a Cardiac Cath is planned for today. 3. Acute on Chronic renal failure, resolved, Cr. 1.0 4. Sepsis, Leukocytosis. Plan Plan of Care CTA report and films will be evaluated by Vascular Surgeon to determine is she is a candidate for endovascular repair versus open repair in order to facilitate timing of the repair. In addition she continues to have an elevated WBC, she would need to be free of any infectious process before placing a synthetic graft. After discussion with nurse it appears at present the patient is not oriented enough to make a decision regarding proceeding with AAA repair, will likely need discussion with family prior to proceeding. Comment Review of Relevant I have reviewed the following items ari (where applicable) has been applied. Labs Laboratory Tests Test 04/20/17 05:40 04/21/17 06:00 White Blood Count 14.1 x10^3/uL (4.0-11.0) 17.6 x10^3/uL (4.0-11.0) Red Blood Count 3.19 x10^6/uL (3.50-5.40) 3.34 x10^6/uL (3.50-5.40) Hemoglobin 10.1 g/dL (12.0-15.5) 10.7 g/dL (12.0-15.5) Hematocrit 31.4 % (36.0-47.0) 32.8 % (36.0-47.0) Mean Corpuscular Volume 99 fL (79-100) 98 fL (79-100) Mean Corpuscular Hemoglobin 32 pg (25-35) 32 pg (25-35) Mean Corpuscular Hemoglobin Concent 32 g/dL (31-37) 33 g/dL (31-37) Red Cell Distribution Width 14.3 % (11.5-14.5) 14.3 % (11.5-14.5) Platelet Count 227 x10^3/uL (140-400) 290 x10^3/uL (140-400) Sodium Level 139 mmol/L (136-145) 137 mmol/L (136-145) Potassium Level 3.8 mmol/L (3.5-5.1) 3.5 mmol/L (3.5-5.1) Chloride Level 102 mmol/L (98-107) 99 mmol/L (98-107) Carbon Dioxide Level 29 mmol/L (21-32) 28 mmol/L (21-32) Anion Gap 8 (6-14) 10 (6-14) Blood Urea Nitrogen 14 mg/dL (7-20) 17 mg/dL (7-20) Creatinine 1.0 mg/dL (0.6-1.0) 1.0 mg/dL (0.6-1.0) Estimated GFR (Cockcroft-Gault) 64.4 64.4 BUN/Creatinine Ratio 14 (6-20) 17 (6-20) Glucose Level 144 mg/dL (70-99) 165 mg/dL (70-99) Calcium Level 9.2 mg/dL (8.5-10.1) 10.2 mg/dL (8.5-10.1) Phosphorus Level 2.2 mg/dL (2.6-4.7) 1.3 mg/dL (2.6-4.7) Magnesium Level 2.0 mg/dL (1.8-2.4) 1.8 mg/dL (1.8-2.4) Total Bilirubin 1.0 mg/dL (0.2-1.0) 0.8 mg/dL (0.2-1.0) Aspartate Amino Transf (AST/SGOT) 47 U/L (15-37) 39 U/L (15-37) Alanine Aminotransferase (ALT/SGPT) 28 U/L (14-59) 29 U/L (14-59) Alkaline Phosphatase 57 U/L (46-116) 53 U/L (46-116) Total Protein 7.0 g/dL (6.4-8.2) 7.2 g/dL (6.4-8.2) Albumin 2.5 g/dL (3.4-5.0) 2.4 g/dL (3.4-5.0) Albumin/Globulin Ratio 0.6 (1.0-1.7) 0.5 (1.0-1.7) Prothrombin Time 15.7 SEC (11.7-14.0) Prothromb Time International Ratio 1.3 (0.8-1.1) Activated Partial Thromboplast Time 33 SEC (24-38) Laboratory Tests Test 04/21/17 06:00 White Blood Count 17.6 x10^3/uL (4.0-11.0) Red Blood Count 3.34 x10^6/uL (3.50-5.40) Hemoglobin 10.7 g/dL (12.0-15.5) Hematocrit 32.8 % (36.0-47.0) Mean Corpuscular Volume 98 fL (79-100) Mean Corpuscular Hemoglobin 32 pg (25-35) Mean Corpuscular Hemoglobin Concent 33 g/dL (31-37) Red Cell Distribution Width 14.3 % (11.5-14.5) Platelet Count 290 x10^3/uL (140-400) Prothrombin Time 15.7 SEC (11.7-14.0) Prothromb Time International Ratio 1.3 (0.8-1.1) Activated Partial Thromboplast Time 33 SEC (24-38) Sodium Level 137 mmol/L (136-145) Potassium Level 3.5 mmol/L (3.5-5.1) Chloride Level 99 mmol/L (98-107) Carbon Dioxide Level 28 mmol/L (21-32) Anion Gap 10 (6-14) Blood Urea Nitrogen 17 mg/dL (7-20) Creatinine 1.0 mg/dL (0.6-1.0) Estimated GFR (Cockcroft-Gault) 64.4 BUN/Creatinine Ratio 17 (6-20) Glucose Level 165 mg/dL (70-99) Calcium Level 10.2 mg/dL (8.5-10.1) Phosphorus Level 1.3 mg/dL (2.6-4.7) Magnesium Level 1.8 mg/dL (1.8-2.4) Total Bilirubin 0.8 mg/dL (0.2-1.0) Aspartate Amino Transf (AST/SGOT) 39 U/L (15-37) Alanine Aminotransferase (ALT/SGPT) 29 U/L (14-59) Alkaline Phosphatase 53 U/L (46-116) Total Protein 7.2 g/dL (6.4-8.2) Albumin 2.4 g/dL (3.4-5.0) Albumin/Globulin Ratio 0.5 (1.0-1.7) Microbiology 04/16/17 Blood Culture - Preliminary, Resulted NO GROWTH AFTER 4 DAYS Medications Current Medications Fentanyl Citrate (Fentanyl 2ml Vial) 50 mcg PRN Q15MIN PRN IV PAIN GREATER THAN 3/10 Last administered on 04/14/17 13:50; Start 04/14/17 at 11:45; Stop 04/14/17 at 17:35; Status DC Sodium Chloride 1,000 ml @ 1,000 mls/hr Q1H IV Last administered on 04/14/17 12:28; Start 04/14/17 at 11:38; Stop 04/14/17 at 12:37; Status DC Sodium Chloride (Normal Saline Flush) 10 ml QSHIFT PRN IV AFTER MEDS AND BLOOD DRAWS; Start 04/14/17 at 11:45 Ondansetron HCl (Zofran) 4 mg 1X ONCE IV Last administered on 04/14/17 12:30 ; Start 04/14/17 at 12:15; Stop 04/14/17 at 12:16; Status DC Ondansetron HCl (Zofran) 4 mg 1X ONCE IV Last administered on 04/14/17 13:28 ; Start 04/14/17 at 13:15; Stop 04/14/17 at 13:16; Status DC Ondansetron HCl (Zofran) 4 mg PRN Q8HRS PRN IV NAUSEA/VOMITING Last administered on 04/15/17 09:37; Start 04/14/17 at 14:00; Stop 04/15/17 at 13: 59; Status DC Fentanyl Citrate (Fentanyl 2ml Vial) 25 mcg PRN Q2HR PRN IV PAIN Last administered on 04/15/17 11:44; Start 04/14/17 at 14:00; Stop 04/15/17 at 13: 59; Status DC Sodium Chloride 1,000 ml @ 125 mls/hr Q8H IV Last administered on 04/15/17 07:48; Start 04/14/17 at 13:47; Stop 04/15/17 at 13:46; Status DC Piperacillin Sod/ Tazobactam Sod 4.5 gm/Dextrose 100 ml @ 200 mls/hr 1X ONCE IV ; Start 04/14/17 at 14:15; Stop 04/14/17 at 14:44; Status UNV Piperacillin Sod/ Tazobactam Sod (Zosyn) 3.375 gm 1X ONCE IVP Last administered on 04/14/17 14:20; Start 04/14/17 at 14:15; Stop 04/14/17 at 14:16 ; Status DC Piperacillin Sod/ Tazobactam Sod 2.25 gm/Dextrose 50 ml @ 100 mls/hr Q8H IV ; Start 04/15/17 at 08:30; Status UNV Piperacillin Sod/ Tazobactam Sod (Zosyn) 2.25 gm Q8HRS IVP Last administered on 04/18/17 05:37; Start 04/15/17 at 09:00; Stop 04/18/17 at 09:57; Status DC Magnesium Sulfate/ Dextrose 50 ml @ 25 mls/hr PRN DAILY PRN IV for Mag < 1.7 on am labs; Start 04/15/17 at 09:00 Metoclopramide HCl (Reglan) 10 mg Q6HRS PRN IV NAUSEA/VOMITING; Start at 10:30; Stop 04/15/17 at 10:30; Status DC Metoclopramide HCl (Reglan Vial) 5 mg Q6HRS IV Last administered on 04/19/17 06:19; Start 04/15/17 at 11:00 Metoprolol Tartrate (Lopressor) 2.5 mg Q6HRS IVP Last administered on 13:48; Start 04/15/17 at 12:00; Stop 04/15/17 at 15:13; Status DC Promethazine HCl 12.5 mg/Dextrose 50.5 ml @ 101 mls/hr PRN Q4HRS PRN IV NAUSEA /VOMITING; Start 04/15/17 at 11:30; Stop 04/15/17 at 11:32; Status DC Promethazine HCl 12.5 mg/Sodium Chloride 50.5 ml @ 101 mls/hr PRN Q4HRS PRN IV NAUSEA/VOMITING Last administered on 04/15/17 19:01; Start 04/15/17 at 11: 45 Atorvastatin Calcium (Lipitor) 20 mg QHS PO Last administered on 04/17/17 23: 02; Start 04/15/17 at 21:00 Ondansetron HCl (Zofran) 4 mg PRN Q6HRS PRN IV NAUSEA/VOMITING Last administered on 04/15/17 15:45; Start 04/15/17 at 15:00 Fentanyl Citrate (Fentanyl 2ml Vial) 25 mcg PRN Q2HR PRN IV PAIN Last administered on 04/21/17 04:30; Start 04/15/17 at 15:00 Metoprolol Tartrate (Lopressor Vial) 5 mg Q6HRS IVP Last administered on 06:03; Start 04/15/17 at 18:00 Hydralazine HCl (Apresoline Inj) 10 mg PRN Q4HRS PRN IVP ELEVATED BP, SEE COMMENTS Last administered on 04/21/17 04:30; Start 04/15/17 at 15:15 Potassium Acetate 20 meq/Sodium Bicarbonate 75 meq/Dextrose/ Sodium Chloride 1, 085 ml @ 80 mls/hr [id number] IV Last administered on 04/16/17 05:37; Start at 16:00; Stop 04/16/17 at 16:00; Status DC Albuterol/ Ipratropium (Duoneb) 3 ml RTQID NEB Last administered on 04/21/17 08:42; Start 04/15/17 at 18:04 Furosemide (Lasix) 20 mg 1X ONCE IVP Last administered on 04/15/17 17:59; Start 04/15/17 at 17:45; Stop 04/15/17 at 17:48; Status DC Albuterol Sulfate (Ventolin Neb Soln) 2.5 mg PRN Q2HR PRN NEB SHORTNESS OF BREATH Last administered on 04/15/17 22:41; Start 04/15/17 at 22:45 Propofol 100 ml @ As Directed STK-MED ONCE IV ; Start 04/15/17 at 23:36; Stop 04/15/17 at 23:37; Status DC Succinylcholine Chloride (Anectine) 200 mg STK-MED ONCE .ROUTE ; Start at 23:37; Stop 04/15/17 at 23:38; Status DC Propofol 100 ml @ 0 mls/hr 1X ONCE IV Last administered on 04/15/17 23:37; Start 04/16/17 at 00:00; Stop 04/16/17 at 00:01; Status DC Succinylcholine Chloride (Anectine) 200 mg 1X ONCE IV Last administered on 23:38; Start 04/16/17 at 00:00; Stop 04/16/17 at 00:01; Status DC Propofol 100 ml @ 0 mls/hr CONT PRN IV SEE I/O RECORD Last administered on 03:09; Start 04/16/17 at 04:30 Magnesium Sulfate/ Dextrose 50 ml @ 25 mls/hr 1X ONCE IV Last administered on 04/16/17 11:36; Start 04/16/17 at 10:30; Stop 04/16/17 at 12:29; Status DC Sodium Chloride 1,000 ml @ 1,000 mls/hr 1X ONCE IV Last administered on 04/16 11:52; Start 04/16/17 at 12:00; Stop 04/16/17 at 12:59; Status DC Dextrose/Sodium Chloride 1,000 ml @ 125 mls/hr Q8H IV Last administered on 02:29; Start 04/16/17 at 17:00; Stop 04/17/17 at 10:27; Status DC Metoprolol Tartrate (Lopressor Vial) 5 mg PRN Q4HRS PRN IVP HYPERTENSION, SEE COMMENTS Last administered on 04/20/17 21:39; Start 04/17/17 at 10:00 Potassium Chloride/Dextrose/ Sod Cl 1,000 ml @ 125 mls/hr Q8H IV Last administered on 04/20/17 10:32; Start 04/17/17 at 11:00; Stop 04/20/17 at 19 :54; Status DC Sodium Phosphate 20 mmol/Dextrose 256.6667 ml @ 64.167 m... 1X ONCE IV Last administered on 04/17/17 10:37; Start 04/17/17 at 11:00; Stop 04/17/17 at 14 :59; Status DC Digoxin (Lanoxin) 500 mcg 1X ONCE IV Last administered on 04/17/17 10:38; Start 04/17/17 at 10:45; Stop 04/17/17 at 10:46; Status DC Acetaminophen (Tylenol) 650 mg PRN Q6HRS PRN PEG MILD PAIN / TEMP; Start 04/17 at 19:45 Fentanyl Citrate 30 ml @ 0 mls/hr CONT PRN IV PROTOCOL; Start 04/17/17 at 20: 00; Status Cancel Chlorhexidine Gluconate (Peridex) 15 ml BID SWSP ; Start 04/18/17 at 21:00; Stop 04/18/17 at 22:48; Status DC Magnesium Sulfate/ Dextrose 50 ml @ 25 mls/hr ONCE ONCE IV Last administered on 04/18/17 10:46; Start 04/18/17 at 10:00; Stop 04/18/17 at 11:59; Status DC Piperacillin Sod/ Tazobactam Sod (Zosyn) 2.25 gm Q6HRS IVP Last administered on 04/21/17 06:04; Start 04/18/17 at 12:00 Lidocaine HCl (Lta Kit) 4 ml STK-MED ONCE TP ; Start 04/15/17 at 12:00; Stop 04/18/17 at 11:01; Status DC Furosemide (Lasix) 40 mg 1X ONCE IVP Last administered on 04/18/17 12:09; Start 04/18/17 at 11:30; Stop 04/18/17 at 11:31; Status DC Potassium Phosphate 13.6 mmol/Dextrose 104.5333 ml @ 52.267 m... Q2H IV ; Start 04/18/17 at 12:00; Stop 04/18/17 at 12:00; Status DC Potassium Phosphate 13.6 mmol/Sodium Chloride 104.5333 ml @ 52.267 m... Q2H IV Last administered on 04/18/17 14:49; Start 04/18/17 at 12:00; Stop at 15:59; Status DC Lorazepam (Ativan) 0.5 mg PRN Q4HRS PRN IV ANXIETY / AGITATION Last administered on 04/21/17 04:30; Start 04/18/17 at 17:00; Stop 04/21/17 at 10 :52; Status DC Potassium Chloride/Sodium Chloride 1,000 ml @ 250 mls/hr Q4H IV ; Start at 07:00; Status UNV Potassium Chloride 10 meq/ Sodium Chloride 105 ml @ 210 mls/hr Q1HR IV Last administered on 04/19/17 18:28; Start 04/19/17 at 08:00; Stop 04/19/17 at 15 :29; Status DC Magnesium Sulfate/ Dextrose 100 ml @ 50 mls/hr DAILY IV Last administered on 04/19/17 12:29; Start 04/19/17 at 11:00; Stop 04/23/17 at 10:59 Potassium Phosphate 40 mmol/ Sodium Chloride 263.3333 ml @ 62.5 mls/hr 1X ONCE IV ; Start 04/19/17 at 10:15; Stop 04/19/17 at 14:27; Status UNV Sodium Phosphate 40 mmol/Dextrose 263.3333 ml @ 65.833 m... 1X ONCE IV Last administered on 04/19/17 12:33; Start 04/19/17 at 11:30; Stop 04/19/17 at 15 :29; Status DC Potassium Phosphate 13.6 mmol/Dextrose 104.5333 ml @ 52.267 m... Q2H IV ; Start 04/19/17 at 11:15; Stop 04/19/17 at 15:14; Status UNV Lidocaine/Sodium Bicarbonate (Buffered Lidocaine 1%) 20 ml STK-MED ONCE IJ ; Start 04/19/17 at 13:29; Stop 04/19/17 at 13:30; Status DC Lidocaine/Sodium Bicarbonate (Buffered Lidocaine 1%) 3 ml 1X ONCE IJ Last administered on 04/19/17 14:09; Start 04/19/17 at 13:30; Stop 04/19/17 at 13 :33; Status DC Amino Acids/ Glycerin/ Electrolytes 1,000 ml @ 80 mls/hr [id number] IV Last administered on 04/21/17 03:54; Start 04/19/17 at 15:30 Iohexol (Omnipaque 300 Mg/ml) 90 ml 1X ONCE IV ; Start 04/20/17 at 13:15; Stop 04/20/17 at 13:16; Status DC Haloperidol Lactate (Haldol) 5 mg PRN Q6HRS PRN IVP AGITATION; Start 04/21/17 at 11:00; Status UNV Active Scripts Active Reported Gabapentin 300 Mg Capsule 300 Mg PO QHS Famotidine 20 Mg Tablet 20 Mg PO HS Hydralazine Hcl 25 Mg Tablet 1 Tab PO TID Tylenol (Acetaminophen) 325 Mg Tablet 1-2 Tab PO TID Ranexa (Ranolazine) 500 Mg Tab.er.12h 1 Tab PO BID Aggrenox 25 Mg-200 Mg Capsule (Aspirin/Dipyridamole) 1 Each Cpmp.12hr 1 Cap PO BID Milk Of Magnesia (Magnesium Hydroxide) 400 Mg/5 Ml Oral.susp 30 Ml PO PRN PRN Loperamide (Loperamide Hcl) 2 Mg Capsule 4 Mg PO PRN PRN Baclofen 10 Mg Tablet 0.5 Tab PO PRN QHS PRN Anti-Diarrheal (Loperamide Hcl) 2 Mg Capsule 2 Mg PO PRN Sertraline Hcl 50 Mg Tablet 50 Mg PO DAILY Oxybutynin Chloride Er (Oxybutynin Chloride) 5 Mg Tab.er.24 1 Tab PO DAILY Metoprolol Succinate ( Xl ) (Metoprolol Succinate) 25 Mg Tab.er.24h 1 Tab PO DAILY Lisinopril 20 Mg Tablet 1 Tab PO DAILY Levothyroxine Sodium 100 Mcg Tablet 1 Tab PO DAILY Isosorbide Mononitrate Er (Isosorbide Mononitrate) 60 Mg Tab.er.24h 1 Tab PO DAILY Furosemide 40 Mg Tablet 1 Tab PO DAILY Zetia (Ezetimibe) 10 Mg Tablet 1 Tab PO DAILY Chlorthalidone 25 Mg Tablet 1 Tab PO DAILY Vitals/I & O Vital Sign - Last 24 Hours 04/20/17 04/20/17 04/20/17 04/20/17 11:00 12:00 12:00 12:38 Temp 98.5 98.5 Pulse 81 75 Resp 30 28 B/P (MAP) 144/86 (105) 155/96 (115) Pulse Ox 97 98 95 O2 Delivery Nasal Cannula Nasal Cannula Nasal Cannula Nasal Cannula O2 Flow Rate 3.0 3.0 3.0 3.0 04/20/17 04/20/17 04/20/17 04/20/17 13:38 13:47 14:00 15:36 Pulse 95 94 100 Resp 30 30 13 B/P (MAP) 136/85 (102) 136/91 (106) 166/97 (120) Pulse Ox 97 97 96 100 O2 Delivery Nasal Cannula Nasal Cannula Nasal Cannula Nasal Cannula O2 Flow Rate 3.0 3.0 3.0 3.0 04/20/17 04/20/17 04/20/17 04/20/17 15:48 15:59 16:00 16:29 Temp 97.6 97.6 Pulse 118 100 Resp 24 B/P (MAP) 173/97 148/74 (98) Pulse Ox 97 O2 Delivery Nasal Cannula Nasal Cannula Nasal Cannula O2 Flow Rate 3.0 3.0 3.0 04/20/17 04/20/17 04/20/17 04/20/17 17:20 17:22 17:23 18:10 Pulse 145 145 97 Resp 32 32 20 B/P (MAP) 130/91 130/91 (104) 130/91 (104) Pulse Ox 96 95 96 O2 Delivery Nasal Cannula Nasal Cannula Nasal Cannula O2 Flow Rate 3.0 3.0 3.0 04/20/17 04/20/17 04/20/17 04/20/17 19:00 19:48 20:00 20:00 Temp 98.1 98.1 Pulse 122 114 Resp 25 B/P (MAP) 148/93 (111) 147/68 (94) Pulse Ox 92 96 100 O2 Delivery Nasal Cannula Nasal Cannula Nasal Cannula Nasal Cannula O2 Flow Rate 3.0 3.0 3.0 3.0 04/20/17 04/20/17 04/20/17 04/20/17 20:05 21:00 21:39 21:42 Pulse 80 148 Resp 22 29 B/P (MAP) 146/96 (113) 146/96 Pulse Ox 97 97 96 O2 Delivery Nasal Cannula Nasal Cannula Nasal Cannula O2 Flow Rate 3.0 3.0 3.0 04/20/17 04/20/17 04/20/17 04/20/17 22:00 23:00 23:45 23:46 Pulse 93 81 90 Resp 25 B/P (MAP) 133/83 (100) 150/91 (110) 150/91 Pulse Ox 97 98 95 O2 Delivery Nasal Cannula Nasal Cannula BiPAP/CPAP O2 Flow Rate 3.0 3.0 3.0 04/20/17 04/21/17 04/21/17 04/21/17 23:59 00:00 01:00 02:00 Temp 98.3 98.3 Pulse 74 76 89 Resp 23 21 23 B/P (MAP) 153/89 (110) 146/94 (111) 151/92 (111) Pulse Ox 92 96 96 O2 Delivery Nasal Cannula Nasal Cannula Nasal Cannula Nasal Cannula O2 Flow Rate 3.0 3.0 3.0 3.0 04/21/17 04/21/17 04/21/17 04/21/17 03:00 04:00 04:00 04:30 Temp 97.9 97.9 Pulse 82 87 Resp B/P (MAP) 141/88 (105) 182/94 (123) Pulse Ox 100 97 97 O2 Delivery Nasal Cannula Nasal Cannula Nasal Cannula Nasal Cannula O2 Flow Rate 3.0 3.0 3.0 3.0 04/21/17 04/21/17 04/21/17 04/21/17 04:30 05:00 05:00 06:00 Pulse 92 132 75 Resp 30 30 24 B/P (MAP) 181/62 124/79 (94) 105/73 (84) Pulse Ox 97 97 97 O2 Delivery Nasal Cannula Nasal Cannula Nasal Cannula O2 Flow Rate 3.0 3.0 3.0 04/21/17 04/21/17 04/21/17 04/21/17 06:03 07:00 08:00 08:43 Temp 98.2 98.2 Pulse 144 107 Resp 24 B/P (MAP) 124/79 127/86 (100) Pulse Ox 97 98 O2 Delivery Nasal Cannula Nasal Cannula Nasal Cannula O2 Flow Rate 3.0 3.0 3.0 Intake and Output 04/20/17 04/20/17 04/21/17 15:00 23:00 07:00 Intake Total 936 ml 999 ml Output Total 945 ml 850 ml 715 ml Balance -945 ml 86 ml 284 ml BENJA PEDROZA APRN Apr 21, 2017 11:19
--- NOTE | 2017-04-21 11:56 | PDOC ---
SURGICAL PROGRESS NOTE Subjective Pt awake and alert, but nursing noted some confusion, pt denies abd pain Vital Signs Vital Signs Date Time Temp Pulse Resp B/P (MAP) Pulse Ox O2 Delivery O2 Flow Rate FiO2 04/21/17 11:33 96 Nasal Cannula 3.0 04/21/17 07:00 98.2 107 24 127/86 (100) 98.2 General: Alert, No acute distress Abdomen: Soft, No tenderness Labs Laboratory Tests Test 04/20/17 05:40 04/21/17 06:00 White Blood Count 14.1 x10^3/uL (4.0-11.0) 17.6 x10^3/uL (4.0-11.0) Red Blood Count 3.19 x10^6/uL (3.50-5.40) 3.34 x10^6/uL (3.50-5.40) Hemoglobin 10.1 g/dL (12.0-15.5) 10.7 g/dL (12.0-15.5) Hematocrit 31.4 % (36.0-47.0) 32.8 % (36.0-47.0) Mean Corpuscular Volume 99 fL (79-100) 98 fL (79-100) Mean Corpuscular Hemoglobin 32 pg (25-35) 32 pg (25-35) Mean Corpuscular Hemoglobin Concent 32 g/dL (31-37) 33 g/dL (31-37) Red Cell Distribution Width 14.3 % (11.5-14.5) 14.3 % (11.5-14.5) Platelet Count 227 x10^3/uL (140-400) 290 x10^3/uL (140-400) Sodium Level 139 mmol/L (136-145) 137 mmol/L (136-145) Potassium Level 3.8 mmol/L (3.5-5.1) 3.5 mmol/L (3.5-5.1) Chloride Level 102 mmol/L (98-107) 99 mmol/L (98-107) Carbon Dioxide Level 29 mmol/L (21-32) 28 mmol/L (21-32) Anion Gap 8 (6-14) 10 (6-14) Blood Urea Nitrogen 14 mg/dL (7-20) 17 mg/dL (7-20) Creatinine 1.0 mg/dL (0.6-1.0) 1.0 mg/dL (0.6-1.0) Estimated GFR (Cockcroft-Gault) 64.4 64.4 BUN/Creatinine Ratio 14 (6-20) 17 (6-20) Glucose Level 144 mg/dL (70-99) 165 mg/dL (70-99) Calcium Level 9.2 mg/dL (8.5-10.1) 10.2 mg/dL (8.5-10.1) Phosphorus Level 2.2 mg/dL (2.6-4.7) 1.3 mg/dL (2.6-4.7) Magnesium Level 2.0 mg/dL (1.8-2.4) 1.8 mg/dL (1.8-2.4) Total Bilirubin 1.0 mg/dL (0.2-1.0) 0.8 mg/dL (0.2-1.0) Aspartate Amino Transf (AST/SGOT) 47 U/L (15-37) 39 U/L (15-37) Alanine Aminotransferase (ALT/SGPT) 28 U/L (14-59) 29 U/L (14-59) Alkaline Phosphatase 57 U/L (46-116) 53 U/L (46-116) Total Protein 7.0 g/dL (6.4-8.2) 7.2 g/dL (6.4-8.2) Albumin 2.5 g/dL (3.4-5.0) 2.4 g/dL (3.4-5.0) Albumin/Globulin Ratio 0.6 (1.0-1.7) 0.5 (1.0-1.7) Prothrombin Time 15.7 SEC (11.7-14.0) Prothromb Time International Ratio 1.3 (0.8-1.1) Activated Partial Thromboplast Time 33 SEC (24-38) Laboratory Tests Test 04/21/17 06:00 White Blood Count 17.6 x10^3/uL (4.0-11.0) Red Blood Count 3.34 x10^6/uL (3.50-5.40) Hemoglobin 10.7 g/dL (12.0-15.5) Hematocrit 32.8 % (36.0-47.0) Mean Corpuscular Volume 98 fL (79-100) Mean Corpuscular Hemoglobin 32 pg (25-35) Mean Corpuscular Hemoglobin Concent 33 g/dL (31-37) Red Cell Distribution Width 14.3 % (11.5-14.5) Platelet Count 290 x10^3/uL (140-400) Prothrombin Time 15.7 SEC (11.7-14.0) Prothromb Time International Ratio 1.3 (0.8-1.1) Activated Partial Thromboplast Time 33 SEC (24-38) Sodium Level 137 mmol/L (136-145) Potassium Level 3.5 mmol/L (3.5-5.1) Chloride Level 99 mmol/L (98-107) Carbon Dioxide Level 28 mmol/L (21-32) Anion Gap 10 (6-14) Blood Urea Nitrogen 17 mg/dL (7-20) Creatinine 1.0 mg/dL (0.6-1.0) Estimated GFR (Cockcroft-Gault) 64.4 BUN/Creatinine Ratio 17 (6-20) Glucose Level 165 mg/dL (70-99) Calcium Level 10.2 mg/dL (8.5-10.1) Phosphorus Level 1.3 mg/dL (2.6-4.7) Magnesium Level 1.8 mg/dL (1.8-2.4) Total Bilirubin 0.8 mg/dL (0.2-1.0) Aspartate Amino Transf (AST/SGOT) 39 U/L (15-37) Alanine Aminotransferase (ALT/SGPT) 29 U/L (14-59) Alkaline Phosphatase 53 U/L (46-116) Total Protein 7.2 g/dL (6.4-8.2) Albumin 2.4 g/dL (3.4-5.0) Albumin/Globulin Ratio 0.5 (1.0-1.7) I have reviewed the following Imaging does not demonstrate any obvious intraabdominal pathology, including appendicitis Problem List Problems Medical Problems: (1) Abdominal aortic aneurysm Status: Acute (2) Acute renal failure Status: Acute (3) Anemia Status: Acute (4) Enlarging abdominal aortic aneurysm Status: Acute Assessment/Plan AAA, hx of possible appendicitis d/w pulm, nursing and vascular surgery no obvious intraabdominal surgical intervention, although elevated WBC noted defer to vascular regarding possible surgical intervention for the AAA Problems: TERE MEJÍA MD Apr 21, 2017 11:56
[2017-04-21] MEDS ORDERED: MAGNESIUM SULFATE 2GM 50 ML IV ONE (12:00)
[2017-04-21] MEDS ORDERED: SODIUM PHOSPHATE 20 MMOL in IV DEXTROSE 5% 250 ML IV ONE (12:00)
[2017-04-21] MEDS: POTASSIUM CHLORIDE 20MEQ 50 ML IV SCH ×3 (12:29→23:19)
[2017-04-21] MEDS: TPN PER PHARMACY MC PRN ×3 (12:43→13:18)
--- NOTE | 2017-04-21 12:49 | PDOC ---
Infectious Disease Note ROS ROS Vital Sign Vital Signs Vital Signs Date Time Temp Pulse Resp B/P (MAP) Pulse Ox O2 Delivery O2 Flow Rate FiO2 04/21/17 12:31 112 117/88 04/21/17 11:33 96 Nasal Cannula 3.0 04/21/17 07:00 98.2 24 98.2 Labs Lab Laboratory Tests Test 04/21/17 06:00 White Blood Count 17.6 x10^3/uL (4.0-11.0) Red Blood Count 3.34 x10^6/uL (3.50-5.40) Hemoglobin 10.7 g/dL (12.0-15.5) Hematocrit 32.8 % (36.0-47.0) Mean Corpuscular Volume 98 fL (79-100) Mean Corpuscular Hemoglobin 32 pg (25-35) Mean Corpuscular Hemoglobin Concent 33 g/dL (31-37) Red Cell Distribution Width 14.3 % (11.5-14.5) Platelet Count 290 x10^3/uL (140-400) Prothrombin Time 15.7 SEC (11.7-14.0) Prothromb Time International Ratio 1.3 (0.8-1.1) Activated Partial Thromboplast Time 33 SEC (24-38) Sodium Level 137 mmol/L (136-145) Potassium Level 3.5 mmol/L (3.5-5.1) Chloride Level 99 mmol/L (98-107) Carbon Dioxide Level 28 mmol/L (21-32) Anion Gap 10 (6-14) Blood Urea Nitrogen 17 mg/dL (7-20) Creatinine 1.0 mg/dL (0.6-1.0) Estimated GFR (Cockcroft-Gault) 64.4 BUN/Creatinine Ratio 17 (6-20) Glucose Level 165 mg/dL (70-99) Calcium Level 10.2 mg/dL (8.5-10.1) Phosphorus Level 1.3 mg/dL (2.6-4.7) Magnesium Level 1.8 mg/dL (1.8-2.4) Total Bilirubin 0.8 mg/dL (0.2-1.0) Aspartate Amino Transf (AST/SGOT) 39 U/L (15-37) Alanine Aminotransferase (ALT/SGPT) 29 U/L (14-59) Alkaline Phosphatase 53 U/L (46-116) Total Protein 7.2 g/dL (6.4-8.2) Albumin 2.4 g/dL (3.4-5.0) Albumin/Globulin Ratio 0.5 (1.0-1.7) Objective Assessment Leukocytosis - ? reactive vs ID Acute Encephalopathy ? Appendicitis Resp failure - possible aspiration - extubated AAA 6.6 cm BRUNILDA on admit - better Aflutter Plan Plan of Care Increase Zosyn to 3.375 IV q 6 Add Micafungin Check Lactic acid/Procalcitonin/Blood cults/UA F/u CBC Reviewed notes Thank you 35 mins # [id number] VICENTE TATE MD Apr 21, 2017 12:49
--- NOTE | 2017-04-21 12:50 | PDOC ---
CARDIO Progress Notes Date and Time Date of Service 04/21/2017 Time of Evaluation 1247 Subjective Subjective: No Chest Pain, No shortness of breath, No Palpitations, Other ( drowsy but arousable (ativan last night)) Vitals Vitals Vital Signs Date Time Temp Pulse Resp B/P (MAP) Pulse Ox O2 Delivery O2 Flow Rate FiO2 04/21/17 12:31 112 117/88 04/21/17 11:33 96 Nasal Cannula 3.0 04/21/17 07:00 98.2 24 98.2 Weight Weight [ ] Input and Output Intake and Output Intake and Output 04/21/17 07:00 Intake Total 1935 ml Output Total 2510 ml Balance -575 ml Intake IV Total 1935 ml Output Urine Total 2510 ml Laboratory Labs Laboratory Tests Test 04/21/17 06:00 White Blood Count 17.6 x10^3/uL (4.0-11.0) Red Blood Count 3.34 x10^6/uL (3.50-5.40) Hemoglobin 10.7 g/dL (12.0-15.5) Hematocrit 32.8 % (36.0-47.0) Mean Corpuscular Volume 98 fL (79-100) Mean Corpuscular Hemoglobin 32 pg (25-35) Mean Corpuscular Hemoglobin Concent 33 g/dL (31-37) Red Cell Distribution Width 14.3 % (11.5-14.5) Platelet Count 290 x10^3/uL (140-400) Prothrombin Time 15.7 SEC (11.7-14.0) Prothromb Time International Ratio 1.3 (0.8-1.1) Activated Partial Thromboplast Time 33 SEC (24-38) Sodium Level 137 mmol/L (136-145) Potassium Level 3.5 mmol/L (3.5-5.1) Chloride Level 99 mmol/L (98-107) Carbon Dioxide Level 28 mmol/L (21-32) Anion Gap 10 (6-14) Blood Urea Nitrogen 17 mg/dL (7-20) Creatinine 1.0 mg/dL (0.6-1.0) Estimated GFR (Cockcroft-Gault) 64.4 BUN/Creatinine Ratio 17 (6-20) Glucose Level 165 mg/dL (70-99) Calcium Level 10.2 mg/dL (8.5-10.1) Phosphorus Level 1.3 mg/dL (2.6-4.7) Magnesium Level 1.8 mg/dL (1.8-2.4) Total Bilirubin 0.8 mg/dL (0.2-1.0) Aspartate Amino Transf (AST/SGOT) 39 U/L (15-37) Alanine Aminotransferase (ALT/SGPT) 29 U/L (14-59) Alkaline Phosphatase 53 U/L (46-116) Total Protein 7.2 g/dL (6.4-8.2) Albumin 2.4 g/dL (3.4-5.0) Albumin/Globulin Ratio 0.5 (1.0-1.7) Microbiology Micro Microbiology 04/16/17 Blood Culture - Final, Complete NO GROWTH AFTER 5 DAYS Review of Systems Constitutional: yes: unresponsive Physical Exam HEENT: Neck Supple W Full Motion Chest: Symmetric LUNGS: Other (basilar crackles) Heart: S1S2, irregularly irregular (atrial flutter rate controlled with PVC) Abdomen: Other (soft) Extremities: No Edema, No Calf Tenderness Neurology: oriented, follow commands, other (drowsy) Assessment Assessment 1. Acute respiratory failure/pneumonia: much improved 2. AAA: 6.6 cm stable with diffuse abdominal aortic mural thrombus per CTA, vascular surgery following 3. Appendicitis/leukocytosis: per general surgery. WBC up to 17. 4. BRUNILDA: resolved 5. Paroxysmal Atrial flutter: rate controlled remains on atrial flutter 6. Chronic LBBB 7. Macrocytic anemia: stable at 9.6 8. CAD: CABG and PCI/stent in the past. Unknown last workup. No records available. 9. Cardiomyopathy: EF 40% unchanged from previous 10. HTN: controlled 11. HLP 12. Acute on chronic systolic CHF: compensated, diuresing very well. 13. Carotid artery disease 14. Dementia with hx of CVA Recommendations 1. High risk for CV events for surgery. Continue with IV lopressor. Anticipate LHC prior to AAA repair pending extracardiac conditions clinical course . 2. ID consult pending 3. Again no cardiac records from previous LHC and CABG are available. 4. Remains NPO. TPN to start tonight. x1 IV MICKIE Fiore [employer] TRANSFORMER [employer]SEMBLER Apr 21, 2017 12:50
[2017-04-21] MEDS ORDERED: FUROSEMIDE 20 MG/2 ML VIAL. IVP ONE (13:00)
[2017-04-21] MEDS: HALOPERIDOL LACTATE 5 MG/ML VIAL. IVP PRN ×2 (13:34→22:47)
[2017-04-21] MEDS: MICAFUNGIN 100 MG in IV NORMAL SALINE 100ML 100 ML IV SCH (15:03)
[2017-04-21 15:35] LABS: BILIRUBIN,URINE NEGATIVE (NEG); GLUCOSE,URINE NEGATIVE (NEG); NITRITE,URINE NEGATIVE (NEG); PROTEIN,URINE 100 mg/dL (NEG-TRACE); UROBILINOGEN,URINE 0.2 mg/dL (0.2 mg/dL)
[2017-04-21 15:44] LABS: BACTERIA,URINE 0 /HPF (0-FEW)
[2017-04-21] MEDS ORDERED: PIPERACILLIN/TAZOBACTAM 3.375 GM in IV DEXTROSE 5% 50 ML IV SCH (18:00)
[2017-04-21] MEDS: PIPERACILLIN/TAZO IV Push 3.375 GM VIAL. IVP SCH ×2 (18:18→23:52)
--- NOTE | 2017-04-21 19:27 | PN ---
DATE: 04/21/2017 SUBJECTIVE: The patient is resting slightly propped up in bed, in no apparent respiratory distress. She is awake, alert, responding appropriately. Denied any chest pain or shortness of breath. OBJECTIVE: GENERAL: When I examined her, she was pale. No jaundice, cyanosis or thyromegaly. No jugular venous distention. No limb edema. VITAL SIGNS: Her heart rate was 107, blood pressure was 127/86, temperature was 98.2, respiratory rate 24 and oxygen saturation was 98% on 3 liters of oxygen. HEAD, EYES, EARS, NOSE AND THROAT: Showed normocephalic, atraumatic. NECK: Supple. HEART: Showed normal first and second sounds. No gallop, rub or murmur. CHEST: Clear to auscultation. No crepitation or rhonchi. ABDOMEN: Distended, soft, nontender. No guarding or rigidity. No organomegaly with hernial orifices intact. Bowel sounds normal. NEUROLOGIC: She was sleepy, but arousable. She opens her eyes, tracks and responds appropriately. Cranial nerves intact. She moves extremities without difficulty. Her intake over the last 24 hours was 1900, output was 2400. LABORATORY DATA: Her lab work this morning showed a serum sodium 137, potassium 3.5, chloride 99, bicarbonate 28, anion gap of 10, BUN 17, creatinine 1, estimated GFR was 64 mL per minute. Her glucose was 165. Her calcium was 7.2, phosphorus is 1.3, magnesium was 1.8. Total bilirubin, AST, ALT, alkaline phosphatase were normal. Total protein was 7.2, albumin 2.4. Her white cell count is up to 17,600, hemoglobin 10.7, hematocrit 32.8, MCV 98 and platelet count of 290,000. Her chest x-ray today showed that she has stable examination with findings of congestive heart failure and volume overload, cardiomegaly and pulmonary edema, small bilateral pleural effusions, patchy bibasilar opacities represent atelectasis, aspiration or multifocal infection. Her CT angio of the abdomen and pelvis showed stable-sized infrarenal abdominal aortic aneurysm measuring up to 6.6 cm compared to 04/14/2017 examination; however, significant increasing from the 2011 examination. There is diffuse abdominal aortic mural thrombus; however, remained patent. 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 ASSESSMENT: 1. Acute hypoxic respiratory failure, resolved. She is now on 3 liters of oxygen by nasal cannula. 2. Abdominal aortic aneurysm at 6.6 cm, stable. 3. Zmpdb-lm-ypdcedm renal failure, resolved. Creatinine is down from 4 to 1 mg. 4. Congestive heart failure, ejection fraction 40%. 5. Sepsis likely due to acute appendicitis, for which she is on Zosyn. Surgical team is not planning to do any surgery. 6. Lactic acidosis, the cause of which is not clear. So far, all her blood cultures are negative. Hypomagnesemia, hypophosphatemia, and hypokalemia, all resolved. PLAN: To consult the Infectious Disease specialist to see whether we need to increase the coverage and maybe increase the dose of Zosyn to 3.375 and add other antibiotics and proceed with the surgical treatment after the Cardiology team clears her up for that. FAUSTO BATEMAN MD DR: EDGAR/ivan JOB#: [id number] / [id number]
[2017-04-21] MEDS ORDERED: DEXTROSE 50% 25 GM / 50ML DISP.SYRIN. IV PRN (21:30)
[2017-04-21] MEDS: ATORVASTATIN CALCIUM 20 MG TABLET PO SCH (21:53)
[2017-04-21] MEDS ORDERED: [UNRECOGNIZED DRUG - OTHER] IV SCH ×9 (22:00)
[2017-04-21] MEDS ORDERED: TOTAL PARENTERAL NUTRITION IV SCH ×9 (22:00)
[2017-04-21] MEDS ORDERED: AMINO ACIDS IV SCH ×9 (22:00)
[2017-04-21] MEDS ORDERED: DEXTROSE 70% IV SCH ×9 (22:00)
[2017-04-21 22:04] LABS: MAGNESIUM 1.7 mg/dL (1.8-2.4)
[2017-04-21 22:08] LABS: POTASSIUM 2.9 mmol/L (3.5-5.1)
[2017-04-21] MEDS ORDERED: MAGNESIUM SULFATE 4GM 100 ML IV ONE (23:15)
--- NOTE | 2017-04-21 23:20 | CONS ---
DATE OF CONSULTATION: 04/21/2017 PATIENT'S ROOM: ICU 14. REQUESTING PHYSICIAN: Elana Gold MD. REASON FOR CONSULTATION: Pneumonia versus appendicitis. HISTORY OF PRESENT ILLNESS: The patient is 81-year-old female with past medical history of coronary artery disease and stenosis. She is a resident at [facility], presented to Emergency Room with abdominal and back pain. She reportedly had an episode of diarrhea and vomiting and also there was concern for potential dissection of the aorta and she underwent CT scan and was found a 6.6-cm abdominal aortic aneurysm and some calcification. Additionally, the appendix contained appendicolith and was mildly distended, measured up to 10 mm. At that time, she was placed on IV Zosyn and admitted to the hospital. White blood cell count was 8.7, but did peak on 04/16/2017 at 15. Also on arrival, she had a creatinine of 4.3 with a creatine kinase of 584. Lactic acid was 0.9, subsequently jumped to 5.8. She was intubated, sedated, but has since been extubated and is on nasal cannula oxygen, but she has remained somewhat confused. Her Ativan has been discontinued and had been changed to Haldol. Despite the Zosyn, her white blood cell count has started to increase and today is back to 17.6. Urinalysis on arrival was clean. C. diff tox has been checked twice and has been negative. MRSA screen has been negative as well. Chest x-ray today showing some patchy bibasilar opacities and she underwent a CTA of abdomen and pelvis with contrast on the , showed stable size of the aortic aneurysm of 6.6, cardiomegaly and small bilateral pleural effusions with adjacent consolidation. Because of her increase in white blood cell count, concern for appendicitis versus pneumonia, I have been consulted. Currently, she is alert, but confused. Denies any pain. PAST MEDICAL HISTORY: Positive for coronary artery disease, congestive heart failure, CVA, depression, dementia, gastroesophageal reflux disease, hyperlipidemia, hypertension, hypothyroidism, history of previous myocardial infarction and history of previous chronic pain. PAST SURGICAL HISTORY: Positive for cholecystectomy, coronary artery bypass grafting, PTCA with stents. ALLERGIES: LISTED MORPHINE. REVIEW OF SYSTEMS: Unreliable, unobtainable. SOCIAL HISTORY: Again, she is a [facility] resident. History of smoking, but quit many years ago. No alcohol. FAMILY HISTORY: Noncontributory. CURRENT MEDICATIONS: Include albuterol, Atrovent, Lipitor, fentanyl, Lasix, Haldol, Reglan, Lopressor, Zosyn, TPN. Other meds are available and have been reviewed in the chart. PHYSICAL EXAMINATION: VITAL SIGNS: She is afebrile, temperature 98.2, pulse 112, respirations 24, blood pressure 117/88, satting 96% on 3 liters. CONSTITUTIONAL: She is alert, but she is confused. She is in no acute distress. She did smile. HEENT: Pupils are equal and reactive. Oral cavity, pharynx is dry. NECK: Supple. Right IJ without signs of any complications, no JVD. LUNGS: Decreased in the bases. HEART: S1, S2. ABDOMEN: Soft, nontender, nondistended. No guarding, no rebound. EXTREMITIES: No clubbing, cyanosis or gross edema. She has a Grimes in place without signs of any complications. SKIN: Warm to touch without signs of rash. NEUROLOGIC: She moves all extremities, but again is confused. LABORATORY DATA: White count 17.6, hemoglobin 10.7, platelets of 290, creatinine of 1, glucose 165, albumin of 2.4. Most recent AST of 85, ALT 21, alkaline phosphatase 38. TSH on the , 1.628. Again, urinalysis is clean. C. diff and MRSA screens are negative. Blood cultures from the are negative. Radiology reviewed in history of present illness. IMPRESSION: 1. Leukocytosis, possible reactive versus ID. 2. Acute encephalopathy. 3. Questionable appendicitis. 4. Respiratory failure, possible aspiration, now extubated. 5. Abdominal aortic aneurysm, 6 cm. 6. Acute kidney injury on admit, but better. 7. Atrial flutter. RECOMMENDATIONS: We will increase the Zosyn to 3.375 IV q. 6h. We will add micafungin. She is now at risk for yeast infections having been on antibiotics since her admission. We will check a lactate, procalcitonin, blood cultures, UA and follow up on CBC. I did review her medical records. Thank you for allowing me to participate in this patient's care. Should you have any concerns or questions, please do not hesitate to contact me. I spent 35 minutes of critical care time. VICENTE TATE MD DR: MORA/ivan JOB#: [id number] / [id number]
[2017-04-22] VITALS (21 sets, daily range): BP systolic 110–180; BP diastolic 64–110
[2017-04-22] MEDS: POTASSIUM CHLORIDE 20MEQ 50 ML IV SCH ×3 (00:20→02:25)
[2017-04-22] MEDS: fentaNYL PF VIAL 100 MCG/2 ML VIAL IV PRN ×8 (00:44→19:49)
[2017-04-22] MEDS: INSULIN ASPART 300 UNITS/3 ML INSULN.PEN SQ SCH ×6 (00:54→17:43)
[2017-04-22] MEDS: hydrALAZINE 20 MG/ML VIAL. IVP PRN (03:11)
[2017-04-22] MEDS: ALBUTEROL SULFATE 2.5 MG/3 ML NEBU. NEB PRN (03:44)
[2017-04-22] MEDS: HALOPERIDOL LACTATE 5 MG/ML VIAL. IVP PRN ×3 (04:32→17:46)
[2017-04-22] MEDS: METOCLOPRAMIDE HCL 10 MG/2 ML VIAL. IV SCH (05:55)
[2017-04-22] MEDS: PIPERACILLIN/TAZO IV Push 3.375 GM VIAL. IVP SCH ×3 (06:05→17:40)
[2017-04-22] MEDS: METOPROLOL TARTRATE 5 MG/5 ML VIAL. IVP SCH ×3 (06:08→17:40)
[2017-04-22 06:58] LABS: BASO % 0 % (0-3); EOS % 1 % (0-3); HEMATOCRIT 31.2 % (36.0-47.0); HEMOGLOBIN 9.9 g/dL (12.0-15.5); LYMPH % 6 % (24-48); MEAN CORPUSCULAR HEMOGLOBIN 31 pg (25-35); MEAN CORPUSCULAR HGB CONC 32 g/dL (31-37); MEAN CORPUSCULAR VOLUME 99 fL (79-100); MONO % 7 % (0-9); NEUT % 86 % (31-73); PLATELET COUNT 326 x10^3/uL (140-400); RED BLOOD COUNT 3.15 x10^6/uL (3.50-5.40); RED CELL DISTRIBUTION WIDTH 14.3 % (11.5-14.5); WHITE BLOOD COUNT 17.9 x10^3/uL (4.0-11.0)
[2017-04-22 07:14] LABS: ALBUMIN 2.8 g/dL (3.4-5.0); ALBUMIN/GLOBULIN RATIO 0.6 (1.0-1.7); CALCIUM 10.3 mg/dL (8.5-10.1); CREATININE 1.2 mg/dL (0.6-1.0); GFR 52.2; PHOSPHORUS 1.5 mg/dL (2.6-4.7); POTASSIUM 4.5 mmol/L (3.5-5.1); TOTAL BILIRUBIN 0.7 mg/dL (0.2-1.0); TOTAL PROTEIN 7.2 g/dL (6.4-8.2)
--- NOTE | 2017-04-22 08:15 | PDOC ---
SURGICAL PROGRESS NOTE Subjective Pt awake and alert, having loose stools Vital Signs Vital Signs Date Time Temp Pulse Resp B/P (MAP) Pulse Ox O2 Delivery O2 Flow Rate FiO2 04/22/17 06:08 113 125/83 04/22/17 05:15 26 93 Nasal Cannula 3.0 04/22/17 04:00 97.7 97.7 I&O Intake and Output 04/22/17 07:00 Intake Total 2598 ml Output Total 1715 ml Balance 883 ml Intake IV Total 2598 ml Output Urine Total 1715 ml General: Alert, No acute distress Abdomen: Soft, No tenderness Labs Laboratory Tests Test 04/21/17 06:00 04/21/17 13:55 04/21/17 15:05 04/21/17 21:30 White Blood Count 17.6 x10^3/uL (4.0-11.0) Red Blood Count 3.34 x10^6/uL (3.50-5.40) Hemoglobin 10.7 g/dL (12.0-15.5) Hematocrit 32.8 % (36.0-47.0) Mean Corpuscular Volume 98 fL (79-100) Mean Corpuscular Hemoglobin 32 pg (25-35) Mean Corpuscular Hemoglobin Concent 33 g/dL (31-37) Red Cell Distribution Width 14.3 % (11.5-14.5) Platelet Count 290 x10^3/uL (140-400) Prothrombin Time 15.7 SEC (11.7-14.0) Prothromb Time International Ratio 1.3 (0.8-1.1) Activated Partial Thromboplast Time 33 SEC (24-38) Sodium Level 137 mmol/L (136-145) Potassium Level 3.5 mmol/L (3.5-5.1) 2.9 mmol/L (3.5-5.1) Chloride Level 99 mmol/L (98-107) Carbon Dioxide Level 28 mmol/L (21-32) Anion Gap 10 (6-14) Blood Urea Nitrogen 17 mg/dL (7-20) Creatinine 1.0 mg/dL (0.6-1.0) Estimated GFR (Cockcroft-Gault) 64.4 BUN/Creatinine Ratio 17 (6-20) Glucose Level 165 mg/dL (70-99) Calcium Level 10.2 mg/dL (8.5-10.1) Phosphorus Level 1.3 mg/dL (2.6-4.7) Magnesium Level 1.8 mg/dL (1.8-2.4) 1.7 mg/dL (1.8-2.4) Total Bilirubin 0.8 mg/dL (0.2-1.0) Aspartate Amino Transf (AST/SGOT) 39 U/L (15-37) Alanine Aminotransferase (ALT/SGPT) 29 U/L (14-59) Alkaline Phosphatase 53 U/L (46-116) Total Protein 7.2 g/dL (6.4-8.2) Albumin 2.4 g/dL (3.4-5.0) Albumin/Globulin Ratio 0.5 (1.0-1.7) Lactic Acid Level 1.4 mmol/L (0.4-2.0) Procalcitonin 0.22 ng/mL (0.00-0.10) Urine Collection Type Unknown Urine Color Yellow Urine Clarity Clear Urine pH 6.0 Urine Specific [place] 1.025 Urine Protein 100 mg/dL (NEG-TRACE) Urine Glucose (UA) Negative mg/dL (NEG) Urine Ketones (Stick) Negative mg/dL (NEG) Urine Blood Negative (NEG) Urine Nitrite Negative (NEG) Urine Bilirubin Negative (NEG) Urine Urobilinogen Dipstick 0.2 mg/dL (0.2 mg/dL) Urine Leukocyte Esterase Negative (NEG) Urine RBC 6-10 /HPF (0-2) Urine WBC 1-4 /HPF (0-4) Urine Bacteria 0 /HPF (0-FEW) Urine Hyaline Casts Few /HPF Urine Granular Casts Few /HPF Urine Mucus Slight /LPF Test 04/21/17 23:54 04/22/17 06:15 04/22/17 06:20 Glucose (Fingerstick) 211 mg/dL (70-99) 233 mg/dL (70-99) White Blood Count 17.9 x10^3/uL (4.0-11.0) Red Blood Count 3.15 x10^6/uL (3.50-5.40) Hemoglobin 9.9 g/dL (12.0-15.5) Hematocrit 31.2 % (36.0-47.0) Mean Corpuscular Volume 99 fL (79-100) Mean Corpuscular Hemoglobin 31 pg (25-35) Mean Corpuscular Hemoglobin Concent 32 g/dL (31-37) Red Cell Distribution Width 14.3 % (11.5-14.5) Platelet Count 326 x10^3/uL (140-400) Neutrophils (%) (Auto) 86 % (31-73) Lymphocytes (%) (Auto) 6 % (24-48) Monocytes (%) (Auto) 7 % (0-9) Eosinophils (%) (Auto) 1 % (0-3) Basophils (%) (Auto) 0 % (0-3) Neutrophils # (Auto) 15.5 x10^3uL (1.8-7.7) Lymphocytes # (Auto) 1.0 x10^3/uL (1.0-4.8) Monocytes # (Auto) 1.2 x10^3/uL (0.0-1.1) Eosinophils # (Auto) 0.2 x10^3/uL (0.0-0.7) Basophils # (Auto) 0.0 x10^3/uL (0.0-0.2) Sodium Level 138 mmol/L (136-145) Potassium Level 4.5 mmol/L (3.5-5.1) Chloride Level 101 mmol/L (98-107) Carbon Dioxide Level 26 mmol/L (21-32) Anion Gap 11 (6-14) Blood Urea Nitrogen 19 mg/dL (7-20) Creatinine 1.2 mg/dL (0.6-1.0) Estimated GFR (Cockcroft-Gault) 52.2 BUN/Creatinine Ratio 16 (6-20) Glucose Level 255 mg/dL (70-99) Calcium Level 10.3 mg/dL (8.5-10.1) Phosphorus Level 1.5 mg/dL (2.6-4.7) Magnesium Level 3.0 mg/dL (1.8-2.4) Total Bilirubin 0.7 mg/dL (0.2-1.0) Aspartate Amino Transf (AST/SGOT) 39 U/L (15-37) Alanine Aminotransferase (ALT/SGPT) 31 U/L (14-59) Alkaline Phosphatase 54 U/L (46-116) Total Protein 7.2 g/dL (6.4-8.2) Albumin 2.8 g/dL (3.4-5.0) Albumin/Globulin Ratio 0.6 (1.0-1.7) Triglycerides Level 184 mg/dL (0-150) Laboratory Tests Test 04/21/17 13:55 04/21/17 15:05 04/21/17 21:30 04/21/17 23:54 Lactic Acid Level 1.4 mmol/L (0.4-2.0) Procalcitonin 0.22 ng/mL (0.00-0.10) Urine Collection Type Unknown Urine Color Yellow Urine Clarity Clear Urine pH 6.0 Urine Specific [place] 1.025 Urine Protein 100 mg/dL (NEG-TRACE) Urine Glucose (UA) Negative mg/dL (NEG) Urine Ketones (Stick) Negative mg/dL (NEG) Urine Blood Negative (NEG) Urine Nitrite Negative (NEG) Urine Bilirubin Negative (NEG) Urine Urobilinogen Dipstick 0.2 mg/dL (0.2 mg/dL) Urine Leukocyte Esterase Negative (NEG) Urine RBC 6-10 /HPF (0-2) Urine WBC 1-4 /HPF (0-4) Urine Bacteria 0 /HPF (0-FEW) Urine Hyaline Casts Few /HPF Urine Granular Casts Few /HPF Urine Mucus Slight /LPF Potassium Level 2.9 mmol/L (3.5-5.1) Magnesium Level 1.7 mg/dL (1.8-2.4) Glucose (Fingerstick) 211 mg/dL (70-99) Test 04/22/17 06:15 04/22/17 06:20 Glucose (Fingerstick) 233 mg/dL (70-99) White Blood Count 17.9 x10^3/uL (4.0-11.0) Red Blood Count 3.15 x10^6/uL (3.50-5.40) Hemoglobin 9.9 g/dL (12.0-15.5) Hematocrit 31.2 % (36.0-47.0) Mean Corpuscular Volume 99 fL (79-100) Mean Corpuscular Hemoglobin 31 pg (25-35) Mean Corpuscular Hemoglobin Concent 32 g/dL (31-37) Red Cell Distribution Width 14.3 % (11.5-14.5) Platelet Count 326 x10^3/uL (140-400) Neutrophils (%) (Auto) 86 % (31-73) Lymphocytes (%) (Auto) 6 % (24-48) Monocytes (%) (Auto) 7 % (0-9) Eosinophils (%) (Auto) 1 % (0-3) Basophils (%) (Auto) 0 % (0-3) Neutrophils # (Auto) 15.5 x10^3uL (1.8-7.7) Lymphocytes # (Auto) 1.0 x10^3/uL (1.0-4.8) Monocytes # (Auto) 1.2 x10^3/uL (0.0-1.1) Eosinophils # (Auto) 0.2 x10^3/uL (0.0-0.7) Basophils # (Auto) 0.0 x10^3/uL (0.0-0.2) Sodium Level 138 mmol/L (136-145) Potassium Level 4.5 mmol/L (3.5-5.1) Chloride Level 101 mmol/L (98-107) Carbon Dioxide Level 26 mmol/L (21-32) Anion Gap 11 (6-14) Blood Urea Nitrogen 19 mg/dL (7-20) Creatinine 1.2 mg/dL (0.6-1.0) Estimated GFR (Cockcroft-Gault) 52.2 BUN/Creatinine Ratio 16 (6-20) Glucose Level 255 mg/dL (70-99) Calcium Level 10.3 mg/dL (8.5-10.1) Phosphorus Level 1.5 mg/dL (2.6-4.7) Magnesium Level 3.0 mg/dL (1.8-2.4) Total Bilirubin 0.7 mg/dL (0.2-1.0) Aspartate Amino Transf (AST/SGOT) 39 U/L (15-37) Alanine Aminotransferase (ALT/SGPT) 31 U/L (14-59) Alkaline Phosphatase 54 U/L (46-116) Total Protein 7.2 g/dL (6.4-8.2) Albumin 2.8 g/dL (3.4-5.0) Albumin/Globulin Ratio 0.6 (1.0-1.7) Triglycerides Level 184 mg/dL (0-150) Problem List Problems Medical Problems: (1) Abdominal aortic aneurysm Status: Acute (2) Acute renal failure Status: Acute (3) Anemia Status: Acute (4) Enlarging abdominal aortic aneurysm Status: Acute Assessment/Plan questionable appendicitis, resolved, leukocytosis, persistent cont supportive care no gen surg plans Problems: TERE MEJÍA MD Apr 22, 2017 08:15
[2017-04-22] MEDS: IPRATRPIUM/ALBUTEROL 0.5/2.5MG 3 ML NEBU. NEB SCH ×4 (08:20→20:02)
--- NOTE | 2017-04-22 08:30 | RAD ---
Single view of the Chest 04/22/2017 11:00 AM Indication: Renal failure Comparison: Chest radiograph, yesterday Findings: There is right internal jugular central line with tip the cavoatrial junction. There is persistent diffuse interstitial thickening likely mild residual edema. The heart is enlarged. Mild central vascular congestion is noted. Findings may represent mild congestive failure. No pneumothorax or definitive pleural effusion is seen. Impression: 1. Right internal jugular central line stable 2. Cardiomegaly, central vascular congestion, interstitial edema. Findings are similar prior exam and represent mild congestive failure or fluid overload given history of renal failure.
--- NOTE | 2017-04-22 08:43 | PDOC ---
Infectious Disease Note Subjective Subjective Alert. States ok but is confused ROS ROS GEN: Denies fevers, chills, sweats HEENT: Denies blurred vision, sore throat CV: Denies chest pain RESP: Denies shortness of air, cough GI: Denies n/v/d NEURO: Denies confusion, dizziness MSK: Denies weakness, joint pain/swelling Vital Sign Vital Signs Vital Signs Date Time Temp Pulse Resp B/P (MAP) Pulse Ox O2 Delivery O2 Flow Rate FiO2 04/22/17 08:23 93 Nasal Cannula 3.0 04/22/17 07:00 82 28 142/85 (104) 04/22/17 04:00 97.7 97.7 Physical Exam PHYSICAL EXAM GENERAL: NAD, Alert HEENT: PERRL, OC/OP -dry NECK: Supple, no JVD, no LN LUNGS: Clear HEART: S1S2, no gallop, no murmur ABD: Soft, NT, no organomegaly, no rebound : Grimes EXT: No edema, no cyanosis ENERGY TRADING ANALYST: Alert, oriented to name, no focal neurologic deficit SKIN: No rash IV: RIJ clean Labs Lab Laboratory Tests Test 04/21/17 13:55 04/21/17 15:05 04/21/17 21:30 04/21/17 23:54 Lactic Acid Level 1.4 mmol/L (0.4-2.0) Procalcitonin 0.22 ng/mL (0.00-0.10) Urine Collection Type Unknown Urine Color Yellow Urine Clarity Clear Urine pH 6.0 Urine Specific [place] 1.025 Urine Protein 100 mg/dL (NEG-TRACE) Urine Glucose (UA) Negative mg/dL (NEG) Urine Ketones (Stick) Negative mg/dL (NEG) Urine Blood Negative (NEG) Urine Nitrite Negative (NEG) Urine Bilirubin Negative (NEG) Urine Urobilinogen Dipstick 0.2 mg/dL (0.2 mg/dL) Urine Leukocyte Esterase Negative (NEG) Urine RBC 6-10 /HPF (0-2) Urine WBC 1-4 /HPF (0-4) Urine Bacteria 0 /HPF (0-FEW) Urine Hyaline Casts Few /HPF Urine Granular Casts Few /HPF Urine Mucus Slight /LPF Potassium Level 2.9 mmol/L (3.5-5.1) Magnesium Level 1.7 mg/dL (1.8-2.4) Glucose (Fingerstick) 211 mg/dL (70-99) Test 04/22/17 06:15 04/22/17 06:20 Glucose (Fingerstick) 233 mg/dL (70-99) White Blood Count 17.9 x10^3/uL (4.0-11.0) Red Blood Count 3.15 x10^6/uL (3.50-5.40) Hemoglobin 9.9 g/dL (12.0-15.5) Hematocrit 31.2 % (36.0-47.0) Mean Corpuscular Volume 99 fL (79-100) Mean Corpuscular Hemoglobin 31 pg (25-35) Mean Corpuscular Hemoglobin Concent 32 g/dL (31-37) Red Cell Distribution Width 14.3 % (11.5-14.5) Platelet Count 326 x10^3/uL (140-400) Neutrophils (%) (Auto) 86 % (31-73) Lymphocytes (%) (Auto) 6 % (24-48) Monocytes (%) (Auto) 7 % (0-9) Eosinophils (%) (Auto) 1 % (0-3) Basophils (%) (Auto) 0 % (0-3) Neutrophils # (Auto) 15.5 x10^3uL (1.8-7.7) Lymphocytes # (Auto) 1.0 x10^3/uL (1.0-4.8) Monocytes # (Auto) 1.2 x10^3/uL (0.0-1.1) Eosinophils # (Auto) 0.2 x10^3/uL (0.0-0.7) Basophils # (Auto) 0.0 x10^3/uL (0.0-0.2) Sodium Level 138 mmol/L (136-145) Potassium Level 4.5 mmol/L (3.5-5.1) Chloride Level 101 mmol/L (98-107) Carbon Dioxide Level 26 mmol/L (21-32) Anion Gap 11 (6-14) Blood Urea Nitrogen 19 mg/dL (7-20) Creatinine 1.2 mg/dL (0.6-1.0) Estimated GFR (Cockcroft-Gault) 52.2 BUN/Creatinine Ratio 16 (6-20) Glucose Level 255 mg/dL (70-99) Calcium Level 10.3 mg/dL (8.5-10.1) Phosphorus Level 1.5 mg/dL (2.6-4.7) Magnesium Level 3.0 mg/dL (1.8-2.4) Total Bilirubin 0.7 mg/dL (0.2-1.0) Aspartate Amino Transf (AST/SGOT) 39 U/L (15-37) Alanine Aminotransferase (ALT/SGPT) 31 U/L (14-59) Alkaline Phosphatase 54 U/L (46-116) Total Protein 7.2 g/dL (6.4-8.2) Albumin 2.8 g/dL (3.4-5.0) Albumin/Globulin Ratio 0.6 (1.0-1.7) Triglycerides Level 184 mg/dL (0-150) Objective Assessment Leukocytosis - ? reactive vs ID. - stable. Min elevation of procalcitonin/UA neg/AF/CXR with more fluid appearing than pneumonia Acute Encephalopathy - lack of sleep may begin to come into play now ? Appendicitis Resp failure - possible aspiration - extubated AAA 6.6 cm BRUNILDA on admit - better Aflutter Plan Plan of Care Cont Zosyn to 3.375 IV q 6/Micafungin F/u blood cults F/u CBC VICENTE TATE MD Apr 22, 2017 08:43
[2017-04-22] MEDS ORDERED: FUROSEMIDE 40 MG/4 ML VIAL. IVP ONE (09:45)
[2017-04-22] MEDS ORDERED: DEXTROSE 50% 25 GM / 50ML DISP.SYRIN. IV PRN (09:45)
[2017-04-22 10:37] LABS: HCO3 ABG 22 mmol/L (21-28); PCO2 ABG 34 mmHg (35-46); PH ABG 7.44 (7.35-7.45); PO2 ABG 74 mmHg (65-108); SAT O2 ABG 95 % (92-99)
[2017-04-22] MEDS ORDERED: LIDOCAINE 2% 20 ML VIAL. ONE (10:53)
[2017-04-22] MEDS ORDERED: IODIXANOL 320 MG/ML 100 ML VIAL. ONE (10:53)
[2017-04-22] MEDS ORDERED: HEPARIN for ARTERIAL LINE 0 ML ONE (10:54)
--- NOTE | 2017-04-22 12:10 | PDOC ---
PULMONARY PROGRESS NOTES Subjective extubated 04/18 on nasal canula confused / restless, paradoxical breathing/ wheezing Vitals Vital Signs Date Time Temp Pulse Resp B/P (MAP) Pulse Ox O2 Delivery O2 Flow Rate FiO2 04/22/17 11:57 97 Nasal Cannula 3.0 04/22/17 07:00 82 28 142/85 (104) 04/22/17 04:00 97.7 97.7 General: Lethargic Lungs: Wheezing Cardiovascular: S1, S2 Abdomen: Soft Extremities: No Edema Skin: Warm Labs Laboratory Tests Test 04/21/17 06:00 04/21/17 13:55 04/21/17 15:05 04/21/17 21:30 White Blood Count 17.6 x10^3/uL (4.0-11.0) Red Blood Count 3.34 x10^6/uL (3.50-5.40) Hemoglobin 10.7 g/dL (12.0-15.5) Hematocrit 32.8 % (36.0-47.0) Mean Corpuscular Volume 98 fL (79-100) Mean Corpuscular Hemoglobin 32 pg (25-35) Mean Corpuscular Hemoglobin Concent 33 g/dL (31-37) Red Cell Distribution Width 14.3 % (11.5-14.5) Platelet Count 290 x10^3/uL (140-400) Prothrombin Time 15.7 SEC (11.7-14.0) Prothromb Time International Ratio 1.3 (0.8-1.1) Activated Partial Thromboplast Time 33 SEC (24-38) Sodium Level 137 mmol/L (136-145) Potassium Level 3.5 mmol/L (3.5-5.1) 2.9 mmol/L (3.5-5.1) Chloride Level 99 mmol/L (98-107) Carbon Dioxide Level 28 mmol/L (21-32) Anion Gap 10 (6-14) Blood Urea Nitrogen 17 mg/dL (7-20) Creatinine 1.0 mg/dL (0.6-1.0) Estimated GFR (Cockcroft-Gault) 64.4 BUN/Creatinine Ratio 17 (6-20) Glucose Level 165 mg/dL (70-99) Calcium Level 10.2 mg/dL (8.5-10.1) Phosphorus Level 1.3 mg/dL (2.6-4.7) Magnesium Level 1.8 mg/dL (1.8-2.4) 1.7 mg/dL (1.8-2.4) Total Bilirubin 0.8 mg/dL (0.2-1.0) Aspartate Amino Transf (AST/SGOT) 39 U/L (15-37) Alanine Aminotransferase (ALT/SGPT) 29 U/L (14-59) Alkaline Phosphatase 53 U/L (46-116) Total Protein 7.2 g/dL (6.4-8.2) Albumin 2.4 g/dL (3.4-5.0) Albumin/Globulin Ratio 0.5 (1.0-1.7) Lactic Acid Level 1.4 mmol/L (0.4-2.0) Procalcitonin 0.22 ng/mL (0.00-0.10) Urine Collection Type Unknown Urine Color Yellow Urine Clarity Clear Urine pH 6.0 Urine Specific [place] 1.025 Urine Protein 100 mg/dL (NEG-TRACE) Urine Glucose (UA) Negative mg/dL (NEG) Urine Ketones (Stick) Negative mg/dL (NEG) Urine Blood Negative (NEG) Urine Nitrite Negative (NEG) Urine Bilirubin Negative (NEG) Urine Urobilinogen Dipstick 0.2 mg/dL (0.2 mg/dL) Urine Leukocyte Esterase Negative (NEG) Urine RBC 6-10 /HPF (0-2) Urine WBC 1-4 /HPF (0-4) Urine Bacteria 0 /HPF (0-FEW) Urine Hyaline Casts Few /HPF Urine Granular Casts Few /HPF Urine Mucus Slight /LPF Test 04/21/17 23:54 04/22/17 06:15 04/22/17 06:20 Glucose (Fingerstick) 211 mg/dL (70-99) 233 mg/dL (70-99) White Blood Count 17.9 x10^3/uL (4.0-11.0) Red Blood Count 3.15 x10^6/uL (3.50-5.40) Hemoglobin 9.9 g/dL (12.0-15.5) Hematocrit 31.2 % (36.0-47.0) Mean Corpuscular Volume 99 fL (79-100) Mean Corpuscular Hemoglobin 31 pg (25-35) Mean Corpuscular Hemoglobin Concent 32 g/dL (31-37) Red Cell Distribution Width 14.3 % (11.5-14.5) Platelet Count 326 x10^3/uL (140-400) Neutrophils (%) (Auto) 86 % (31-73) Lymphocytes (%) (Auto) 6 % (24-48) Monocytes (%) (Auto) 7 % (0-9) Eosinophils (%) (Auto) 1 % (0-3) Basophils (%) (Auto) 0 % (0-3) Neutrophils # (Auto) 15.5 x10^3uL (1.8-7.7) Lymphocytes # (Auto) 1.0 x10^3/uL (1.0-4.8) Monocytes # (Auto) 1.2 x10^3/uL (0.0-1.1) Eosinophils # (Auto) 0.2 x10^3/uL (0.0-0.7) Basophils # (Auto) 0.0 x10^3/uL (0.0-0.2) Sodium Level 138 mmol/L (136-145) Potassium Level 4.5 mmol/L (3.5-5.1) Chloride Level 101 mmol/L (98-107) Carbon Dioxide Level 26 mmol/L (21-32) Anion Gap 11 (6-14) Blood Urea Nitrogen 19 mg/dL (7-20) Creatinine 1.2 mg/dL (0.6-1.0) Estimated GFR (Cockcroft-Gault) 52.2 BUN/Creatinine Ratio 16 (6-20) Glucose Level 255 mg/dL (70-99) Calcium Level 10.3 mg/dL (8.5-10.1) Phosphorus Level 1.5 mg/dL (2.6-4.7) Magnesium Level 3.0 mg/dL (1.8-2.4) Total Bilirubin 0.7 mg/dL (0.2-1.0) Aspartate Amino Transf (AST/SGOT) 39 U/L (15-37) Alanine Aminotransferase (ALT/SGPT) 31 U/L (14-59) Alkaline Phosphatase 54 U/L (46-116) Total Protein 7.2 g/dL (6.4-8.2) Albumin 2.8 g/dL (3.4-5.0) Albumin/Globulin Ratio 0.6 (1.0-1.7) Triglycerides Level 184 mg/dL (0-150) Laboratory Tests Test 04/21/17 13:55 04/21/17 15:05 04/21/17 21:30 04/21/17 23:54 Lactic Acid Level 1.4 mmol/L (0.4-2.0) Procalcitonin 0.22 ng/mL (0.00-0.10) Urine Collection Type Unknown Urine Color Yellow Urine Clarity Clear Urine pH 6.0 Urine Specific [place] 1.025 Urine Protein 100 mg/dL (NEG-TRACE) Urine Glucose (UA) Negative mg/dL (NEG) Urine Ketones (Stick) Negative mg/dL (NEG) Urine Blood Negative (NEG) Urine Nitrite Negative (NEG) Urine Bilirubin Negative (NEG) Urine Urobilinogen Dipstick 0.2 mg/dL (0.2 mg/dL) Urine Leukocyte Esterase Negative (NEG) Urine RBC 6-10 /HPF (0-2) Urine WBC 1-4 /HPF (0-4) Urine Bacteria 0 /HPF (0-FEW) Urine Hyaline Casts Few /HPF Urine Granular Casts Few /HPF Urine Mucus Slight /LPF Potassium Level 2.9 mmol/L (3.5-5.1) Magnesium Level 1.7 mg/dL (1.8-2.4) Glucose (Fingerstick) 211 mg/dL (70-99) Test 04/22/17 06:15 04/22/17 06:20 Glucose (Fingerstick) 233 mg/dL (70-99) White Blood Count 17.9 x10^3/uL (4.0-11.0) Red Blood Count 3.15 x10^6/uL (3.50-5.40) Hemoglobin 9.9 g/dL (12.0-15.5) Hematocrit 31.2 % (36.0-47.0) Mean Corpuscular Volume 99 fL (79-100) Mean Corpuscular Hemoglobin 31 pg (25-35) Mean Corpuscular Hemoglobin Concent 32 g/dL (31-37) Red Cell Distribution Width 14.3 % (11.5-14.5) Platelet Count 326 x10^3/uL (140-400) Neutrophils (%) (Auto) 86 % (31-73) Lymphocytes (%) (Auto) 6 % (24-48) Monocytes (%) (Auto) 7 % (0-9) Eosinophils (%) (Auto) 1 % (0-3) Basophils (%) (Auto) 0 % (0-3) Neutrophils # (Auto) 15.5 x10^3uL (1.8-7.7) Lymphocytes # (Auto) 1.0 x10^3/uL (1.0-4.8) Monocytes # (Auto) 1.2 x10^3/uL (0.0-1.1) Eosinophils # (Auto) 0.2 x10^3/uL (0.0-0.7) Basophils # (Auto) 0.0 x10^3/uL (0.0-0.2) Sodium Level 138 mmol/L (136-145) Potassium Level 4.5 mmol/L (3.5-5.1) Chloride Level 101 mmol/L (98-107) Carbon Dioxide Level 26 mmol/L (21-32) Anion Gap 11 (6-14) Blood Urea Nitrogen 19 mg/dL (7-20) Creatinine 1.2 mg/dL (0.6-1.0) Estimated GFR (Cockcroft-Gault) 52.2 BUN/Creatinine Ratio 16 (6-20) Glucose Level 255 mg/dL (70-99) Calcium Level 10.3 mg/dL (8.5-10.1) Phosphorus Level 1.5 mg/dL (2.6-4.7) Magnesium Level 3.0 mg/dL (1.8-2.4) Total Bilirubin 0.7 mg/dL (0.2-1.0) Aspartate Amino Transf (AST/SGOT) 39 U/L (15-37) Alanine Aminotransferase (ALT/SGPT) 31 U/L (14-59) Alkaline Phosphatase 54 U/L (46-116) Total Protein 7.2 g/dL (6.4-8.2) Albumin 2.8 g/dL (3.4-5.0) Albumin/Globulin Ratio 0.6 (1.0-1.7) Triglycerides Level 184 mg/dL (0-150) Medications Active Scripts Medications Dose Route/Sig Max Daily Dose Days Date Category Gabapentin 300 Mg Capsule 300 Mg PO QHS 04/14/17 Reported Famotidine 20 Mg Tablet 20 Mg PO HS 04/14/17 Reported Hydralazine Hcl 25 Mg Tablet 1 Tab PO TID 04/14/17 Reported Tylenol (Acetaminophen) 325 Mg Tablet 1-2 Tab PO TID 04/14/17 Reported Ranexa (Ranolazine) 500 Mg Tab.er.12h 1 Tab PO BID 04/14/17 Reported Aggrenox 25 Mg-200 Mg Capsule (Aspirin/Dipyridamole) 1 Each Cpmp.12hr 1 Cap PO BID 04/14/17 Reported Milk Of Magnesia (Magnesium Hydroxide) 400 Mg/5 Ml Oral.susp 30 Ml PO PRN PRN 04/14/17 Reported Loperamide (Loperamide Hcl) 2 Mg Capsule 4 Mg PO PRN PRN 04/14/17 Reported Baclofen 10 Mg Tablet 0.5 Tab PO PRN QHS PRN 04/14/17 Reported Anti-Diarrheal (Loperamide Hcl) 2 Mg Capsule 2 Mg PO PRN 04/14/17 Reported Sertraline Hcl 50 Mg Tablet 50 Mg PO DAILY 04/14/17 Reported Oxybutynin Chloride Er (Oxybutynin Chloride) 5 Mg Tab.er.24 1 Tab PO DAILY 04/14/17 Reported Metoprolol Succinate ( Xl ) (Metoprolol Succinate) 25 Mg Tab.er.24h 1 Tab PO DAILY 04/14/17 Reported Lisinopril 20 Mg Tablet 1 Tab PO DAILY 04/14/17 Reported Levothyroxine Sodium 100 Mcg Tablet 1 Tab PO DAILY 04/14/17 Reported Isosorbide Mononitrate Er (Isosorbide Mononitrate) 60 Mg Tab.er.24h 1 Tab PO DAILY 04/14/17 Reported Furosemide 40 Mg Tablet 1 Tab PO DAILY 04/14/17 Reported Zetia (Ezetimibe) 10 Mg Tablet 1 Tab PO DAILY 04/14/17 Reported Chlorthalidone 25 Mg Tablet 1 Tab PO DAILY 04/14/17 Reported Comments IMPRESSION: mild CHF 04/21 CTA/ small basal effusions/ atelectasis Impression . 1. Acute respiratory failure, present upon admission, multifactorial/acute CHF and pneumonia, extubated/ now with wheezing and paradoxical breathing 2. Metabolic acidosis, suspect secondary to possible infection.improved 3. Abdominal pain. CT revealing abdominal aortic aneurysm 6.6 cm and possible appendicitis. 4. Possible appendicitis. 5. Sepsis, present upon admission. Lactic acidosis improved 6. Atrial flutter. 7. Coronary artery disease. 8. Cerebrovascular accident. 9. Hypertension. 10. 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 1. low dose ativan, use prn haldol/ refuses BIPAP. will try after low dose ativan/ not a good candidate for invasive procedures at present 2. Empiric antibiotics.ID following. no new infiltrates on CXR/ CTA 3. Follow Cardiology and Cardiovascular input. 4. Nasal canula 5. Nephrology rec 6. f/u CXR as needed 7. Diuresis 8. d/w daughter in detail. she is not a candidate for any invasive procedure. I recommended hospice. daughter agrees. cancel cath. prn SUNITA Mendes MD Apr 22, 2017 12:09
[2017-04-22] MEDS ORDERED: SODIUM PHOSPHATE 20 MMOL in IV DEXTROSE 5% 250 ML IV ONE (13:00)
[2017-04-22] MEDS: TPN PER PHARMACY MC PRN (13:11)
--- NOTE | 2017-04-22 13:33 | PDOC ---
CARDIO Progress Notes Date and Time Date of Service 04/22/2017 Time of Evaluation 1140 Subjective Subjective: No Chest Pain, No Palpitations, Other (initially tachyneic, appears anxious with confusion) Vitals Vitals Vital Signs Date Time Temp Pulse Resp B/P (MAP) Pulse Ox O2 Delivery O2 Flow Rate FiO2 04/22/17 12:50 97 Nasal Cannula 3.0 04/22/17 12:37 74 163/92 04/22/17 07:00 28 04/22/17 04:00 97.7 97.7 Weight Weight [ ] Input and Output Intake and Output Intake and Output 04/22/17 07:00 Intake Total 2187 ml Output Total 1815 ml Balance 372 ml Intake IV Total 2187 ml Output Urine Total 1815 ml Laboratory Labs Laboratory Tests Test 04/21/17 13:55 04/21/17 15:05 04/21/17 21:30 04/21/17 23:54 Lactic Acid Level 1.4 mmol/L (0.4-2.0) Procalcitonin 0.22 ng/mL (0.00-0.10) Urine Collection Type Unknown Urine Color Yellow Urine Clarity Clear Urine pH 6.0 Urine Specific [place] 1.025 Urine Protein 100 mg/dL (NEG-TRACE) Urine Glucose (UA) Negative mg/dL (NEG) Urine Ketones (Stick) Negative mg/dL (NEG) Urine Blood Negative (NEG) Urine Nitrite Negative (NEG) Urine Bilirubin Negative (NEG) Urine Urobilinogen Dipstick 0.2 mg/dL (0.2 mg/dL) Urine Leukocyte Esterase Negative (NEG) Urine RBC 6-10 /HPF (0-2) Urine WBC 1-4 /HPF (0-4) Urine Bacteria 0 /HPF (0-FEW) Urine Hyaline Casts Few /HPF Urine Granular Casts Few /HPF Urine Mucus Slight /LPF Potassium Level 2.9 mmol/L (3.5-5.1) Magnesium Level 1.7 mg/dL (1.8-2.4) Glucose (Fingerstick) 211 mg/dL (70-99) Test 04/22/17 06:15 04/22/17 06:20 Glucose (Fingerstick) 233 mg/dL (70-99) White Blood Count 17.9 x10^3/uL (4.0-11.0) Red Blood Count 3.15 x10^6/uL (3.50-5.40) Hemoglobin 9.9 g/dL (12.0-15.5) Hematocrit 31.2 % (36.0-47.0) Mean Corpuscular Volume 99 fL (79-100) Mean Corpuscular Hemoglobin 31 pg (25-35) Mean Corpuscular Hemoglobin Concent 32 g/dL (31-37) Red Cell Distribution Width 14.3 % (11.5-14.5) Platelet Count 326 x10^3/uL (140-400) Neutrophils (%) (Auto) 86 % (31-73) Lymphocytes (%) (Auto) 6 % (24-48) Monocytes (%) (Auto) 7 % (0-9) Eosinophils (%) (Auto) 1 % (0-3) Basophils (%) (Auto) 0 % (0-3) Neutrophils # (Auto) 15.5 x10^3uL (1.8-7.7) Lymphocytes # (Auto) 1.0 x10^3/uL (1.0-4.8) Monocytes # (Auto) 1.2 x10^3/uL (0.0-1.1) Eosinophils # (Auto) 0.2 x10^3/uL (0.0-0.7) Basophils # (Auto) 0.0 x10^3/uL (0.0-0.2) Sodium Level 138 mmol/L (136-145) Potassium Level 4.5 mmol/L (3.5-5.1) Chloride Level 101 mmol/L (98-107) Carbon Dioxide Level 26 mmol/L (21-32) Anion Gap 11 (6-14) Blood Urea Nitrogen 19 mg/dL (7-20) Creatinine 1.2 mg/dL (0.6-1.0) Estimated GFR (Cockcroft-Gault) 52.2 BUN/Creatinine Ratio 16 (6-20) Glucose Level 255 mg/dL (70-99) Calcium Level 10.3 mg/dL (8.5-10.1) Phosphorus Level 1.5 mg/dL (2.6-4.7) Magnesium Level 3.0 mg/dL (1.8-2.4) Total Bilirubin 0.7 mg/dL (0.2-1.0) Aspartate Amino Transf (AST/SGOT) 39 U/L (15-37) Alanine Aminotransferase (ALT/SGPT) 31 U/L (14-59) Alkaline Phosphatase 54 U/L (46-116) Total Protein 7.2 g/dL (6.4-8.2) Albumin 2.8 g/dL (3.4-5.0) Albumin/Globulin Ratio 0.6 (1.0-1.7) Triglycerides Level 184 mg/dL (0-150) Microbiology Micro Microbiology 04/16/17 Blood Culture - Final, Complete NO GROWTH AFTER 5 DAYS Review of Systems Constitutional: yes: unresponsive Physical Exam HEENT: Neck Supple W Full Motion Chest: Symmetric LUNGS: Other (basilar crackles) Heart: S1S2, irregularly irregular (rate controlled) Abdomen: Other (soft) Extremities: No Calf Tenderness Neurology: other (restless today now drowsy but arousable after ativan) Assessment Assessment 1. Acute respiratory failure/pneumonia: much improved 2. AAA: 6.6 cm stable with diffuse abdominal aortic mural thrombus per CTA, vascular surgery following 3. Appendicitis/leukocytosis: ID and general surgery following 4. BRUNILDA: resolved 5. Paroxysmal Atrial flutter: rate controlled remains on atrial flutter 6. Chronic LBBB 7. Macrocytic anemia: stable at 9.9 8. CAD: CABG and PCI/stent in the past. Unknown last workup. No records available. 9. Cardiomyopathy: EF 40% unchanged from previous 10. HTN: controlled 11. HLP 12. Acute on chronic systolic CHF: IV overhydration. tachypneic today 13. Carotid artery disease 14. Dementia with hx of CVA: anxious and more confuse today. Recently receiving ativan. Recommendations 1. High risk for CV events for surgery. Continue with IV lopressor. Routine low dose lasix, addl PRN. TPN ongoing 2. Family moving towards comfort care. Discussed with pulmonary who talked to pt family and no further procedures was verbalized. 3. Remains NPO. Supportive care at this time MICKIE DASILVA BOOT TRIMMER Apr 22, 2017 13:33
[2017-04-22 14:10] LABS: FIO2 ABG 32
[2017-04-22] MEDS: MICAFUNGIN 100 MG in IV NORMAL SALINE 100ML 100 ML IV SCH (14:17)
[2017-04-22] MEDS: methylPREDNISolone SOD SUCC PF 125 MG/2 ML VIAL. IV SCH ×2 (17:39→22:11)
--- NOTE | 2017-04-22 20:53 | PN ---
DATE: 04/22/2017 SUBJECTIVE: The patient is resting, slightly propped up in bed, clearly markedly tachypneic, wheezy, however, she denied any chest pain. PHYSICAL EXAMINATION: GENERAL: When I examined her, she was pale. No jaundice, cyanosis or thyromegaly. No jugular venous distention. No limb edema. VITAL SIGNS: Her heart rate was 82, blood pressure 142/85, temperature was 97.7, respiratory rate was 28 and oxygen saturation was 93% on 3 liters of oxygen by nasal cannula. HEAD, EYES, EARS, NOSE AND THROAT: Normocephalic, atraumatic. NECK: Supple. HEART: Showed normal first and second heart sounds. No gallop, rub or murmur. CHEST: Shows central trachea, equal bilateral expansion and air entry with diffuse wheezing. I could not really appreciate any crepitation. ABDOMEN: Distended, soft, nontender. NEUROLOGIC: She is awake, alert, responding appropriately. Cranial nerves intact. She moves extremities without difficulty, although she is mostly bed bound. Her intake was 2200, output was 1855. LABORATORY DATA: Her lab work this morning showed white cell count of 17,900, hemoglobin 9.9, hematocrit 31, MCV 99, and platelet count of 326,000. Her chemistry showed a serum sodium 138, potassium 4.5, chloride 105, bicarbonate 26, anion gap of 11, BUN 19, creatinine 1.2, estimated GFR was 52 mL per minute. Her glucose was 155, calcium was 10.3, phosphorus is 1.5, magnesium 3. Total bilirubin, AST, ALT, alkaline phosphatase are normal. Total protein was 7.2, albumin 2.8 and triglycerides are 184. ASSESSMENT: 1. Acute hypoxic respiratory failure. The patient is very tachypneic, diffuse wheezing. Chest x-ray . 2. Abdominal aortic aneurysm at 6.6 cm, stable. 3. [id number] renal failure, resolved. Her creatinine is down from 4 to 1.2, which is up slightly from yesterday from 1 to 1.2. 4. Congestive heart failure, probably acute on chronic systolic with ejection fraction of 40%. 5. Sepsis, likely due to acute appendicitis, which she is on Zosyn. Surgical team is not planning to do any surgery. Zosyn was increased to 3.375 g IV every 8 hours. Lactic acid because of which is not clear. Lactic acid yesterday was only 1.4, which was normal. PLAN: My plan is to do a stat ABG and also order one dose of Lasix 40 mg IV for now and await the Cardiology team regarding whether they are going to proceed with coronary angiogram. FAUSTO BATEMAN MD DR: EDGAR/ivan JOB#: [id number] / [id number]
[2017-04-22] MEDS: ATORVASTATIN CALCIUM 20 MG TABLET PO SCH (21:00)
[2017-04-22] MEDS ORDERED: AMINO ACIDS IV SCH ×10 (22:00)
[2017-04-22] MEDS ORDERED: TOTAL PARENTERAL NUTRITION IV SCH ×10 (22:00)
[2017-04-22] MEDS ORDERED: [UNRECOGNIZED DRUG - OTHER] IV SCH ×10 (22:00)
[2017-04-22] MEDS ORDERED: DEXTROSE 70% IV SCH ×10 (22:00)
[2017-04-23] VITALS (25 sets, daily range): BP systolic 91–167; BP diastolic 70–100
[2017-04-23] MEDS: PIPERACILLIN/TAZO IV Push 3.375 GM VIAL. IVP SCH ×5 (00:09→23:31)
[2017-04-23] MEDS: METOPROLOL TARTRATE 5 MG/5 ML VIAL. IVP SCH ×5 (00:10→23:30)
[2017-04-23] MEDS: HALOPERIDOL LACTATE 5 MG/ML VIAL. IVP PRN ×3 (00:10→21:24)
[2017-04-23] MEDS: INSULIN ASPART 300 UNITS/3 ML INSULN.PEN SQ SCH ×8 (00:11→23:32)
[2017-04-23] MEDS: fentaNYL PF VIAL 100 MCG/2 ML VIAL IV PRN ×3 (01:45→22:06)
[2017-04-23] MEDS: methylPREDNISolone SOD SUCC PF 125 MG/2 ML VIAL. IV SCH ×3 (05:39→21:24)
[2017-04-23 05:59] LABS: BASO % 0 % (0-3); EOS % 0 % (0-3); HEMATOCRIT 30.2 % (36.0-47.0); HEMOGLOBIN 9.7 g/dL (12.0-15.5); LYMPH # 0.5 x10^3/uL (1.0-4.8); LYMPH % 3 % (24-48); MEAN CORPUSCULAR HEMOGLOBIN 32 pg (25-35); MEAN CORPUSCULAR HGB CONC 32 g/dL (31-37); MEAN CORPUSCULAR VOLUME 100 fL (79-100); MONO % 2 % (0-9); NEUT % 94 % (31-73); PLATELET COUNT 294 x10^3/uL (140-400); RED BLOOD COUNT 3.03 x10^6/uL (3.50-5.40); RED CELL DISTRIBUTION WIDTH 14.4 % (11.5-14.5); WHITE BLOOD COUNT 16.1 x10^3/uL (4.0-11.0)
[2017-04-23 06:32] LABS: ALBUMIN 2.5 g/dL (3.4-5.0); ALBUMIN/GLOBULIN RATIO 0.5 (1.0-1.7); CREATININE 1.1 mg/dL (0.6-1.0); GFR 57.7; PHOSPHORUS 3.2 mg/dL (2.6-4.7); POTASSIUM 4.9 mmol/L (3.5-5.1); TOTAL BILIRUBIN 0.6 mg/dL (0.2-1.0); TOTAL PROTEIN 7.3 g/dL (6.4-8.2)
[2017-04-23] MEDS: IPRATRPIUM/ALBUTEROL 0.5/2.5MG 3 ML NEBU. NEB SCH ×4 (07:40→20:07)
[2017-04-23] MEDS: FUROSEMIDE 20 MG/2 ML VIAL. IVP SCH (08:19)
--- NOTE | 2017-04-23 08:44 | RAD ---
AP PORTABLE CHEST Clinical Indication: RF 114. Respiratory failure Comparison: AP chest, prior day. Findings: Stable right IJ central line, tip in upper right atrium. Stable median sternotomy wires. Cardiomegaly is stable. Mild interstitial edema is unchanged. No focal airspace disease. No pleural effusion or pneumothorax. Bones appear stable. IMPRESSION: Unchanged mild interstitial edema.
--- NOTE | 2017-04-23 09:02 | PDOC ---
LILI MORENO [employer]APH [employer] FEEDER 04/23/17 0902: SURGICAL PROGRESS NOTE Subjective resting Vital Signs Vital Signs Date Time Temp Pulse Resp B/P (MAP) Pulse Ox O2 Delivery O2 Flow Rate FiO2 04/23/17 07:41 99 Nasal Cannula 3.0 04/23/17 06:00 70 22 148/74 (98) 04/23/17 04:00 97.5 97.5 I&O Intake and Output 04/23/17 07:00 Intake Total 1389 ml Output Total 2155 ml Balance -766 ml Intake IV Total 1389 ml Output Urine Total 2155 ml General: Cooperative, No acute distress Abdomen: Soft, No tenderness Labs Laboratory Tests Test 04/21/17 13:55 04/21/17 15:05 04/21/17 21:30 04/21/17 23:54 Lactic Acid Level 1.4 mmol/L (0.4-2.0) Procalcitonin 0.22 ng/mL (0.00-0.10) Urine Collection Type Unknown Urine Color Yellow Urine Clarity Clear Urine pH 6.0 Urine Specific [place] 1.025 Urine Protein 100 mg/dL (NEG-TRACE) Urine Glucose (UA) Negative mg/dL (NEG) Urine Ketones (Stick) Negative mg/dL (NEG) Urine Blood Negative (NEG) Urine Nitrite Negative (NEG) Urine Bilirubin Negative (NEG) Urine Urobilinogen Dipstick 0.2 mg/dL (0.2 mg/dL) Urine Leukocyte Esterase Negative (NEG) Urine RBC 6-10 /HPF (0-2) Urine WBC 1-4 /HPF (0-4) Urine Bacteria 0 /HPF (0-FEW) Urine Hyaline Casts Few /HPF Urine Granular Casts Few /HPF Urine Mucus Slight /LPF Potassium Level 2.9 mmol/L (3.5-5.1) Magnesium Level 1.7 mg/dL (1.8-2.4) Glucose (Fingerstick) 211 mg/dL (70-99) Test 04/22/17 06:15 04/22/17 06:20 04/22/17 10:00 04/22/17 17:41 Glucose (Fingerstick) 233 mg/dL (70-99) 236 mg/dL (70-99) White Blood Count 17.9 x10^3/uL (4.0-11.0) Red Blood Count 3.15 x10^6/uL (3.50-5.40) Hemoglobin 9.9 g/dL (12.0-15.5) Hematocrit 31.2 % (36.0-47.0) Mean Corpuscular Volume 99 fL (79-100) Mean Corpuscular Hemoglobin 31 pg (25-35) Mean Corpuscular Hemoglobin Concent 32 g/dL (31-37) Red Cell Distribution Width 14.3 % (11.5-14.5) Platelet Count 326 x10^3/uL (140-400) Neutrophils (%) (Auto) 86 % (31-73) Lymphocytes (%) (Auto) 6 % (24-48) Monocytes (%) (Auto) 7 % (0-9) Eosinophils (%) (Auto) 1 % (0-3) Basophils (%) (Auto) 0 % (0-3) Neutrophils # (Auto) 15.5 x10^3uL (1.8-7.7) Lymphocytes # (Auto) 1.0 x10^3/uL (1.0-4.8) Monocytes # (Auto) 1.2 x10^3/uL (0.0-1.1) Eosinophils # (Auto) 0.2 x10^3/uL (0.0-0.7) Basophils # (Auto) 0.0 x10^3/uL (0.0-0.2) Sodium Level 138 mmol/L (136-145) Potassium Level 4.5 mmol/L (3.5-5.1) Chloride Level 101 mmol/L (98-107) Carbon Dioxide Level 26 mmol/L (21-32) Anion Gap 11 (6-14) Blood Urea Nitrogen 19 mg/dL (7-20) Creatinine 1.2 mg/dL (0.6-1.0) Estimated GFR (Cockcroft-Gault) 52.2 BUN/Creatinine Ratio 16 (6-20) Glucose Level 255 mg/dL (70-99) Calcium Level 10.3 mg/dL (8.5-10.1) Phosphorus Level 1.5 mg/dL (2.6-4.7) Magnesium Level 3.0 mg/dL (1.8-2.4) Total Bilirubin 0.7 mg/dL (0.2-1.0) Aspartate Amino Transf (AST/SGOT) 39 U/L (15-37) Alanine Aminotransferase (ALT/SGPT) 31 U/L (14-59) Alkaline Phosphatase 54 U/L (46-116) Total Protein 7.2 g/dL (6.4-8.2) Albumin 2.8 g/dL (3.4-5.0) Albumin/Globulin Ratio 0.6 (1.0-1.7) Triglycerides Level 184 mg/dL (0-150) O2 Saturation 95 % (92-99) Arterial Blood pH 7.44 (7.35-7.45) Arterial Blood pCO2 at Patient Temp 34 mmHg (35-46) Arterial Blood pO2 at Patient Temp 74 mmHg (65-108) Arterial Blood HCO3 22 mmol/L (21-28) Arterial Blood Base Excess -1 mmol/L (-3-3) FiO2 32 Test 04/23/17 00:09 04/23/17 05:30 04/23/17 05:34 04/23/17 08:12 Glucose (Fingerstick) 301 mg/dL (70-99) 327 mg/dL (70-99) 348 mg/dL (70-99) White Blood Count 16.1 x10^3/uL (4.0-11.0) Red Blood Count 3.03 x10^6/uL (3.50-5.40) Hemoglobin 9.7 g/dL (12.0-15.5) Hematocrit 30.2 % (36.0-47.0) Mean Corpuscular Volume 100 fL (79-100) Mean Corpuscular Hemoglobin 32 pg (25-35) Mean Corpuscular Hemoglobin Concent 32 g/dL (31-37) Red Cell Distribution Width 14.4 % (11.5-14.5) Platelet Count 294 x10^3/uL (140-400) Neutrophils (%) (Auto) 94 % (31-73) Lymphocytes (%) (Auto) 3 % (24-48) Monocytes (%) (Auto) 2 % (0-9) Eosinophils (%) (Auto) 0 % (0-3) Basophils (%) (Auto) 0 % (0-3) Neutrophils # (Auto) 15.2 x10^3uL (1.8-7.7) Lymphocytes # (Auto) 0.5 x10^3/uL (1.0-4.8) Monocytes # (Auto) 0.3 x10^3/uL (0.0-1.1) Eosinophils # (Auto) 0.0 x10^3/uL (0.0-0.7) Basophils # (Auto) 0.0 x10^3/uL (0.0-0.2) Sodium Level 136 mmol/L (136-145) Potassium Level 4.9 mmol/L (3.5-5.1) Chloride Level 100 mmol/L (98-107) Carbon Dioxide Level 27 mmol/L (21-32) Anion Gap 9 (6-14) Blood Urea Nitrogen 22 mg/dL (7-20) Creatinine 1.1 mg/dL (0.6-1.0) Estimated GFR (Cockcroft-Gault) 57.7 BUN/Creatinine Ratio 20 (6-20) Glucose Level 368 mg/dL (70-99) Calcium Level 10.0 mg/dL (8.5-10.1) Phosphorus Level 3.2 mg/dL (2.6-4.7) Magnesium Level 2.4 mg/dL (1.8-2.4) Total Bilirubin 0.6 mg/dL (0.2-1.0) Aspartate Amino Transf (AST/SGOT) 25 U/L (15-37) Alanine Aminotransferase (ALT/SGPT) 26 U/L (14-59) Alkaline Phosphatase 59 U/L (46-116) Total Protein 7.3 g/dL (6.4-8.2) Albumin 2.5 g/dL (3.4-5.0) Albumin/Globulin Ratio 0.5 (1.0-1.7) Laboratory Tests Test 04/22/17 10:00 04/22/17 17:41 04/23/17 00:09 04/23/17 05:30 O2 Saturation 95 % (92-99) Arterial Blood pH 7.44 (7.35-7.45) Arterial Blood pCO2 at Patient Temp 34 mmHg (35-46) Arterial Blood pO2 at Patient Temp 74 mmHg (65-108) Arterial Blood HCO3 22 mmol/L (21-28) Arterial Blood Base Excess -1 mmol/L (-3-3) FiO2 32 Glucose (Fingerstick) 236 mg/dL (70-99) 301 mg/dL (70-99) White Blood Count 16.1 x10^3/uL (4.0-11.0) Red Blood Count 3.03 x10^6/uL (3.50-5.40) Hemoglobin 9.7 g/dL (12.0-15.5) Hematocrit 30.2 % (36.0-47.0) Mean Corpuscular Volume 100 fL (79-100) Mean Corpuscular Hemoglobin 32 pg (25-35) Mean Corpuscular Hemoglobin Concent 32 g/dL (31-37) Red Cell Distribution Width 14.4 % (11.5-14.5) Platelet Count 294 x10^3/uL (140-400) Neutrophils (%) (Auto) 94 % (31-73) Lymphocytes (%) (Auto) 3 % (24-48) Monocytes (%) (Auto) 2 % (0-9) Eosinophils (%) (Auto) 0 % (0-3) Basophils (%) (Auto) 0 % (0-3) Neutrophils # (Auto) 15.2 x10^3uL (1.8-7.7) Lymphocytes # (Auto) 0.5 x10^3/uL (1.0-4.8) Monocytes # (Auto) 0.3 x10^3/uL (0.0-1.1) Eosinophils # (Auto) 0.0 x10^3/uL (0.0-0.7) Basophils # (Auto) 0.0 x10^3/uL (0.0-0.2) Sodium Level 136 mmol/L (136-145) Potassium Level 4.9 mmol/L (3.5-5.1) Chloride Level 100 mmol/L (98-107) Carbon Dioxide Level 27 mmol/L (21-32) Anion Gap 9 (6-14) Blood Urea Nitrogen 22 mg/dL (7-20) Creatinine 1.1 mg/dL (0.6-1.0) Estimated GFR (Cockcroft-Gault) 57.7 BUN/Creatinine Ratio 20 (6-20) Glucose Level 368 mg/dL (70-99) Calcium Level 10.0 mg/dL (8.5-10.1) Phosphorus Level 3.2 mg/dL (2.6-4.7) Magnesium Level 2.4 mg/dL (1.8-2.4) Total Bilirubin 0.6 mg/dL (0.2-1.0) Aspartate Amino Transf (AST/SGOT) 25 U/L (15-37) Alanine Aminotransferase (ALT/SGPT) 26 U/L (14-59) Alkaline Phosphatase 59 U/L (46-116) Total Protein 7.3 g/dL (6.4-8.2) Albumin 2.5 g/dL (3.4-5.0) Albumin/Globulin Ratio 0.5 (1.0-1.7) Test 04/23/17 05:34 04/23/17 08:12 Glucose (Fingerstick) 327 mg/dL (70-99) 348 mg/dL (70-99) Problem List Problems Medical Problems: (1) Abdominal aortic aneurysm Status: Acute (2) Acute renal failure Status: Acute (3) Anemia Status: Acute (4) Enlarging abdominal aortic aneurysm Status: Acute Assessment/Plan no surgical plans Problems: TERE MEJÍA MD 04/23/17 1105: SURGICAL PROGRESS NOTE Assessment/Plan Pt seen and examined. Agree with Ms. Moreno's note Pt appears comfortable abd soft d/w nursing, plans to move towards comfort care will sign off, but please call for questions Problems: LILI MORENO APRN Apr 23, 2017 09:02 TERE MEJÍA MD Apr 23, 2017 11:05
--- NOTE | 2017-04-23 10:11 | PDOC ---
Infectious Disease Note Subjective Subjective Denies pain No fever ROS ROS Limited Vital Sign Vital Signs Vital Signs Date Time Temp Pulse Resp B/P (MAP) Pulse Ox O2 Delivery O2 Flow Rate FiO2 04/23/17 09:00 90 23 100 Nasal Cannula 3.0 04/23/17 08:00 97.3 97.3 Physical Exam PHYSICAL EXAM GENERAL: Lethargic HEENT: Pupils equal, Oral cavity dry LUNGS: Clear anteriorly HEART: S1S2, regular ABD: Soft, no grimace or guarding to light palpation : [place] EXT: No edema, no cyanosis HEAT SEAL OPERATOR: Minimally arouses SKIN: No rash RIJ. clean Labs Lab Laboratory Tests Test 04/22/17 17:41 04/23/17 00:09 04/23/17 05:30 04/23/17 05:34 Glucose (Fingerstick) 236 mg/dL (70-99) 301 mg/dL (70-99) 327 mg/dL (70-99) White Blood Count 16.1 x10^3/uL (4.0-11.0) Red Blood Count 3.03 x10^6/uL (3.50-5.40) Hemoglobin 9.7 g/dL (12.0-15.5) Hematocrit 30.2 % (36.0-47.0) Mean Corpuscular Volume 100 fL (79-100) Mean Corpuscular Hemoglobin 32 pg (25-35) Mean Corpuscular Hemoglobin Concent 32 g/dL (31-37) Red Cell Distribution Width 14.4 % (11.5-14.5) Platelet Count 294 x10^3/uL (140-400) Neutrophils (%) (Auto) 94 % (31-73) Lymphocytes (%) (Auto) 3 % (24-48) Monocytes (%) (Auto) 2 % (0-9) Eosinophils (%) (Auto) 0 % (0-3) Basophils (%) (Auto) 0 % (0-3) Neutrophils # (Auto) 15.2 x10^3uL (1.8-7.7) Lymphocytes # (Auto) 0.5 x10^3/uL (1.0-4.8) Monocytes # (Auto) 0.3 x10^3/uL (0.0-1.1) Eosinophils # (Auto) 0.0 x10^3/uL (0.0-0.7) Basophils # (Auto) 0.0 x10^3/uL (0.0-0.2) Sodium Level 136 mmol/L (136-145) Potassium Level 4.9 mmol/L (3.5-5.1) Chloride Level 100 mmol/L (98-107) Carbon Dioxide Level 27 mmol/L (21-32) Anion Gap 9 (6-14) Blood Urea Nitrogen 22 mg/dL (7-20) Creatinine 1.1 mg/dL (0.6-1.0) Estimated GFR (Cockcroft-Gault) 57.7 BUN/Creatinine Ratio 20 (6-20) Glucose Level 368 mg/dL (70-99) Calcium Level 10.0 mg/dL (8.5-10.1) Phosphorus Level 3.2 mg/dL (2.6-4.7) Magnesium Level 2.4 mg/dL (1.8-2.4) Total Bilirubin 0.6 mg/dL (0.2-1.0) Aspartate Amino Transf (AST/SGOT) 25 U/L (15-37) Alanine Aminotransferase (ALT/SGPT) 26 U/L (14-59) Alkaline Phosphatase 59 U/L (46-116) Total Protein 7.3 g/dL (6.4-8.2) Albumin 2.5 g/dL (3.4-5.0) Albumin/Globulin Ratio 0.5 (1.0-1.7) Test 04/23/17 08:12 Glucose (Fingerstick) 348 mg/dL (70-99) CXR IMPRESSION: Unchanged mild interstitial edema. Micro BLOOD CULTURE Preliminary NO GROWTH AFTER 1 DAY Objective Assessment Leukocytosis - ? reactive vs ID. Acute Encephalopathy ? Appendicitis Resp failure - possible aspiration - extubated AAA 6.6 cm BRUNILDA on admit - better Aflutter Plan Plan of Care Zosyn and Micafungin BC NGTD C. 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
--- NOTE | 2017-04-23 12:38 | PDOC ---
PULMONARY PROGRESS NOTES Subjective extubated 04/18 on nasal canula paradoxical breathing/ wheezing improved with BIPAP and ativan Vitals Vital Signs Date Time Temp Pulse Resp B/P (MAP) Pulse Ox O2 Delivery O2 Flow Rate FiO2 04/23/17 12:00 Nasal Cannula 3.0 04/23/17 11:46 99 04/23/17 10:00 96 30 127/99 (108) 04/23/17 08:00 97.3 97.3 General: Lethargic Lungs: Other (decrease bs) Cardiovascular: S1, S2 Abdomen: Soft Extremities: No Edema Skin: Warm Labs Laboratory Tests Test 04/21/17 13:55 04/21/17 15:05 04/21/17 21:30 04/21/17 23:54 Lactic Acid Level 1.4 mmol/L (0.4-2.0) Procalcitonin 0.22 ng/mL (0.00-0.10) Urine Collection Type Unknown Urine Color Yellow Urine Clarity Clear Urine pH 6.0 Urine Specific [place] 1.025 Urine Protein 100 mg/dL (NEG-TRACE) Urine Glucose (UA) Negative mg/dL (NEG) Urine Ketones (Stick) Negative mg/dL (NEG) Urine Blood Negative (NEG) Urine Nitrite Negative (NEG) Urine Bilirubin Negative (NEG) Urine Urobilinogen Dipstick 0.2 mg/dL (0.2 mg/dL) Urine Leukocyte Esterase Negative (NEG) Urine RBC 6-10 /HPF (0-2) Urine WBC 1-4 /HPF (0-4) Urine Bacteria 0 /HPF (0-FEW) Urine Hyaline Casts Few /HPF Urine Granular Casts Few /HPF Urine Mucus Slight /LPF Potassium Level 2.9 mmol/L (3.5-5.1) Magnesium Level 1.7 mg/dL (1.8-2.4) Glucose (Fingerstick) 211 mg/dL (70-99) Test 04/22/17 06:15 04/22/17 06:20 04/22/17 10:00 04/22/17 17:41 Glucose (Fingerstick) 233 mg/dL (70-99) 236 mg/dL (70-99) White Blood Count 17.9 x10^3/uL (4.0-11.0) Red Blood Count 3.15 x10^6/uL (3.50-5.40) Hemoglobin 9.9 g/dL (12.0-15.5) Hematocrit 31.2 % (36.0-47.0) Mean Corpuscular Volume 99 fL (79-100) Mean Corpuscular Hemoglobin 31 pg (25-35) Mean Corpuscular Hemoglobin Concent 32 g/dL (31-37) Red Cell Distribution Width 14.3 % (11.5-14.5) Platelet Count 326 x10^3/uL (140-400) Neutrophils (%) (Auto) 86 % (31-73) Lymphocytes (%) (Auto) 6 % (24-48) Monocytes (%) (Auto) 7 % (0-9) Eosinophils (%) (Auto) 1 % (0-3) Basophils (%) (Auto) 0 % (0-3) Neutrophils # (Auto) 15.5 x10^3uL (1.8-7.7) Lymphocytes # (Auto) 1.0 x10^3/uL (1.0-4.8) Monocytes # (Auto) 1.2 x10^3/uL (0.0-1.1) Eosinophils # (Auto) 0.2 x10^3/uL (0.0-0.7) Basophils # (Auto) 0.0 x10^3/uL (0.0-0.2) Sodium Level 138 mmol/L (136-145) Potassium Level 4.5 mmol/L (3.5-5.1) Chloride Level 101 mmol/L (98-107) Carbon Dioxide Level 26 mmol/L (21-32) Anion Gap 11 (6-14) Blood Urea Nitrogen 19 mg/dL (7-20) Creatinine 1.2 mg/dL (0.6-1.0) Estimated GFR (Cockcroft-Gault) 52.2 BUN/Creatinine Ratio 16 (6-20) Glucose Level 255 mg/dL (70-99) Calcium Level 10.3 mg/dL (8.5-10.1) Phosphorus Level 1.5 mg/dL (2.6-4.7) Magnesium Level 3.0 mg/dL (1.8-2.4) Total Bilirubin 0.7 mg/dL (0.2-1.0) Aspartate Amino Transf (AST/SGOT) 39 U/L (15-37) Alanine Aminotransferase (ALT/SGPT) 31 U/L (14-59) Alkaline Phosphatase 54 U/L (46-116) Total Protein 7.2 g/dL (6.4-8.2) Albumin 2.8 g/dL (3.4-5.0) Albumin/Globulin Ratio 0.6 (1.0-1.7) Triglycerides Level 184 mg/dL (0-150) O2 Saturation 95 % (92-99) Arterial Blood pH 7.44 (7.35-7.45) Arterial Blood pCO2 at Patient Temp 34 mmHg (35-46) Arterial Blood pO2 at Patient Temp 74 mmHg (65-108) Arterial Blood HCO3 22 mmol/L (21-28) Arterial Blood Base Excess -1 mmol/L (-3-3) FiO2 32 Test 04/23/17 00:09 04/23/17 05:30 04/23/17 05:34 04/23/17 08:12 Glucose (Fingerstick) 301 mg/dL (70-99) 327 mg/dL (70-99) 348 mg/dL (70-99) White Blood Count 16.1 x10^3/uL (4.0-11.0) Red Blood Count 3.03 x10^6/uL (3.50-5.40) Hemoglobin 9.7 g/dL (12.0-15.5) Hematocrit 30.2 % (36.0-47.0) Mean Corpuscular Volume 100 fL (79-100) Mean Corpuscular Hemoglobin 32 pg (25-35) Mean Corpuscular Hemoglobin Concent 32 g/dL (31-37) Red Cell Distribution Width 14.4 % (11.5-14.5) Platelet Count 294 x10^3/uL (140-400) Neutrophils (%) (Auto) 94 % (31-73) Lymphocytes (%) (Auto) 3 % (24-48) Monocytes (%) (Auto) 2 % (0-9) Eosinophils (%) (Auto) 0 % (0-3) Basophils (%) (Auto) 0 % (0-3) Neutrophils # (Auto) 15.2 x10^3uL (1.8-7.7) Lymphocytes # (Auto) 0.5 x10^3/uL (1.0-4.8) Monocytes # (Auto) 0.3 x10^3/uL (0.0-1.1) Eosinophils # (Auto) 0.0 x10^3/uL (0.0-0.7) Basophils # (Auto) 0.0 x10^3/uL (0.0-0.2) Sodium Level 136 mmol/L (136-145) Potassium Level 4.9 mmol/L (3.5-5.1) Chloride Level 100 mmol/L (98-107) Carbon Dioxide Level 27 mmol/L (21-32) Anion Gap 9 (6-14) Blood Urea Nitrogen 22 mg/dL (7-20) Creatinine 1.1 mg/dL (0.6-1.0) Estimated GFR (Cockcroft-Gault) 57.7 BUN/Creatinine Ratio 20 (6-20) Glucose Level 368 mg/dL (70-99) Calcium Level 10.0 mg/dL (8.5-10.1) Phosphorus Level 3.2 mg/dL (2.6-4.7) Magnesium Level 2.4 mg/dL (1.8-2.4) Total Bilirubin 0.6 mg/dL (0.2-1.0) Aspartate Amino Transf (AST/SGOT) 25 U/L (15-37) Alanine Aminotransferase (ALT/SGPT) 26 U/L (14-59) Alkaline Phosphatase 59 U/L (46-116) Total Protein 7.3 g/dL (6.4-8.2) Albumin 2.5 g/dL (3.4-5.0) Albumin/Globulin Ratio 0.5 (1.0-1.7) Laboratory Tests Test 04/22/17 17:41 04/23/17 00:09 04/23/17 05:30 04/23/17 05:34 Glucose (Fingerstick) 236 mg/dL (70-99) 301 mg/dL (70-99) 327 mg/dL (70-99) White Blood Count 16.1 x10^3/uL (4.0-11.0) Red Blood Count 3.03 x10^6/uL (3.50-5.40) Hemoglobin 9.7 g/dL (12.0-15.5) Hematocrit 30.2 % (36.0-47.0) Mean Corpuscular Volume 100 fL (79-100) Mean Corpuscular Hemoglobin 32 pg (25-35) Mean Corpuscular Hemoglobin Concent 32 g/dL (31-37) Red Cell Distribution Width 14.4 % (11.5-14.5) Platelet Count 294 x10^3/uL (140-400) Neutrophils (%) (Auto) 94 % (31-73) Lymphocytes (%) (Auto) 3 % (24-48) Monocytes (%) (Auto) 2 % (0-9) Eosinophils (%) (Auto) 0 % (0-3) Basophils (%) (Auto) 0 % (0-3) Neutrophils # (Auto) 15.2 x10^3uL (1.8-7.7) Lymphocytes # (Auto) 0.5 x10^3/uL (1.0-4.8) Monocytes # (Auto) 0.3 x10^3/uL (0.0-1.1) Eosinophils # (Auto) 0.0 x10^3/uL (0.0-0.7) Basophils # (Auto) 0.0 x10^3/uL (0.0-0.2) Sodium Level 136 mmol/L (136-145) Potassium Level 4.9 mmol/L (3.5-5.1) Chloride Level 100 mmol/L (98-107) Carbon Dioxide Level 27 mmol/L (21-32) Anion Gap 9 (6-14) Blood Urea Nitrogen 22 mg/dL (7-20) Creatinine 1.1 mg/dL (0.6-1.0) Estimated GFR (Cockcroft-Gault) 57.7 BUN/Creatinine Ratio 20 (6-20) Glucose Level 368 mg/dL (70-99) Calcium Level 10.0 mg/dL (8.5-10.1) Phosphorus Level 3.2 mg/dL (2.6-4.7) Magnesium Level 2.4 mg/dL (1.8-2.4) Total Bilirubin 0.6 mg/dL (0.2-1.0) Aspartate Amino Transf (AST/SGOT) 25 U/L (15-37) Alanine Aminotransferase (ALT/SGPT) 26 U/L (14-59) Alkaline Phosphatase 59 U/L (46-116) Total Protein 7.3 g/dL (6.4-8.2) Albumin 2.5 g/dL (3.4-5.0) Albumin/Globulin Ratio 0.5 (1.0-1.7) Test 04/23/17 08:12 Glucose (Fingerstick) 348 mg/dL (70-99) Medications Active Scripts Medications Dose Route/Sig Max Daily Dose Days Date Category Gabapentin 300 Mg Capsule 300 Mg PO QHS 04/14/17 Reported Famotidine 20 Mg Tablet 20 Mg PO HS 04/14/17 Reported Hydralazine Hcl 25 Mg Tablet 1 Tab PO TID 04/14/17 Reported Tylenol (Acetaminophen) 325 Mg Tablet 1-2 Tab PO TID 04/14/17 Reported Ranexa (Ranolazine) 500 Mg Tab.er.12h 1 Tab PO BID 04/14/17 Reported Aggrenox 25 Mg-200 Mg Capsule (Aspirin/Dipyridamole) 1 Each Cpmp.12hr 1 Cap PO BID 04/14/17 Reported Milk Of Magnesia (Magnesium Hydroxide) 400 Mg/5 Ml Oral.susp 30 Ml PO PRN PRN 04/14/17 Reported Loperamide (Loperamide Hcl) 2 Mg Capsule 4 Mg PO PRN PRN 04/14/17 Reported Baclofen 10 Mg Tablet 0.5 Tab PO PRN QHS PRN 04/14/17 Reported Anti-Diarrheal (Loperamide Hcl) 2 Mg Capsule 2 Mg PO PRN 04/14/17 Reported Sertraline Hcl 50 Mg Tablet 50 Mg PO DAILY 04/14/17 Reported Oxybutynin Chloride Er (Oxybutynin Chloride) 5 Mg Tab.er.24 1 Tab PO DAILY 04/14/17 Reported Metoprolol Succinate ( Xl ) (Metoprolol Succinate) 25 Mg Tab.er.24h 1 Tab PO DAILY 04/14/17 Reported Lisinopril 20 Mg Tablet 1 Tab PO DAILY 04/14/17 Reported Levothyroxine Sodium 100 Mcg Tablet 1 Tab PO DAILY 04/14/17 Reported Isosorbide Mononitrate Er (Isosorbide Mononitrate) 60 Mg Tab.er.24h 1 Tab PO DAILY 04/14/17 Reported Furosemide 40 Mg Tablet 1 Tab PO DAILY 04/14/17 Reported Zetia (Ezetimibe) 10 Mg Tablet 1 Tab PO DAILY 04/14/17 Reported Chlorthalidone 25 Mg Tablet 1 Tab PO DAILY 04/14/17 Reported Comments IMPRESSION: mild CHF 04/21 CTA/ small basal effusions/ atelectasis Impression . 1. Acute respiratory failure, present upon admission, multifactorial/acute CHF and pneumonia, extubated/ now with wheezing and paradoxical breathing 2. Metabolic acidosis, suspect secondary to possible infection.improved 3. Abdominal pain. CT revealing abdominal aortic aneurysm 6.6 cm and possible appendicitis. 4. Possible appendicitis. 5. Sepsis, present upon admission. Lactic acidosis improved 6. Atrial flutter. 7. Coronary artery disease. 8. Cerebrovascular accident. 9. Hypertension. 10. 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 1. low dose ativan, use prn haldol/ refuses BIPAP. will try after low dose ativan/ not a good candidate for invasive procedures at present 2. Empiric antibiotics.ID following. no new infiltrates on CXR/ CTA 3. Follow Cardiology and Cardiovascular input. 4. Nasal canula 5. Nephrology rec 6. f/u CXR as needed 7. Diuresis 8. d/w daughter in detail. she is not a candidate for any invasive procedure. I recommended hospice. daughter agrees. cancel cath. prn ativan d/w SUNITA Dutton MD Apr 23, 2017 12:38
[2017-04-23] MEDS: MICAFUNGIN 100 MG in IV NORMAL SALINE 100ML 100 ML IV SCH (12:55)
[2017-04-23] MEDS: TPN PER PHARMACY MC PRN ×2 (13:52→13:55)
[2017-04-23] MEDS ORDERED: DIGOXIN IV 500 MCG/2 ML AMPUL. IV ONE (17:00)
--- NOTE | 2017-04-23 17:47 | PN ---
DATE: 04/23/2017 SUBJECTIVE: The patient is resting slightly propped up in bed, no apparent distress, awake, alert. On questioning her, denies any complaint, in particular with any chest pain, shortness of breath. Apparently, her family have changed their mind and decided to avoid any invasive procedures and decided on hospice and comfort care. Her daughter agreed to hospice care. Her cardiac catheterization was canceled and she was started on Ativan and morphine for comfort care. We will arrange for her to be discharged to a residential of the family's choice to go on hospice for end of life care. PHYSICAL EXAMINATION: GENERAL: When I saw her this morning, she looked well and was clearly in no apparent respiratory distress, pale. No jaundice, cyanosis, or thyromegaly. No jugular venous distention. No limb edema. VITAL SIGNS: Her heart rate was 70, blood pressure 148/74, temperature was 97.5, respiratory rate 22, and oxygen saturation was 99% on 3 liters of oxygen. HEAD, EYES, EARS, NOSE AND THROAT: Showed normocephalic, atraumatic. NECK: Supple. HEART: Showed normal first and second sounds. No gallop, rub or murmur. CHEST: Clear to auscultation. No crepitation or rhonchi. ABDOMEN: Slightly distended, soft, nontender. No guarding or rigidity. No organomegaly with hernial orifice intact. Bowel sounds normal. NEUROLOGIC: She was awake, alert, responding appropriately. Cranial nerves intact. She moves extremities without difficulty, although she is mostly bed bound. Her intake was 1389, output was 3155. LABORATORY DATA: As of this morning, her serum sodium was 136, potassium 4.9, chloride 100, bicarbonate 27, anion gap of 9, BUN 22, creatinine 1.1, estimated GFR was 58 mL per minute. Her glucose was 168, calcium was 10, phosphorus 3.2, magnesium 2.4. Total bilirubin, AST, ALT, alkaline phosphatase were normal. Total protein 7.3, albumin was 2.5. White cell count was 16,000, hemoglobin 9.7, hematocrit 30, MCV 100, and platelet count 294,000. ASSESSMENT: 1. Acute respiratory failure, multifactorial including acute congestive heart failure, pneumonia. 2. Metabolic acidosis with lactic acidosis and possible appendicitis versus pneumonia. 3. Abdominal pain and CT scan revealing abdominal aortic aneurysm 6.6 cm with possible appendicitis. 4. Sepsis present on admission with lactic acidosis has improved. 5. Atrial fibrillation, rate controlled; coronary artery disease; hypertension; cardiomyopathy with ejection fraction 40%. PLAN: To basically continue with comfort care. The patient to continue with IV antibiotic for now. She is on Ativan and morphine. If arrangements can be made for her to go to a residential, we will discharge her. Most likely she would be here until Tuesday. FAUSTO BATEMAN MD DR: EDGAR/ivan JOB#: [id number] / [id number]
[2017-04-23] MEDS ORDERED: DEXTROSE 50% 25 GM / 50ML DISP.SYRIN. IV PRN (19:30)
[2017-04-23] MEDS: ATORVASTATIN CALCIUM 20 MG TABLET PO SCH (21:00)
[2017-04-23] MEDS: INSULIN DETEMIR 300 UNITS/3 ML INSULN.PEN. SQ SCH (21:24)
[2017-04-23] MEDS ORDERED: [UNRECOGNIZED DRUG - OTHER] IV SCH ×11 (22:00)
[2017-04-23] MEDS ORDERED: AMINO ACIDS IV SCH ×11 (22:00)
[2017-04-23] MEDS ORDERED: TOTAL PARENTERAL NUTRITION IV SCH ×11 (22:00)
[2017-04-23] MEDS ORDERED: DEXTROSE 70% IV SCH ×11 (22:00)
[2017-04-24] VITALS (24 sets, daily range): BP systolic 117–181; BP diastolic 71–103
[2017-04-24] MEDS: hydrALAZINE 20 MG/ML VIAL. IVP PRN ×2 (02:19→08:46)
[2017-04-24] MEDS: HALOPERIDOL LACTATE 5 MG/ML VIAL. IVP PRN (05:33)
[2017-04-24] MEDS: methylPREDNISolone SOD SUCC PF 125 MG/2 ML VIAL. IV SCH ×3 (05:33→21:14)
[2017-04-24] MEDS: PIPERACILLIN/TAZO IV Push 3.375 GM VIAL. IVP SCH ×3 (05:34→18:06)
[2017-04-24] MEDS: METOPROLOL TARTRATE 5 MG/5 ML VIAL. IVP SCH ×3 (05:34→18:05)
[2017-04-24] MEDS: INSULIN ASPART 300 UNITS/3 ML INSULN.PEN SQ SCH ×3 (05:35→18:17)
[2017-04-24 06:23] LABS: CALCIUM 11.2 mg/dL (8.5-10.1); CREATININE 1.2 mg/dL (0.6-1.0); GFR 52.2; POTASSIUM 4.6 mmol/L (3.5-5.1)
[2017-04-24] MEDS ORDERED: INSULIN ASPART 300 UNITS/3 ML INSULN.PEN SQ SCH (08:00)
--- NOTE | 2017-04-24 08:25 | RAD ---
AP PORTABLE CHEST Clinical Indication: Respiratory failure. Comparison: AP chest, prior day. Findings: Stable right IJ central line, tip in upper right atrium. Stable median sternotomy wires. Cardiomegaly is stable. Mild interstitial edema is unchanged. Left basilar airspace disease. No obvious pleural effusion. No pneumothorax. Bones appear stable. IMPRESSION: 1. Unchanged mild interstitial edema. 2. Left basilar airspace disease.
[2017-04-24] MEDS: IPRATRPIUM/ALBUTEROL 0.5/2.5MG 3 ML NEBU. NEB SCH ×4 (09:23→20:28)
[2017-04-24] MEDS: FUROSEMIDE 20 MG/2 ML VIAL. IVP SCH (09:40)
--- NOTE | 2017-04-24 10:17 | PDOC ---
PULMONARY PROGRESS NOTES Subjective extubated 04/18 on nasal canula paradoxical breathing/ wheezing improved with BIPAP and ativan/ off BIPAP Vitals Vital Signs Date Time Temp Pulse Resp B/P (MAP) Pulse Ox O2 Delivery O2 Flow Rate FiO2 04/24/17 09:23 97 Nasal Cannula 2.0 04/24/17 09:00 81 29 169/73 (105) 04/24/17 08:00 97.8 97.8 General: Confused Lungs: Other (faint wheezes) Cardiovascular: S1, S2 Abdomen: Soft Extremities: No Edema Skin: Warm Labs Laboratory Tests Test 04/22/17 17:41 04/23/17 00:09 04/23/17 05:30 04/23/17 05:34 Glucose (Fingerstick) 236 mg/dL (70-99) 301 mg/dL (70-99) 327 mg/dL (70-99) White Blood Count 16.1 x10^3/uL (4.0-11.0) Red Blood Count 3.03 x10^6/uL (3.50-5.40) Hemoglobin 9.7 g/dL (12.0-15.5) Hematocrit 30.2 % (36.0-47.0) Mean Corpuscular Volume 100 fL (79-100) Mean Corpuscular Hemoglobin 32 pg (25-35) Mean Corpuscular Hemoglobin Concent 32 g/dL (31-37) Red Cell Distribution Width 14.4 % (11.5-14.5) Platelet Count 294 x10^3/uL (140-400) Neutrophils (%) (Auto) 94 % (31-73) Lymphocytes (%) (Auto) 3 % (24-48) Monocytes (%) (Auto) 2 % (0-9) Eosinophils (%) (Auto) 0 % (0-3) Basophils (%) (Auto) 0 % (0-3) Neutrophils # (Auto) 15.2 x10^3uL (1.8-7.7) Lymphocytes # (Auto) 0.5 x10^3/uL (1.0-4.8) Monocytes # (Auto) 0.3 x10^3/uL (0.0-1.1) Eosinophils # (Auto) 0.0 x10^3/uL (0.0-0.7) Basophils # (Auto) 0.0 x10^3/uL (0.0-0.2) Sodium Level 136 mmol/L (136-145) Potassium Level 4.9 mmol/L (3.5-5.1) Chloride Level 100 mmol/L (98-107) Carbon Dioxide Level 27 mmol/L (21-32) Anion Gap 9 (6-14) Blood Urea Nitrogen 22 mg/dL (7-20) Creatinine 1.1 mg/dL (0.6-1.0) Estimated GFR (Cockcroft-Gault) 57.7 BUN/Creatinine Ratio 20 (6-20) Glucose Level 368 mg/dL (70-99) Calcium Level 10.0 mg/dL (8.5-10.1) Phosphorus Level 3.2 mg/dL (2.6-4.7) Magnesium Level 2.4 mg/dL (1.8-2.4) Total Bilirubin 0.6 mg/dL (0.2-1.0) Aspartate Amino Transf (AST/SGOT) 25 U/L (15-37) Alanine Aminotransferase (ALT/SGPT) 26 U/L (14-59) Alkaline Phosphatase 59 U/L (46-116) Total Protein 7.3 g/dL (6.4-8.2) Albumin 2.5 g/dL (3.4-5.0) Albumin/Globulin Ratio 0.5 (1.0-1.7) Test 04/23/17 08:12 04/23/17 13:11 04/23/17 18:10 04/23/17 23:26 Glucose (Fingerstick) 348 mg/dL (70-99) 334 mg/dL (70-99) 392 mg/dL (70-99) 408 mg/dL (70-99) Test 04/24/17 05:28 04/24/17 05:30 Glucose (Fingerstick) 337 mg/dL (70-99) Sodium Level 139 mmol/L (136-145) Potassium Level 4.6 mmol/L (3.5-5.1) Chloride Level 101 mmol/L (98-107) Carbon Dioxide Level 27 mmol/L (21-32) Anion Gap 11 (6-14) Blood Urea Nitrogen 28 mg/dL (7-20) Creatinine 1.2 mg/dL (0.6-1.0) Estimated GFR (Cockcroft-Gault) 52.2 Glucose Level 347 mg/dL (70-99) Calcium Level 11.2 mg/dL (8.5-10.1) Laboratory Tests Test 04/23/17 13:11 04/23/17 18:10 04/23/17 23:26 04/24/17 05:28 Glucose (Fingerstick) 334 mg/dL (70-99) 392 mg/dL (70-99) 408 mg/dL (70-99) 337 mg/dL (70-99) Test 04/24/17 05:30 Sodium Level 139 mmol/L (136-145) Potassium Level 4.6 mmol/L (3.5-5.1) Chloride Level 101 mmol/L (98-107) Carbon Dioxide Level 27 mmol/L (21-32) Anion Gap 11 (6-14) Blood Urea Nitrogen 28 mg/dL (7-20) Creatinine 1.2 mg/dL (0.6-1.0) Estimated GFR (Cockcroft-Gault) 52.2 Glucose Level 347 mg/dL (70-99) Calcium Level 11.2 mg/dL (8.5-10.1) Medications Active Scripts Medications Dose Route/Sig Max Daily Dose Days Date Category Gabapentin 300 Mg Capsule 300 Mg PO QHS 04/14/17 Reported Famotidine 20 Mg Tablet 20 Mg PO HS 04/14/17 Reported Hydralazine Hcl 25 Mg Tablet 1 Tab PO TID 04/14/17 Reported Tylenol (Acetaminophen) 325 Mg Tablet 1-2 Tab PO TID 04/14/17 Reported Ranexa (Ranolazine) 500 Mg Tab.er.12h 1 Tab PO BID 04/14/17 Reported Aggrenox 25 Mg-200 Mg Capsule (Aspirin/Dipyridamole) 1 Each Cpmp.12hr 1 Cap PO BID 04/14/17 Reported Milk Of Magnesia (Magnesium Hydroxide) 400 Mg/5 Ml Oral.susp 30 Ml PO PRN PRN 04/14/17 Reported Loperamide (Loperamide Hcl) 2 Mg Capsule 4 Mg PO PRN PRN 04/14/17 Reported Baclofen 10 Mg Tablet 0.5 Tab PO PRN QHS PRN 04/14/17 Reported Anti-Diarrheal (Loperamide Hcl) 2 Mg Capsule 2 Mg PO PRN 04/14/17 Reported Sertraline Hcl 50 Mg Tablet 50 Mg PO DAILY 04/14/17 Reported Oxybutynin Chloride Er (Oxybutynin Chloride) 5 Mg Tab.er.24 1 Tab PO DAILY 04/14/17 Reported Metoprolol Succinate ( Xl ) (Metoprolol Succinate) 25 Mg Tab.er.24h 1 Tab PO DAILY 04/14/17 Reported Lisinopril 20 Mg Tablet 1 Tab PO DAILY 04/14/17 Reported Levothyroxine Sodium 100 Mcg Tablet 1 Tab PO DAILY 04/14/17 Reported Isosorbide Mononitrate Er (Isosorbide Mononitrate) 60 Mg Tab.er.24h 1 Tab PO DAILY 04/14/17 Reported Furosemide 40 Mg Tablet 1 Tab PO DAILY 04/14/17 Reported Zetia (Ezetimibe) 10 Mg Tablet 1 Tab PO DAILY 04/14/17 Reported Chlorthalidone 25 Mg Tablet 1 Tab PO DAILY 04/14/17 Reported Comments IMPRESSION: mild CHF 04/21 CTA/ small basal effusions/ atelectasis Impression . 1. Acute respiratory failure, present upon admission, multifactorial/acute CHF and pneumonia, extubated/ now with wheezing and paradoxical breathing 2. Metabolic acidosis, suspect secondary to possible infection.improved 3. Abdominal pain. CT revealing abdominal aortic aneurysm 6.6 cm and possible appendicitis. 4. Possible appendicitis. 5. Sepsis, present upon admission. Lactic acidosis improved 6. Atrial flutter. 7. Coronary artery disease. 8. Cerebrovascular accident. 9. Hypertension. 10. 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 1. low dose prn ativan, use prn haldol/prn BIPAP. not a good candidate for invasive procedures at present 2. Empiric antibiotics.ID following. no new infiltrates on CXR/ CTA 3. Follow Cardiology and Cardiovascular input. 4. Nasal canula 5. Nephrology rec 6. f/u CXR as needed 7. Diuresis 8. d/w daughter in detail 04/22. she is not a candidate for any invasive procedure. I recommended hospice. daughter agrees. cancelled cath. prn ativan d/w Dr Gold. awaiting placement SUNITA JASON MD Apr 24, 2017 10:17
[2017-04-24] MEDS: TPN PER PHARMACY MC PRN (11:44)
[2017-04-24] MEDS: MICAFUNGIN 100 MG in IV NORMAL SALINE 100ML 100 ML IV SCH (12:58)
[2017-04-24] MEDS: ATORVASTATIN CALCIUM 20 MG TABLET PO SCH (21:00)
[2017-04-24] MEDS: INSULIN DETEMIR 300 UNITS/3 ML INSULN.PEN. SQ SCH (21:19)
[2017-04-24] MEDS ORDERED: [UNRECOGNIZED DRUG - OTHER] IV SCH ×11 (22:00)
[2017-04-24] MEDS ORDERED: TOTAL PARENTERAL NUTRITION IV SCH ×11 (22:00)
[2017-04-24] MEDS ORDERED: DEXTROSE 70% IV SCH ×11 (22:00)
[2017-04-24] MEDS ORDERED: AMINO ACIDS IV SCH ×11 (22:00)
--- NOTE | 2017-04-24 22:37 | PN ---
DATE: 04/24/2017 SUBJECTIVE: The patient is resting flat, comfortably in bed, no apparent distress, sleepy, but arousable. Questioning her, denied any complaint. In particular, denied any chest pain, shortness of breath, abdominal pain. OBJECTIVE: GENERAL: On examining her, she looked well and was clearly in no apparent respiratory distress, pale. No jaundice, cyanosis or thyromegaly. No jugular venous distention. No lower limb edema. VITAL SIGNS: Her heart rate was 81, blood pressure was 168/73, temperature was 97.8, respiratory rate 29, oxygen saturation was 96% on 2 liters oxygen by nasal cannula. The rest of clinical examination is unremarkable, has not really changed. Her intake over the last 24 hours 1626, output was 2095. LABORATORY DATA: Chemistry this morning showed a serum sodium 139, potassium 4.6, chloride 101, bicarbonate 27, anion gap of 11, BUN 28, creatinine 1.2, estimated GFR was 62 mL per minute. Her glucose was 347 and calcium was 11.2. ASSESSMENT: 1. Acute respiratory failure, multifactorial including acute congestive heart failure/pneumonia. 2. Metabolic acidosis, lactic acidosis and possible appendicitis versus pneumonia. 3. Abdominal pain. CT scan revealing abdominal aortic aneurysm 6.6 cm with possible appendicitis. 4. Sepsis present on admission with lactic acidosis, has improved. 5. Atrial fibrillation, rate controlled. 6. Coronary artery disease. 7. Hypertension. 8. Cardiomyopathy, ejection fraction of 40%. PLAN: To basically continue with comfort care. The patient is to continue with IV antibiotic for now. She is on Ativan and morphine. Arrangement will be made tomorrow for her to be transferred to a custodial for her to go on hospice and end-of-life care. FAUSTO BATEMAN MD DR: EDGAR/ivan JOB#: [id number] / [id number]
[2017-04-25] VITALS (9 sets, daily range): BP systolic 137–187; BP diastolic 78–110
[2017-04-25] MEDS: METOPROLOL TARTRATE 5 MG/5 ML VIAL. IVP SCH ×3 (00:01→12:00)
[2017-04-25] MEDS: PIPERACILLIN/TAZO IV Push 3.375 GM VIAL. IVP SCH ×3 (00:01→12:00)
[2017-04-25] MEDS ORDERED: INSULIN DETEMIR 300 UNITS/3 ML INSULN.PEN. SQ ONE (00:15)
[2017-04-25] MEDS ORDERED: INSULIN ASPART 300 UNITS/3 ML INSULN.PEN SQ ONE (00:15)
[2017-04-25] MEDS: methylPREDNISolone SOD SUCC PF 125 MG/2 ML VIAL. IV SCH ×2 (06:06→14:00)
[2017-04-25] MEDS: INSULIN ASPART 300 UNITS/3 ML INSULN.PEN SQ SCH ×3 (06:13→12:00)
[2017-04-25 07:01] LABS: ALBUMIN/GLOBULIN RATIO 0.6 (1.0-1.7); CALCIUM 11.3 mg/dL (8.5-10.1); CREATININE 1.3 mg/dL (0.6-1.0); GFR 47.6; MAGNESIUM 1.7 mg/dL (1.8-2.4); PHOSPHORUS 3.2 mg/dL (2.6-4.7); TOTAL BILIRUBIN 0.8 mg/dL (0.2-1.0)
--- NOTE | 2017-04-25 07:59 | RAD ---
EXAM: Chest one view. HISTORY: Respiratory failure. COMPARISON: 04/24/2017. FINDINGS: A frontal view of the chest is obtained. There is rotation to the right. There are changes of coronary artery bypass grafting. A right internal jugular central venous catheter has its tip in the superior cavoatrial junction. Mild interstitial opacities in the bases may indicate atelectasis or mild edema. There is no pneumothorax or pleural effusion. The heart is mildly enlarged. IMPRESSION: 1. Basilar atelectasis versus mild edema. Mild cardiomegaly.
[2017-04-25] MEDS: TPN PER PHARMACY MC PRN (08:11)
[2017-04-25] MEDS: IPRATRPIUM/ALBUTEROL 0.5/2.5MG 3 ML NEBU. NEB SCH ×3 (08:34→16:38)
--- NOTE | 2017-04-25 08:59 | PDOC ---
Infectious Disease Note Subjective Subjective Denies pain No fever feeling little better ROS ROS no n/v/d/pain/sob Vital Sign Vital Signs Vital Signs Date Time Temp Pulse Resp B/P (MAP) Pulse Ox O2 Delivery O2 Flow Rate FiO2 04/25/17 08:35 97 Nasal Cannula 2.0 04/25/17 06:06 75 182/104 04/25/17 06:00 30 04/25/17 04:00 98.7 98.7 Physical Exam PHYSICAL EXAM GENERAL: NAD, Alert HEENT: PERRL, OC/OP NECK: Supple, no JVD, no LN LUNGS: Clear HEART: S1S2, no gallop, no murmur ABD: Soft, NT, no organomegaly, no rebound EXT: No edema, no cyanosis OPERATING ROOM ASSISTANT: Alert, oriented x 3, no focal neurologic deficit SKIN: No rash IV: ok Labs Lab Laboratory Tests Test 04/24/17 12:08 04/24/17 18:09 04/24/17 21:17 04/25/17 00:04 Glucose (Fingerstick) 337 mg/dL (70-99) 394 mg/dL (70-99) 331 mg/dL (70-99) 361 mg/dL (70-99) Test 04/25/17 06:09 04/25/17 06:10 Glucose (Fingerstick) 317 mg/dL (70-99) Sodium Level 140 mmol/L (136-145) Potassium Level 4.0 mmol/L (3.5-5.1) Chloride Level 102 mmol/L (98-107) Carbon Dioxide Level 27 mmol/L (21-32) Anion Gap 11 (6-14) Blood Urea Nitrogen 30 mg/dL (7-20) Creatinine 1.3 mg/dL (0.6-1.0) Estimated GFR (Cockcroft-Gault) 47.6 BUN/Creatinine Ratio 23 (6-20) Glucose Level 340 mg/dL (70-99) Calcium Level 11.3 mg/dL (8.5-10.1) Phosphorus Level 3.2 mg/dL (2.6-4.7) Magnesium Level 1.7 mg/dL (1.8-2.4) Total Bilirubin 0.8 mg/dL (0.2-1.0) Aspartate Amino Transf (AST/SGOT) 118 U/L (15-37) Alanine Aminotransferase (ALT/SGPT) 102 U/L (14-59) Alkaline Phosphatase 77 U/L (46-116) Total Protein 8.0 g/dL (6.4-8.2) Albumin 3.0 g/dL (3.4-5.0) Albumin/Globulin Ratio 0.6 (1.0-1.7) Objective Assessment Leukocytosis - ? reactive vs ID. Acute Encephalopathy ? Appendicitis Resp failure - possible aspiration - extubated AAA 6.6 cm BRUNILDA on admit - better Aflutter Plan Plan of Care Zosyn and Micafungin BC NGTD C. digg neg (04/18) Family leaning towards hospice, D/w MALISSA CALVIN MD Apr 25, 2017 08:59
[2017-04-25] MEDS: FUROSEMIDE 20 MG/2 ML VIAL. IVP SCH (10:15)
--- NOTE | 2017-04-25 11:51 | PDOC ---
Provider Note Provider Note Vascular follow-up: Patient's extubated. No abdominal complaints. She has a 6.6 cm asymptomatic infrarenal abdominal aortic aneurysm. discussed options for treatment. I think we should allow her to continue to recover from her acute respiratory failure. Follow up in our office in 3 - 4 . Would be a candidate for endovascular therapy with some modifications. Because of her respiratory disease,I do not think that she is a good candidate for an open aneurysm repair. ROMÁN VALENCIA MD Apr 25, 2017 11:51
[2017-04-25] MEDS: MICAFUNGIN 100 MG in IV NORMAL SALINE 100ML 100 ML IV SCH (13:00)
--- NOTE | 2017-04-25 13:12 | PDOC ---
PULMONARY PROGRESS NOTES Subjective PT WITH NO INCREASE SOA ON R/A SAT 95% Vitals Vital Signs Date Time Temp Pulse Resp B/P (MAP) Pulse Ox O2 Delivery O2 Flow Rate FiO2 04/25/17 12:20 96 Nasal Cannula 2.0 04/25/17 06:06 75 182/104 04/25/17 06:00 30 04/25/17 04:00 98.7 98.7 ROS: No Nausea, No Chest Pain, No Abdominal Pain, No Increase Cough General: Alert Lungs: Clear, Crackles Cardiovascular: S1, S2 Abdomen: Soft, Non-tender Neuro Exam: Alert Extremities: No Edema Skin: Warm Labs Laboratory Tests Test 04/23/17 13:11 04/23/17 18:10 04/23/17 23:26 04/24/17 05:28 Glucose (Fingerstick) 334 mg/dL (70-99) 392 mg/dL (70-99) 408 mg/dL (70-99) 337 mg/dL (70-99) Test 04/24/17 05:30 04/24/17 12:08 04/24/17 18:09 04/24/17 21:17 Sodium Level 139 mmol/L (136-145) Potassium Level 4.6 mmol/L (3.5-5.1) Chloride Level 101 mmol/L (98-107) Carbon Dioxide Level 27 mmol/L (21-32) Anion Gap 11 (6-14) Blood Urea Nitrogen 28 mg/dL (7-20) Creatinine 1.2 mg/dL (0.6-1.0) Estimated GFR (Cockcroft-Gault) 52.2 Glucose Level 347 mg/dL (70-99) Calcium Level 11.2 mg/dL (8.5-10.1) Glucose (Fingerstick) 337 mg/dL (70-99) 394 mg/dL (70-99) 331 mg/dL (70-99) Test 04/25/17 00:04 04/25/17 06:09 04/25/17 06:10 Glucose (Fingerstick) 361 mg/dL (70-99) 317 mg/dL (70-99) Sodium Level 140 mmol/L (136-145) Potassium Level 4.0 mmol/L (3.5-5.1) Chloride Level 102 mmol/L (98-107) Carbon Dioxide Level 27 mmol/L (21-32) Anion Gap 11 (6-14) Blood Urea Nitrogen 30 mg/dL (7-20) Creatinine 1.3 mg/dL (0.6-1.0) Estimated GFR (Cockcroft-Gault) 47.6 BUN/Creatinine Ratio 23 (6-20) Glucose Level 340 mg/dL (70-99) Calcium Level 11.3 mg/dL (8.5-10.1) Phosphorus Level 3.2 mg/dL (2.6-4.7) Magnesium Level 1.7 mg/dL (1.8-2.4) Total Bilirubin 0.8 mg/dL (0.2-1.0) Aspartate Amino Transf (AST/SGOT) 118 U/L (15-37) Alanine Aminotransferase (ALT/SGPT) 102 U/L (14-59) Alkaline Phosphatase 77 U/L (46-116) Total Protein 8.0 g/dL (6.4-8.2) Albumin 3.0 g/dL (3.4-5.0) Albumin/Globulin Ratio 0.6 (1.0-1.7) Laboratory Tests Test 04/24/17 18:09 04/24/17 21:17 04/25/17 00:04 04/25/17 06:09 Glucose (Fingerstick) 394 mg/dL (70-99) 331 mg/dL (70-99) 361 mg/dL (70-99) 317 mg/dL (70-99) Test 04/25/17 06:10 Sodium Level 140 mmol/L (136-145) Potassium Level 4.0 mmol/L (3.5-5.1) Chloride Level 102 mmol/L (98-107) Carbon Dioxide Level 27 mmol/L (21-32) Anion Gap 11 (6-14) Blood Urea Nitrogen 30 mg/dL (7-20) Creatinine 1.3 mg/dL (0.6-1.0) Estimated GFR (Cockcroft-Gault) 47.6 BUN/Creatinine Ratio 23 (6-20) Glucose Level 340 mg/dL (70-99) Calcium Level 11.3 mg/dL (8.5-10.1) Phosphorus Level 3.2 mg/dL (2.6-4.7) Magnesium Level 1.7 mg/dL (1.8-2.4) Total Bilirubin 0.8 mg/dL (0.2-1.0) Aspartate Amino Transf (AST/SGOT) 118 U/L (15-37) Alanine Aminotransferase (ALT/SGPT) 102 U/L (14-59) Alkaline Phosphatase 77 U/L (46-116) Total Protein 8.0 g/dL (6.4-8.2) Albumin 3.0 g/dL (3.4-5.0) Albumin/Globulin Ratio 0.6 (1.0-1.7) Medications Active Scripts Medications Dose Route/Sig Max Daily Dose Days Date Category Gabapentin 300 Mg Capsule 300 Mg PO QHS 04/14/17 Reported Famotidine 20 Mg Tablet 20 Mg PO HS 04/14/17 Reported Hydralazine Hcl 25 Mg Tablet 1 Tab PO TID 04/14/17 Reported Tylenol (Acetaminophen) 325 Mg Tablet 1-2 Tab PO TID 04/14/17 Reported Ranexa (Ranolazine) 500 Mg Tab.er.12h 1 Tab PO BID 04/14/17 Reported Aggrenox 25 Mg-200 Mg Capsule (Aspirin/Dipyridamole) 1 Each Cpmp.12hr 1 Cap PO BID 04/14/17 Reported Milk Of Magnesia (Magnesium Hydroxide) 400 Mg/5 Ml Oral.susp 30 Ml PO PRN PRN 04/14/17 Reported Loperamide (Loperamide Hcl) 2 Mg Capsule 4 Mg PO PRN PRN 04/14/17 Reported Baclofen 10 Mg Tablet 0.5 Tab PO PRN QHS PRN 04/14/17 Reported Anti-Diarrheal (Loperamide Hcl) 2 Mg Capsule 2 Mg PO PRN 04/14/17 Reported Sertraline Hcl 50 Mg Tablet 50 Mg PO DAILY 04/14/17 Reported Oxybutynin Chloride Er (Oxybutynin Chloride) 5 Mg Tab.er.24 1 Tab PO DAILY 04/14/17 Reported Metoprolol Succinate ( Xl ) (Metoprolol Succinate) 25 Mg Tab.er.24h 1 Tab PO DAILY 04/14/17 Reported Lisinopril 20 Mg Tablet 1 Tab PO DAILY 04/14/17 Reported Levothyroxine Sodium 100 Mcg Tablet 1 Tab PO DAILY 04/14/17 Reported Isosorbide Mononitrate Er (Isosorbide Mononitrate) 60 Mg Tab.er.24h 1 Tab PO DAILY 04/14/17 Reported Furosemide 40 Mg Tablet 1 Tab PO DAILY 04/14/17 Reported Zetia (Ezetimibe) 10 Mg Tablet 1 Tab PO DAILY 04/14/17 Reported Chlorthalidone 25 Mg Tablet 1 Tab PO DAILY 04/14/17 Reported Comments Impression . 1. Acute respiratory failure, present upon admission, multifactorial/acute CHF and pneumonia 2. Metabolic acidosis, suspect secondary to possible infection.improved 3. Abdominal pain. CT revealing abdominal aortic aneurysm 6.6 cm 4. Possible appendicitis. 5. Sepsis, present upon admission. Lactic acidosis improved 6. Atrial flutter. 7. Coronary artery disease. 8. Cerebrovascular accident. 9. Hypertension. 10. Cardiomyopathy 40% 11. TOXIC/METABOLIC IMPROVED Plan . PT TO TRANSFER TODAY 1. EXTUBATED 2. Empiric antibiotics.ID following. no new infiltrates on CXR/ CTA 3. Follow Cardiology and Cardiovascular input. 4. Nasal canula 5. Nephrology rec SWATHI OROZCO MD Apr 25, 2017 13:12
== END 2017-04-25 18:00 | disposition hospice, inpatient (51) | DRG 871 ==
LOC: ER 11:33 → 1 WEST ICU 13:45
PROVIDERS: ADMIT Internal Medicine; ATTEND Internal Medicine
PROC: 5A1945Z Respiratory Ventilation, 24-96 Consecutive Hours (ICD-10-PCS; principal; 2017-04-16)
PROC: 0BH17EZ Insertion of Endotracheal Airway into Trachea, Via Natural or Artificial Opening (ICD-10-PCS; 2017-04-16)
PROC: 0D9670Z Drainage of Stomach with Drainage Device, Via Natural or Artificial Opening (ICD-10-PCS; 2017-04-16)
PROC: 5A09357 Assistance with Respiratory Ventilation, Less than 24 Consecutive Hours, Continuous Positive Airway Pressure (ICD-10-PCS; 2017-04-18)
PROC: 02HV33Z Insertion of Infusion Device into Superior Vena Cava, Percutaneous Approach (ICD-10-PCS; 2017-04-19)
PROC: B548ZZA Ultrasonography of Superior Vena Cava, Guidance (ICD-10-PCS; 2017-04-19)
PROC: 5A09357 Assistance with Respiratory Ventilation, Less than 24 Consecutive Hours, Continuous Positive Airway Pressure (ICD-10-PCS; 2017-04-19)
PROC: 5A09357 Assistance with Respiratory Ventilation, Less than 24 Consecutive Hours, Continuous Positive Airway Pressure (ICD-10-PCS; 2017-04-20)
PROC: 3E0336Z Introduction of Nutritional Substance into Peripheral Vein, Percutaneous Approach (ICD-10-PCS; 2017-04-21)
DX: A41.9 Sepsis, unspecified organism (principal); N17.0 Acute kidney failure with tubular necrosis; J96.01 Acute respiratory failure with hypoxia; G93.40 Encephalopathy, unspecified; I50.23 Acute on chronic systolic (congestive) heart failure; J18.9 Pneumonia, unspecified organism; K55.9 Vascular disorder of intestine, unspecified; E87.2 Acidosis; I13.0 Hypertensive heart and chronic kidney disease with heart failure and stage 1 through stage 4 chronic kidney disease, or unspecified chronic kidney disease; I42.9 Cardiomyopathy, unspecified; J98.11 Atelectasis; K35.80 Unspecified acute appendicitis; E83.39 Other disorders of phosphorus metabolism; E83.42 Hypomagnesemia; I71.4 Abdominal aortic aneurysm, without rupture; D53.9 Nutritional anemia, unspecified; E03.9 Hypothyroidism, unspecified; E78.00 Pure hypercholesterolemia, unspecified; E78.5 Hyperlipidemia, unspecified; E87.6 Hypokalemia; F03.90 Unspecified dementia, unspecified severity, without behavioral disturbance, psychotic disturbance, mood disturbance, and anxiety; F17.200 Nicotine dependence, unspecified, uncomplicated; G89.29 Other chronic pain; I25.10 Atherosclerotic heart disease of native coronary artery without angina pectoris; I48.0 Paroxysmal atrial fibrillation; I44.7 Left bundle-branch block, unspecified; J98.01 Acute bronchospasm; K21.9 Gastro-esophageal reflux disease without esophagitis; K38.1 Appendicular concretions; E66.9 Obesity, unspecified; Z51.5 Encounter for palliative care; N18.9 Chronic kidney disease, unspecified; F32.9 Major depressive disorder, single episode, unspecified; F41.9 Anxiety disorder, unspecified; Z98.61 Coronary angioplasty status; Z95.1 Presence of aortocoronary bypass graft; Z86.73 Personal history of transient ischemic attack (TIA), and cerebral infarction without residual deficits; Z85.43 Personal history of malignant neoplasm of ovary; Z82.49 Family history of ischemic heart disease and other diseases of the circulatory system; I25.2 Old myocardial infarction; Z79.899 Other long term (current) drug therapy; Z68.29 Body mass index [BMI] 29.0-29.9, adult; Z88.5 Allergy status to narcotic agent; Z90.49 Acquired absence of other specified parts of digestive tract; Z90.710 Acquired absence of both cervix and uterus
CPT/HCPCS: 36415; 36556; 36600; 51701; 71010; 74000; 74174; 74176; 76937; 80048; 80053; 80061; 80069; 80076; 81001; 82550; 82553; 82805; 82962; 83605; 83615; 83690; 83735; 84100; 84132; 84145; 84443; 84478; 84484; 85007; 85025; 85027; 85610; 85730; 86140; 86850; 86900; 86901; 86920; 87040; 87324; 87641; 93005; 93306; 93925; 94003; 94250; 94640; 94660; 96361; 96374; 96375; 96376; C1892; J0330; J0360; J1160; J1630; J1815; J1940; J2060; J2248; J2405; J2543; J2550; J2704; J2765; J2930; J3010; J3475; J3480; J3490; J7030; J7060; J7613; J7620; 92526; 92610; 99291-25